=== PATIENT | male | born 1950 | race Caucasian/White ===

== ENCOUNTER → 2018-02-04 07:53 | Outpatient (CLI) | payer MEDICARE, SELFPAY | PROVIDERS: Family Provider Internal Medicine; PCP Internal Medicine; Visit Provider Nurse Practitioner Adult Health | DX: R97.20 Elevated prostate specific antigen [PSA] (principal) | CPT/HCPCS: 36415; 84153 ==

== ENCOUNTER → 2018-06-12 11:48 | Outpatient (CLI) | payer MEDICARE, SELFPAY ==
--- NOTE | 2018-06-12 11:51 | CT_ITS ---
STUDY: CT ABDOMEN AND PELVIS WITHOUT CONTRAST REASON FOR EXAM: Male, 67 years old. Left flank pain with hematuria RADIATION DOSAGE (If Supplied By Facility): CTDIvol = ( 11.82 ) mGy, DLP = ( 526.80 ) mGycm TECHNIQUE: Transaxial images were obtained from the dome of the diaphragm to the symphysis pubis without oral contrast, and without intravenous contrast. Sagittal and coronal images were reconstructed. Individualized dose optimization techniques were used for this CT. COMPARISON: None. FINDINGS: There is a calcified granuloma at the right lung base. The visualized portions of the heart are within normal limits. Evaluation of the abdominal viscera is limited in the absence of intravenous contrast. Normal liver. Normal gallbladder and extrahepatic biliary system. Normal spleen. Normal pancreas. Normal bilateral adrenal glands. Normal right kidney. There is a cyst at the superior pole of the left kidney measuring approximately 2.6 cm. There may be some thickening of the cyst wall. Normal visualized stomach. Normal small intestine. There are multiple colonic diverticula consistent with diverticulosis. The appendix is visualized and appears normal. There is mild atherosclerotic calcification of the abdominal aorta. Normal inferior vena cava. Normal retroperitoneum. Normal urinary bladder. There is enlargement of the prostate gland. There are some calcifications within the prostate gland. Postoperative changes are seen within both inguinal regions. There are diffuse degenerative changes of the visualized lumbar spine. CT/Abdomen/Pelvis without Cont IMPRESSION: There is a cyst at the superior pole of the left kidney. There may be some thickening of the cyst wall. This can be further characterized by ultrasound. No hydronephrosis. Prostate hypertrophy. No bowel obstruction. Additional findings, as detailed above. Electronically Signed: Regis Gan DO at 12:19 EDT Tel , Service support ,
== END ==
PROVIDERS: Family Provider Internal Medicine; PCP Internal Medicine; Visit Provider Internal Medicine
DX: R10.9 Unspecified abdominal pain (principal)
CPT/HCPCS: 74176

== ENCOUNTER → 2019-02-11 08:24 | Outpatient (CLI) | payer MEDICARE, SELFPAY | PROVIDERS: Family Provider Internal Medicine; PCP Internal Medicine; Referring Provider Nurse Practitioner Adult Health; Visit Provider Nurse Practitioner Adult Health | DX: R97.20 Elevated prostate specific antigen [PSA] (principal) | CPT/HCPCS: 36415; 84153 ==

== ENCOUNTER → 2019-03-25 | Outpatient (CLI) | payer MEDICARE, SELFPAY ==
--- NOTE | 2019-03-24 | IMM_PTH ---
PATIENT: RAFA FOSS LOC: [facility] U#:[id number] AGE/SX: 68/M ROOM: RE03/25/[address]: Dr. Chadd Barros MD : 1950 BED: DIS: 03/25/2019 SPEC #: [id number] RECD: 03/26/19 14:34 STATUS: SANDRA REQ #: [id number] SHANNAN: 03/24/19 00:[address]: Chadd Barros DEPT: IMMUNOHISTOCHEMISTRY RECD BY: Naomi Casiano ENTERED: 03/26/19 15:01 SP TYPE: IMMUNO OTHR DR: Dr. Marii Martell, Tissues: F - PROSTATE LEFT Procedures: P40 (add) 34BE12 (initial) PHYSICIAN & INSTITUTION [place] [id number] SPECIMEN INFORMATION: Tissue Source: F - Left prostate, base, core biopsy Clinical Info: Elevated PSA Specimen Number: [id number] CPT code: 33885, 20753 METHODOLOGY: Deparaffinized sections of prefer/formalin-fixed tissue or PAP/DQ stained slides are incubated with monoclonal/polyclonal antibodies/oligonucleotide probes. Localization is made via biotin free immunoperoxidase method. Appropriate controls are performed and reacted as expected. Results on target cell population are indicated in the following table: RESULTS: ANTIBODY / CLONE RESULT Block F P40 (BC28) negative 34BE12 (34BE12) negative These tests were developed and their performance characteristics determined by [facility]. They may not have been cleared or approved by the U.S. Food and Drug Administration. The FDA has determined that such clearance or approval is not necessary. INTERPRETATION: F. Left prostate, base, core biopsy: Adenocarcinoma. ALISHA:katie 03/27/19
--- NOTE | 2019-03-24 | PROSBIL_PTH ---
PATIENT: RAFA FOSS LOC: [facility] U#:[id number] AGE/SX: 68/M ROOM: RE03/25/[address]: Dr. Chadd Barros MD : 1950 BED: DIS: 03/25/2019 SPEC #: [id number] RECD: 03/24/19 17:24 STATUS: SANDRA REHeriberto #: [id number] SHANNAN: 03/24/19 00:[address]: Chadd Barros DEPT: SURGICAL PATHOLOGY RECD BY: Everton Rhodes ENTERED: 03/25/19 12:09 SP TYPE: PROST BX CHANCE DR: Dr. Marii Martell DO Tissues: A - PROSTATE RIGHT B - PROSTATE RIGHT C - PROSTATE RIGHT D - PROSTATE LEFT E - PROSTATE LEFT F - PROSTATE LEFT Procedures: PROSTATE BX HEADER OPERATION: Prostate biopsy PRE-OP DIAGNOSIS: Elevated PSA TISSUE SUBMITTED: A - Right apex, B - Right mid, C - Right base, D - Left apex, E - Left mid, F - Left base MICROSCOPIC DIAGNOSIS A. Right prostate, apex, core biopsy: Prostatic tissue, negative for malignancy. Acute and chronic inflammation. B. Right prostate, mid, core biopsy: Prostatic tissue, negative for malignancy. Acute and chronic inflammation. C. Right prostate, base, core biopsy: Prostatic tissue, negative for malignancy. Acute and chronic inflammation. D. Left prostate, apex, core biopsy: Prostatic tissue, negative for malignancy. E. Left prostate, mid, core biopsy: Prostatic tissue, negative for malignancy. F. Left prostate, base, core biopsy: Prostatic adenocarcinoma: Lela grade: 3+3=6 Number of cores involved: 2/2 Proportion of tissue involved: ~15-20% Perineural invasion: Not identified. Greatest tumor length: 0.2 cm Focal high-grade prostatic intraepithelial neoplasia (HGPIN). See comment. SJ:katie 03/26/19 COMMENT F. Immunohistochemistry ([id number]) supports the above diagnosis. MICROSCOPIC DESCRIPTION Slides are reviewed. GROSS DESCRIPTION A - Received is one container designated prostate, right apex. The specimen consists of two elongated fragments of light price-white soft tissue measuring 1 and 2 cm in length and 0.1 cm in diameter. The specimen is totally submitted in one cassette. B - Received is one container designated prostate, right mid. The specimen consists of two elongated fragments of light price-white soft tissue each measuring 1.5 cm in length and 0.1 cm in diameter. The specimen is totally submitted in one cassette. C - Received is one container designated prostate, right base. The specimen consists of two elongated fragments of light price-white soft tissue each measuring 1.5 cm in length and 0.1 cm in diameter. The specimen is totally submitted in one cassette. D - Received is one container designated prostate, left apex. The specimen consists of one elongated fragment of light price-white soft tissue measuring 0.5 cm in length and 0.1 cm in diameter. The specimen is totally submitted in one cassette. E - Received is one container designated prostate, left mid. The specimen consists of three elongated fragments of light price-white soft tissue measuring 0.5 to 1 cm in length and 0.1 cm in diameter. The specimen is totally submitted in one cassette. F - Received is one container designated prostate, left base. The specimen consists of two elongated fragments of light price-white soft tissue each measuring 1.5 cm in length and 0.1 cm in diameter. The specimen is totally submitted in one cassette. / SJ:rg 03/25/19 TC:0 CPT: G0146
== END | disposition home or self-care (01) ==
LOC: LABSPEC 08:03
PROVIDERS: Family Provider Internal Medicine; PCP Internal Medicine; Referring Provider Urology; Visit Provider Urology
DX: R97.20 Elevated prostate specific antigen [PSA] (principal)
CPT/HCPCS: 88305; 88341; 88342; G0416

== ENCOUNTER → 2019-10-04 | Outpatient (CLI) | payer MEDICARE, SELFPAY | END | disposition home or self-care (01) | LOC: LAB 09:29 | PROVIDERS: Family Provider Internal Medicine; PCP Internal Medicine; Referring Provider Urology; Visit Provider Urology | DX: C61 Malignant neoplasm of prostate (principal) | CPT/HCPCS: 36415; 84153 ==

== ENCOUNTER → 2019-10-15 06:57 | Outpatient (CLI) | payer MEDICARE, SELFPAY ==
--- NOTE | 2019-10-15 07:12 | MRI_ITS ---
STUDY: MR PELVIS WITH T WITHOUT CONTRAST REASON FOR EXAM: Male, 68 years old. History of prostate cancer with rising PSA. No treatment. TECHNIQUE: Standardized fat and water weighted pulse sequences were obtained in all 3 orthogonal planes, pre-and post contrast administration. IV Dotarem 15 was administered for the contrast portion of the examination. COMPARISON: None. FINDINGS: The prostate is enlarged measuring 5.5 x 4.3 x 5.4 cm with a volume of 64.5 mL normal seminal vesicles. The peripheral zone demonstrates no evidence of signal abnormality on diffusion-weighted imaging. There is a small area of vague low attenuation in the right on T2-weighted imaging without correlating area on ADC mapping. The transitional zone is enlarged and heterogenous. There are diffuse circumscribed nodules with normal signal intensity on diffusion-weighted imaging vague hypodense areas on ADC mapping suggesting BPH. In the left anterior transition zone there is an area of low signal on T2-weighted imaging which demonstrates increased signal intensity on diffusion-weighted imaging and low signal on ADC mapping suggestive of malignancy. This measures 9 mm in diameter. This is best seen on image 20 of series 5, image 48 of series 7 and image 13 of series 700. The urinary bladder is incompletely distended. Some thickened trabeculated bladder wall. The prostate invaginates into the bladder floor. Normal visualized small intestine. Normal visualized colon. There is no pelvic fluid. There is no pelvic mass lesion or lymphadenopathy. Normal visualized pelvic arteries. Normal osseous structures. Normal abdominal wall. MRI/Pelvis W/WO Contrast IMPRESSION: 1. Focal area in the anterior left transition zone consistent with a PIRADS category 4-high. Clinical significant cancers likely to be present. 2. Evidence of BPH and the transition zone. 3. No evidence of malignancy in the peripheral zone. Electronically Signed: Samuel Emmanuel DO at 23:28 EST Tel [phone], Service support ,
[2019-10-15 07:45] LABS: CREATININE FINGERSTICK 0.9 mg/dL (0.70-1.30); EGFR FINGERSTICK > 60.0000 mL/min (>60)
== END ==
PROVIDERS: Family Provider Internal Medicine; PCP Internal Medicine; Referring Provider Urology; Visit Provider Urology
DX: C61 Malignant neoplasm of prostate (principal); R97.21 Rising PSA following treatment for malignant neoplasm of prostate
CPT/HCPCS: 36415; 72197; 84153; A9575

== ENCOUNTER → 2019-12-02 08:01 | Outpatient (CLI) | payer MEDICARE, SELFPAY ==
--- NOTE | 2019-12-02 | IMM_PTH ---
PATIENT: RAFA FOSS LOC: [facility] U#:[id number] AGE/SX: 74/M ROOM: RE12/02/[address]: Dr. Chadd Barros MD : 1950 BED: DIS: SPEC #: [id number] RECD: 12/04/19 13:28 STATUS: SANDRA REQ #: [id number] SHANNAN: 12/02/19 00:[address]: Chadd Barros DEPT: IMMUNOHISTOCHEMISTRY RECD BY: Naomi Casiano ENTERED: 12/04/19 13:29 SP TYPE: IMMUNO OTHR DR: Dr. Marii Martell DO Tissues: D - PROSTATE LEFT E - PROSTATE LEFT Procedures: 34BE12 (add) P40 (add) 34BE12 (initial) PHYSICIAN & INSTITUTION [place] [address] SPECIMEN INFORMATION: Tissue Source: D - Left prostate, apex, core biopsy, E - Left prostate, mid, core biopsy Clinical Info: Elevated PSA Specimen Number: [id number] D & E CPT code: 03825, 15074 x3 METHODOLOGY: Deparaffinized sections of prefer/formalin-fixed tissue or PAP/DQ stained slides are incubated with monoclonal/polyclonal antibodies/oligonucleotide probes. Localization is made via biotin free immunoperoxidase method. Appropriate controls are performed and reacted as expected. Results on target cell population are indicated in the following table: RESULTS: ANTIBODY / CLONE RESULT Block D P40 (BC28) positive 34BE12 (34BE12) positive Block E P40 (BC28) negative * 34BE12 (34BE12) negative * *?Positive in the area of high-grade prostatic intraepithelial neoplasia (HGPIN). These tests were developed and their performance characteristics determined by [facility]. They may not have been cleared or approved by the U.S. Food and Drug Administration. The FDA has determined that such clearance or approval is not necessary. The above immunohistochemical/dualISH markers are ordered and reviewed by the Pathologist. INTERPRETATION: D. Left prostate, apex, core biopsy: Negative for adenocarcinoma. E. Left prostate, mid, core biopsy: Adenocarcinoma. Focal high-grade prostatic intraepithelial neoplasia (HGPIN). ALISHA:katie 12/05/19
--- NOTE | 2019-12-02 | PROSBIL_PTH ---
PATIENT: RAFA FOSS LOC: [facility] U#:[id number] AGE/SX: 74/M ROOM: RE12/02/[address]: Dr. Chadd Barros MD : 1950 BED: DIS: SPEC #: [id number] RECD: 12/02/19 15:00 STATUS: SANDRA MARIOLA #: [id number] SHANNAN: 12/02/19 00:[address]: Chadd Barros DEPT: SURGICAL PATHOLOGY RECD BY: Ethan Carlton ENTERED: 12/03/19 10:33 SP TYPE: PROST BX CHANCE DR: Dr. Marii Martell DO Tissues: A - PROSTATE RIGHT B - PROSTATE RIGHT C - PROSTATE RIGHT D - PROSTATE LEFT E - PROSTATE LEFT F - PROSTATE LEFT Procedures: PROSTATE BX HEADER OPERATION: Prostate biopsy PRE-OP DIAGNOSIS: Elevated PSA TISSUE SUBMITTED: A - Right apex, B - Right mid, C - Right base, D - Left apex, E - Left mid, F - Left base MICROSCOPIC DIAGNOSIS A. Right prostate, apex, core biopsy: Prostatic tissue, negative for malignancy. Acute and chronic inflammation. B. Right prostate, mid, core biopsy: Prostatic tissue, negative for malignancy. Focal mild chronic inflammation. C. Right prostate, base, core biopsy: Prostatic tissue, negative for malignancy. D. Left prostate, apex, core biopsy: Prostatic tissue, negative for malignancy. See comment. E. Left prostate, mid, core biopsy: Prostatic adenocarcinoma: Lela grade: 3+3=6 Number of cores involved: 1/2 Proportion of tissue involved: <5% Perineural invasion: Not identified. Greatest tumor length: 0.3 cm (discontinuous) Focal high-grade prostatic intraepithelial neoplasia (HGPIN). Focal mild chronic inflammation. See comment. F. Left prostate, base, core biopsy: Prostatic adenocarcinoma: [place] grade: 3+4=7 Number of cores involved: 2/2 Proportion of tissue involved: ~80% Perineural invasion: Not identified. Greatest tumor length: 1.3 cm (discontinuous) ALISHA:katie 12/04/19 COMMENT D & E. Immunohistochemistry ([id number]) supports the above diagnosis. E. Areas of adenocarcinoma is mixed with high grade prostatic intraepithelial neoplasia (HGPIN). F. [place] grade 4 tumor comprise <10% of the total tumor volume. Please make reference to previous specimen ([id number]) left prostate, base, core biopsy with diagnosis of prostatic adenocarcinoma. Case has been reviewed in consultation with Dr. Loaiza who concurs with the above diagnosis. IDC:AM MICROSCOPIC DESCRIPTION Slides are reviewed. GROSS DESCRIPTION A - Received is one container designated prostate, right apex. The specimen consists of two elongated fragments of light price-white soft tissue each measuring 1.5 cm in length and 0.1 cm in diameter. The specimen is totally submitted in one cassette. B - Received is one container designated prostate, right mid. The specimen consists of two elongated fragments of light price-white soft tissue each measuring 1.5 cm in length and 0.1 cm in diameter. The specimen is totally submitted in one cassette. C - Received is one container designated prostate, right base. The specimen consists of one elongated fragment of light price-white soft tissue measuring 1 cm in length and 0.1 cm in diameter. The specimen is totally submitted in one cassette. D - Received is one container designated prostate, left apex. The specimen consists of two elongated fragments of light price-white soft tissue each measuring 1 cm in length and 0.1 cm in diameter. The specimen is totally submitted in one cassette. E - Received is one container designated prostate, left mid. The specimen consists of two elongated fragments of light price-white soft tissue each measuring 2 cm in length and 0.1 cm in diameter. The specimen is totally submitted in one cassette. F - Received is one container designated prostate, left base. The specimen consists of two elongated fragments of light price-white soft tissue each measuring 1.5 cm in length and 0.1 cm in diameter. The specimen is totally submitted in one cassette. / AM:katie 12/03/19 TC:0 [facility]: [id number]
== END ==
PROVIDERS: Family Provider Internal Medicine; PCP Internal Medicine; Referring Provider Urology; Visit Provider Urology
DX: C61 Malignant neoplasm of prostate (principal)
CPT/HCPCS: 88305; 88341; 88342; G0416

== ENCOUNTER 2020-01-21 05:36 | Day surgery (SDC) | payer MEDICARE, SELFPAY ==
[2020-01-12 11:01] VITALS: BP 134/92; PULSE 67; RESP 16; TEMP 36.4; O2SAT 95; BMI 24.8
--- NOTE | 2020-01-12 11:08 | SDCEKG_ITS ---
Test Reason : Blood Pressure : / mmHG Vent. Rate : 062 BPM Atrial Rate : 062 BPM P-R Int : 182 ms QRS Dur : 104 ms QT Int : 414 ms P-R-T Axes : 057 014 047 degrees QTc Int : 420 ms Normal sinus rhythm Normal ECG Confirmed by LUCIA BARRY, MELVIN ([id number]), slot editor MARY WHITE ([id number]) on 01/14/2020 9:19:24 AM Referred By: Chadd Barros Confirmed By:MELVIN MYERS MD
[2020-01-12 11:39] LABS: Hematocrit 45.7 % (40-54); Hemoglobin 15.5 g/dL (13.0-16.5); Mean Corp Hgb Conc 33.9 g/dL (32-36); Mean Corpuscular Hgb 32.8 pg (27.0-32.0); Mean Corpuscular Volume 96.6 fL (80-94); Mean Platelet Vol. 11.1 fl (6.2-12.0); Platelet Count 188 K/mm3 (150-450); RBC Distribution Width CV 12.7 % (11.6-14.6); RBC Distribution Width SD 45.6 fl (35.1-43.9); Red Blood Count 4.73 M/mm3 (4.6-6.2); White Blood Count 6.2 K/mm3 (4.4-11.0)
[2020-01-21] VITALS (13 sets, daily range): BP systolic 99–129; BP diastolic 66–82; PULSE 69–84; RESP 16–18; TEMP 36.3–36.9; O2SAT 94–98; BMI 24.8
[2020-01-21] MEDS: Lactated Ringers 1,000 ML 100 ML IV ×2 (06:46→09:00)
[2020-01-21] MEDS: Lactated Ringers 1,000 ML 30 ML IV (06:50)
--- NOTE | 2020-01-21 07:22 | PCM.DC.URO ---
Discharge Diet: Light diet - advance as tolerated Discharge Activity: Return to Normal Activity Return to work on:: 03/03/20March shower in (days): 1 May resume sexual activity in: 6 weeks Lifting Restrictions: No lifting > 10lbs for 6 weeks Call your doctor if your incision/area has: Continuous Slow Oozing, Sudden Increased Bleeding Call your doctor if you observe: Fever of 101 or Higher, Uncontrolled pain Suture Line Care: Avoid Pulling/Pushing, Avoid Pinching/Bending Catheter: [place] to leg bag, [place] to large bag Drain: Ava Instructions: Radical Prostatectomy Allergies/Adverse Reactions: Allergies No Known Allergies Allergy (Verified 01/21/20 06:23) Medications to take at Discharge Cholecalciferol (Vitamin D3) [Vitamin D3] 4,000 unit PO DAILY 01/12/20 Diphenhydramine HCl [Benadryl Allergy] 25 mg PO DAILY PRN 01/12/20 Ciprofloxacin [Cipro] 500 mg PO BID #20 tab 01/21/20 Docusate Sodium [Colace] 100 mg PO BID #20 cap 01/21/20 Hydrocodone/Acetaminophen [Rush 5-325 Tablet] 1 each PO Q4H PRN PRN 7 Days #14 tablet 01/21/20 The following prescriptions were given: Ciprofloxacin [Cipro] 500 mg PO BID #20 tab Transmission Status: Pending to [facility] Docusate Sodium [Colace] 100 mg PO BID #20 cap Transmission Status: Pending to [facility] Hydrocodone/Acetaminophen [Rush 5-325 Tablet] 1 each PO Q4H PRN PRN 7 Days #14 tablet PRN Reason: Pain Score 1-10/10 Transmission Status: Sent to [facility] Primary Care Physician: Marii Martell DO [Primary Care Provider] - Test Results: Test results from this visit will be discussed in further detail at your follow-up appointment, if applicable. Please Follow Up With: Chadd Barros MD When: please call to make an appointment. Proposed Discharge Date: 01/22/20
--- NOTE | 2020-01-21 07:30 | PROST_PTH ---
PATIENT: RAFA FOSS LOC: [facility] – [place], [place] U#:[id number] AGE/SX: 69/M ROOM: RE01/21/[address]: Dr. Chadd Barros MD : 1950 BED: DIS: 01/22/2020 SPEC #: [id number] RECD: 01/21/20 12:02 STATUS: SANDRA REHeriberto #: [id number] SHANNAN: 01/21/20 07:[address]: Chadd Barros DEPT: SURGICAL PATHOLOGY RECD BY: Arturo Zhong ENTERED: 01/21/20 12:13 SP TYPE: PROSTATE OTHR DR: Dr. Marii Martell, DO Tissues: A - Lymph node, NOS B - Lymph node, NOS C - TISSUE SURGICALLY REMOVED D - Prostate, NOS Procedures: Surgery Specimen Level IV Surgery Specimen Level HEADER OPERATION: Lap robotic assisted radical prostatectomy with nerve monitor PRE-OP DIAGNOSIS: Malignant neoplasm of prostate TISSUE SUBMITTED: A - Left lymph node, B - Right lymph node, C - Fat over prostate, D - Prostate MICROSCOPIC DIAGNOSIS A. Left inguinal lymph node, biopsy: Fibrofatty fibrovascular tissue. No lymphoid tissue identified. B. Right inguinal lymph node, biopsy: Fibrofatty fibrovascular tissue. No lymphoid tissue identified. C. Fat over prostate, biopsy: One benign lymph node. Fibrofatty and fibrovascular tissue. Negative for malignancy. D. Prostate, radical prostatectomy: Adenocarcinoma. See cancer checklist below. AM:katie 01/23/20 COMMENT PROSTATE CANCER (RADICAL) SUMMARY: Procedure: Radical Prostatectomy Prostate Size: 5.5 x 5 x 4 cm Histologic type: Adenocarcinoma Histologic grade: 7 (3+4), group 2 Percent of Pattern 4: 40% Percent of Pattern 5: not identified Intraductal Carcinoma: Not identified Tumor Quantitation: 2 x 1.5 x 0.7 cm Extraprostatic Extension: Not identified Urinary Bladder Neck Invasion: Not identified Seminal Vesicle Invasion: Not identified Lymphovascular Invasion: Not identified Perineural Invasion: Present, frequent Margins: Tumor is present in the distal urethral shave margin Regional Lymph Nodes: See specimens A, B & C Number of lymph nodes involved by carcinoma: 0 Total Number of Lymph Nodes Examined: 1 (see specimen `C') Treatment Effect: Unknown Additional Pathologic Findings: Benign prostatic hyperplasia, chronic inflammation with focal acute inflammation. Focal high-grade prostatic intraepithelial neoplasia. (HGPIN). PATHOLOGIC STAGE: T2 N0 Mx The above summary is in compliance with [employer] [place] [employer] (CAP) Cancer Protocols Checklist and [place] [employer] Committee on Cancer (AJCC), Staging Manual, 8th Ed. There is focal capsular invasion at the left posterior-lateral portion of the gland; however, no capsular penetration is seen. The tumor is confined to the organ. Reference is made to the patient's previous prostate needle core biopsies ([id number]) in which prostatic adenocarcinoma, [place] 3+4 was identified. Case has been reviewed in consultation with Dr. Sehehan who concurs with the above diagnosis. IDC:SJ MICROSCOPIC DESCRIPTION Slides are reviewed. GROSS DESCRIPTION A - Received in fixative is one container labeled with the patient's name and designated left lymph node. The specimen consists of a piece of yellow adipose tissue measuring 3 x 1.5 x 0.3 cm. No obvious lymph node is identified. The specimen is bisected and submitted entirely in one cassette. / : 01/21/20 B - Received in fixative is one container labeled with the patient's name and designated right lymph node. The specimen consists of a piece of yellow adipose tissue measuring 2.5 x 1 x 0.5 cm. No obvious gross lymph node is identified. The specimen is bisected and submitted entirely in one cassette. The specimen will be submitted after additional fixation. / : 01/21/20 C - Received in fixative is one container labeled with the patient's name and designated fat over prostate. The specimen consists of a piece of yellow adipose tissue measuring 4 x 2 x 0.3 cm. A focal indurated area is noted. This indurated area is inked black. The entire specimen is submitted in two cassettes. The indurated area is present in cassette 1. Sections will be submitted after additional fixation. / : 01/21/20 D - Received in fixative is one container labeled with the patient's name and designated prostate. The specimen consists of a radical prostatectomy specimen consisting of prostate and bilateral seminal vesicle and vas deferens. The specimen weighs 51.5 gm. The prostate measures 5 cm craniocaudally, 5.5 cm transversely and 4 cm anterior-posteriorly. The bladder base margin, the ureteral orifice is compressed and showing urethral mucosa about 1.7 cm above the urethral resection margin. The right seminal vesicle measures 4 x 2 x 1 cm and the right vas deferens measures 2.5 cm in length and up to 0.5 cm in diameter. The left seminal vesicle measures 4 x 1.5 x 0.5 cm and left vas deferens measures 3.5 cm in length and 0.5 cm in diameter. The prostate is inked as follows: anterior surface - yellow, posterior surface - black, right lateral surface - blue, left lateral surface - green. The bilateral seminal vesicle and vas deferens are inked as follow: posterior surface, bilateral seminal vesicle and vas deferens - black, anterior surface, right seminal vesicle and vas deferens - green. Sections do not reveal any obvious mass lesion. The mucosal tissue in the proximal urethra is inked black. Lock Maintenance Supervisor sections are submitted in 20 cassettes as follows: 1 - bilateral seminal vesicle and vas deferens, 2??apical (distal urethral) margin, enface, 3 & 4 - bladder base margin, enface, 5 - mucosal tissue at the resection margin of proximal ureter, 6-9 - apical portion prostate, 10-13 - middle portion prostate, 1420??basal portion prostate. / ALISHA:katie 01/22/20 TC:0 CPT: 85013, 03507 x3
[2020-01-21] MEDS: Cefazolin 2 GM in 0.9% Normal Saline 100 ML IV (07:35)
[2020-01-21] MEDS: Bupivacaine Mpf 0.5% 30 ML VIAL (10:45)
--- NOTE | 2020-01-21 10:57 | OP.PCM_ITS ---
Report of Operation Date of Procedure: 01/21/20 Pre-Operative Diagnosis: Prostate cancer Post-Operative Diagnosis: Same Surgery/Procedure Performed:: Laparoscopic robotic assisted radical prostatectomy, bilateral lymph node dissection, suture suspension of the urethra. Description of Surgical Findings:: 69-year-old male who was found to have Merrill 7 prostate cancer involving the left side of the prostate high-volume disease. Because of this we talked about the management options including radiation therapy radical prostatectomy. We talked about the side effects with radiation therapy and the side effects associated with radical prostatectomy expected outcomes. He is elected to undergo surgery. 69-year-old male was taken back to the operating room after smooth induction of general anesthesia he was placed supine on the table. He was then placed in dorsolithotomy position. The abdomen was shaved prepped and draped in usual fashion. Placed a Ruiz catheter into the bladder. I then infiltrated the umbilicus with lidocaine. Make a small incision. And advanced the Veress needle into the peritoneal cavity insufflated the peritoneal cavity CO2 gas. I then placed my camera trocar right upper trocar left arm trocar and second left arm trocar, air seal port and front office assistant suction port. We then docked the robot. For started dissection below the bladder dissected until I identified the vas deferens and seminal vesicles and then dissected underneath the prostate freeing up the fascia and Denonvilliers' fascia was freed up from the posterior aspect of the prostate. We then pulled back out of the prostate area and freed up the seminal vesicle and vas deferens and the left and right side freed these up transected the vas deferens and freed up the seminal vesicles completely had very large seminal vesicles. We then pulled out of the pelvis we drop the bladder created the space of Retzius pulled the bladder on traction with the fourth arm I then freed up the endopelvic fascia on the right side of the prostate all the way up the apex and then the endopelvic fascia in the left side of the prostate all the way up the apex we then transected to the dorsal vein complex placed a stitch to the dorsal vein complex came back to the bladder neck dissected the bladder off the prostate we found a very large median lobe had to make a very wide open dissection of the bladder. I then freed up the fascia on the right lateral side of the prostate retracted prostate laterally came through the prostate pedicles with clips. Then freed up the neurovascular bundle off the posterior aspect of the right side the prostate all the way to the apex. Then went to the left side freed up the fascia over the prostate and the left side came through the pedicles with clips and release the neurovascular bundle on the left side all the way to the apex we then transected the dorsal vein complex and transected to the urethra place an extra stitch in the dorsal vein complex to control bleeding. I then transected the posterior aspect of the urethra and the prostate was free put an Endo Catch bag. We then reconstructed the bladder neck closing the bladder neck from the 6:00 to the 12:00 until there was only a pink finger size opening in the bladder. We then performed an anastomosis and suspended the urethra from the bladder neck to the to the reconstructed bladder neck using 30V lock stitches. Once this was completed. Then we turned our attention to the right lateral wall performed a dissection of the lymph nodes in the right pelvic lymph nodes and the linderman operator space. We went to the left lateral wall completed the lymph dissection the left side and sent off these tissue as lymph node dissection. After this was all completed we then extracted the prostate through the air seal port close the air seal port removed all other ports in direct visualization patient acetic was reversed taken back to PACU in good condition. Very little blood loss during the case and all the needles and sponges were accounted for. Type of Anesthesia:: General Drains: ruiz - Admit VTE Documentation VTE Present on Admission: No VTE Mechan Device Prophylaxis: SCD's
[2020-01-21] MEDS: Ketorolac 15 MG/ML Vial IV ×3 (13:12→23:10)
[2020-01-21] MEDS: 0.45% Normal Saline 1,000 ML 75 ML IV (13:12)
[2020-01-21] MEDS: Acetaminophen 500 MG Tablet PO ×2 (16:52→21:35)
[2020-01-21] MEDS: Ciprofloxacin 500 MG Tablet PO (21:35)
[2020-01-21] MEDS: Docusate Sodium 100 MG Capsule PO (21:35)
[2020-01-21] MEDS: 0.9% Saline Lock 10 ML Syringe IV (23:10)
[2020-01-22] MEDS: 0.45% Normal Saline 1,000 ML 75 ML IV (01:43)
[2020-01-22] MEDS: Acetaminophen 500 MG Tablet PO ×2 (01:47→08:06)
[2020-01-22] MEDS: 0.9% Saline Lock 10 ML Syringe IV (01:48)
[2020-01-22 01:53] VITALS: BP 109/65; PULSE 73; RESP 16; TEMP 36.8; O2SAT 93
[2020-01-22] MEDS: Ketorolac 15 MG/ML Vial IV ×2 (05:17→11:08)
[2020-01-22] MEDS: Enoxaparin 40 MG/0.4 ML Syringe SC (05:17)
[2020-01-22 06:27] LABS: Hematocrit 38.4 % (40-54); Hemoglobin 12.6 g/dL (13.0-16.5); Mean Corp Hgb Conc 32.8 g/dL (32-36); Mean Corpuscular Hgb 31.7 pg (27.0-32.0); Mean Corpuscular Volume 96.5 fL (80-94); Mean Platelet Vol. 10.9 fl (6.2-12.0); Platelet Count 150 K/mm3 (150-450); RBC Distribution Width CV 13.1 % (11.6-14.6); RBC Distribution Width SD 46.3 fl (35.1-43.9); Red Blood Count 3.98 M/mm3 (4.6-6.2); White Blood Count 11.2 K/mm3 (4.4-11.0)
[2020-01-22 06:48] LABS: Anion Gap 5 (5-15); BUN 14 mg/dL (7-18); BUN/Creat Ratio 13.3 RATIO (10-20); Calcium,Total 8.2 mg/dL (8.5-10.1); Chloride 109 mmol/L (98-107); Creatinine, Serum 1.05 mg/dL (0.70-1.30); EST Glomerular Filtration Rate 75 mL/min (>60); Est Glom Filt Rate - Afr Amer 90 mL/min (>60); Estimated Creatinine Clearance 71.71 ml/min; Glucose 90 mg/dL (74-106); Sodium Level 140 mmol/L (136-145)
[2020-01-22 07:15] VITALS: O2SAT 94
[2020-01-22 07:53] VITALS: BP 104/64; PULSE 69; RESP 16; TEMP 36.4; O2SAT 95
[2020-01-22] MEDS: Ciprofloxacin 500 MG Tablet PO (09:08)
[2020-01-22] MEDS: Pantoprazole Sodium 20 MG Tablet PO (09:09)
[2020-01-22] MEDS: Docusate Sodium 100 MG Capsule PO (09:09)
[2020-01-22] MEDS: Magnesium Hydroxide 30 ML UDC 15 ML PO (09:09)
--- NOTE | 2020-01-22 10:25 | PHA.DC.MC ---
Pharmacy Service has performed discharge medication reconciliation and counseling for this patient. 1. CIPROFLOXACIN 500MG PO BID X 10 DAYS 2. DOCUSATE 100MG PO BID X 10 DAYS 3. NORCO 5/325MG 1T PO Q4H PRN PAIN X 7 DAYS The patient's discharge medication list was reviewed for discrepancies and discrepancies were resolved. Home Medications Cholecalciferol (Vitamin D3) [Vitamin D3] 4,000 unit PO DAILY 01/12/20 Diphenhydramine HCl [Benadryl Allergy] 25 mg PO DAILY PRN 01/12/20 Ciprofloxacin [Cipro] 500 mg PO BID #20 tab 01/21/20 Docusate Sodium [Colace] 100 mg PO BID #20 cap 01/21/20 Hydrocodone/Acetaminophen [Waymart 5-325 Tablet] 1 ea PO Q4H PRN PRN 7 Days #14 tab 01/21/20 The patient was counseled on the following discharge medications and changes in medications for homegoing were reviewed. The Reason for Use, instructions for use, and potential side effects were reviewed for all new medications. The patient's questions regarding all of their medications were answered. The patient was able to verbally demonstrate an understanding of their discharge medications.
[2020-01-22 11:06] VITALS: BP 123/64; PULSE 73; RESP 16; TEMP 36.4; O2SAT 96
== END 2020-01-22 07:28 | disposition home or self-care (01) ==
LOC: SDC 05:37 → AC 05:38 → MS2 01-22 07:25 → PCU 01-22 07:25
PROVIDERS: Anesthesiology; PCP Internal Medicine; Referring Provider Urology; Visit Provider Urology
PROC: 0VT04ZZ Resection of Prostate, Percutaneous Endoscopic Approach (ICD-10-PCS; CPT 55866; principal; 2020-01-21 07:10)
DX: C61 Malignant neoplasm of prostate (principal)
CPT/HCPCS: 00865; 55866; S2900; 36415; 80048; 85027; 86850; 86900; 86901; 88305; 88309; 93005; 94762; 99251; J7120; A4216; G0463; J2405

== ENCOUNTER → 2020-03-15 09:28 | Outpatient (CLI) | payer MEDICARE, SELFPAY ==
[2020-01-21 12:55] VITALS: BMI 24.8
[2020-03-15 11:06] LABS: PSA,Total- Diagnostic < 0.01 ng/mL (0.0-4.0)
== END ==
PROVIDERS: PCP Internal Medicine; Referring Provider Urology; Visit Provider Urology
DX: Z48.816 Encounter for surgical aftercare following surgery on the genitourinary system (principal); C61 Malignant neoplasm of prostate
CPT/HCPCS: 36415; 84153

== ENCOUNTER → 2020-06-14 09:42 | Outpatient (CLI) | payer MEDICARE, SELFPAY ==
[2020-01-21 12:55] VITALS: BMI 24.8
[2020-06-14 10:54] LABS: PSA,Total- Diagnostic 0.04 ng/mL (0.0-4.0)
== END ==
PROVIDERS: PCP Internal Medicine; Referring Provider Urology; Visit Provider Urology
DX: C61 Malignant neoplasm of prostate (principal)
CPT/HCPCS: 36415; 84153

== ENCOUNTER → 2020-11-17 08:09 | Outpatient (CLI) | payer MEDICARE, SELFPAY ==
[2020-01-21 12:55] VITALS: BMI 24.8
--- NOTE | 2020-11-17 08:17 | BD_ITS ---
STUDY: DUAL ENERGY X-RAY ABSORPTIOMETRY / DXA REASON FOR EXAM: Male, 70 years old. EZE OF 2.25 INCHES -- DOES MODERATE AMOUNT OF EXERCISE -- HX OF L4 AND L5 COMPRESSION FX''S ACCORDING TO PREVIOUS XRAYS TECHNIQUE: Bone Mineral Density (BMD) measurements of lumbar spine and bilateral hips were obtained. COMPARISON: Comparison is made with prior study dated 09/27/2017. FINDINGS: Lumbar Spine (L1-L4): g/cm2 (1.185) / T-score (-0.2) / Z-score (0.3) Findings are suggestive of normal bone density with a low fracture risk. Left Femur Total: g/cm2 (0.981) / T-score (-0.8) / Z-score (-0.2) Left Femoral Neck: g/cm2 (0.928) / T-score (-1.1) / Z-score (0.1) Right Femur Total: g/cm2 (0.920) / T-score (-1.3) / Z-score (-0.6) Right Femoral Neck: g/cm2 (0.860) / T-score (-1.6) / Z-score (0.4) The T-Scores on the most recent prior examination were: Lumbar Spine (L1-L4): There has been improvement of bone density since the previous examination. Left Femur Total: which represents a worsening of 2.9%. Right Femur Total: which represents an improvement of 0.7%. BD/Dexa Bone Density Study IMPRESSION: The patient is considered osteopenic as outlined below according to World Alfredo Organization (WHO) criteria with a moderate fracture risk. There has been improvement of bone density since the previous examination. Reference Information: The T-score is the number of standard deviations above or below the standard which is normal for young adults at their peak bone mineral density. The World Health Organization (WHO) interprets the T-scores as follows: Above -1 Normal bone density Between -1 and -2.5 Osteopenia Equal to / or below -2.5 Osteoporosis As a practical clinical guideline, osteopenia may be graded as follows: Mild -1 through -1.5 Moderate -1.6 through -2.0 Severe -2.1 through -2.4 The Z-score is the number of standard deviations above or below age-matched controls. A Z-score of less than -1.5 would be considered abnormal. References: 1. NIH Osteoporosis and Related Bone Diseases www osteo.org 2. International Society for Clinical Densitometry www iscd.org 3. National Osteoporosis Foundation www nof.org Electronically Signed: Kwasi Rodriguez, at 10:42 EST , Service support ,
== END ==
PROVIDERS: PCP Internal Medicine; Referring Provider Internal Medicine; Visit Provider Internal Medicine
DX: M85.851 Other specified disorders of bone density and structure, right thigh (principal)
CPT/HCPCS: 77080

== ENCOUNTER → 2020-12-16 08:49 | Outpatient (CLI) | payer MEDICARE, SELFPAY ==
[2020-01-21 12:55] VITALS: BMI 24.8
[2020-12-16 10:36] LABS: PSA,Total- Diagnostic 0.17 ng/mL (0.0-4.0)
== END ==
PROVIDERS: PCP Internal Medicine; Referring Provider Urology; Visit Provider Urology
DX: C61 Malignant neoplasm of prostate (principal)
CPT/HCPCS: 36415; 84153

== ENCOUNTER → 2021-03-09 09:57 | Outpatient (CLI) | payer MEDICARE, SELFPAY ==
[2020-01-21 12:55] VITALS: BMI 24.8
[2021-03-09 13:09] LABS: PSA,Total- Diagnostic 0.29 ng/mL (0.0-4.0)
== END ==
PROVIDERS: PCP Internal Medicine; Referring Provider Urology; Visit Provider Urology
DX: R97.21 Rising PSA following treatment for malignant neoplasm of prostate (principal)
CPT/HCPCS: 84153

== ENCOUNTER → 2021-03-29 13:41 | Outpatient (CLI) | payer MEDICARE, SELFPAY ==
[2020-01-21 12:55] VITALS: BMI 24.8
--- NOTE | 2021-03-29 15:00 | PET_ITS ---
EXAMINATION: 18F Fluciclovine PET/CT CLINICAL HISTORY: A 70-year-old male with history of carcinoma of the prostate presenting for restaging examination. COMPARISON EXAMINATION: CT of the pelvis report dated 10/15/19. PROCEDURE: The patient received an intravenous bolus injection of Axumin (fluciclovine F-18) 9.7 mCi, on the imaging table with the patient in the supine position followed by an intravenous normal saline flush. The patient in the supine position with arms above the head, CT scan for attenuation correction was performed immediately following the bolus injection and left up for 1-2 minutes. The PET scan acquisition was begun within 3-5 minutes following injection from mid thigh to the base of the skull. The total scan time was registered between 20-30 minutes. Axumin (fluciclovine F-18) injection is indicated for positron emission tomography PET imaging in men with suspected prostate cancer recurrence based on elevation of the serum prostatic surface antigen (PSA) levels following prior treatment intervention. FINDINGS: Head/Neck: Symmetric radiopharmaceutical concentration is defined in the bilateral parotid and submandibular glands. There is no evidence of abnormal increased tracer concentration within the cranial vault. CHEST: Physiologic tracer uptake appears evident in the proximal-distal esophagus and left ventricular myocardium. There is no evidence of abnormal increased 18-F fluciclovine uptake within the context of the bilateral hemithorax pulmonary parenchyma, right and left hemithorax at the pleural interface and mediastinal structures, right-left thoracic perihilum. Pertinent chest CT findings are as follows. There is atherosclerotic calcification defined in the thoracic aorta without evidence of dilatation-aneurysm formation. Coronary arterial calcification is observed. Bilateral axillary soft tissue densities with fatty hilus are fluciclovine avid. A calcified rounded density noted in the right lower posterolateral lung-right lower lobe demonstrates no evidence of increased radiopharmaceutical concentration. Mediastinal and thoracic perihilar calcified and non-calcified soft tissue demonstrates no evidence of increased tracer uptake. Abdomen/Pelvis: There is no evidence of abnormal increased radiopharmaceutical concentration on review of the abdominal-pelvic retroperitoneum and mesentery. Physiologic tracer uptake is observed in the hepatic and splenic parenchyma, pancreas, right and left kidneys, diffuse intestinal tract, the urinary bladder manifest as pooling in the posterior aspect. Pertinent abdomen and pelvis CT findings are as follows. Atherosclerotic calcification is defined in the abdominal aorta without evidence of aneurysm. Pelvic arterial calcification is observed. Colonic diverticulosis is encountered without evidence of diverticulitis. Postsurgical changes manifest in the right upper abdominal mesentery. Right and left inguinal subcentimeter soft tissue densities are nonglucose avid. Exophytic cyst formation is identified in the inferior pole of the left kidney. Skeletal: Degenerative changes are noted in the cervical, thoracic and lumbar spine without evidence of increased radiopharmaceutical concentration. There is no evidence of sclerotic, mixed sclerotic-lytic and/or lytic changes noted on review of the skeletal structures without evidence of abnormal increased tracer uptake. PET/PET/CT Tumor Base -Thigh Subs IMPRESSION: 1. NEGATIVE EXAMINATION. There is no definitive quantitative scintigraphic evidence of fluciclovine avid viable neoplasm. (Jackeline et al, Journal of Nuclear Medicine 55:1986, 2014). Electronic Signature Jacky Mcpherson D.O. Electronically Signed: Jacky Mcpherson DO at 22:02 EDT Tel , Service support ,
== END ==
PROVIDERS: PCP Internal Medicine; Referring Provider Urology; Visit Provider Urology
DX: C61 Malignant neoplasm of prostate (principal)
CPT/HCPCS: 78815; A9552; A9588

== ENCOUNTER → 2021-04-20 12:31 | Outpatient (CLI) | payer MEDICARE, SELFPAY ==
[2020-01-21 12:55] VITALS: BMI 24.8
[2021-04-20 14:58] LABS: Absolute Lymphocyte Count 2.27 X10^3/uL (0.83-4.51); Basophil# 0.08 X10^3/uL; Basophil% 1.1 % (0-1); Eosinophil# 0.15 X10^3/uL; Eosinophils% 2.1 % (0-5); Hematocrit 45.4 % (40-54); Hemoglobin 14.8 g/dL (13.0-16.5); Lymphocyte # 2.27 X10^3/ul (0.83-4.51); Lymphocyte % 32.2 % (19-41); Mean Corp Hgb Conc 32.6 g/dL (32-36); Mean Corpuscular Hgb 32.1 pg (27.0-32.0); Mean Corpuscular Volume 98.5 fL (80-94); Mean Platelet Vol. 12.5 fl (6.2-12.0); Monocyte# 0.57 X10^3/uL; Monocyte% 8.1 % (0-10); NRBC Flagged by Analyzer 0 % (0-5); Neutrophil # 3.98 X10^3/uL (2.7-7.7); Neutrophil % 56.4 % (47-70); Platelet Count 191 K/mm3 (150-450); RBC Distribution Width CV 13.2 % (11.6-14.6); RBC Distribution Width SD 48.6 fl (35.1-43.9); Red Blood Count 4.61 M/mm3 (4.6-6.2); White Blood Count 7.1 K/mm3 (4.4-11.0)
[2021-04-20 15:19] LABS: Creatinine, Serum 0.98 mg/dL (0.70-1.30); EST Glomerular Filtration Rate 80 mL/min (>60); Est Glom Filt Rate - Afr Amer 97 mL/min (>60)
== END ==
PROVIDERS: PCP Internal Medicine; Referring Provider Radiology Radiation Oncology; Visit Provider Radiology Radiation Oncology
DX: Z01.818 Encounter for other preprocedural examination (principal); C61 Malignant neoplasm of prostate
CPT/HCPCS: 36415; 82565; 84153; 85025

== ENCOUNTER → 2021-04-21 14:11 | Outpatient (CLI) | payer MEDICARE, SELFPAY ==
[2020-01-21 12:55] VITALS: BMI 24.8
--- NOTE | 2021-04-21 14:16 | CT_ITS ---
STUDY: CT ABDOMEN AND PELVIS WITH CONTRAST REASON FOR EXAM: Male, 70 years old. CA PROSTATE RADIATION DOSAGE (If Supplied By Facility): CTDIvol = ( 17.49 ) mGy, DLP = ( 1498.88 ) mGycm TECHNIQUE: Transaxial images were obtained from the dome of the diaphragm to the symphysis pubis without oral contrast. Oral and amp; IV REDICAT and amp; 100ML ISOVUE 300 was administered. Sagittal and coronal images were reconstructed. Individualized dose optimization techniques were used for this CT. COMPARISON: 06/12/2018 FINDINGS: The visualized lung bases are unremarkable. The visualized portions of the heart are within normal limits. Normal liver. The gallbladder is contracted. Normal spleen. Normal pancreas. Normal bilateral adrenal glands. Normal right kidney. 2.5 cm cyst in the upper pole the left kidney. Normal visualized stomach. Normal small intestine. There are multiple colonic diverticula consistent with diverticulosis. The appendix is visualized and appears normal. Normal abdominal aorta. Normal inferior vena cava. Normal retroperitoneum. Normal urinary bladder. Normal abdominal wall. Normal osseous structures. CT/Abdomen/Pelvis WITH Contrast IMPRESSION: No CT evidence metastatic disease. Electronically Signed: Jacky Calero MD at 8:19 EDT Tel , Service support ,
== END ==
LOC: CT 14:15
PROVIDERS: PCP Internal Medicine; Referring Provider Radiology Radiation Oncology; Visit Provider Radiology Radiation Oncology
DX: C61 Malignant neoplasm of prostate (principal)
CPT/HCPCS: 74177

== ENCOUNTER → 2021-05-19 10:10 | Outpatient (CLI) | payer MEDICARE, SELFPAY ==
[2020-01-21 12:55] VITALS: BMI 24.8
[2021-05-19 11:59] LABS: Absolute Lymphocyte Count 1.73 X10^3/uL (0.83-4.51); Absolute Neutrophil Count 2.9 X10^3/uL (2.0-7.7); Basophil% 1.8 % (0-1); Eosinophil# 0.31 X10^3/uL; Eosinophils% 5.5 % (0-5); Hematocrit 45.2 % (40-54); Hemoglobin 15.1 g/dL (13.0-16.5); Lymphocyte # 1.73 X10^3/ul (0.83-4.51); Lymphocyte % 30.6 % (19-41); Mean Corp Hgb Conc 33.4 g/dL (32-36); Mean Corpuscular Hgb 32.3 pg (27.0-32.0); Mean Corpuscular Volume 96.6 fL (80-94); Mean Platelet Vol. 12.2 fl (6.2-12.0); Monocyte# 0.61 X10^3/uL; Monocyte% 10.8 % (0-10); NRBC Flagged by Analyzer 0 % (0-5); Neutrophil # 2.89 X10^3/uL (2.7-7.7); Neutrophil % 51.1 % (47-70); Platelet Count 168 K/mm3 (150-450); RBC Distribution Width CV 12.9 % (11.6-14.6); RBC Distribution Width SD 46.3 fl (35.1-43.9); Red Blood Count 4.68 M/mm3 (4.6-6.2); White Blood Count 5.7 K/mm3 (4.4-11.0)
== END ==
PROVIDERS: PCP Internal Medicine; Referring Provider Radiology Radiation Oncology; Visit Provider Radiology Radiation Oncology
DX: C61 Malignant neoplasm of prostate (principal)
CPT/HCPCS: 36415; 85025

== ENCOUNTER → 2021-06-09 10:01 | Outpatient (CLI) | payer MEDICARE, SELFPAY ==
[2020-01-21 12:55] VITALS: BMI 24.8
[2021-06-09 12:19] LABS: Absolute Lymphocyte Count 1.37 X10^3/uL (0.83-4.51); Basophil# 0.12 X10^3/uL; Basophil% 1.6 % (0-1); Eosinophil# 0.19 X10^3/uL; Eosinophils% 2.6 % (0-5); Hematocrit 42.1 % (40-54); Hemoglobin 13.9 g/dL (13.0-16.5); Lymphocyte # 1.37 X10^3/ul (0.83-4.51); Lymphocyte % 18.5 % (19-41); Mean Corpuscular Hgb 32.1 pg (27.0-32.0); Mean Corpuscular Volume 97.2 fL (80-94); Mean Platelet Vol. 12.1 fl (6.2-12.0); Monocyte# 0.69 X10^3/uL; Monocyte% 9.3 % (0-10); NRBC Flagged by Analyzer 0 % (0-5); Neutrophil % 67.7 % (47-70); Platelet Count 163 K/mm3 (150-450); RBC Distribution Width CV 12.9 % (11.6-14.6); RBC Distribution Width SD 46.1 fl (35.1-43.9); Red Blood Count 4.33 M/mm3 (4.6-6.2); White Blood Count 7.4 K/mm3 (4.4-11.0)
== END ==
PROVIDERS: PCP Internal Medicine; Referring Provider Radiology Radiation Oncology; Visit Provider Radiology Radiation Oncology
DX: C61 Malignant neoplasm of prostate (principal)
CPT/HCPCS: 36415; 85025

== ENCOUNTER → 2021-09-28 10:24 | Outpatient (CLI) | payer MEDICARE, SELFPAY ==
[2021-09-28 12:47] LABS: PSA,Total- Diagnostic < 0.01 ng/mL (0.0-4.0)
== END ==
PROVIDERS: PCP Internal Medicine; Referring Provider Urology; Visit Provider Urology
DX: C61 Malignant neoplasm of prostate (principal)
CPT/HCPCS: 36415; 84153

== ENCOUNTER → 2022-04-10 | Outpatient (CLI) | payer MEDICARE, SELFPAY ==
[2022-04-10 15:30] LABS: PSA,Total- Diagnostic < 0.01 ng/mL (0.0-4.0)
== END | disposition home or self-care (01) ==
PROVIDERS: PCP Internal Medicine; Referring Provider Urology; Visit Provider Urology
DX: C61 Malignant neoplasm of prostate (principal)
CPT/HCPCS: 36415; 84153

== ENCOUNTER → 2022-10-02 | Outpatient (CLI) | payer MEDICARE, SELFPAY ==
[2022-10-02 13:19] LABS: PSA,Total- Diagnostic 0.02 ng/mL (0.0-4.0)
== END | disposition home or self-care (01) ==
PROVIDERS: PCP Internal Medicine; Referring Provider Registered Nurse; Visit Provider Registered Nurse
DX: C61 Malignant neoplasm of prostate (principal)
CPT/HCPCS: 36415; 84153

== ENCOUNTER → 2022-12-14 | Outpatient (CLI) | payer MEDICARE, SELFPAY ==
--- NOTE | 2022-12-14 13:35 | BD_ITS ---
STUDY: DUAL ENERGY X-RAY ABSORPTIOMETRY / DXA REASON FOR EXAM: Male, 72 years old. M810 TECHNIQUE: Bone Mineral Density (BMD) measurements of lumbar spine and bilateral hips were obtained. COMPARISON: Comparison is made with prior study dated 11/17/2020. FINDINGS: Lumbar Spine (L1-L4): g/cm2 (0.968) / T-score (-0.9) / Z-score (0.0) Findings are suggestive of normal bone density with a low fracture risk. Left Femur Total: g/cm2 (0.926) / T-score (-0.7) / Z-score (0.0) Left Femoral Neck: g/cm2 (0.745) / T-score (-1.4) / Z-score (-0.1) Right Femur Total: g/cm2 (0.873) / T-score (-1.1) / Z-score (-0.4) Right Femoral Neck: g/cm2 (0.698) / T-score (-1.7) / Z-score (-0.5) The T-Scores on the most recent prior examination were: Lumbar Spine (L1-L4): There has been worsening of bone density since the previous examination. Left Femur Total: which represents an improvement of 1.1%. Right Femur Total: which represents an improvement of 1.9%. BD/Dexa Bone Density Study IMPRESSION: The patient is considered osteopenic as outlined below according to World Alfredo Organization (WHO) criteria with a moderate fracture risk. There has been improvement of bone density since the previous examination. Reference Information: The T-score is the number of standard deviations above or below the standard which is normal for young adults at their peak bone mineral density. The World Health Organization (WHO) interprets the T-scores as follows: Above -1 Normal bone density Between -1 and -2.5 Osteopenia Equal to / or below -2.5 Osteoporosis As a practical clinical guideline, osteopenia may be graded as follows: Mild -1 through -1.5 Moderate -1.6 through -2.0 Severe -2.1 through -2.4 The Z-score is the number of standard deviations above or below age-matched controls. A Z-score of less than -1.5 would be considered abnormal. References: 1. NIH Osteoporosis and Related Bone Diseases www osteo.org 2. International Society for Clinical Densitometry www iscd.org 3. National Osteoporosis Foundation www nof.org Electronically Signed: Kwasi Rodriguez MD at 13:06 EST ,
== END | disposition home or self-care (01) ==
LOC: OPBD 13:02
PROVIDERS: PCP Internal Medicine; Visit Provider Internal Medicine
DX: M81.0 Age-related osteoporosis without current pathological fracture (principal); M85.80 Other specified disorders of bone density and structure, unspecified site
CPT/HCPCS: 77080

== ENCOUNTER → 2023-03-28 | Outpatient (CLI) | payer MEDICARE, SELFPAY ==
[2023-03-28 14:34] LABS: PSA,Total- Diagnostic 0.08 ng/mL (0.0-4.0)
== END | disposition home or self-care (01) ==
LOC: LAB 13:11
PROVIDERS: PCP Internal Medicine; Referring Provider Urology; Visit Provider Urology
DX: C61 Malignant neoplasm of prostate (principal)
CPT/HCPCS: 36415; 84153

== ENCOUNTER → 2023-05-22 | Outpatient (CLI) | payer MEDICARE, SELFPAY ==
--- NOTE | 2023-05-22 08:19 | US_ITS ---
STUDY: THYROID ULTRASOUND REASON FOR EXAM: Male, 72 years old. Thyroid nodule TECHNIQUE: Ultrasound evaluation of the thyroid was performed with real-time and static shukla-scale imaging. COMPARISON: None. FINDINGS: RIGHT LOBE: The right lobe of the thyroid gland measures 4.6 x 2.3 x 1.7 cm. There is a homogeneous echotexture. There is a far medially located hypoechoic nodule with a hyperechoic periphery measuring 5.4 x 6.7 x 5.5 mm. LEFT LOBE: The left lobe of the thyroid gland measures 4.1 x 1.7 x 1.3 cm. There is a homogeneous echotexture. There is a round near isoechoic nodule left thyroid measuring 5 x 4 x 4 mm. There is a smaller wider than tall multicystic structure with well-circumscribed borders in the mid to lower thyroid measuring 2.3 x 1.1 mm. ISTHMUS: The isthmus measures 2.1 mm . The regional lymph nodes are normal. US/Head/Neck Soft Tissue IMPRESSION: No comparison images were provided. Small moderately suspicious for tiny calcification. Ti RADS category left thyroid nodule measuring 5 x 4 x 4 mm. Recommend follow-up in 12 months to ensure stability. Hypoechoic benign-appearing mostly cystic structure within the left thyroid which no follow-up is warranted at this time. Partially cystic also partially solid or partially calcified periphery, if this is partially calcified this may be followed into a mildly suspicious category and can be followed in one year. This is versus a somewhat echogenic appearing periphery possibly representing a medially located lymph node. Electronically Signed: Suzanne Bryant MD at 5:21 EDT ,
== END | disposition home or self-care (01) ==
LOC: US 08:18
PROVIDERS: PCP Internal Medicine; Referring Provider Internal Medicine; Visit Provider Internal Medicine
DX: E04.1 Nontoxic single thyroid nodule (principal)
CPT/HCPCS: 76536

== ENCOUNTER → 2023-10-08 | Outpatient (CLI) | payer MEDICARE, SELFPAY ==
[2023-10-08 12:53] LABS: PSA,Total- Diagnostic 0.36 ng/mL (0.0-4.0)
== END | disposition home or self-care (01) ==
PROVIDERS: PCP Internal Medicine; Referring Provider Urology; Visit Provider Urology
DX: C61 Malignant neoplasm of prostate (principal)
CPT/HCPCS: 36415; 84153

== ENCOUNTER → 2023-10-15 | Outpatient (CLI) | payer MEDICARE, SELFPAY ==
[2023-10-16 09:29] LABS: PSA,Total- Diagnostic 0.39 ng/mL (0.0-4.0)
== END | disposition home or self-care (01) ==
LOC: LAB 08:59
PROVIDERS: PCP Internal Medicine; Referring Provider Nurse Practitioner; Visit Provider Nurse Practitioner
DX: R97.21 Rising PSA following treatment for malignant neoplasm of prostate (principal); Z12.5 Encounter for screening for malignant neoplasm of prostate
CPT/HCPCS: 36415; 84153; G0103

== ENCOUNTER → 2023-11-06 | Outpatient (CLI) | payer MEDICARE, SELFPAY ==
--- NOTE | 2023-11-06 09:00 | PET_ITS ---
EXAMINATION: 18 F Pylarify PET-CT HISTORY: A 73-year-old male with history of prostate carcinoma. COMPARISON EXAMINATION: Axumin PET-CT study dated 03/29/21 INDEX LESION SIZE PROMISE SCORE SUV INTERPRETATION Bilateral thoracic perihilum 1 3.07 Quantitative criteria for viable neoplasm are not fulfilled TECHNIQUE: Following the intravenous administration of 9.97 mCi of 18 F Pylarify via the left antecubital fossa, image acquisitions of the head, neck, chest, abdomen and pelvis to the level of the mid thigh at 73 minutes post-tracer distribution reveal: The examination was interpreted using the EANM (Kane et al., Journal of Nuclear Medicine Molecular Imaging 44:1622, 2017) and PROMISE (Amelia et al., Journal of Nuclear Medicine 59:469, 2018) interpretive criteria. HEIGHT: 71 inches. WEIGHT: 170 lbs. PSMA expression score PROMISE criteria: High (3): SUV ? parotid-salivary gland, intermediate (2): SUV ? liver, low (1): > blood pool, < liver, (0): < blood pool. SUV reference values: Parotid glands 22.9. Normal liver parenchyma 8.4. FINDINGS: Head/Neck: Symmetric radiotracer concentration is defined in the bilateral parotid and submandibular glands. There is physiologic tracer activity within the context of the nasal cavity. There is no evidence of abnormal increased radiopharmaceutical concentration within the context of the cranial vault. CHEST: Facilitated uptake is noted in the bilateral thoracic perihilum generating a calculated maximal standard uptake value of 3.07. The PROMISE score is 1. Pertinent chest CT findings are as follows. There is atherosclerotic calcification defined in the thoracic aorta without evidence of dilatation-aneurysm formation. The maximal axial diameter of the thoracic aorta is 41.2-mm. Coronary arterial calcification is observed. Both calcified and non-calcified mediastinal and thoracic perihilar soft tissue is non-glucose avid. A calcified parenchymal density defined in the right lower posterior lung zone is non-tracer avid. Abdomen/Pelvis: Physiologic radiopharmaceutical concentration is otherwise noted in the hepatic and splenic parenchyma, visualized intestinal tract, right and left kidneys, urinary bladder. Review of CT of the abdomen and pelvis reveals the following. Surgical clip placement is defined in the right inguinal region. There is atherosclerotic calcification defined in the abdominal aorta without evidence of dilatation-aneurysm formation. Pelvic arterial calcification is observed. Cyst formation is defined in the left kidney. Occasional colonic diverticula are demonstrated without evidence of diverticulitis. The prostate gland appears surgically absent. SKELETAL: Degenerative changes are noted in the cervical, thoracic and lumbar spine without evidence of increased radiopharmaceutical concentration. PET/PET/CT Tumor Base -Thigh Subs IMPRESSION: 1. NEGATIVE EXAMINATION. There is no definitive quantitative scintigraphic evidence of recurrent/viable neoplasm. 2. Enhanced tracer uptake noted in the bilateral thoracic perihilum do not fulfill quantitative criteria for malignant transformation. (Eiber et al., Journal of Nuclear Medicine 59:469, 2018). 3. Overall compared to the previous approximately PET CT study dated 03/29/2021, there is current absence of defined viable neoplastic disease. Electronic Signature Jacky Mcpherson DO Accurate Quantification of SUVs and standardized PROMISE scores for this report are calculated using the exclusive [employer], ([place]. Patent No. [id number] [phone] [phone] [place] patent [phone] ). Standardization and correction of the FDG SUV metric exclusively available with [employer] intellectual property, allow for vendor non-specific objective quantitative sequential FDG PET-CT comparison and otherwise unobtainable optimization of the sensitivity and specificity of the examination. [email or web address] Electronically Signed: Jacky Mcpherson DO at 8:29 EST ,
== END | disposition home or self-care (01) ==
PROVIDERS: PCP Internal Medicine; Referring Provider Nurse Practitioner; Visit Provider Nurse Practitioner
DX: C61 Malignant neoplasm of prostate (principal)
CPT/HCPCS: 78815; A9595

== ENCOUNTER → 2024-03-04 | Outpatient (CLI) | payer MEDICARE, SELFPAY ==
[2024-03-04 14:44] LABS: PSA,Total- Diagnostic 0.84 ng/mL (0.0-4.0)
== END | disposition home or self-care (01) ==
LOC: BIMLAB 09:56
PROVIDERS: PCP Internal Medicine; Visit Provider Urology
DX: C61 Malignant neoplasm of prostate (principal)
CPT/HCPCS: 36415; 84153

== ENCOUNTER → 2024-06-09 | Outpatient (CLI) | payer MEDICARE, SELFPAY ==
--- NOTE | 2024-06-09 15:01 | ECHOD_ITS ---
Reason For Study: MURMUR Procedure This was a 2D Doppler, Color Flow transthoracic echocardiogram. Exam performed in department. Left Ventricle Normal LV size. The estimated ejection fraction is 60 %. No evidence for diastolic dysfunction. No regional wall motion abnormalities noted. Right Ventricle Normal RV size. Normal systolic function. Atria The left and right atria are normal. No doppler evidence for ASD. Mitral Valve There is no mitral valve stenosis. Mild (1+) eccentric mitral valve insufficiency. Tricuspid Valve There is no tricuspid stenosis. Trivial tricuspid valve insufficiency. Pulmonary artery systolic pressure is 35 mmHg. Aortic Valve Trisinus/trileaflet aortic valve. There is no aortic stenosis. Trivial aortic valve insufficiency. Pulmonic Valve There is no pulmonic valvular stenosis. No pulmonic valve insufficiency. Great Vessels Normal aortic root. Pericardium/Pleural No pericardial effusion. MMode/2D Measurements & Calculations LVIDd: 4.3 cm IVSd: 1.4 cm Ao root diam: 4.0 cm LVIDs: 3.0 cm LVPWd: 1.6 cm RVDd: 3.7 cm FS: 31.0 % LAV(MOD-bp): 52.3 ml LVAd ap4: 30.4 cm2 SV(MOD-sp4): 46.7 ml LAV(MOD-bp) Indexed: 27.2 ml/m2 LVLd ap4: 8.5 cm LAV(MOD-sp2): 61.8 ml EDV(MOD-sp4): 91.6 ml LAV(MOD-sp4): 38.8 ml EDV(sp4-el): 92.4 ml LVAs ap4: 19.4 cm2 LVLs ap4: 7.2 cm ESV(MOD-sp4): 45.0 ml ESV(sp4-el): 44.0 ml EF(MOD-sp4): 50.9 % EF(sp4-el): 52.3 % SV(sp4-el): 48.4 ml LA A4 area: 16.8 cm2 LA dimension(2D): 3.2 cm RA A4 area: 19.2 cm2 Time Measurements MV dec time: 0.17 sec Doppler Measurements & Calculations MV E max lasha: 66.6 cm/sec Lat Peak E' Lasha: 9.5 cm/sec Med Peak E' Lasha: 7.9 cm/sec MV A max lasha: 82.2 cm/sec E/E' lat: 7.0 E/E' med: 8.4 MV E/A: 0.81 MV V2 max: 88.7 cm/sec Ao V2 max: 123.4 cm/sec MV max P.1 mmHg MV dec slope: 417.4 cm/sec2 Ao max P.1 mmHg MV V2 mean: 47.0 cm/sec Ao V2 mean: 80.8 cm/sec MV mean P.0 mmHg Ao mean P.0 mmHg MV V2 VTI: 22.0 cm Ao V2 VTI: 22.5 cm AI max lasha: 410.7 cm/sec PA V2 max: 79.3 cm/sec TR max lasha: 265.6 cm/sec AI max P.5 mmHg PA V2 mean: 52.4 cm/sec TR max P.2 mmHg AI dec slope: 159.4 cm/sec2 AI P1/2t: 754.7 msec ECHO/Echo Complete Interpretation Summary The estimated ejection fraction is 60 %. No evidence for diastolic dysfunction. Mild (1+) eccentric mitral valve insufficiency. Trivial aortic valve insufficiency. Ordering Physician: Marii Martell Referring Physician: Marii Martell Performed By: Anna Marie Slaughter RCS
--- NOTE | 2024-06-09 15:29 | US_ITS ---
STUDY: THYROID ULTRASOUND REASON FOR EXAM: Male, 73 years old. thyroid nodule TECHNIQUE: Ultrasound evaluation of the thyroid was performed with real-time and static shukla-scale imaging. COMPARISON: None. FINDINGS: RIGHT LOBE: The right lobe of the thyroid gland measures 4.5 x 2.1 x 1.3 cm. There is a homogeneous echotexture. Nodule 1:5 x 4 x 5 mm solid hypoechoic wider than tall smoothly marginated nodule with peripheral calcification (TR 4) in the posterior right lobe consistent with an adenoma. LEFT LOBE: The left lobe of the thyroid gland measures 3.7 x 2.1 x 1.5 cm. There is a homogeneous echotexture. Nodule 2:5 x 4 x 4 mm solid hypoechoic wider than tall smoothly marginated nodule with no echogenic foci (TR 4) in the mid left lobe consistent with an adenoma. ISTHMUS: The isthmus measures 2 mm thick. . The regional lymph nodes are normal. US/Thyroid IMPRESSION: Tiny adenomas. Electronically Signed: Jacky Calero MD at 18:10 EDT ,
== END | disposition home or self-care (01) ==
LOC: US 14:57
PROVIDERS: PCP Internal Medicine; Referring Provider Internal Medicine; Visit Provider Internal Medicine
DX: E04.1 Nontoxic single thyroid nodule (principal); R01.1 Cardiac murmur, unspecified
CPT/HCPCS: 76536; 93306

== ENCOUNTER → 2024-06-12 | Outpatient (CLI) | payer MEDICARE, SELFPAY | END | disposition home or self-care (01) | PROVIDERS: PCP Internal Medicine; Referring Provider Internal Medicine; Visit Provider Internal Medicine | DX: G47.10 Hypersomnia, unspecified (principal); R53.83 Other fatigue; R06.83 Snoring | CPT/HCPCS: 95810 ==

== ENCOUNTER → 2024-07-07 | Outpatient (CLI) | payer MEDICARE, SELFPAY ==
[2024-07-07 09:15] LABS: PSA,Total- Diagnostic 1.28 ng/mL (0.0-4.0)
== END | disposition home or self-care (01) ==
PROVIDERS: PCP Internal Medicine; Referring Provider Nurse Practitioner; Visit Provider Nurse Practitioner
DX: C61 Malignant neoplasm of prostate (principal)
CPT/HCPCS: 36415; 84153

== ENCOUNTER → 2024-07-23 | Outpatient (CLI) | payer MEDICARE, SELFPAY | END | disposition home or self-care (01) | PROVIDERS: PCP Internal Medicine; Referring Provider Internal Medicine; Visit Provider Internal Medicine | DX: G47.33 Obstructive sleep apnea (adult) (pediatric) (principal) | CPT/HCPCS: 95811 ==

== ENCOUNTER 2024-11-18 08:00 | Outpatient (RCR) | payer MEDICARE, SELFPAY ==
--- NOTE | 2024-11-11 09:19 | HP.PTEVAL ---
Patient's Visit Information Visit Information Visit Information: RAFA FOSS is a 74 year old M referred to Physical Therapy by Dr. Marii Martell DO with a diagnosis of R LE radiculopathy. Date of Evaluation: 11/11/24 Physical Therapist: Wilber Salazar, PT, ATC Visit Plan Frequency: 1x/Week Duration: 2 Weeks Plan: Pt was issued HEP of piriformis stretching 30 sec x 3. Assess benefit of HEP. Issue and instruct pt on core and R hip strengthening ex's for HEP. Subjective Subjective: Pt reports he has had sciatica for approximately one year. Pt reports the pain originates in his R hip region and extends down his R LE to the knee region. Pt reports the pain has extended lower in the past, but that rarely occurs. Pt reports he notices the pain the most when he is weed eating or when he rides his toppiece chopper for a prolonged period of time. Pt has had no Dx testing at this time. walking on a hard surface tends to decrease his pain. Pt reports no sleep difficulty at this time secondary to pain. Pt reports the only thing that helps to decrease his pain is changing his body positions, like crossing his R leg over his left. Pt is retired at this time. 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 Pt denies any LBP at this time. 5/10 pain in R LE while sitting here at rest, 10/10 pain at worst. Pain R LE: Pain Intensity (Out of 10): 5 Pain Intensity Range: 10 Objective Objective: Neuro: B LE sensation is WNL to light touch. B patellar reflex= 1/3. MMT: 5/5 throughout B LE's. Pt does experience increased thigh pain with R hip flexion, abduction, adduction. ROM: Pt has minimal limitation with L/S extension. All other motions are WNL at this time. Repeated movements: RFIS 10x2 NE. ANAMARIA 10x2 NE. 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 For Medicare and Medicare HMO plans, please review the plan of care and approve it. It will need to be FAXED BACK to us at [phone] for Medicare purposes. For Medicare only, by signing this I certify the plan of care. Please let me know if there are questions or concerns regarding this plan of care. Physician Signature: Date:
--- NOTE | 2024-11-18 08:57 | HP.PTDCSUM ---
Discharge Summary D/C summary: It has been my pleasure to treat RAFA FOSS referred by Dr. Marii Martell DO, with the diagnosis of R LE radiculopathy for a total of 2 visit(s). Discharge Date: Please see the following information for a summary of their discharge status. Subjective Subjective: Pt reports no LBP today. The exercises worked great. Pain R LE: Pain Intensity (Out of 10): 0 Objective Objective/Function: Pt is now I with hep Goals Goal 1:: Pt will be I with HEP of R hip stretching and R hip strengthening ex's Goal Progress: Goal Met Goal 2:: Decrease R LE radiculopathy x 50% to aid with IADL's Goal Progress: Goal Met Plan Plan: Discharge to hep D/C Information d/c sentence: If there are questions or concerns regarding this patient's physical therapy, please feel free to call me at [phone]. Thank you for the referral of this patient. Sincerely, Wilber Salazar, PT, ATC Balance/Gait/Functional tests Balance/Special Test Scores Oswestry Low Back Score: 3
== END 2024-11-18 09:28 | disposition home or self-care (01) ==
LOC: PT 08:00
PROVIDERS: PCP Internal Medicine; Referring Provider Internal Medicine; Visit Provider Internal Medicine
DX: M54.16 Radiculopathy, lumbar region (principal)
CPT/HCPCS: 97110; 97161

== ENCOUNTER → 2025-01-06 | Outpatient (CLI) | payer MEDICARE, SELFPAY ==
[2025-01-06 12:53] LABS: PSA,Total- Diagnostic 1.45 ng/mL (0.0-4.0)
== END | disposition home or self-care (01) ==
LOC: MTLAB 08:53
PROVIDERS: PCP Internal Medicine; Referring Provider Nurse Practitioner; Visit Provider Nurse Practitioner
DX: C61 Malignant neoplasm of prostate (principal)
CPT/HCPCS: 36415; 84153

== ENCOUNTER → 2025-02-02 | Outpatient (CLI) | payer MEDICARE, SELFPAY ==
--- NOTE | 2025-02-02 06:48 | CT_ITS ---
EXAM: CT Angiography Chest Without and With Intravenous Contrast CLINICAL INDICATION: TECHNIQUE: Axial computed tomographic angiography images of the chest without and with intravenous contrast. This CT exam was performed using one or more of the following dose reduction techniques: automated exposure control, adjustment of the mA and/or kV according to patient size, and/or use of iterative reconstruction technique. MIP reconstructed images were created and reviewed. COMPARISON: No relevant prior studies available. FINDINGS: PULMONARY ARTERIES: Unremarkable. No pulmonary embolism. AORTA: Scattered calcified atherosclerotic disease of the aorta. The ascending thoracic aorta measures 4.1 cm in maximum diameter. No aortic dissection. LUNGS AND PLEURAL SPACES: Calcified granuloma of the right lung base. Lung emphysema. 2 mm subpleural nodule of the posterior right lower lobe. No consolidation. No significant effusion. No pneumothorax. HEART: Unremarkable. No cardiomegaly. No significant pericardial effusion. No evidence of RV dysfunction. BONES/JOINTS: No acute fracture. No dislocation. SOFT TISSUES: Unremarkable. LYMPH NODES: Unremarkable. No enlarged lymph nodes. CT/CTA Chest W/WO Contrast IMPRESSION: 1. No pulmonary embolism. 2. Lung emphysema. 3. 2 mm subpleural nodule of the posterior right lower lobe. 4. Continue low-dose CT scan of the chest in 12 months is recommended. Reading Location: [facility]
== END | disposition home or self-care (01) ==
LOC: CT 06:48
PROVIDERS: PCP Internal Medicine; Referring Provider Internal Medicine; Visit Provider Internal Medicine
DX: I71.20 Thoracic aortic aneurysm, without rupture, unspecified (principal)
CPT/HCPCS: 71275; Q9967

== ENCOUNTER → 2025-05-21 | Outpatient (CLI) | payer MEDICARE, SELFPAY ==
--- NOTE | 2025-05-21 13:31 | US_ITS ---
PROCEDURE: THYROID 05/21/2025 REASON FOR EXAM: Thyroid nodule. TECHNIQUE: Multiple images of the thyroid were obtained. COMPARISON: Prior study dated June 09, 2024. FINDINGS: Right thyroid lobe size: 5.1 cm x 1.8 cm 1.7 cm Left thyroid lobe size: 3.7 cm 1.6 cm 1.5 cm Isthmus: 0.2 cm Background parenchymal echotexture is homogeneous. Nodules: . Lobe: Right, Location: Lower pole, Size: 0.5 cm x 0.6 cm x 0.6 cm, Stability: N/A Composition: Solid or almost completely solid (+2) Echogenicity: Hypoechoic (+2) Margin: Smooth (+0) Shape: Wider than tall (+0) Echogenic Foci: Macrocalcification (+1) TI-RADS: 4 . Lobe: Left, Location: Midpole, Size: 0.4 cm x 0.4 cm x 0.4 cm, Stability: Stable Composition: Solid or almost completely solid (+2) Echogenicity: Hypoechoic (+2) Margin: Smooth (+0) Shape: Wider than tall (+0) Echogenic Foci: None (+0) TI-RADS: 4 US/Thyroid IMPRESSION: Stable examination. RECOMMENDATION: Based on most suspicious nodule. Nodule size = largest diameter Only evaluate nodule if =>5 mm. Growth > 20% in 2 dimensions = worsening. Follow up to 4 nodules. Recommend biopsy for no more than 2 nodules. Reading Location: [facility]
== END | disposition home or self-care (01) ==
PROVIDERS: PCP Internal Medicine; Referring Provider Internal Medicine; Visit Provider Internal Medicine
DX: E04.1 Nontoxic single thyroid nodule (principal)
CPT/HCPCS: 76536

== ENCOUNTER → 2025-06-03 | Outpatient (CLI) | payer MEDICARE, SELFPAY ==
--- NOTE | 2025-06-03 09:20 | BD_ITS ---
PROCEDURE: DEXA BONE DENSITY STUDY 06/03/2025 REASON FOR EXAM: M, age 74 y/o . Postmenopausal. TECHNIQUE: DEXA BONE DENSITY STUDY COMPARISON: Prior study dated December 14, 2022. FINDINGS: BMD and T-SCORES Lumbar spine: 0.923 g/cm2, T-score -1.2 Levels: L1 through L4 Change from prior: Loss of 3.6%. Left femoral neck: 0.715 g/cm2, T-score -1.6 Femoral neck comparison data not recommended for monitoring change. Left total hip: 0.999 g/cm2, T-score -0.2 Change from prior: Gain of 7.9%. Right femoral neck: 0.767 g/cm2, T-score -1.2 Femoral neck comparison data not recommended for monitoring change. Right total hip: 0.943 g/cm2, T-score -0.6 Change from prior: Gain of 8.1%. The World Health Organization has defined the following categories based on bone density: Normal bone density: T-score equal to or greater than -1.0 Osteopenia: T-score between -1.0 and -2.5 Osteoporosis: T-score equal to or less than -2.5 The patient does meet the pharmacological treatment recommendations for prevention of osteoporosis. BD/Dexa Bone Density Study IMPRESSION: OSTEOPENIA. Recommend follow-up as clinically warranted. Reading Location: [place] [id number]
== END | disposition home or self-care (01) ==
LOC: OPBD 09:19
PROVIDERS: PCP Internal Medicine; Referring Provider Internal Medicine; Visit Provider Internal Medicine
DX: M85.80 Other specified disorders of bone density and structure, unspecified site (principal); Z78.0 Asymptomatic menopausal state
CPT/HCPCS: 77080

== ENCOUNTER → 2025-07-08 | Outpatient (CLI) | payer MEDICARE, SELFPAY ==
[2025-07-08 15:22] LABS: PSA,Total- Diagnostic 2.64 ng/mL (0.00-4.00)
== END | disposition home or self-care (01) ==
LOC: LAB 13:44
PROVIDERS: PCP Internal Medicine; Referring Provider Nurse Practitioner; Visit Provider Nurse Practitioner
DX: R97.20 Elevated prostate specific antigen [PSA] (principal)
CPT/HCPCS: 36415; 84153

== ENCOUNTER → 2025-07-14 | Outpatient (CLI) | payer MEDICARE, SELFPAY ==
--- NOTE | 2025-07-14 15:37 | MRI_ITS ---
PROCEDURE: SPINE LUMBAR (ROUTINE) 07/14/2025 REASON FOR EXAM: LOW BACK PAIN POTENTIALLY ASSOCIATED WITH RADICULOPATHY TECHNIQUE: SPINE LUMBAR (ROUTINE) COMPARISON: May 15, 2025 x-ray FINDINGS: Vertebrae: Normal vertebral height. No fracture. Alignment: Straightening of the lumbar lordosis. Conus Medullaris: Terminates at T12. No abnormal signal. L1-2: Disc desiccation. Minimal loss of disc height. Mild, diffuse disc bulge. Moderate thickening of ligamentum flavum. Minimal facet hypertrophy. No exit foraminal narrowing. L2-3: Disc desiccation. Moderate loss of disc height. Moderate, diffuse disc osteophyte protrusion. Moderate thickening of ligamentum flavum. Mild facet hypertrophy. There is mild narrowing of the exit foramina but there is fat around the exiting nerve roots. Likely no significant compromise. L3-4: Disc desiccation. Moderate loss of disc height. Moderate, diffuse disc osteophyte protrusion. Axnd-mg-[id number] thickening of ligamentum flavum. Minimal facet hypertrophy. Mild narrowing of the exit foramina mainly from facet disease. Correlate with bilateral L3 radiculopathy. L4-5: Disc desiccation. Moderate loss of disc height. Moderate, diffuse disc osteophyte protrusion. Moderate thickening of ligamentum flavum. Mild facet hypertrophy slightly greater on the left. Narrowing of the exit foramina bilaterally. Correlate with bilateral L4 radiculopathy. L5-S1: Mild disc desiccation. Minimal, diffuse disc bulge. Mild, diffuse disc osteophyte protrusion. Borderline narrowing of the exit foramen on the left related to facets. Correlate with left L5 radiculopathy. MRI/Spine Lumbar (Routine) IMPRESSION: Multilevel degenerative disc disease. Exit foraminal compromise is mild from L 3/4 to L5/S1. Reading Location: [id number]
--- OUTSIDE RECORDS SUMMARY | 2025-07-14 22:29 | XMS RPT_ITS | CCD ---
Author Organization [facility] CliniSymd Care Team Providers Care Environmental Services Technician Name Role Phone Fast, Lars A Unavailable CHANO Atkins Unavailable Unavailable Manchak, Edilia Unavailable Unavailable Long, Caridad L Unavailable Unavailable Unavailable Unavailable Manchak, Edilia Unavailable Unavailable Fast DO, Lars A Unavailable Manchak COLLECTIONS ASSOCIATE, Edilia Unavailable Unavailable Unavailable Unavailable Dr. Gt Barron Unavailable FAST DO, DR COLVIN Primary Care Physician Fast DO, Lars A Unavailable Fast DO, Lars A Attending Unavailable Fast DO, Lars A Referring Unavailable Fast DO, Lars A Consulting Unavailable Fast DO, Lars Nugent Primary Care Provider FAST, LARS A Referring Unavailable FAST, LARS A Primary Care Unavailable Fast DO, Dr. Colvin Primary Care Provider [phone] Fast DO, Dr. Colvin Attending Provider [phone] Fast DO, Dr. Colvin Referring Provider [phone] Addie Park Attending Provider [place] Attending Provider Tessy Hawk Referring Provider Jasbir DO, Dr. Colvin Primary Care Provider [phone] Fast DO, Dr. Colvin Attending Provider [phone] Fast DO, Dr. Colvin Referring Provider Kaye BARRY, Dr. Pederson Attending Provider [phone] Fast DO, Dr. Colvin Primary Care Provider [phone] Fast DO, Dr. Colvin Attending Provider [phone] Fast DO, Dr. Colvin Referring Provider Referred, Self Attending Provider Unavailable Referred, Self Referring Provider Unavailable [place], Tessy Attending Provider [place], Tessy Referring Provider Fast, Lars Primary Care Unavailable [place], Tessy Attending Unavailable [place], Tessy Referring Unavailable Fast, Lars Primary Care Unavailable Fast, Lars Attending Unavailable Fast, Lars Referring Unavailable Fast, Lars Primary Care Unavailable Fast, Lars Attending Unavailable Fast, Lars Referring Unavailable Fast, Lars Primary Care Unavailable Referred, Self Attending Unavailable Referred, Self Referring Unavailable Fast, Lars Primary Care Unavailable Fast, Lars Attending Unavailable Fast, Lars Referring Unavailable Fast, Lars Primary Care Unavailable [place], Tessy Attending Unavailable [place], Tessy Referring Unavailable Andrea CUSTOM DRESSMAKER, Addie Attending Unavailable Fast, Lars Primary Care Unavailable Fast, Lars Referring Unavailable Andrea CUSTOM DRESSMAKER, Addie Attending Unavailable Fast, Lars Primary Care Unavailable Fast, Lars Referring Unavailable Kaye, Azle Attending Unavailable Fast, Lars Primary Care Unavailable Fast, Lars Primary Care Unavailable Fast, Lars Attending Unavailable Fast, Lars Referring Unavailable Fast, Lars Primary Care Unavailable Fast, Lars Attending Unavailable Fast, Lars Referring Unavailable Fast, Lars Primary Care Unavailable Fast, Lars Attending Unavailable Fast, Lars Referring Unavailable Allergies Allergy Classification Reported Allergen(s) Allergy Type Date of Onset Reaction(s) Facility (1 source) ALLERGIES NOT ON FILE; Translations: [ALLERGIES NOT ON FILE] Propensity to adverse reactions (disorder) RUST 2 Repository Medications Current Medications Medication Drug Class(es) Dates Sig (Normalized) Sig (Original) aspirin 81 mg delayed release oral tablet (20 sources) Platelet Aggregation Inhibitor, Nonsteroidal Anti-inflammatory Drug Start: 12-23-2021 Aspi-Cor 81 mg oral delayed release tablet Dose : 81 mg = 1 tab(s), Oral, qDay, 0 Refill(s) Start Date: 12/23/21 Status: Ordered diphenhydrAMINE (20 sources) Histamine-1 Receptor Antagonist Start: 12-26-2021 Benadryl PRN as needed for itching, 0 Refill(s) Start Date: 12/26/21 Status: Ordered Start: 01-12-2020 take 1 tablet by yung th once daily as needed Diphenhydramine Hcl 25 MG tablet Active 25 mg PO DAILY as needed for Allergies January 12, 2020 1:00am take 1-2 capsules by mouth once daily as needed DiphenhydrAMINE HCl 25 MG Oral Capsule 1-2 qd prn allergies (25 MG) Active docusate sodium 100 mg oral capsule (17 sources) Start: 01-21-2020 End: 12-24-2024 take 1 capsule by mouth twice daily as needed Docusate Sodium 100 mg capsule Active 100 mg PO TWICE A DAY as needed December 24, 2024 2:47pm donepezil hydrochloride 5 mg oral tablet (5 sources) Start: 12-24-2024 take 1 mg by mouth once daily Donepezil 5 mg tablet Active mg PO DAILY December 24, 2024 1:00am rosuvastatin 5 mg oral capsule (5 sources) HMG-CoA Reductase Inhibitor Start: 08-25-2024 take 1 tablet by mouth once daily Rosuvastatin 5 mg tablet Active 5 mg PO daily August 25, 2024 12:00am Completed/Discontinued Medications Medication Drug Class(es) Dates Sig (Normalized) Sig (Original) acetaminophen 325 mg / HYDROcodone bitartrate 5 mg oral tablet (12 sources) Opioid Agonist Start: 01-21-2020 End: 01-28-2020 Hydrocodone-Acetami nophen 1 EACH tablet Discontinued 1 NMA PO EVERY 4 HOURS NEEDED as needed for Pain Score 1-10/10 14 7 0 January 21, 2020 January 27, 2020 1:00am January 28, 2020 1:08am Malignant neoplasm of prostate Start: 01-21-2020 End: 01-28-2020 Hydrocodone-Acetaminophen Di scontinued 1 EACH PO EVERY 4 HOURS NEEDED 14 7 January 21, 2020 January 28, 2020 12:08am amoxicillin 875 mg / clavulanate 125 mg oral tablet (14 sources) Penicillin-class Antibacterial Start: 11-29-2021 End: 05-15-2022 take 1 tablet by mouth twice daily Amoxicillin-Pot Clavulanate 875-125 MG Oral Tablet 1 (one) Tablet bid for 0 days Quantity: 20 {Tablet} Refills: 0 Ordered: 15-May-2022 Edilia Aleman CMA Start : 29-Nov-2021 End : 15-May-2022 Inactive cholecalciferol 0.125 mg oral capsule (20 sources) Vitamin D Start: 05-25-2021 take 1 capsule by mouth once daily Vitamin D3 125 MCG (5000 UT) Oral Capsule 1 (one) Capsule qd for 0 days Quantity: 60 {Capsule} Refills: 0 Ordered: 25-May-2021 Fast DO, Lars A Fast DO, Lars A Start : 25-May-2021 Active Comments: 2 extra a week Start: 01-12-2020 take 2 capsules by [facility] once daily Cholecalciferol (Vitamin D3) 2,000 UNIT capsule Active 4000 U PO DAILY January 12, 2020 1:00am supplement Start: 01-12-2020 take 4000 [IU] by mo [facility] once daily Cholecalciferol (Vitamin D3) Active 4000 UNIT PO DAILY January 12, 2020 1:00am Start: 01-16-2018 take 2 tablets by [facility] once daily Vitamin D3 1000 UNIT Oral Capsule 2 (two) Tablet Tablet qd for 0 days Quantity: 60 {Tablet} Refills: 0 Ordered: 21-Jan-2019 CHANO Atkins LPN Start : 16-Jan-2018 Active Start: 01-16-2018 take 2 tablets by [facility] once daily Vitamin D3 2000 UNIT Oral Tablet 2 (two) Tablet Tablet qd for 0 days Quantity: 60 {Tablet} Refills: 0 Ordered: 12-Jun-2018 Edilia Aleman Start : 16-Jan-2018 Active Comment on above: 2 extra a week ciprofloxacin 500 mg oral tablet (12 sources) Quinolone Antimicrobial Start: 01-21-20 20 End: 12-24-19 25 take 1 tablet by mouth twice daily Ciprofloxacin Hcl 500 MG tablet Discontinued 500 mg PO TWICE A DAY 20 0 January 21, 2020 1:00am December 24, 2024 2:46pm doxycycline hyclate 100 mg delayed release oral tablet (20 sources) Tetracycline-class Drug Start: 06-12-20 18 End: 07-31-20 18 take 1 tablet by mouth twice daily Doxycycline Hyclate 100 MG Oral Tablet Delayed Release 1 (one) Tablet Tablet bid for 0 days Quantity: 28 {Tablet} Refills: 0 Ordered: 31-Jul-2018 Edilia Aleman CMA Start : 12-Jun-2018 End : 31-Jul-2018 Inactive No routine meds or vitamins (20 sources) No routine meds or vitamins Inactive tamsulosin hydrochloride 0.4 mg oral capsule (20 sources) alpha-Adrenergic Laina Start: 04-30-20 19 End: 05-19-20 20 take 1 capsule by mouth at bedtime Tamsulosin 0.4 MG capsule Discontinued 0.4 mg PO AT BEDTIME January 12, 2020 1:00am January 21, 2020 8:21am Comment on above: Dr. Conley Problems Active Problems Problem Classification Problem Date Documented Da te Episodic/Chronic Abdominal pain (20 sources) Left flank pain; Translations: [Left flank pain] 07-31-2018 Episodic Comment on above: improved Administrative/social admission (10 sources) Pneumococcal vaccination given; Translations: [Pneumococcal vaccination given] 07-31-2018 Episodic Cancer of prostate (20 sources) Primary malignant neoplasm of prostate; Translations: [Malignant tumor of prostate] Onset: 01-21-2025 04-30-2019 Chronic Comment on above: he is doing well s/p radical prostatectomy and follows with dr Barros he is following with Fiorella presently getting ra diation for slight increase in psa- pet scan neg folloiwup with prodarcy o in april following with mari zaragoza and has follo wup with Dr barros just saw Fiorella they are monitoring his psa every 6 months Cataract (20 sources) Cataract; Translations: [Cataract] 07-31-2018 Chronic Comment on above: jul 27 2017 Conditions associated with dizziness or vertigo (20 sources) Benign paroxysmal positional vertigo; Translations: [Vertigo, benign positional] Resolved: 09-18-2022 05-23-2020 Episodic Comment on above: gave him exercise an d info rfor no further no issues Conditions associated with dizziness or vertigo (20 sources) Conditions associated with dizziness or vertigo Disorders of lipid metabolism (20 sources) Hyperlipidemia; Translations: [Hyperlipidemia] Onset: 12-17-2023 01-21-2019 Chronic Comment on above: get labs work on diet and car diovascular exercise discussed get lab good control- chroni c stable-continue present regimen pretty good control discuss diet and ex in detail discussed diet and e xercise in detail he is close to goal improved improving continue w orking on diet and ex Genitourinary symptoms and ill-defined conditions (2 sources) Proteinuria; Translations: [Proteinuria] 05-16-2023 Episodic Hyperplasia of prostate (20 sources) Benign prostatic hyperplasia; Translations: [BPH with elevated PSA] Resolved: 05-15-2022 01-21-2019 Chronic Comment on above: has followup this mo [facility] with urologist Immunizations and screening for infectious disease (20 sources) Need for prophylactic vaccination and inoculation against influenza; Translations: [Pneumococcal vaccination given] 07-31-2018 Episodic Lymphadenitis (20 sources) Cervical lymphadenopathy; Translations: [Lymphadenopathy, cervical] 01-21-2019 Episodic Comment on above: improved quickly wit h antiobitic Nutritional deficiencies (20 sources) Vitamin D deficiency; Translations: [Vitamin D deficiency] 01-21-2019 Chronic Comment on above: get labs taking 4000 he can g o back to 2000 get lab chronic stable-kenyatta nue present regimen Other bone disease and musculoskeletal deformities (20 sources) Osteopenia; Translations: [Osteopenia] 01-21-2019 Episodic Comment on above: stable due in dec encourage weight carin ring exercise on a more routine basis weight bearing exerc ise and vit d recheck next year Other bone disease and musculoskeletal deformities (1 source) Other specified disorders of bone density and structure, unspecified site; Translations: [Other specified disorders of bone density and structure, unspecified site] Onset: 06-09-2025 Episodic Other circulatory disease (20 sources) Raynaud's disease; Translations: [Raynaud's disease] 07-31-2018 Chronic Other circulatory disease (20 sources) Elevated blood pressure; Translations: [Elevated blood pressure reading] 07-31-2018 Episodic Other hereditary and degenerative nervous system conditions (2 sources) Impaired cognition; Translations: [Mild cognitive impairment] 05-16-2023 Chronic Comment on above: he noticing more sin ce chemo he not feel like want to initiate meds at this point willmonitor Other injuries and conditions due to external causes (20 sources) H/O: vertebral fracture; Translations: [History of compression fracture of spine] 07-31-2018 Episodic Other nervous system disorders (20 sources) Paresthesia; Translations: [Paresthesia] 07-31-2018 Episodic Other nutritional; endocrine; and metabolic disorders (20 sources) Overweight in adulthood with body mass index of 25 or more but less than 30; Translations: [BMI 25.0-25.9,adult] Resolved: 05-16-2023 05-09-2021 Episodic Other screening for suspected conditions (not mental disorders or infectious disease) (20 sources) Viral screening status; Translations: [Blood chemistry abnormal] Onset: 07-13-2025 Resolved: 09-18-2022 07-31-2018 Episodic Comment on above: chronic stable-kenyatta nue present regimen Other skin disorders (20 sources) Eruption; Translations: [Rash] 07-31-2018 Episodic Other skin disorders (20 sources) Mass of foot; Translations: [Mass of foot, right] 01-21-2019 Episodic Comment on above: took pics ok with paola selby and will show Dr Pradhan to see if he needs seen - he has no sx with these think fibroma as aba wed public health social worker and will followup not changing Other upper respiratory disease (20 sources) Allergic rhinitis; Translations: [Allergic rhinitis] Resolved: 01-16-2018 07-03-2018 Chronic Comment on above: we discussed otc opt ions Other upper respiratory infections (20 sources) Sinusitis; Translations: [Sinusitis] 11-29-2021 Chronic Comment on above: he willcall if sympt oms havent resolved and we will ct the area Residual codes; unclassified (6 sources) Obstructive sleep apnea syndrome; Translations: [Obstructive sleep apnea (adult) (pediatric)] 12-24-2024 Chronic Comment on above: AHI 42. BiPAP / Residual codes; unclassified (1 source) Obstructive sleep apnea (adult) (pediatric); Translations: [Obstructive sleep apnea (adult) (pediatric)] Onset: 07-29-2024 Chronic Residual codes; unclassified (20 sources) Needs influenza immunization; Translations: [Need for prophylactic vaccination and inoculation against influenza (Renamed from Need for immunization against influenza)] 10-21-2018 Episodic Residual codes; unclassified (20 sources) Generalized aches and pains; Translations: [Body aches] 07-31-2018 Episodic Comment on above: improved Residual codes; unclassified (20 sources) Body mass index (BMI) 24.0-24.9, adult; Translations: [Body mass index 20-24 - normal] Resolved: 01-08-2023 04-30-2019 Episodic Residual codes; unclassified (10 sources) Requires diphtheria, tetanus and pertussis vaccination; Translations: [Need for Tdap vaccination (Renamed from Need for mulvookqwz-hbhaoyv-z ertussis (Tdap) vaccine, adult/adolescent)] 05-19-2020 Episodic Residual codes; unclassified (20 sources) Non-smoker; Translations: [Nonsmoker] 11-09-2020 Episodic Spondylosis; intervertebral disc disorders; other back problems (20 sources) Low back pain; Translations: [Neck pain] 07-31-2018 Episodic Comment on above: comes and goes monit or doing bettter he is doing well chronic stable-kenyatta nue present regimen doing well overall better HE FEELS like doing well enough he doesnt need more intervention right now Thyroid disorders (3 sources) Thyroid nodule; Translations: [Thyroid nodule] Onset: 05-25-2025 05-16-2023 Chronic Unclassified (20 sources) Nonsmoker; Translations: [Non-smoker] 01-21-2019 Unclassified (20 sources) Unclassified (20 sources) Low back pain potentially associated with radiculopathy Unclassified (20 sources) [facility]LL[facility] EXAM 01-21-2019 Unclassified (20 sources) BMI 25.0-25.9,adult Unclassified (20 sources) Mass of foot, right Unclassified (20 sources) BMI 24.0-24.9, adult; Translations: [Body mass index 20-24 - normal] 04-30-2019 Unclassified (20 sources) Need for Tdap vaccination (Renamed from Need for xwwxhoasdy-sxvvkqq-h ertussis (Tdap) vaccine, adult/adolescent) Unclassified (20 sources) Elevated high sensitivity C-reactive protein Unclassified (1 source) Low back pain, unspecified; Translations: [Low back pain, unspecified] Onset: 07-14-2025 Unclassified (1 source) Thoracic aortic aneurysm, without rupture, unspecified; Translations: [Thoracic aortic aneurysm, without rupture, unspecified] Onset: 02-11-2025 Past or Other Problems Problem Classification Problem Date Documented Da te Episodic/Chronic Other nutritional; endocrine; and metabolic disorders (20 sources) Body mass index 25-29 - overweight; Translations: [BMI 26.0-26.9,adult] Resolved: 04-30-2019 01-21-2019 Chronic Other nutritional; endocrine; and metabolic disorders (20 sources) Body mass index 25-29 - overweight; Translations: [BMI 25.0-25.9,adult] Resolved: 05-15-2022 04-30-2019 Episodic Other screening for suspected conditions (not mental disorders or infectious disease) (10 sources) Elevated C-reactive protein; Translations: [Elevated high sensitivity C-reactive protein] 05-23-2020 Comment on above: cut back on high ani mal fats /cheese dairy red meat chronic stable-kenyatta nue present regimen Unclassified (20 sources) History of compression fracture of spine Unclassified (20 sources) BPH with elevated PSA Unclassified (20 sources) BMI 26.0-26.9,adult Unclassified (20 sources) Encounter for hepatitis C virus screening test for high risk patient; Translations: [Patient encounter status] 01-21-2019 Unclassified (20 sources) Elevated blood pressure reading Unclassified (20 sources) Lymphadenopathy, cervical Unclassified (20 sources) Body aches Unclassified (20 sources) Rash Unclassified (20 sources) Abnormal blood chemistry Unclassified (2 sources) Unspecified Diagnosis 05-25-2021 Unclassified (11 sources) BMI 23.0-23.9, adult Unclassified (9 sources) Screening for colon cancer Results Test Name Value Interpretation Reference Range Facility PSA,Total- [facility] 06-26 PSA, DIAGNOSTIC 2.64 ng/mL Normal 0.00-4.00 [facility] Comment on above: Result Comment: This test was performed using the [facility] [employer] tPSA method. Measured values of a patient??sample can vary depending on the testing procedure used. PSA values determined on patient samples by different testing procedures cannot be used interchangeably. If there is a change in PSA assays while monitoring therapy, sequential testing should be performed to confirm baseline values. Performed By: #### L [phone] #### [facility] [address] [place], [place], [id number] Bone density reportOrdered B y: Kwasi Rodriguez on 06-03-2025 Study report Skeletal system DXA [facility] Imaging Services [address] [place], [place] [id number] Dexa Bone Density Study MR#: [id number] Acct: [id number] Name: RAFA FOSS Rep #: [id number] : 1950 M 74 From: Yomi Rodriguez MD PCP: Dr. Lars Palomares DO Status: REG CLI Study:Dexa Bone Density Study Date of Exam: 06/03/25 Exam# [id number] Ordering Dr: Sofiya Palomares ra, DO PROCEDURE: DEXA BONE DENSITY STUDY 06/03/2025 REASON FOR EXAM: M, age 74 y/o . Postmenopausal. TECHNIQUE: DEXA BONE DENSITY STUDY COMPARISON: Prior study dated December 14, 2022. FINDINGS: BMD and T-SCORES Lumbar spine: 0.923 g/cm2, T-score -1.2 Levels: L1 through L4 Change from prior: Loss of 3.6%. Left femoral neck: 0.715 g/cm2, T-score -1.6 Femoral neck comparison data not recommended for monitoring change. Left total hip: 0.999 g/cm2, T-score -0.2 Change from prior: Gain of 7.9%. Right femoral neck: 0.767 g/cm2, T-score -1.2 Femoral neck comparison data not recommended for monitoring change. Right total hip: 0.943 g/cm2, T-score -0.6 Change from prior: Gain of 8.1%. The World Health Organization has defined the following categories based on bonedensity: Normal bone density: T-score equal to or greater than -1.0 Osteopenia: T-score between -1.0 and -2.5 Osteoporosis: T-score equal to or less than -2.5 The patient does meet the pharmacological treatment recommendations for prevention of osteoporosis. BD/Dexa Bone Density Study IMPRESSION: OSTEOPENIA. Recommend follow-up as clinically warranted. Reading Location: [facility] CC: Dr. Lars Palomares DO ~ Inspector Assembly: Signed [facility] Dexa Bone Density Studyon Dexa Bone Density Study [facility] Imaging Services [address] [place] [id number] Dexa Bone Density Study MR#: [id number] Acct: [id number] Name: PIPORAFA LAWRENCE Rep #: [id number] : 1950 M 74 From: Kwasi swann MD PCP: Dr. Lars Palomares DO Status: REG CLI Study: Dexa Bone Density Study Date of Exam: 06/03/25 Exam# [id number] Ordering Dr: Lars Palomares DO PROCEDURE: DEXA BONE DENSITY STUDY 06/03/2025 REASON FOR EXAM: M, age 74 y/o . Postmenopausal. TECHNIQUE: DEXA BONE DENSITY STUDY COMPARISON: Prior study dated December 14, 2022. FINDINGS: BMD and T-SCORES Lumbar spine: 0.923 g/cm2, T-score -1.2 Levels: L1 through L4 Change from prior: Loss of 3.6%. Left femoral neck: 0.715 g/cm2, T-score -1.6 Femoral neck comparison data not recommended for monitoring change. Left total hip: 0.999 g/cm2, T-score -0.2 Change from prior: Gain of 7.9%. Right femoral neck: 0.767 g/cm2, T-score -1.2 Femoral neck comparison data not recommended for monitoring change. Right total hip: 0.943 g/cm2, T-score -0.6 Change from prior: Gain of 8.1%. The World Health Organization has defined the following categories based on bone density: Normal bone density: T-score equal to or greater than -1.0 Osteopenia: T-score between -1.0 and -2.5 Osteoporosis: T-score equal to or less than -2.5 The patient does meet the pharmacological treatment recommendations for prevention of osteoporosis. BD/Dexa Bone Density Study IMPRESSION: OSTEOPENIA. Recommend follow-up as clinically warranted. Reading Location: [facility] CC: Dr. Lars Palomares DO Inspector Assembly: Signed Normal [facility] Thyroidon 05-21-2025 Thyroid [facility] Imaging Services [address] [place] [id number] Thyroid MR#: [id number] Acct: [id number] Name: RAFA FOSS Rep #: [id number] : 1950 M 74 From: Kwasi swann MD PCP: Dr. Lars Palomares DO Status: REG CLI Study: Thyroid Date of Exam: 05/21/25 Exam# [id number] Ordering Dr: Lars Palomares DO PROCEDURE: THYROID 05/21/2025 REASON FOR EXAM: Thyroid nodule. TECHNIQUE: Multiple images of the thyroid were obtained. COMPARISON: Prior study dated June 09, 2024. FINDINGS: Right thyroid lobe size: 5.1 cm x 1.8 cm 1.7 cm Left thyroid lobe size: 3.7 cm 1.6 cm 1.5 cm Isthmus: 0.2 cm Background parenchymal echotexture is homogeneous. Nodules: . Lobe: Right, Location: Lower pole, Size: 0.5 cm x 0.6 cm x 0.6 cm, Stability: N/A Composition: Solid or almost completely solid (+2) Echogenicity: Hypoechoic (+2) Margin: Smooth (+0) Shape: Wider than tall (+0) Echogenic Foci: Macrocalcification (+1) TI-RADS: 4 . Lobe: Left, Location: Midpole, Size: 0.4 cm x 0.4 cm x 0.4 cm, Stability: Stable Composition: Solid or almost completely solid (+2) Echogenicity: Hypoechoic (+2) Margin: Smooth (+0) Shape: Wider than tall (+0) Echogenic Foci: None (+0) TI-RADS: 4 US/Thyroid IMPRESSION: Stable examination. RECOMMENDATION: Based on most suspicious nodule. Nodule size = largest diameter Only evaluate nodule if =>5 mm. Growth > 20% in 2 dimensions = worsening. Follow up to 4 nodules. Recommend biopsy for no more than 2 nodules. Reading Location: [id number] CC: Dr. Lars Palomares DO Inspector Assembly: Signed Normal [facility] HIP, UNI W/ Pelvis 2-3 Views on 05-15-2025 HIP, UNI W/ Pelvis 2-3 Views [facility] Imaging Services [address] [place] [id number] HIP, UNI W/ Pelvis 2-3 Views MR#: [id number] Acct: [id number] Name: RAFA FOSS Rep #: [id number] : 1950 M 74 From: Shane Lyman MD PCP: Dr. Lars Palomares DO Status: DEP AMB Study: HIP, UNI W/ Pelvis 2-3 Views Date of Exam: Exam# [id number] Ordering Dr: Lars Palomares DO EXAM: XR Right Hip With Pelvis When Performed, 2 or 3 Views CLINICAL INDICATION: LOW BACK INTO RIGHT HIP TECHNIQUE: Two or three views of the right hip with pelvis when performed. COMPARISON: No relevant prior studies available. FINDINGS: BONES/JOINTS: Severe degenerative change of the right hip joint. Mild degenerative changes of the left hip joint. No acute fracture. No dislocation. SOFT TISSUES: Unremarkable. RAD/HIP, UNI W/ Pelvis 2-3 Views IMPRESSION: Degenerative changes as above. Reading Location: [id number] CC: Dr. Lars Palomares DO Inspector Assembly: Signed Normal [facility] L/S Spine Min 4 Viewson 04-27 L/S Spine Min 4 Views [facility] Imaging Services [address] [place] [id number] L/S Spine Min 4 Views MR#: [id number] Acct: [id number] Name: RAFA FOSS Rep #: [id number] : 1950 M 74 From: Shane Lyman MD PCP: Dr. Lars Palomares DO Status: DEP AMB Study: L/S Spine Min 4 Views Date of Exam: 05/15/25 Exam# [id number] Ordering Dr: Lars Palomares DO EXAM: XR Lumbosacral Spine, 4 or 5 Views CLINICAL INDICATION: LOW BACK PAIN POTENTIALLY ASSOCIATED WITH RADICULOPATHY TECHNIQUE: Frontal, lateral and bilateral oblique views of the lumbar spine. COMPARISON: No relevant prior studies available. FINDINGS: VERTEBRAE: Mild vertebral height loss of L5 and L4 vertebral bodies, likely chronic. Moderate endplate degenerative changes, disc disease, facet arthropathy and anterior spurring of L3-S1. No acute fracture. Normal alignment. SACRUM/COCCYX: Unremarkable as visualized. No acute fracture. DISC SPACES: No acute findings. No significant narrowing. SOFT TISSUES: Unremarkable. RAD/L/S Spine Min 4 Views IMPRESSION: 1. Mild vertebral height loss of L5 and L4 vertebral bodies, likely chronic. 2. Degenerative changes as above. Reading Location: [facility] CC: Dr. Lars Palomares DO Inspector Assembly: Signed [facility] CTA Chest W/WO Contraston CTA Chest W/WO Contrast [facility] Imaging Services [address] [place] [place], [place] [address] CTA Chest W/WO Contrast MR#: [id number] Acct: [id number] Name: RAFA FOSS Rep #: [id number] : 1950 M 74 From: Shane Lyman MD PCP: Dr. Lars Palomares DO Status: REG CLI Study: CTA Chest W/WO Contrast Date of Exam: 02/02/25 Exam# [id number] Ordering Dr: Lars Palomares DO EXAM: CT Angiography Chest Without and With Intravenous Contrast CLINICAL INDICATION: TECHNIQUE: Axial computed tomographic angiography images of the chest without and with intravenous contrast. This CT exam was performed using one or more of the following dose reduction techniques: automated exposure control, adjustment of the mA and/or kV according to patient size, and/or use of iterative reconstruction technique. MIP reconstructed images were created and reviewed. COMPARISON: No relevant prior studies available. FINDINGS: PULMONARY ARTERIES: Unremarkable. No pulmonary embolism. AORTA: Scattered calcified atherosclerotic disease of the aorta. The ascending thoracic aorta measures 4.1 cm in maximum diameter. No aortic dissection. LUNGS AND PLEURAL SPACES: Calcified granuloma of the right lung base. Lung emphysema. 2 mm subpleural nodule of the posterior right lower lobe. No consolidation. No significant effusion. No pneumothorax. HEART: Unremarkable. No cardiomegaly. No significant pericardial effusion. No evidence of RV dysfunction. BONES/JOINTS: No acute fracture. No dislocation. SOFT TISSUES: Unremarkable. LYMPH NODES: Unremarkable. No enlarged lymph nodes. CT/CTA Chest W/WO Contrast IMPRESSION: 1. No pulmonary embolism. 2. Lung emphysema. 3. 2 mm subpleural nodule of the posterior right lower lobe. 4. Continue low-dose CT scan of the chest in 12 months is recommended. Reading Location: [facility] CC: Dr. Lars Palomares DO Inspector Assembly: Signed [facility] Diagnostic total prostate sp ecific antigen (PSA) measurementOrdered By: Tessy Hawk on 01-06-2025 Prostate Specific Antigen Total 1.45 ng/mL 0.0-4.0 [facility] Comment on above: This test was perfor med using the TPSA assay method for the[employer] chemistry system. Values obtained with differentassay methods cannot be used interchangably.When changing PSA assays in the course of monitoring apatient, additional sequential testing should be carriedout to confirm baseline values. PSA,Total- Diagnosticon 12-27 PSA, DIAGNOSTIC 1.45 ng/mL Normal 0.0-4.0 [facility] Comment on above: Result Comment: This test was performed using the TPSA assay method for the [employer] chemistry system. Values obtained with different assay methods cannot be used interchangably. When changing PSA assays in the course of monitoring a patient, additional sequential testing should be carried out to confirm baseline values. Performed By: #### L [phone] #### [facility] [address] [place], [address] Pulmonary Visit Reporton Pulmonary Visit Report [facility] [place] [address] [place] [address] OFFICE VISIT Date of Service: 12/24/24 MR#: [id number] Acct: [id number] Name: RAFA FOSS Rep #: [id number] : 1950 Provider: KIARA Andrea Age/Sex: 74/M Location[place] [facility] Status: Signed Assessment and Plan Assessment and Plan (1) Obstructive sleep apnea: Status: Acute Comment: AHI 42. BiPAP 08/01 Plan: He is using and benefiting from Pap therapy. No indication for titration study at this time. Contact the office for any new or worsening symptoms in the meantime. Follow-up in 1 year. HPI HPI Comments Details: This patient presents to the office today for follow-up of his obstructive sleep apnea. He is ambulatory, currently on room air and accompanied today by his . He has not recently been seen in the ED or urgent care for any respiratory illness. He has not required any antibiotics or prednisone for any breathing problems. He denies any difficulty with shortness of breath. He denies any cough, sputum production or hemoptysis. He denies any wheezing, chest tightness, chest pain or palpitations. He also denies any fever, chills or body aches. The patient mitts that he does not necessarily feel more rested when he wakes up in the morning. He denies any difficulty with dry mouth or mask leaks. His notices that he is not as restless when sleeping. She states that she does not have to fight for the covers anymore. The patient is not requiring naps. He is not nodding off to sleep unintentionally. Compliance report for the past 30 days shows 93% compliance with an average use of 6 hours and 19 minutes per night. Current setting is auto BiPAP but programmed at 6/9 cmH2O with 3 cm water pressure support. Residual AHI 3.4 events per hour. Leaks do not appear to be problematic. Intake Vital Signs 08/25/24 07:52 12/24/24 08:19 Height 5 ft 9.5 in 5 ft 9.5 in Weight: 170 lb 177 lb BMI 24.7 25.7 BP 130/82 H 138/84 H Blood Pressure Location Lt brachial Lt brachial Position Sitting Sitting Respiration 18 18 Pulse 69 71 Pulse Source Monitor Monitor Temp 97.6 F L 97.3 F L Temperature Source Oral Temporal Artery Pulse Oximetry (%) 93 96 Oxygen Delivery Method room air room air Intake Visit Reasons: 4 M FU Chief Complaint: FU r/t sleep apnea Business Office Technician Required: No DME Vendor: Bruno Accompanied by: Allergies No Known Allergies Allergy (Verified 12/24/24 13:46) Medications ???Medication ???Instructions ???Recorded ???Confirmed ???Type cholecalciferol (vitamin D3) 50 4,000 unit PO DAILY supplement 01/12/20 12/24/24 History mcg (2,000 unit) capsule diphenhydramine HCl 25 mg tablet 25 mg PO DAILY PRN Allergies 01/12/20 12/24/24 History rosuvastatin 5 mg tablet 5 mg PO QDAY 08/25/24 12/24/24 History docusate sodium 100 mg capsule 100 mg PO BID PRN 12/24/24 History donepezil 5 mg tablet mg PO DAILY 12/24/24 12/24/24 History Have you fallen in the past year?: No PFSH Medical History Prostate CA Surgical History H/O prostatectomy Social History Smoking Status: Never smoker Review of Systems Resp Respiratory: Yes as per HPI Exam Const Constitutional: Positive conversant, cooperative, in no acute respiratory distress, healthy appearing, well developed, well nourished and good hygiene Head Head: Yes normocephalic, Yes atraumatic and No cyanosis of lips/distal nose Eyes Eye: Positive clear conjunctiva; Negative nystagmus or scleral abnormality Ears Ear: Positive hearing normal and external ears normal Nose Nose: Yes external nose normal Mouth Mouth: Positive oral mucosae normal and good dentition Neck Neck: Positive normal visual inspection, full ROM and trachea midline Chest Wall Chest: Positive normal inspection of the chest and symmetric chest movement; Negative increased A/P diameter Resp lung sounds: Positive clear to auscultation, good air exchange, normal expiratory time and normal respiratory effort; Negative diminished lung sounds, wheezes, rhonchi or rales Cardio Cardiac: Positive regular rate, regular rhythm, S1 normal, S2 normal and normal PMI; Negative murmur GI GI: Positive normal to inspection; Negative distended Genitourinary: Positive deferred Musc Musculoskeletal: Positive steady gait and ROM normal; Negative kyphosis or scoliosis Skin Pulmonary Skin Exam: Positive intact; Negative lesion, rash or ulcers Extremities Extremities: No clubbing, No cyanosis and No edema Neuro Neurologic: Yes no focal neuro deficits, Y (more content not included)... [facility] PT D/C Summary (1)on 024 PT D/C Summary (1) [facility] [address] [place] [address] / REHABILITATION SERVICES DISCHARGE SUMMARY MR#: [id number] Acct: [id number] Name: RAFA FOSS Rep #: [id number] : 1950 74 From: Wilber Salazar PT, ATC Referring Dr.: Dr. Lars Palomares DO Status: REG R CR Insurance: [employer] SELF PAY INSURANCE Discharge Summary D/C summary: It has been my pleasure to treat RAFA FOSS referred by Dr. Lars Palomares DO, with the diagnosis of R LE radiculopathy for a total of 2 visit(s). Discharge Date: Please see the following information for a summary of their discharge status. Subjective Subjective: Pt reports no LBP today. The exercises worked great. Pain R LE: Pain Intensity (Out of 10): 0 Objective Objective/Function: Pt is now I with hep Goals Goal 1:: Pt will be I with HEP of R hip stretching and R hip strengthening ex's Goal Progress: Goal Met Goal 2:: Decrease R LE radiculopathy x 50% to aid with IADL's Goal Progress: Goal Met Plan Plan: Discharge to hep D/C Information d/c sentence: If there are questions or concerns regarding this patient's physical therapy, please feel free to call me at [phone]. Thank you for the referral of this patient. Sincerely, Wilber Salazar, PT, ATC Balance/Gait/Functional tests Balance/Special Test Scores Oswestry Low Back Score: 3 11/18/24 0857 CC: Dr. Lars Palomares DO [facility] Signed [facility] Inital Evaluation (1) - PTon 11-11-2024 Inital Evaluation (1) - PT [facility] [address] [place] [address] / REHABILITATION SERVICES INITIAL EVALUATION MR#: [id number] Acct: [id number] Name: RAFA FOSS Rep #: [id number] : 1950 74 From: Wilber Salazar PT, ATC Referring Dr.: Dr. Lars Palomares DO Status: REG R CR Insurance: [employer] SELF PAY INSURANCE Patient's Visit Information Visit Information Visit Information: RAFA FOSS is a 74 year old M referred to Physical Therapy by Dr. Lars Palomares DO with a diagnosis of R LE radiculopathy. Date of Evaluation: 11/11/24 Physical Therapist: Wilber Salazar, PT, ATC Visit Plan Frequency: 1x/Week Duration: 2 Weeks Plan: Pt was issued HEP of piriformis stretching 30 sec x 3. Assess benefit of HEP. Issue and instruct pt on core and R hip strengthening ex's for HEP. Subjective Subjective: Pt reports he has had sciatica for approximately one year. Pt reports the pain originates in his R hip region and extends down his R LE to the knee region. Pt reports the pain has extended lower in the past, but that rarely occurs. 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 Pt has had no Dx testing at this time. walking on a hard surface tends to decrease his pain. Pt reports no sleep difficulty at this time secondary to pain. Pt reports the only thing that helps to decrease his pain is changing his body positions, like crossing his R leg over his left. Pt is retired at this time. 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 Pt denies any LBP at this time. 5/10 pain in R LE while sitting here at rest, 10/10 pain at worst. Pain R LE: Pain Intensity (Out of 10): 5 Pain Intensity Range: 10 Objective Objective: Neuro: B LE sensation is WNL to light touch. B patellar reflex= 1/3. MMT: 5/5 throughout B LE's. Pt does experience increased thigh pain with R hip flexion, abduction, adduction. ROM: Pt has minimal limitation with L/S extension. All other motions are WNL at this time. Repeated movements: RFIS 10x2 NE. ANAMARIA 10x2 NE. 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 For Medicare and Medicare HMO plans, please review the plan of care and approve it. It will need to be FAXED BACK to us at [phone] for Medicare purposes. For Medicare only, by signing this I certify the plan of care. Please let me know if there are questions or concerns regarding this plan of care. Physician Signature: Date: 11/11/24918 CC: Dr. Lars Palomares DO [facility] Signed [facility] Pulmonary Visit Reporton Pulmonary Visit Report [facility] Pulmonary Medicine of [address] [place] [address] OFFICE VISIT Date of Service: 08/25/24 MR#: [id number] Acct: [id number] Name: RAFA FOSS Rep #: [id number] : 1950 Provider: KIARA Andrea Age/Sex: 73/M Location: [facility] Status: Signed Assessment and Plan Assessment and Plan (1) Obstructive sleep apnea: Status: Acute Comment: AHI 42 will treat with BiPAP 07/31 Plan: New. Lengthy discussion about the pathophysiology of obstructive sleep apnea. We discussed the risks of untreated sleep apnea as well as the benefits. We will proceed with BiPap 9/6 cmH2O, initial goal will be to wear PAP at least 4 hours nightly. Ultimately, it should be worn any time spent sleeping. I have encouraged the patient to call the office with any difficulties acclimating to PAP therapy. Follow up in the office in 3 months, at which time I anticipate the patient will be on PAP therapy for 4-6 weeks. Plan Details Follow Up: 3 Months ([facility]) HPI Sleep concern Chief Complaint: Daytime hypersomnia HPI Comments Details: This patient presents to the office today for initial consultation regarding concern for obstructive sleep apnea. He is ambulatory, currently on room air and accompanied today by his . The patient reports that he does snore. Unfortunately, he is not feeling rested when he wakes up in the morning. He is napping every morning for an hour and then naps again for an hour in the afternoon. He does not often sleep unintentionally when sitting still. He is not having difficulty with dry mouth and denies morning headaches. He has about 2 episodes of nocturia each night. Currently he is retired. He works full-time in a career as a [employer]. He has never seen a veterinary medicine doctor. He is a lifelong never smoker. He has never been prescribed an inhaler. Past medical family history significant for: Mother had heart issues and dementia. Father had prostate cancer and hyperlipidemia, also had a heart bypass. He has 2 brothers and they are both dormant and described as being very sedentary in their lives. The patient has no biological children. He denies any difficulty with shortness of breath. He denies any cough, sputum production or hemoptysis. He denies any wheezing, chest tightness, chest pain or palpitations. He also denies any fever, chills or body aches. Current sleep symptoms? snoring, tired/ not rested, naps daily for hour am and again pm. nods off. no dry mouth. no morning headaches. nocturia 2. Work history? Worked in [employer] during day, Pulmonary history? none. never. no inhaler Past medical family history? mom heart issues, dementia. dad prostate cancer, hpl, bypass. 2 brothers, sedintary. no kids. Test results personally reviewed with the patient: Polysomnogram completed on June 12, 2024. Overall AHI is 42.7 events per hour. Impression is severe obstructive sleep apnea. Recommendation is a CPAP titration study. It is noted that the patient did have drops in oxygen and saturation during the sleep test. Titration study completed on July 23, 2024. Impression is well-controlled obstructive sleep apnea with recommendations to treat with BiPAP 9/5 cm of water. Intake Vital Signs 11/17/20 08:14 08/25/24 07:52 Height 5 ft 9.5 in 5 ft 9.5 in Weight: 170 lb BMI 24.7 BP 130/82 H Blood Pressure Location Lt brachial Position Sitting Respiration 18 Pulse 69 Pulse Source Monitor Temp 97.6 F L Temperature Source Oral Pulse Oximetry (%) 93 Oxygen Delivery Method room air Intake Visit Reasons: Sleep problems Chief Complaint: FU r/t sleep apnea DME Vendor: [employer] Accompanied by: Allergies No Known Allergies Allergy (Verified 08/25/24 11:37) Medications ???Medication ???Instructions ???Recorded ???Confirmed ???Type cholecalciferol (vitamin D3) 50 4,000 unit PO DAILY supplement 01/12/20 08/25/24 History mcg (2,000 unit) capsule diphenhydramine HCl 25 mg tablet 25 mg PO DAILY PRN Allergies 01/12/20 08/25/24 History ciprofloxacin HCl 500 mg tablet 500 mg PO BID #20 tabs 01/21/20 08/25/24 Rx docusate sodium 100 mg capsule 100 mg PO BID #20 caps 01/21/20 08/25/24 Rx rosuvastatin 5 mg tablet 5 mg PO QDAY 08/25/24 08/25/24 History Have you fallen in the past year?: No PFSH Medical History (Updated 08/26/24 @ 11:52 by Addie Andrea CUSTOM DRESSMAKER, CUSTOM DRESSMAKER-C) Prostate CA Surgical History (Updated 08/25/24 @ 11:43 by Anabelle Sung) H/O prostatectomy Social History Smoking Status: Never smoker Exam Const Constitutional: Positive conversant, cooperative, in no acute respiratory distress, healthy appearing, well developed, well nourished and good hygiene Head Head: (more content not included)... [facility] Basophil percentageOrdered B y: Chadd Barros on 03-04-2024 Basophil percentage 0.84 ng/mL 0.0-4.0 [facility] Comment on above: This test was perfor med using the TPSA assay method for the[employer] chemistry system. Values obtained with differentassay methods cannot be used interchangably.When changing PSA assays in the course of monitoring apatient, additional sequential testing should be carriedout to confirm baseline values. CT CARDIAC SCORING WO IV CON TRASTon 12-17-2023 CT CARDIAC SCORING WO IV CONTRAST Interpreted By: Jacky Meng, STUDY: CT CARDIAC SCORING WO IV CONTRAST; 12/17/2023 2:32 pm INDICATION: Signs/Symptoms:HYPERLIPIDE CHANTAL. COMPARISON: None. ACCESSION NUMBER(S): [id number] ORDERING CLINICIAN: LARS PALOMARES TECHNIQUE: Using prospective ECG gating, CT scan of the coronary arteries was performed without intravenous contrast. Coronary calcium scoring was performed according to the method of [place]. FINDINGS: The score and distribution of calcium in the coronary arteries is as follows: Left Main Coronary: 0. Left Anterior Descendin.46. Left Circumflex: 0. Right Coronary Artery: 25.91. Total: 185.37. There is bilateral dependent atelectasis. The ascending aorta is aneurysmal measuring up to 4.1 cm in diameter.Calcified atheromatous disease is seen of the aorta. The heart is not enlarged. No pericardial effusion is evident. No hilar or mediastinal lymphadenopathy is evident. Structures in the visualized upper abdomen are grossly unremarkable. IMPRESSION: 1. Coronary artery calcium score of 185.37*. 2. Mildly aneurysmal ascending aorta. *Coronary artery calcium scoring may be helpful in predicting the risk for future coronary heart disease events. According to the [employer] Clinical Expert Consensus Task Force, such testing provides important prognostic information in patients with more than one coronary heart disease risk factor. The coronary artery calcium score correlates with the annual risk of a non-fatal myocardial infarction or coronary heart disease . Coronary artery score Annual Risk 0-99 0.4% 100-399 1.3% >400 2.4% These three breakpoints correspond to lower, intermediate and high risk states for future coronary events. Such information should be used, along with appropriate clinical judgment, to make decisions regarding the intensity of risk factor management strategies to treat blood lipids and to modify other non-lipid coronary risk factors. Reference: Gypsy P et al. Circulation. 2007; 115:402-426 MACRO: None Signed by: Jacky Meng 12/17/2023 4:38 PM Dictation workstation: [id number] [facility] CT for calcium scoring WO co ntrast and CTA W contrast IV Heart and coronary arterieson 12-17-2023 1. Coronary artery c alcium score of 185.37*. 2. Mildly aneurysmal ascending aorta. *Coronary artery calcium scoring may be helpful in predicting the risk for future coronary heart disease events. According to the [employer] Clinical Expert Consensus Task Force, such testing provides important prognostic information in patients with more than one coronary heart disease risk factor. The coronary artery calcium score correlates with the annual risk of a non-fatal myocardial infarction or coronary heart disease . Coronary artery score Annual Risk 0-99 0.4% 100-399 1.3% >400 2.4% These three breakpoints correspond to lower, intermediate and high risk states for future coronary events. Such information should be used, along with appropriate clinical judgment, to make decisions regarding the intensity of risk factor management strategies to treat blood lipids and to modify other non-lipid coronary risk factors. Reference: [place] P et al. Circulation. 2007; 115:402-426 MACRO: None Signed by: Jacky Meng 12/17/2023 4:38 PM Dictation workstation: [id number] [facility] Interpreted By: Jacky Muñoz, STUDY: CT CARDIAC SCORING WO IV CONTRAST; 12/17/2023 2:32 pm INDICATION: Signs/Symptoms:HYPERLIPIDE CHANTAL. COMPARISON: None. ACCESSION NUMBER(S): [id number] ORDERING CLINICIAN: LARS PALOMARES TECHNIQUE: Using prospective ECG gating, CT scan of the coronary arteries was performed without intravenous contrast. Coronary calcium scoring was performed according to the method of [place]. FINDINGS: The score and distribution of calcium in the coronary arteries is as follows: Left Main Coronary: 0. Left Anterior Descendin.46. Left Circumflex: 0. Right Coronary Artery: 25.91. Total: 185.37. There is bilateral dependent atelectasis. The ascending aorta is aneurysmal measuring up to 4.1 cm in diameter.Calcified atheromatous disease is seen of the aorta. The heart is not enlarged. No pericardial effusion is evident. No hilar or mediastinal lymphadenopathy is evident. Structures in the visualized upper abdomen are grossly unremarkable. [facility] Jacky Meng M D - 12/17/2023 Interpreted By: Jacky Meng, STUDY: CT CARDIAC SCORING WO IV CONTRAST; 12/17/2023 2:32 pm INDICATION: Signs/Symptoms:HYPERLIPIDE CHANTAL. COMPARISON: None. ACCESSION NUMBER(S): [id number] ORDERING CLINICIAN: LARS PALOMARES TECHNIQUE: Using prospective ECG gating, CT scan of the coronary arteries was performed without intravenous contrast. Coronary calcium scoring was performed according to the method of [place]. FINDINGS: The score and distribution of calcium in the coronary arteries is as follows: Left Main Coronary: 0. Left Anterior Descendin.46. Left Circumflex: 0. Right Coronary Artery: 25.91. Total: 185.37. There is bilateral dependent atelectasis. The ascending aorta is aneurysmal measuring up to 4.1 cm in diameter.Calcified atheromatous disease is seen of the aorta. The heart is not enlarged. No pericardial effusion is evident. No hilar or mediastinal lymphadenopathy is evident. Structures in the visualized upper abdomen are grossly unremarkable. IMPRESSION: 1. Coronary artery calcium score of 185.37*. 2. Mildly aneurysmal ascending aorta. *Coronary artery calcium scoring may be helpful in predicting the risk for future coronary heart disease events. According to the [employer] Clinical Expert Consensus Task Force, such testing provides important prognostic information in patients with more than one coronary heart disease risk factor. The coronary artery calcium score correlates with the annual risk of a non-fatal myocardial infarction or coronary heart disease . Coronary artery score Annual Risk 0-99 0.4% 100-399 1.3% >400 2.4% These three breakpoints correspond to lower, intermediate and high risk states for future coronary events. Such information should be used, along with appropriate clinical judgment, to make decisions regarding the intensity of risk factor management strategies to treat blood lipids and to modify other non-lipid coronary risk factors. Reference: [place] P et al. Circulation. 2007; 115:402-426 MACRO: None Signed by: Jacky Meng 12/17/2023 4:38 PM Dictation workstation: [id number] [facility] Work Phone: Radiology Study observation (narrative) [facility] Work Phone: CT for calcium scoring WO co ntrast and CTA W contrast IV Heart and coronary arteriesOrdered By: Jacky Meng on 12-17-2023 [facility] Work Phone: No Panel InformationOrdered By: Tessy Hawk on 10-15-2023 Prostate Specific Antigen Total 0.39 ng/mL 0.0-4.0 [facility] Comment on above: This test was perfor med using the TPSA assay method for theDimension chemistry system. Values obtained with differentassay methods cannot be used interchangably.When changing PSA assays in the course of monitoring apatient, additional sequential testing should be carriedout to confirm baseline values. No Panel InformationOrdered By: Chadd Barros on 10-08-2023 Prostate Specific Antigen Total 0.36 ng/mL 0.0-4.0 [facility] Comment on above: This test was perfor med using the TPSA assay method for theNexWave SolutionsmensiMeetyl chemistry system. Values obtained with differentassay methods cannot be used interchangably.When changing PSA assays in the course of monitoring apatient, additional sequential testing should be carriedout to confirm baseline values. CBC, PLATELETS & MANUAL DIFF (36153)Ordered By: Wire Inspector on 05-02-2023 Basophils (Bld) [#/Vol] 0.1 10*3/uL Normal 0.0-0.2 [facility] Work Phone: Comment on above: PATIENT WAS FASTINGP ERFORMED BY: Diet TV6370 [facility] [id number] Basophils/100 WBC (Bld) 2 % Normal [facility]; [facility] Work Phone: Comment on above: PATIENT WAS FASTINGP ERFORMED BY: [employer] [place] [id number] Eosinophils (Bld) [#/Vol] 0.3 10*3/uL Normal 0.0-0.4 [facility]; [facility] Work Phone: Comment on above: PATIENT WAS FASTINGP ERFORMED BY: NileGuideblin [place] [id number] Eosinophils/100 WBC (Bld) 4 % Normal [facility]; [facility] Work Phone: Comment on above: PATIENT WAS FASTINGP ERFORMED BY: ERAN Monsalve6370 [facility] [id number] Erythrocyte distribution width (RBC) [Ratio] 13.2 % Normal 11.6-15.4 [facility]; [facility] Work Phone: Comment on above: PATIENT WAS FASTINGP ERFORMED BY: ERAN [facility] Zakcgu9973 [facility] [id number] Hematocrit (Bld) [Volume fraction] 45.0 % Normal 37.5-51.0 [facility]; [facility] Work Phone: Comment on above: PATIENT WAS FASTINGP ERFORMED BY: [facility] Jymonh0004 [facility] [id number] Hemoglobin (Bld) [Mass/Vol] 15.2 g/dL Normal 13.0-17.7 [facility]; [facility] Work Phone: Comment on above: PATIENT WAS FASTINGP ERFORMED BY: ERAN Arreaga Dfyvuv4413 [facility] [id number] Immature granulocytes (Bld) [#/Vol] 0.0 10*3/uL Normal 0.0-0.1 [facility]; [facility] Work Phone: Comment on above: PATIENT WAS FASTINGP ERFORMED BY: Evonne Zbrpzz5973 [facility] [id number] Immature granulocytes/100 WBC (Bld) 0 % Normal [facility]; [facility] Work Phone: Comment on above: PATIENT WAS FASTINGP ERFORMED BY: ERAN [facility] Gnnesn8680 [facility] [id number] Lymphocytes (Bld) [#/Vol] 1.9 10*3/uL Normal 0.7-3.1 [facility]; [facility] Work Phone: Comment on above: PATIENT WAS FASTINGP ERFORMED BY: ERAN [facility] Eryhte3890 [facility] [id number] Lymphocytes/100 WBC (Bld) 30 % Normal [facility]; [facility] Work Phone: Comment on above: PATIENT WAS FASTINGP ERFORMED BY: ERAN [facility] Trlifa8575 [facility] [id number] MCH (RBC) [Entitic mass] 32.7 pg Normal 26.6-33.0 [facility]; [facility] Work Phone: Comment on above: PATIENT WAS FASTINGP ERFORMED BY: [place] [id number] [facility] [id number] MCHC (RBC) [Mass/Vol] 33.8 g/dL Normal 31.5-35.7 [facility]; [facility] Work Phone: Comment on above: PATIENT WAS FASTINGP ERFORMED BY: ERAN [place] [id number] [facility] [id number] MCV (RBC) [Entitic vol] 97 fL Normal 79-97 [facility]; [facility] Work Phone: Comment on above: PATIENT WAS FASTINGP ERFORMED BY: [facility] Kpengm8989 [facility] [id number] Monocytes (Bld) [#/Vol] 0.6 10*3/uL Normal 0.1-0.9 [facility]; [facility] Work Phone: Comment on above: PATIENT WAS FASTINGP ERFORMED BY: [facility]6370 [facility] [id number] Monocytes/100 WBC (Bld) 10 % Normal [facility]; [facility] Work Phone: Comment on above: PATIENT WAS FASTINGP ERFORMED BY: [facility]ankaUP [facility] System6370 [facility] [id number] Neutrophils (Bld) [#/Vol] 3.5 10*3/uL Normal 1.4-7.0 [facility]; [facility] Work Phone: Comment on above: PATIENT WAS FASTINGP ERFORMED BY: ERAN [facility] Syfntw6152 [address] RoadDublin [place] [id number] Neutrophils/100 WBC (Bld) 54 % Normal [facility]; [facility] Work Phone: Comment on above: PATIENT WAS FASTINGP ERFORMED BY: ERAN [facility] Sqammb2928 [address] RoadDublin [place] [id number] Platelets (Bld) [#/Vol] 183 10*3/uL Normal 150-450 [facility]; [facility] Work Phone: Comment on above: PATIENT WAS FASTINGP ERFORMED BY: CB [facility] Wtbppn7863 [address] RoadDublin [place] [id number] RBC (Bld) [#/Vol] 4.65 10*6/uL Normal 4.14-5.80 [facility] Internal [facility]; [facility] Work Phone: Comment on above: PATIENT WAS FASTINGP ERFORMED BY: ERAN [facility] Sgjwid3843 [address] RoadDublin [place] [id number] WBC (Bld) [#/Vol] 6.5 10*3/uL Normal 3.4-10.8 [facility]; [facility] Work Phone: Comment on above: PATIENT WAS FASTINGP ERFORMED BY: ERAN [facility] Encosd9682 [address] RoadDublin [place] [id number] METABOLIC PANEL, COMPREHENSI VE ([id number])Ordered By: Wire Inspector on 05-02-2023 Albumin [Mass/Vol] 4.5 g/dL Normal 3.7-4.7 [facility]; [facility] Work Phone: Comment on above: PATIENT WAS FASTINGP ERFORMED BY: CB [facility] Uwdgzi9419 [address] RoadDublin [place] [id number] Albumin/Globulin [Mass ratio] 1.8 {ratio} Normal 1.2-2.2 [facility]; [facility] Work Phone: Comment on above: PATIENT WAS FASTINGP ERFORMED BY: CB [facility] Utepss4070 [address] RoadDublin [place] [id number] ALP [Catalytic activity/Vol] 77 U/L Normal 44-121 [facility]; [facility] Work Phone: Comment on above: PATIENT WAS FASTINGP ERFORMED BY: ERAN [facility] Cyxtbv4877 [address] RoadDublin [place] [id number] ALT [Catalytic activity/Vol] 17 U/L Normal 0-44 [facility]; [facility] Work Phone: Comment on above: PATIENT WAS FASTINGP ERFORMED BY: CB [facility] Tjmqiu0581 [address] RoadDublin [place] [id number] AST [Catalytic activity/Vol] 26 U/L Normal 0-40 [facility]; [facility] Work Phone: Comment on above: PATIENT WAS FASTINGP ERFORMED BY: ERAN [facility] Rgcheu8884 [address] RoadDublin [place] [id number] Bilirubin [Mass/Vol] 0.6 mg/dL Normal 0.0-1.2 [facility]; [facility] Work Phone: Comment on above: PATIENT WAS FASTINGP ERFORMED BY: ERAN [facility] Figzoe9193 [address] RoadDublin [place] [id number] Calcium [Mass/Vol] 9.5 mg/dL Normal 8.6-10.2 [facility]; [facility] Work Phone: Comment on above: PATIENT WAS FASTINGP ERFORMED BY: [facility] Cvmmif8023 [address] RoadDublin [place] [id number] Chloride [Moles/Vol] 101 mmol/L Normal 96-106 [facility]; [facility] Work Phone: Comment on above: PATIENT WAS FASTINGP ERFORMED BY: [facility] Gzuqbo2434 [address] RoadDublin [place] [id number] CO2 [Moles/Vol] 23 mmol/L Normal 20-29 [facility] Internal [facility]; [facility] Work Phone: Comment on above: PATIENT WAS FASTINGP ERFORMED BY: [facility] Eailxy6367 [address] RoadDublin [place] [id number] Creatinine [Mass/Vol] 1.00 mg/dL Normal 0.76-1.27 [facility]; [facility] Work Phone: Comment on above: PATIENT WAS FASTINGP ERFORMED BY: ERAN [facility] Ryboqj4458 [facility] [id number] GFR/1.73 sq M.predicted among non-blacks MDRD (S/P/Bld) [Vol rate/Area] 80 mL/min/{1.73_m2} Normal Comprehensiv e Internal Medicine; [facility] Work Phone: Comment on above: PATIENT WAS FASTINGP ERFORMED BY: [facility]6370 [facility] [id number] Globulin (S) [Mass/Vol] 2.5 g/dL Normal 1.5-4.5 [facility]; [facility] Work Phone: Comment on above: PATIENT WAS FASTINGP ERFORMED BY: [facility]6370 [facility] [id number] Glucose [Mass/Vol] 89 mg/dL Normal 70-99 Compre hensive Internal Medicine; [facility] Work Phone: Comment on above: PATIENT WAS FASTINGP ERFORMED BY: [facility] Anossk2377 [facility] [id number] Potassium [Moles/Vol] 4.8 mmol/L Normal 3.5-5.2 [facility]; [facility] Work Phone: Comment on above: PATIENT WAS FASTINGP ERFORMED BY: [facility]6370 [facility] [id number] Protein [Mass/Vol] 7.0 g/dL Normal 6.0-8.5 [facility] hens[facility]; [facility] Work Phone: Comment on above: PATIENT WAS FASTINGP ERFORMED BY: [facility]6370 [facility] [id number] Sodium [Moles/Vol] 139 mmol/L Normal 134-144 Compre hensive Internal Medicine; [facility] Work Phone: Comment on above: PATIENT WAS FASTINGP ERFORMED BY: ERAN Lablesli ColeGnplgh9856 [address] RoadDublin [place] [id number] Urea nitrogen [Mass/Vol] 10 mg/dL Normal 8-27 [facility]; [facility] Work Phone: Comment on above: PATIENT WAS FASTINGP ERFORMED BY: ERAN Lablesli ColeVhqjrc4895 [address] RoadDublin [place] [id number] Urea nitrogen/Creatinine [Mass ratio] 10 mg/mg Normal 10-24 [facility]; [facility] Work Phone: Comment on above: PATIENT WAS FASTINGP ERFORMED BY: ERAN Colelin6370 [address] [place] [id number] Urinalysis, Complete W/ Micr oscopic Examination with reflex to urine culture, routine (45795)Ordered By: Wire Inspector on 05-02-2023 Appearance (U) Clear Normal Comprehens dennys Internal [facility]; [facility] Work Phone: Comment on above: PATIENT WAS FASTINGP ERFORMED BY: ERAN Colelin6370 [address] [place] [id number] Bilirubin Ql (U) Negative Normal Comprehe nsive Internal Medicine; [facility] Work Phone: Comment on above: PATIENT WAS FASTINGP ERFORMED BY: ERAN Monsalve6370 [address] [place] [id number] Color (U) Yellow Normal [facility]; [facility] Work Phone: Comment on above: PATIENT WAS FASTINGP ERFORMED BY: ERAN Lablesli Spgivq9513 [address] RoadDublin [place] [id number] Glucose Ql (U) Negative Normal Comprehens dennys [facility]; [facility] Work Phone: Comment on above: PATIENT WAS FASTINGP ERFORMED BY: ERAN Lablesli Zainzi8746 [address] RoadDublin [place] [id number] Ketones Ql (U) Trace Abnormal Comprehens dennys [facility]; [facility] Work Phone: Comment on above: PATIENT WAS FASTINGP ERFORMED BY: ERAN Colelin[address] [facility]in [place] [id number] pH (U) 6.5 [pH] Normal 5.0-7.5 [facility]; [facility] Work Phone: Comment on above: PATIENT WAS FASTINGP ERFORMED BY: ERAN Lablesli Xqyapu9006 [address] Roadblin [place] [id number] Protein Ql (U) Trace Normal Comprehens dennys [facility]; [facility] Work Phone: Comment on above: PATIENT WAS FASTINGP ERFORMED BY: [facility] Xjmmpi4300 [address] [facility] [id number] Specific gravity (U) [Rel density] 1.020 1 Normal 1.005-1.03 0 [facility]; [facility] Work Phone: Comment on above: PATIENT WAS FASTINGP ERFORMED BY: [facility] Ylwqhq8840 [address] [facility]in [place] [id number] Urinalysis, Complete W/ Microscopic Examination with reflex to urine culture, routine (93336) Negative Normal [facility]; [facility] Work Phone: Comment on above: PATIENT WAS FASTINGP ERFORMED BY: Labjoana Odbbmw0597 [address] [facility]in [place] [id number] Urinalysis, Complete W/ Microscopic Examination with reflex to urine culture, routine (03913) 1.0 mg/dL Normal 0.2-1.0 [facility]; [facility] Work Phone: Comment on above: PATIENT WAS FASTINGP ERFORMED BY: [facility] Ittseb8328 [address] RoadNovant Health Rowan Medical Centerin [place] [id number] Urinalysis, Complete W/ Microscopic Examination with reflex to urine culture, routine (41340) MICRON Normal [facility]; [facility] Work Phone: Comment on above: Microscopic follows if indicated. PATIENT WAS FASTINGP ERFORMED BY: ERAN [facility] Prbezy6622 [address] RoadDublin [place] [id number] Urinalysis, Complete W/ Microscopic Examination with reflex to urine culture, routine (93276) See below: Normal [facility]; [facility] Work Phone: Comment on above: Microscopic was kylie cated and was performed. PATIENT WAS FASTINGP ERFORMED BY: ERAN LabAcacia Living Zrrvdi[address] Zoomabetblin [place] [id number] Urinalysis, Complete W/ Microscopic Examination with reflex to urine culture, routine (84085) NOFLEX Normal [facility]; [facility] Work Phone: Comment on above: This specimen will n ot reflex to a Urine Culture. PATIENT WAS FASTINGP ERFORMED BY: LabAc[facility] Living Ozjodj12[address] [employer] IT SolutionsNovant Health Row[facility] Medical Centerin [place] [id number] No Panel InformationOrdered By: Chadd Barros on 03-28-2023 Prostate Specific Antigen Total 0.08 ng/mL 0.0-4.0 [facility] Comment on above: This test was perfor med using the TPSA assay method for [employer] chemistry system. Values obtained with differentassay methods cannot be used interchangably.When changing PSA assays in the course of monitoring apatient, additional sequential testing should be carriedout to confirm baseline values. CBC W/AUTO DIFF WBC (11251)O rdered By: Wire Inspector on 01-01-2023 Basophils (Bld) [#/Vol] 0.0 10*3/uL Normal 0.0-0.2 [facility]; [facility] Work Phone: Comment on above: PATIENT WAS FASTINGP ERFORMED BY: [employer] Jsamox4963 [address] [employer] IT SolutionsNovant Health Row[facility] Centerin [place] [id number] Basophils/100 WBC (Bld) 1 % Normal [facility]; [facility] Work Phone: Comment on above: PATIENT WAS FASTINGP ERFORMED BY: LabAc[facility] Uzjelk9[address] [employer] Solutionsblin [place] [id number] Eosinophils (Bld) [#/Vol] 0.2 10*3/uL Normal 0.0-0.4 [facility]; [facility] Work Phone: Comment on above: PATIENT WAS FASTINGP ERFORMED BY: [facility] Pdewdk4456 [address] [employer] Solutionsblin [place] [id number] Eosinophils/100 WBC (Bld) 3 % Normal [facility]; [facility] Work Phone: Comment on above: PATIENT WAS FASTINGP ERFORMED BY: ERAN Monsalve6370 Bs[employer]op [facility]in [place] [id number] Erythrocyte distribution width (RBC) [Ratio] 12.9 % Normal 11.6-15.4 [facility]; [facility] Work Phone: Comment on above: PATIENT WAS FASTINGP ERFORMED BY: ERAN Mathewcojay ColeGiaeqc1356 [address] [facility] [id number] Hematocrit (Bld) [Volume fraction] 45.2 % Normal 37.5-51.0 [facility]; [facility] Work Phone: Comment on above: PATIENT WAS FASTINGP ERFORMED BY: ERAN Colelin6370 [address] RoadNovant Health Rowan Medical Centerin [place] [id number] Hemoglobin (Bld) [Mass/Vol] 15.5 g/dL Normal 13.0-17.7 [facility]; [facility] Work Phone: Comment on above: PATIENT WAS FASTINGP ERFORMED BY: ERAN Arreaga Tklszx2059 [address] RoadNovant Health Rowan Medical Centerin [place] [id number] Immature granulocytes (Bld) [#/Vol] 0.0 10*3/uL Normal 0.0-0.1 [facility]; [facility] Work Phone: Comment on above: PATIENT WAS FASTINGP ERFORMED BY: ERAN Arreaga Cjdpga3308 [address] [facility]in [place] [id number] Immature granulocytes/100 WBC (Bld) 0 % Normal [facility]; [facility] Work Phone: Comment on above: PATIENT WAS FASTINGP ERFORMED BY: ERAN [facility] Sexyol7483 [address] [facility] Centerbl[facility] [place] [id number] Lymphocytes (Bld) [#/Vol] 1.5 10*3/uL Normal 0.7-3.1 [facility]; [facility] Work Phone: Comment on above: PATIENT WAS FASTINGP ERFORMED BY: [facility] Hjdnor9345 Bishop RoadNovant Health / NHR[facility] [id number] Lymphocytes/100 WBC (Bld) 26 % Normal [facility]; [facility] Work Phone: Comment on above: PATIENT WAS FASTINGP ERFORMED BY: ERAN Priyankalesli Hugltx3270 [facility] [id number] MCH (RBC) [Entitic mass] 32.4 pg Normal 26.6-33.0 [facility]; [facility] Work Phone: Comment on above: PATIENT WAS FASTINGP ERFORMED BY: ERAN PriyankaUP Health System6370 [facility] [id number] MCHC (RBC) [Mass/Vol] 34.3 g/dL Normal 31.5-35.7 [facility]; [facility] Work Phone: Comment on above: PATIENT WAS FASTINGP ERFORMED BY: ERAN Colelin6370 [facility] [id number] MCV (RBC) [Entitic vol] 94 fL Normal 79-97 [facility]; [facility] Work Phone: Comment on above: PATIENT WAS FASTINGP ERFORMED BY: ERAN [facility] Gnlzvm2286 [facility] [id number] Monocytes (Bld) [#/Vol] 0.7 10*3/uL Normal 0.1-0.9 [facility]; [facility] Work Phone: Comment on above: PATIENT WAS FASTINGP ERFORMED BY: ERAN PriyankaUP Health System6370 [facility] [id number] Monocytes/100 WBC (Bld) 13 % Normal [facility]; [facility] Work Phone: Comment on above: PATIENT WAS FASTINGP ERFORMED BY: ERAN Labjoana Eundya5027 [address] [facility] [id number] Neutrophils (Bld) [#/Vol] 3.3 10*3/uL Normal 1.4-7.0 [facility]; [facility] Work Phone: Comment on above: PATIENT WAS FASTINGP ERFORMED BY: ERAN LabUP [facility] System[address] [facility] Centerin [place] [id number] Neutrophils/100 WBC (Bld) 57 % Normal [facility]; [facility] Work Phone: Comment on above: PATIENT WAS FASTINGP ERFORMED BY: ERAN Monsalve6370 [address] Roadbl[address] [place] [id number] Platelets (Bld) [#/Vol] 162 10*3/uL Normal 150-450 [facility]; [facility] Work Phone: Comment on above: PATIENT WAS FASTINGP ERFORMED BY: ERAN [facility] Dtldkd1921 Bishop RoadNovant Health Rowan Medical Centerin [place] [id number] RBC (Bld) [#/Vol] 4.79 10*6/uL Normal 4.14-5.80 Compr ehket[facility]; [facility] Work Phone: Comment on above: PATIENT WAS FASTINGP ERFORMED BY: ERAN Labjoana Grnqlg9267 Bishpo [facility]in [place] [id number] WBC (Bld) [#/Vol] 5.7 10*3/uL Normal 3.4-10.8 Compre [facility]; [facility] Work Phone: Comment on above: PATIENT WAS FASTINGP ERFORMED BY: ERAN Monsalve6[address] [facility] Centerbl[facility] [place] [id number] LIPID PANEL ([id number])Ordered B y: Wire Inspector on 01-01-2023 Cholesterol [Mass/Vol] 171 mg/dL Normal 100-199 [facility]; [facility] Work Phone: Comment on above: PATIENT WAS FASTINGP ERFORMED BY: ERAN [facility] Hyulzv8822 [address] [facility] Centerbl[facility] [place] [id number] Cholesterol in HDL [Mass/Vol] 69 mg/dL Normal [facility]; [facility] Work Phone: Comment on above: PATIENT WAS FASTINGP ERFORMED BY: ERAN Labjoana Sljpvb8148 [address] [facility] Centerbl[facility] [place] [id number] Triglyceride [Mass/Vol] 63 mg/dL Normal 0-149 [facility]; [facility] Work Phone: Comment on above: PATIENT WAS FASTINGP ERFORMED BY: ERAN [facility] Eqdxmu9931 [address] RoadDublin [place] [id number] LIPID PANEL ([id number]) 12 mg/dL Normal 5-40 [facility]; [facility] Work Phone: Comment on above: PATIENT WAS FASTINGP ERFORMED BY: CB [facility] Ucvchw7721 [address] RoadDublin [place] [id number] LIPID PANEL (09454) 90 mg/dL Normal 0-99 [facility] Internal Medicine; [facility] Work Phone: Comment on above: PATIENT WAS FASTINGP ERFORMED BY: CB [facility] Suywwt2669 [address] RoadDublin [place] [id number] LIPID PANEL (44652) 1.3 {ratio} Normal 0.0-3.6 [facility]; [facility] Work Phone: Comment on above: LDL/HDL Ratio Men Wo men 1/2 Avg.Risk 1.0 1.5 Avg.Risk 3.6 3.2 2X Avg.Risk 6.2 5.0 3X Avg.Risk 8.0 6.1 PATIENT WAS FASTINGP ERFORMED BY: ERAN [facility] Ldashi5281 [address] RoadDublin [place] [id number] METABOLIC PANEL, COMPREHENSI VE (68870)Ordered By: Wire Inspector on 01-01-2023 Albumin [Mass/Vol] 4.3 g/dL Normal 3.7-4.7 [facility] Internal Medicine; [facility] Work Phone: Comment on above: PATIENT WAS FASTINGP ERFORMED BY: CB [facility] Iwkmbs7847 [address] RoadDublin [place] [id number] Albumin/Globulin [Mass ratio] 1.7 {ratio} Normal 1.2-2.2 [facility] Internal Medicine; [facility] Work Phone: Comment on above: PATIENT WAS FASTINGP ERFORMED BY: CB [facility] Tztngu8190 [address] RoadDublin [place] [id number] ALP [Catalytic activity/Vol] 101 U/L Normal 44-121 [facility]; [facility] Work Phone: Comment on above: PATIENT WAS FASTINGP ERFORMED BY: CB [facility] Jurpgz3754 [address] RoadDublin [place] [id number] ALT [Catalytic activity/Vol] 13 U/L Normal 0-44 [facility]; [facility] Work Phone: Comment on above: PATIENT WAS FASTINGP ERFORMED BY: CB [facility] Ftromr4020 [address] RoadDublin [place] [id number] AST [Catalytic activity/Vol] 20 U/L Normal 0-40 [facility]; [facility] Work Phone: Comment on above: PATIENT WAS FASTINGP ERFORMED BY: CB [facility] Wndbps3164 [address] RoadDublin [place] [id number] Bilirubin [Mass/Vol] 0.3 mg/dL Normal 0.0-1.2 [facility] Internal Medicine; [facility] Work Phone: Comment on above: PATIENT WAS FASTINGP ERFORMED BY: [facility] Qbphkl4398 [address] RoadDublin [place] [id number] Calcium [Mass/Vol] 9.1 mg/dL Normal 8.6-10.2 [facility] Internal Medicine; [facility] Work Phone: Comment on above: PATIENT WAS FASTINGP ERFORMED BY: CB [facility] Ogyhir2790 [address] RoadDublin [place] [id number] Chloride [Moles/Vol] 103 mmol/L Normal 96-106 Comp re[facility] Internal Medicine; [facility] Work Phone: Comment on above: PATIENT WAS FASTINGP ERFORMED BY: CB [facility] Vzjtdh9497 [address] RoadDublin [place] [id number] CO2 [Moles/Vol] 22 mmol/L Normal 20-29 [facility]; [facility] Work Phone: Comment on above: PATIENT WAS FASTINGP ERFORMED BY: CB [facility] Kssmfl0298 [address] RoadDublin [place] [id number] Creatinine [Mass/Vol] 1.01 mg/dL Normal 0.76-1.27 [facility]; [facility] Work Phone: Comment on above: PATIENT WAS FASTINGP ERFORMED BY: ERAN [facility] Glwmmg0539 [address] RoadDublin [place] [id number] GFR/1.73 sq M.predicted among non-blacks MDRD (S/P/Bld) [Vol rate/Area] 80 mL/min/{1.73_m2} Normal Comprehensiv e Internal Medicine; [facility] Work Phone: Comment on above: PATIENT WAS FASTINGP ERFORMED BY: [facility] Oktohz7500 [address]Dublin [place] [id number] Globulin (S) [Mass/Vol] 2.6 g/dL Normal 1.5-4.5 [facility]; [facility] Work Phone: Comment on above: PATIENT WAS FASTINGP ERFORMED BY: ERAN [facility] Dkmhhs5137 [address] RoadDublin [place] [id number] Glucose [Mass/Vol] 89 mg/dL Normal 70-99 [facility]; [facility] Work Phone: Comment on above: PATIENT WAS FASTINGP ERFORMED BY: [facility] Iowhui3381 [address] RoadDublin [place] [id number] Potassium [Moles/Vol] 4.7 mmol/L Normal 3.5-5.2 [facility]; [facility] Work Phone: Comment on above: PATIENT WAS FASTINGP ERFORMED BY: [facility] Jjfdss2600 [address] [place] [id number] Protein [Mass/Vol] 6.9 g/dL Normal 6.0-8.5 [facility]; [facility] Work Phone: Comment on above: PATIENT WAS FASTINGP ERFORMED BY: [facility] Yfhrrs0560 [address] RoadDublin [place] [id number] Sodium [Moles/Vol] 138 mmol/L Normal 134-144 [facility]; [facility] Work Phone: Comment on above: PATIENT WAS FASTINGP ERFORMED BY: [facility] Wwyyoq7056 [address] RoadDublin [place] [id number] Urea nitrogen [Mass/Vol] 12 mg/dL Normal 8-27 [facility]; [facility] Work Phone: Comment on above: PATIENT WAS FASTINGP ERFORMED BY: ERAN [facility] Ubegne6831 [address] RoadDublin [place] [id number] Urea nitrogen/Creatinine [Mass ratio] 12 mg/mg Normal 10-24 [facility]; [facility] Work Phone: Comment on above: PATIENT WAS FASTINGP ERFORMED BY: CB [facility] Eabxeh5886 [address] RoadDublin [place] [id number] PARATHORMONE ([id number])Ordered By: Wire Inspector on 01-01-2023 Parathyrin.intact [Mass/Vol] 35 pg/mL Normal 15-65 [facility]; [facility] Work Phone: Comment on above: PATIENT WAS FASTINGP ERFORMED BY: CB [facility] Qnimcq1380 [address] RoadDublin [place] [id number] Vitamin D Hydroxy (64431)Ord ered By: Wire Inspector on 01-01-2023 25-hydroxyvitamin D [Mass/Vol] 55.8 ng/mL Normal 30.0-100.0 [facility]; [facility] Work Phone: Comment on above: Vitamin D deficiency has been defined by the Gold Bar ofMedicine and an Endocrine Society practice guideline as alevel of serum 25-OH vitamin D less than 20 ng/mL (1,2).The Endocrine Society went on to further define vitamin Dinsufficiency as a level between 21 and 29 ng/mL (2).1. IOM (Gold Bar of Medicine). 2010. Dietary reference intakes for calcium and D. [place]: The National Academies Press.2. Paul MF, Scott NC, Skye-Harsh TY, et al. Evaluation, treatment, and prevention of vitamin D deficiency: an Endocrine Society clinical practice guideline. JCEM. 2010; 96(7):1911-30. PATIENT WAS FASTINGP ERFORMED BY: CB [facility] Ihpfqb0368 [address] RoadDublin [place] [id number] No Panel InformationOrdered By: HALLE Cardoso on 10-02-2022 Prostate Specific Antigen Total 0.02 ng/mL 0.0-4.0 [facility] Comment on above: This test was perfor med using the TPSA assay method for MedyMatch chemistry system. Values obtained with differentassay methods cannot be used interchangably.When changing PSA assays in the course of monitoring apatient, additional sequential testing should be carriedout to confirm baseline values. LIPID PANEL (63288)Ordered B y: Wire Inspector on 09-11-2022 Cholesterol [Mass/Vol] 205 mg/dL Abnormal 100-199 [facility]; [facility] Work Phone: Comment on above: PATIENT WAS FASTINGP ERFORMED BY: CB [facility] Hxsoad4055 [address] RoadDublin [place] [id number]; appt 10/24 Cholesterol in HDL [Mass/Vol] 82 mg/dL Normal [facility]; [facility] Work Phone: Comment on above: PATIENT WAS FASTINGP ERFORMED BY: CB [facility] Bmbqhb5984 [address] RoadDublin [place] [id number]; appt 10/24 Triglyceride [Mass/Vol] 64 mg/dL Normal 0-149 [facility]; [facility] Work Phone: Comment on above: PATIENT WAS FASTINGP ERFORMED BY: CB [facility] Cqvhxn0200 [address] RoadDublin [place] [id number]; appt 10/24 LIPID PANEL (97651) 12 mg/dL Normal 5-40 Compr ensive Internal Medicine; [facility] Work Phone: Comment on above: PATIENT WAS FASTINGP ERFORMED BY: CB [facility] Tvqvxy8057 [address] RoadDublin [place] [id number]; appt 10/24 LIPID PANEL (12758) 111 mg/dL Abnormal 0-99 Compr ehensive Internal Medicine; [facility] Work Phone: Comment on above: PATIENT WAS FASTINGP ERFORMED BY: CB [facility] Atysjq0617 [address] RoadDublin [place] [id number]; appt 10/24 LIPID PANEL (80874) 1.4 {ratio} Normal 0.0-3.6 Comp rehensive Internal Medicine; [facility] Work Phone: Comment on above: LDL/HDL Ratio Men Wo men 1/2 Avg.Risk 1.0 1.5 Avg.Risk 3.6 3.2 2X Avg.Risk 6.2 5.0 3X Avg.Risk 8.0 6.1 PATIENT WAS FASTINGP ERFORMED BY: CB [facility] Hhyztc1787 [address] RoadDublin [place] [id number]; appt 09/18 METABOLIC PANEL, COMPREHENSI VE (56553)Ordered By: Wire Inspector on 09-11-2022 Albumin [Mass/Vol] 4.7 g/dL Normal 3.8-4.8 [facility] Internal Medicine; [facility] Work Phone: Comment on above: PATIENT WAS FASTINGP ERFORMED BY: CB [facility] Quwhvo6641 [address] RoadDublin [place] [id number] Albumin/Globulin [Mass ratio] 2.0 {ratio} Normal 1.2-2.2 [facility]; [facility] Work Phone: Comment on above: PATIENT WAS FASTINGP ERFORMED BY: CB [facility] Ulqqai7352 [address] RoadDublin [place] [id number] ALP [Catalytic activity/Vol] 79 U/L Normal 44-121 [facility]; [facility] Work Phone: Comment on above: PATIENT WAS FASTINGP ERFORMED BY: CB [facility] Kyemot6067 [address] RoadDublin [place] [id number] ALT [Catalytic activity/Vol] 17 U/L Normal 0-44 [facility]; [facility] Work Phone: Comment on above: PATIENT WAS FASTINGP ERFORMED BY: CB [facility] Jmcyqo6293 [address] RoadD[address] [place] [id number] AST [Catalytic activity/Vol] 24 U/L Normal 0-40 [facility]; [facility] Work Phone: Comment on above: PATIENT WAS FASTINGP ERFORMED BY: CB [facility] Ovcxas3792 [address] RoadDublin [place] [id number] Bilirubin [Mass/Vol] 0.5 mg/dL Normal 0.0-1.2 Comp rehensive Internal Medicine; [facility] Work Phone: Comment on above: PATIENT WAS FASTINGP ERFORMED BY: ERAN Labjoanajay ColeVrrcko0221 [address] Roadblin [place] [id number] Calcium [Mass/Vol] 9.6 mg/dL Normal 8.6-10.2 [facility]; [facility] Work Phone: Comment on above: PATIENT WAS FASTINGP ERFORMED BY: ERAN Lab[facility] Lskhkf2072 [address] Roadblin [place] [id number] Chloride [Moles/Vol] 103 mmol/L Normal 96-106 Comp rehensive Internal Medicine; [facility] Work Phone: Comment on above: PATIENT WAS FASTINGP ERFORMED BY: ERAN Colelin6370 [address] RoadDublin [place] [id number] CO2 [Moles/Vol] 24 mmol/L Normal 20-29 [facility]; [facility] Work Phone: Comment on above: PATIENT WAS FASTINGP ERFORMED BY: ERAN Colelin6370 [address] RoadNovant [facility] Centerin [place] [id number] Creatinine [Mass/Vol] 1.05 mg/dL Normal 0.76-1.27 [facility]; [facility] Work Phone: Comment on above: PATIENT WAS FASTINGP ERFORMED BY: ERAN Colelin[address] [facility]in [place] [id number] GFR/1.73 sq M.predicted among non-blacks MDRD (S/P/Bld) [Vol rate/Area] 76 mL/min/{1.73_m2} Normal Comprehensiv e Internal Medicine; [facility] Work Phone: Comment on above: PATIENT WAS FASTINGP ERFORMED BY: ERAN [facility] Mhrrmv6074 [address] RoadDublin [place] [id number] Globulin (S) [Mass/Vol] 2.4 g/dL Normal 1.5-4.5 [facility]; [facility] Work Phone: Comment on above: PATIENT WAS FASTINGP ERFORMED BY: ERAN [facility] Mxondt8671 [address] [facility]in [place] [id number] Glucose [Mass/Vol] 90 mg/dL Normal 70-99 [facility] Internal Medicine; [facility] Work Phone: Comment on above: PATIENT WAS FASTINGP ERFORMED BY: ERAN Evonne Dtpdtu5883 [facility] [id number] Potassium [Moles/Vol] 4.7 mmol/L Normal 3.5-5.2 [facility]; [facility] Work Phone: Comment on above: PATIENT WAS FASTINGP ERFORMED BY: [facility] Isvjcc6486 [address] [facility] [id number] Protein [Mass/Vol] 7.1 g/dL Normal 6.0-8.5 [facility] Internal Medicine; [facility] Work Phone: Comment on above: PATIENT WAS FASTINGP ERFORMED BY: ERAN [facility]ankam[facility] Jimxdu9010 [facility] [id number] Sodium [Moles/Vol] 140 mmol/L Normal 134-144 [facility] Internal Medicine; [facility] Work Phone: Comment on above: PATIENT WAS FASTINGP ERFORMED BY: ERAN Evonne Eztios8880 [facility] [id number] Urea nitrogen [Mass/Vol] 11 mg/dL Normal 8-27 [facility]; [facility] Work Phone: Comment on above: PATIENT WAS FASTINGP ERFORMED BY: [facility] Ypcijp8213 [facility] [id number] Urea nitrogen/Creatinine [Mass ratio] 10 mg/mg Normal 10-24 [facility]; [facility] Work Phone: Comment on above: PATIENT WAS FASTINGP ERFORMED BY: ERAN Labjoana Jfaanh2848 [facility] [id number] CBC W/AUTO DIFF WBC (07616)O rdered By: Wire Inspector on 05-03-2022 Basophils (Bld) [#/Vol] 0.1 10*3/uL Normal 0.0-0.2 [facility]; [facility] Work Phone: Comment on above: PATIENT WAS FASTINGP ERFORMED BY: ERAN Evonne Wpzfmx97[address] [id number] Information: NURSE DRAW Basophils/100 WBC (Bld) 2 % Normal [facility]; [facility] Work Phone: Comment on above: PATIENT WAS FASTINGP ERFORMED BY: ERAN Priyanka[address] [id number] Information: NURSE DRAW Eosinophils (Bld) [#/Vol] 0.2 10*3/uL Normal 0.0-0.4 [facility]; [facility] Work Phone: Comment on above: PATIENT WAS FASTINGP ERFORMED BY: ERAN [facility] Hzcmdn254[address] [id number] Information: NURSE DRAW Eosinophils/100 WBC (Bld) 3 % Normal [facility]; [facility] Work Phone: Comment on above: PATIENT WAS FASTINGP ERFORMED BY: ERAN Priyanka[address] [id number] Information: NURSE DRAW Erythrocyte distribution width (RBC) [Ratio] 13.0 % Normal 11.6-15.4 [facility]; [facility] Work Phone: Comment on above: PATIENT WAS FASTINGP ERFORMED BY: ERAN [address] [id number] Information: NURSE DRAW Hematocrit (Bld) [Volume fraction] 44.4 % Normal 37.5-51.0 [facility]; [facility] Work Phone: Comment on above: PATIENT WAS FASTINGP ERFORMED BY: ERAN [address] [id number] Information: NURSE DRAW Hemoglobin (Bld) [Mass/Vol] 14.9 g/dL Normal 13.0-17.7 [facility]; [facility] Work Phone: Comment on above: PATIENT WAS FASTINGP ERFORMED BY: [place] [id number] [facility] [id number] Information: NURSE DRAW Immature granulocytes (Bld) [#/Vol] 0.0 10*3/uL Normal 0.0-0.1 [facility]; [facility] Work Phone: Comment on above: PATIENT WAS FASTINGP ERFORMED BY: [address] [id number] Information: NURSE DRAW Immature granulocytes/100 WBC (Bld) 0 % Normal [facility]; [facility] Work Phone: Comment on above: PATIENT WAS FASTINGP ERFORMED BY: [address] [id number] Information: NURSE DRAW Lymphocytes (Bld) [#/Vol] 2.1 10*3/uL Normal 0.7-3.1 [facility]; [facility] Work Phone: Comment on above: PATIENT WAS FASTINGP ERFORMED BY: [address] [id number] Information: NURSE DRAW Lymphocytes/100 WBC (Bld) 32 % Normal [facility]; [facility] Work Phone: Comment on above: PATIENT WAS FASTINGP ERFORMED BY: [address] [id number] Information: NURSE DRAW MCH (RBC) [Entitic mass] 32.0 pg Normal 26.6-33.0 [facility]; [facility] Work Phone: Comment on above: PATIENT WAS FASTINGP ERFORMED BY: [address] [id number] Information: NURSE DRAW MCHC (RBC) [Mass/Vol] 33.6 g/dL Normal 31.5-35.7 [facility]; [facility] Work Phone: Comment on above: PATIENT WAS FASTINGP ERFORMED BY: [address] [id number] Information: NURSE DRAW MCV (RBC) [Entitic vol] 96 fL Normal 79-97 [facility]; [facility] Work Phone: Comment on above: PATIENT WAS FASTINGP ERFORMED BY: ERAN Romano [facility] [id number] Information: NURSE DRAW Monocytes (Bld) [#/Vol] 0.7 10*3/uL Normal 0.1-0.9 [facility]; [facility] Work Phone: Comment on above: PATIENT WAS FASTINGP ERFORMED BY: ERAN Evonne Erybeg24[address] [id number] Information: NURSE DRAW Monocytes/100 WBC (Bld) 10 % Normal [facility]; [facility] Work Phone: Comment on above: PATIENT WAS FASTINGP ERFORMED BY: ERAN Arreaga Devjfs56[address] [id number] Information: NURSE DRAW Neutrophils (Bld) [#/Vol] 3.6 10*3/uL Normal 1.4-7.0 [facility]; [facility] Work Phone: Comment on above: PATIENT WAS FASTINGP ERFORMED BY: ERAN Caleb Colelin6370 [facility] [id number] Information: NURSE DRAW Neutrophils/100 WBC (Bld) 53 % Normal [facility]; [facility] Work Phone: Comment on above: PATIENT WAS FASTINGP ERFORMED BY: ERAN Evonne Qrbvia525[address] [id number] Information: NURSE DRAW Platelets (Bld) [#/Vol] 186 10*3/uL Normal 150-450 [facility]; [facility] Work Phone: Comment on above: PATIENT WAS FASTINGP ERFORMED BY: ERAN Arreaga Kzrokk23[address] [id number] Information: NURSE DRAW RBC (Bld) [#/Vol] 4.65 10*6/uL Normal 4.14-5.80 [facility] Internal Medicine; [facility] Work Phone: Comment on above: PATIENT WAS FASTINGP ERFORMED BY: CB [facility] Bfyxkf8548 [address] [facility] [place] [id number] Information: NURSE DRAW WBC (Bld) [#/Vol] 6.7 10*3/uL Normal 3.4-10.8 [facility] Internal Medicine; [facility] Work Phone: Comment on above: PATIENT WAS FASTINGP ERFORMED BY: CB [facility] Tqcimb3428 [address] [facility] [id number] Information: NURSE DRAW METABOLIC PANEL, RODRII VE (35526)Ordered By: Wire Inspector on 05-03-2022 Albumin [Mass/Vol] 4.7 g/dL Normal 3.8-4.8 [facility] Internal Medicine; [facility] Work Phone: Comment on above: PATIENT WAS FASTINGP ERFORMED BY: CB [facility] Qbbckq7197 [address] [facility] [id number]; OV 6/20 Albumin/Globulin [Mass ratio] 1.9 {ratio} Normal 1.2-2.2 [facility]; [facility] Work Phone: Comment on above: PATIENT WAS FASTINGP ERFORMED BY: CB [facility] Nfqxfi0209 [address] [facility] [id number]; OV 6/20 ALP [Catalytic activity/Vol] 83 U/L Normal 44-121 [facility]; [facility] Work Phone: Comment on above: PATIENT WAS FASTINGP ERFORMED BY: CB [facility] Yielxw7224 [address] [facility] [place] [id number]; OV 6/20 ALT [Catalytic activity/Vol] 18 U/L Normal 0-44 [facility]; [facility] Work Phone: Comment on above: PATIENT WAS FASTINGP ERFORMED BY: CB [facility] Bryneg1044 [address] [facility]bl[facility] [place] [id number]; OV 6/20 AST [Catalytic activity/Vol] 26 U/L Normal 0-40 [facility]; [facility] Work Phone: Comment on above: PATIENT WAS FASTINGP ERFORMED BY: CB [facility] Hyvqgr7679 [address] RoadDublin [place] [id number]; OV 6/20 Bilirubin [Mass/Vol] 0.4 mg/dL Normal 0.0-1.2 Comp rehensive Internal Medicine; [facility] Work Phone: Comment on above: PATIENT WAS FASTINGP ERFORMED BY: CB [facility] Sxfsch3658 [address] RoadDublin [place] [id number]; OV 6/ Calcium [Mass/Vol] 9.6 mg/dL Normal 8.6-10.2 [facility] Internal Medicine; [facility] Work Phone: Comment on above: PATIENT WAS FASTINGP ERFORMED BY: CB [facility] Pabymh7691 [address] RoadDublin [place] [id number]; OV 6/ Chloride [Moles/Vol] 103 mmol/L Normal 96-106 Comp [facility]; [facility] Work Phone: Comment on above: PATIENT WAS FASTINGP ERFORMED BY: CB [facility] Ogwgwi6465 [address] RoadDublin [place] [id number]; OV 6/20 CO2 [Moles/Vol] 23 mmol/L Normal 20-29 [facility]; [facility] Work Phone: Comment on above: PATIENT WAS FASTINGP ERFORMED BY: CB [facility] Hetawe2887 [address] RoadDublin [place] [id number]; OV 6/ Creatinine [Mass/Vol] 1.00 mg/dL Normal 0.76-1.27 [facility]; [facility] Work Phone: Comment on above: PATIENT WAS FASTINGP ERFORMED BY: CB [facility] Tnadav8750 [address] RoadD[address] [place] [id number]; OV 6/ GFR/1.73 sq M.predicted among non-blacks MDRD (S/P/Bld) [Vol rate/Area] 81 mL/min/{1.73_m2} Normal Comprehensiv e Internal Medicine; [facility] Work Phone: Comment on above: PATIENT WAS FASTINGP ERFORMED BY: CB [facility] Ohkgfb6219 [address] RoadD[address] [place] [id number]; OV 6/20 Globulin (S) [Mass/Vol] 2.5 g/dL Normal 1.5-4.5 [facility]; [facility] Work Phone: Comment on above: PATIENT WAS FASTINGP ERFORMED BY: CB [facility] Ohywkg1511 [address] RoadD[address] [place] [id number]; OV 6/20 Glucose [Mass/Vol] 93 mg/dL Normal 65-99 [facility] Internal Medicine; [facility] Work Phone: Comment on above: PATIENT WAS FASTINGP ERFORMED BY: CB [facility] Nqoudg5377 [address] RoadDublin [place] [id number]; OV 6/20 Potassium [Moles/Vol] 4.6 mmol/L Normal 3.5-5.2 [facility]; [facility] Work Phone: Comment on above: PATIENT WAS FASTINGP ERFORMED BY: CB [facility] Fknsux3338 [address] RoadDublin [place] [id number]; OV 6/20 Protein [Mass/Vol] 7.2 g/dL Normal 6.0-8.5 [facility] Internal Medicine; [facility] Work Phone: Comment on above: PATIENT WAS FASTINGP ERFORMED BY: CB [facility] Fkodli1865 [address] RoadD[address] [place] [id number]; OV 6/20 Sodium [Moles/Vol] 141 mmol/L Normal 134-144 [facility] Internal Medicine; [facility] Work Phone: Comment on above: PATIENT WAS FASTINGP ERFORMED BY: CB [facility] Pxjlun3778 [address] RoadD[address] [place] [id number]; OV 6/20 Urea nitrogen [Mass/Vol] 11 mg/dL Normal 8-27 [facility]; [facility] Work Phone: Comment on above: PATIENT WAS FASTINGP ERFORMED BY: CB [facility] Yrechj9509 [address] RoadD[address] [place] [id number]; OV 6/20 Urea nitrogen/Creatinine [Mass ratio] 11 mg/mg Normal 10-24 [facility]; [facility] Work Phone: Comment on above: PATIENT WAS FASTINGP ERFORMED BY: [facility] Epgxva7600 [address] [place] [id number]; OV 05/15 No Panel Informationon 04-10 Prostate Specific Antigen Total < 0.01 ng/mL 0.0-4.0 [facility] Work Phone: Comment on above: This test was perfor med using the TPSA assay method for [employer] chemistry system. Values obtained with differentassay methods cannot be used interchangably.When changing PSA assays in the course of monitoring apatient, additional sequential testing should be carriedout to confirm baseline values. Final Surgical Pathology Rep khushi 12-27-2021 Final Surgical Pathology Report . Pathology Reports Accession: Collected Date/Time: Received Date/Time: Pathologist: [id number] 12/26/2021 08:22 EST 12/26/2021 14:14 BIENVENIDO STEEL MD Final Surgical Pathology Report DIAGNOSIS: CECUM, POLYPECTOMY- TUBULAR ADENOMA. COMMENT: AOH - [id number] CLINICAL INFORMATION: Procedure: COLONOSCOPY WITH POLYPECTOMY Preoperative diagnosis: SCREENING Postoperative diagnosis: SCREENING SPECIMEN: A POLYP, CECUM GROSS DESCRIPTION: Received in formalin labeled with the patient's name and designated polyp cecum are two fragments of yellow-price tissue in aggregate 0.4 x 0.2 x 0.1 cm. All embedded in one cassette. dictated by Homer Jacob M.D. Dictated by BIENVENIDO DENTON MICROSCOPIC DESCRIPTION: Slides reviewed. Electronically Signed by Pathology Report verified by [facility] Electronically signed by BIENVENIDO DENTON Sign out Date: 12/27/2021 16:02 Performing Lab: [facility], [address] [place] [address] ([place]) CBC W/AUTO DIFF WBC (28010)O rdered By: Wire Inspector on 11-21-2021 Basophils (Bld) [#/Vol] 0.1 10*3/uL Normal 0.0-0.2 [facility] Work Phone: Comment on above: PATIENT WAS FASTINGP ERFORMED BY: ERAN [facility] Olfedy668[address] RoadDublin [place] [id number] Basophils/100 WBC (Bld) 2 % Normal [facility]; [facility] Work Phone: Comment on above: PATIENT WAS FASTINGP ERFORMED BY: [facility] Znvnew6661 [address] RoadDublin [place] [id number] Eosinophils (Bld) [#/Vol] 0.2 10*3/uL Normal 0.0-0.4 [facility]; [facility] Work Phone: Comment on above: PATIENT WAS FASTINGP ERFORMED BY: [facility] Gmptdo3702 [address] RoadDublin [place] [id number] Eosinophils/100 WBC (Bld) 3 % Normal [facility]; [facility] Work Phone: Comment on above: PATIENT WAS FASTINGP ERFORMED BY: [facility] Styjbp9051 [address] RoadNovant Health Rowan Medical Centerin [place] [id number] Erythrocyte distribution width (RBC) [Ratio] 12.8 % Normal 11.6-15.4 [facility]; [facility] Work Phone: Comment on above: PATIENT WAS FASTINGP ERFORMED BY: [facility] Ltenhb4638 [address] Roadblin [place] [id number] Hematocrit (Bld) [Volume fraction] 43.1 % Normal 37.5-51.0 [facility]; [facility] Work Phone: Comment on above: PATIENT WAS FASTINGP ERFORMED BY: [facility] Vfwlak7837 [address] Roadblin [place] [id number] Hemoglobin (Bld) [Mass/Vol] 14.6 g/dL Normal 13.0-17.7 [facility]; [facility] Work Phone: Comment on above: PATIENT WAS FASTINGP ERFORMED BY: [facility] Sdhkpx1192 [address] RoadDublin [place] [id number] Immature granulocytes (Bld) [#/Vol] 0.0 10*3/uL Normal 0.0-0.1 [facility]; [facility] Work Phone: Comment on above: PATIENT WAS FASTINGP ERFORMED BY: [facility] [facility]in [place] [id number] Immature granulocytes/100 WBC (Bld) 0 % Normal [facility]; [facility] Work Phone: Comment on above: PATIENT WAS FASTINGP ERFORMED BY: LabD[place] 906[address] [facility] [id number] Lymphocytes (Bld) [#/Vol] 1.7 10*3/uL Normal 0.7-3.1 [facility]; [facility] Work Phone: Comment on above: PATIENT WAS FASTINGP ERFORMED BY: [facility]6370 [facility] [id number] Lymphocytes/100 WBC (Bld) 26 % Normal [facility]; [facility] Work Phone: Comment on above: PATIENT WAS FASTINGP ERFORMED BY: [facility]6370 [facility] [id number] MCH (RBC) [Entitic mass] 32.7 pg Normal 26.6-33.0 [facility]; [facility] Work Phone: Comment on above: PATIENT WAS FASTINGP ERFORMED BY: [facility]6370 [facility] [id number] MCHC (RBC) [Mass/Vol] 33.9 g/dL Normal 31.5-35.7 [facility]; [facility] Work Phone: Comment on above: PATIENT WAS FASTINGP ERFORMED BY: [facility]6370 [facility] [id number] MCV (RBC) [Entitic vol] 97 fL Normal 79-97 [facility]; [facility] Work Phone: Comment on above: PATIENT WAS FASTINGP ERFORMED BY: [facility] [facility] [id number] Monocytes (Bld) [#/Vol] 0.6 10*3/uL Normal 0.1-0.9 [facility]; [facility] Work Phone: Comment on above: PATIENT WAS FASTINGP ERFORMED BY: ERAN [facility] Ysiszl2408 [address] RoadDublin [place] [id number] Monocytes/100 WBC (Bld) 9 % Normal [facility]; [facility] Work Phone: Comment on above: PATIENT WAS FASTINGP ERFORMED BY: ERAN [facility] Tevflk6[address] RoadDublin [place] [id number] Neutrophils (Bld) [#/Vol] 3.9 10*3/uL Normal 1.4-7.0 [facility]; [facility] Work Phone: Comment on above: PATIENT WAS FASTINGP ERFORMED BY: ERAN [facility] Ikmfmm4376 [address] RoadDublin [place] [id number] Neutrophils/100 WBC (Bld) 60 % Normal [facility]; [facility] Work Phone: Comment on above: PATIENT WAS FASTINGP ERFORMED BY: ERAN [facility] Qhgkda2924 [address] RoadDublin [place] [id number] Platelets (Bld) [#/Vol] 150 10*3/uL Normal 150-450 [facility]; [facility] Work Phone: Comment on above: PATIENT WAS FASTINGP ERFORMED BY: ERAN [facility] Jzayju2694 [address] RoadDublin [place] [id number] RBC (Bld) [#/Vol] 4.46 10*6/uL Normal 4.14-5.80 Compr ehensive Internal Medicine; [facility] Work Phone: Comment on above: PATIENT WAS FASTINGP ERFORMED BY: CB [facility] Rlimlj8173 [address] RoadDublin [place] [id number] WBC (Bld) [#/Vol] 6.5 10*3/uL Normal 3.4-10.8 Compre hensj[facility]; [facility] Work Phone: Comment on above: PATIENT WAS FASTINGP ERFORMED BY: CB [facility] Qblczx4901 [address] RoadDublin [place] [id number] LIPID PANEL ([id number])Ordered B y: Wire Inspector on 11-21-2021 Cholesterol [Mass/Vol] 221 mg/dL Abnormal 100-199 [facility]; [facility] Work Phone: Comment on above: PATIENT WAS FASTINGP ERFORMED BY: ERAN Lablesli Monsalve6[address] RoadDublin [place] [id number]; FU 1-4 DF Cholesterol in HDL [Mass/Vol] 103 mg/dL Normal [facility]; [facility] Work Phone: Comment on above: PATIENT WAS FASTINGP ERFORMED BY: ERAN [facility] Owjsoz4401 [address] RoadDublin [place] [id number]; FU 1-4 DF Triglyceride [Mass/Vol] 73 mg/dL Normal 0-149 [facility]; [facility] Work Phone: Comment on above: PATIENT WAS FASTINGP ERFORMED BY: ERAN Labcojay ColeCgjeux4644 [address] RoadDublin [place] [id number]; FU 1-4 DF LIPID PANEL (45201) 13 mg/dL Normal 5-40 Compr ensive [facility]; [facility] Work Phone: Comment on above: PATIENT WAS FASTINGP ERFORMED BY: ERAN [facility] Justff3753 [address] RoadDublin [place] [id number]; FU 1-4 DF LIPID PANEL (71358) 105 mg/dL Abnormal 0-99 Compr ensive [facility]; [facility] Work Phone: Comment on above: PATIENT WAS FASTINGP ERFORMED BY: ERAN [facility] Gtpcbl2033 [address] RoadDublin [place] [id number]; FU 1-4 DF LIPID PANEL (84234) 1.0 {ratio} Normal 0.0-3.6 Comp [facility]ensive [facility]; [facility] Work Phone: Comment on above: LDL/HDL Ratio Men Wo men 1/2 Avg.Risk 1.0 1.5 Avg.Risk 3.6 3.2 2X Avg.Risk 6.2 5.0 3X Avg.Risk 8.0 6.1 PATIENT WAS FASTINGP ERFORMED BY: ERAN [facility] Dvqowt8159 [address] RoadDublin [place] [id number]; FU 1-4 DF METABOLIC PANEL, COMPREHENSI VE (10117)Ordered By: Wire Inspector on 11-21-2021 Albumin [Mass/Vol] 4.7 g/dL Normal 3.8-4.8 [facility]; [facility] Work Phone: Comment on above: PATIENT WAS FASTINGP ERFORMED BY: CB [facility] Joemyj4[address] RoadDublin [place] [id number] Albumin/Globulin [Mass ratio] 2.1 {ratio} Normal 1.2-2.2 [facility]; [facility] Work Phone: Comment on above: PATIENT WAS FASTINGP ERFORMED BY: CB [facility] Detqox5326 [address] RoadDublin [place] [id number] ALP [Catalytic activity/Vol] 77 U/L Normal 44-121 [facility]; [facility] Work Phone: Comment on above: Please note refere nce interval change PATIENT WAS FASTINGP ERFORMED BY: CB [facility] Rlgfqw1067 [address] RoadDublin [place] [id number] ALT [Catalytic activity/Vol] 18 U/L Normal 0-44 [facility]; [facility] Work Phone: Comment on above: PATIENT WAS FASTINGP ERFORMED BY: CB [facility] Rthjnh1751 [address] RoadDublin [place] [id number] AST [Catalytic activity/Vol] 25 U/L Normal 0-40 [facility]; [facility] Work Phone: Comment on above: PATIENT WAS FASTINGP ERFORMED BY: CB [facility] Qzwikm6020 [address] RoadDublin [place] [id number] Bilirubin [Mass/Vol] 0.4 mg/dL Normal 0.0-1.2 [facility]; [facility] Work Phone: Comment on above: PATIENT WAS FASTINGP ERFORMED BY: CB [facility] Npllig8143 [address] RoadDublin [place] [id number] Calcium [Mass/Vol] 9.6 mg/dL Normal 8.6-10.2 [facility]; [facility] Work Phone: Comment on above: PATIENT WAS FASTINGP ERFORMED BY: ERAN Monsalve6370 [facility] [id number] Chloride [Moles/Vol] 106 mmol/L Normal 96-106 Comp rehensive Internal Medicine; [facility] Work Phone: Comment on above: PATIENT WAS FASTINGP ERFORMED BY: ERAN Monsalve6370 [facility] [id number] CO2 [Moles/Vol] 23 mmol/L Normal 20-29 Comprehen [facility]; [facility] Work Phone: Comment on above: PATIENT WAS FASTINGP ERFORMED BY: ERAN Monsalve6370 [facility] [id number] Creatinine [Mass/Vol] 0.99 mg/dL Normal 0.76-1.27 [facility]; [facility] Work Phone: Comment on above: PATIENT WAS FASTINGP ERFORMED BY: ERAN Monsalve6370 [facility] [id number] GFR/1.73 sq M.predicted among blacks CKD-EPI (S/P/Bld) [Vol rate/Area] 89 mL/min/1.73 Normal [facility]; [facility] Work Phone: Comment on above: In accordance with recommendations from the NKF-ASN Task force, [facility] is in the process of updating its eGFR calculation to the 2020 CKD-EPI creatinine equation that estimates kidney function without a race variable. PATIENT WAS FASTINGP ERFORMED BY: ERAN Colelin6370 [facility] [id number] GFR/1.73 sq M.predicted among non-blacks CKD-EPI (S/P/Bld) [Vol rate/Area] 77 mL/min/1.73 Normal [facility]; [facility] Work Phone: Comment on above: PATIENT WAS FASTINGP ERFORMED BY: ERAN Colelin6370 [facility] [id number] Globulin (S) [Mass/Vol] 2.2 g/dL Normal 1.5-4.5 [facility]; [facility] Work Phone: Comment on above: PATIENT WAS FASTINGP ERFORMED BY: ERAN Lablesli Spqczw4[address] RoadDublin [place] [id number] Glucose [Mass/Vol] 88 mg/dL Normal 65-99 [facility]; [facility] Work Phone: Comment on above: PATIENT WAS FASTINGP ERFORMED BY: ERAN [facility] Zniuam3368 [address] RoadDublin [place] [id number] Potassium [Moles/Vol] 4.7 mmol/L Normal 3.5-5.2 [facility]; [facility] Work Phone: Comment on above: PATIENT WAS FASTINGP ERFORMED BY: ERAN Lablesli ColeEeyoso6736 [address] RoadDublin [place] [id number] Protein [Mass/Vol] 6.9 g/dL Normal 6.0-8.5 [facility]; [facility] Work Phone: Comment on above: PATIENT WAS FASTINGP ERFORMED BY: ERAN [facility] Mdggek0490 [address] RoadDublin [place] [id number] Sodium [Moles/Vol] 141 mmol/L Normal 134-144 [facility]; [facility] Work Phone: Comment on above: PATIENT WAS FASTINGP ERFORMED BY: ERAN [facility] Bdozjq5227 [address] RoadDublin [place] [id number] Urea nitrogen [Mass/Vol] 18 mg/dL Normal 8-27 [facility]; [facility] Work Phone: Comment on above: PATIENT WAS FASTINGP ERFORMED BY: ERAN [facility] Anxxvo4445 [address] RoadDublin [place] [id number] Urea nitrogen/Creatinine [Mass ratio] 18 mg/mg Normal 10-24 [facility]; [facility] Work Phone: Comment on above: PATIENT WAS FASTINGP ERFORMED BY: ERAN [facility] Qeyvww3421 [address] RoadDublin [place] [id number] Vitamin D Hydroxy (55982)Ord ered By: Wire Inspector on 11-21-2021 25-hydroxyvitamin D [Mass/Vol] 50.2 ng/mL Normal 30.0-100.0 [facility]; [facility] Work Phone: Comment on above: Vitamin D deficiency has been defined by the Gold Bar ofMedicine and an Endocrine Society practice guideline as alevel of serum 25-OH vitamin D less than 20 ng/mL (1,2).The Endocrine Society went on to further define vitamin Dinsufficiency as a level between 21 and 29 ng/mL (2).1. IOM (Gold Bar of Medicine). 2010. Dietary reference intakes for calcium and D. [place]: The National Academies Press.2. Paul MF, Scott IVEY, Yair TY, et al. Evaluation, treatment, and prevention of vitamin D deficiency: an Endocrine Society clinical practice guideline. JCEM. 2010; 96(7):1911-30. PATIENT WAS FASTINGP ERFORMED BY: [employer] [place] [id number] C-REACT PROT HIGH SENS(hsCRP ) (07986)Ordered By: Wire Inspector on 11-09-2020 CRP High sensitivity method [Mass/Vol] 0.57 mg/L Normal 0.00-3.00 [facility]; [facility] Work Phone: Comment on above: Relative Risk for Fu ture Cardiovascular Event Low <1.00 Average 1.00 - 3.00 High >3.00 PATIENT WAS FASTINGP ERFORMED BY: [employer] Servicesin [place] [id number] CBC W/AUTO DIFF WBC (78304)O rdered By: Wire Inspector on 11-09-2020 Basophils (Bld) [#/Vol] 0.2 {x10E3/uL} Normal 0.0-0.2 [facility]; [facility] Work Phone: Comment on above: PATIENT WAS FASTINGP ERFORMED BY: [employer] [place] [id number] Basophils (Bld) [#/Vol] 0.2 10*3/uL Normal 0.0-0.2 [facility]; [facility] Work Phone: Comment on above: PATIENT WAS FASTINGP ERFORMED BY: ERAN LabCojay MonsalveMqxzio4422 [address] RoadDublin [place] [id number] Basophils/100 WBC (Bld) 2 % Normal [facility]; [facility] Work Phone: Comment on above: PATIENT WAS FASTINGP ERFORMED BY: [facility] Ayyqcq9922 [address] RoadDublin [place] [id number] Eosinophils (Bld) [#/Vol] 0.3 {x10E3/uL} Normal 0.0-0.4 [facility]; [facility] Work Phone: Comment on above: PATIENT WAS FASTINGP ERFORMED BY: ERAN [facility] Hgfvim3217 [address] RoadDublin [place] [id number] Eosinophils (Bld) [#/Vol] 0.3 10*3/uL Normal 0.0-0.4 [facility]; [facility] Work Phone: Comment on above: PATIENT WAS FASTINGP ERFORMED BY: ERAN [facility] Mmrnkw3992 [address] RoadDublin [place] [id number] Eosinophils/100 WBC (Bld) 4 % Normal [facility]; [facility] Work Phone: Comment on above: PATIENT WAS FASTINGP ERFORMED BY: [facility] Mynfoy9951 [address] RoadDublin [place] [id number] Erythrocyte distribution width (RBC) [Ratio] 12.5 % Normal 11.6-15.4 [facility]; [facility] Work Phone: Comment on above: PATIENT WAS FASTINGP ERFORMED BY: [facility] Oihzne8498 [address] RoadDublin [place] [id number] Hematocrit (Bld) [Volume fraction] 44.6 % Normal 37.5-51.0 [facility]; [facility] Work Phone: Comment on above: PATIENT WAS FASTINGP ERFORMED BY: [facility] Hrmeri9962 [address] RoadDublin [place] [id number] Hemoglobin (Bld) [Mass/Vol] 15.4 g/dL Normal 13.0-17.7 [facility]; [facility] Work Phone: Comment on above: PATIENT WAS FASTINGP ERFORMED BY: ERAN PriyankaLesli ColeBypdmb3970 [facility] [id number] Immature granulocytes (Bld) [#/Vol] 0.0 {x10E3/uL} Normal 0.0-0.1 [facility]; [facility] Work Phone: Comment on above: PATIENT WAS FASTINGP ERFORMED BY: ERAN [facility]Camer[facility] Xdfdso4847 [facility] [id number] Immature granulocytes (Bld) [#/Vol] 0.0 10*3/uL Normal 0.0-0.1 [facility]; [facility] Work Phone: Comment on above: PATIENT WAS FASTINGP ERFORMED BY: ERAN MathewCameron [facility] Aknrhn1201 [facility] [id number] Immature granulocytes/100 WBC (Bld) 0 % Normal [facility]; [facility] Work Phone: Comment on above: PATIENT WAS FASTINGP ERFORMED BY: ERAN Arreaga Yyleiq0349 [facility] [id number] Lymphocytes (Bld) [#/Vol] 2.0 {x10E3/uL} Normal 0.7-3.1 [facility]; [facility] Work Phone: Comment on above: PATIENT WAS FASTINGP ERFORMED BY: [facility]ankaCamer[facility] Lrkrqt3600 [facility] [id number] Lymphocytes (Bld) [#/Vol] 2.0 10*3/uL Normal 0.7-3.1 [facility]; [facility] Work Phone: Comment on above: PATIENT WAS FASTINGP ERFORMED BY: ERAN [facility]ankaCameron [facility] Center Mfdsvq7155 [facility] [id number] Lymphocytes/100 WBC (Bld) 26 % Normal [facility]; [facility] Work Phone: Comment on above: PATIENT WAS FASTINGP ERFORMED BY: CB LabUniversity [facility] [facility]in [place] [id number] MCH (RBC) [Entitic mass] 32.9 pg Normal 26.6-33.0 [facility]; [facility] Work Phone: Comment on above: PATIENT WAS FASTINGP ERFORMED BY: [facility] [facility] Centerin [place] [id number] MCHC (RBC) [Mass/Vol] 34.5 g/dL Normal 31.5-35.7 [facility]; [facility] Work Phone: Comment on above: PATIENT WAS FASTINGP ERFORMED BY: LabUniversity Of Michigan [facility]–West[address] [facility] Centerin [place] [id number] MCV (RBC) [Entitic vol] 95 fL Normal 79-97 [facility]; [facility] Work Phone: Comment on above: PATIENT WAS FASTINGP ERFORMED BY: [place] [address] [facility] [id number] Monocytes (Bld) [#/Vol] 0.6 {x10E3/uL} Normal 0.1-0.9 [facility]; [facility] Work Phone: Comment on above: PATIENT WAS FASTINGP ERFORMED BY: [facility] [facility] Centerin [place] [id number] Monocytes (Bld) [#/Vol] 0.6 10*3/uL Normal 0.1-0.9 [facility]; [facility] Work Phone: Comment on above: PATIENT WAS FASTINGP ERFORMED BY: LabUniversity Of [facility]–West[address] [facility] Centerblin [place] [id number] Monocytes/100 WBC (Bld) 8 % Normal [facility]; [facility] Work Phone: Comment on above: PATIENT WAS FASTINGP ERFORMED BY: [facility] [facility] CenterD[facility] [place] [id number] Neutrophils (Bld) [#/Vol] 4.8 {x10E3/uL} Normal 1.4-7.0 [facility]; [facility] Work Phone: Comment on above: PATIENT WAS FASTINGP ERFORMED BY: CB [facility] Dlzpoa2775 [address] RoadDublin [place] [id number] Neutrophils (Bld) [#/Vol] 4.8 10*3/uL Normal 1.4-7.0 [facility]; [facility] Work Phone: Comment on above: PATIENT WAS FASTINGP ERFORMED BY: CB [facility] Jokrgq3060 [address] RoadDublin [place] [id number] Neutrophils/100 WBC (Bld) 60 % Normal [facility]; [facility] Work Phone: Comment on above: PATIENT WAS FASTINGP ERFORMED BY: CB [facility] Lsiaiz3738 [address] RoadDublin [place] [id number] Platelets (Bld) [#/Vol] 204 {x10E3/uL} Normal 150-450 [facility]; [facility] Work Phone: Comment on above: PATIENT WAS FASTINGP ERFORMED BY: CB [facility] Qjiouq9099 [address] RoadDublin [place] [id number] Platelets (Bld) [#/Vol] 204 10*3/uL Normal 150-450 [facility]; [facility] Work Phone: Comment on above: PATIENT WAS FASTINGP ERFORMED BY: CB [facility] Hkhojw0022 [address] RoadDublin [place] [id number] RBC (Bld) [#/Vol] 4.68 {x10E6/uL} Normal 4.14-5.80 [facility] Internal [facility]; [facility] Work Phone: Comment on above: PATIENT WAS FASTINGP ERFORMED BY: CB [facility] Ighnol7164 [address]Dublin [place] [id number] RBC (Bld) [#/Vol] 4.68 10*6/uL Normal 4.14-5.80 [facility]; [facility] Work Phone: Comment on above: PATIENT WAS FASTINGP ERFORMED BY: CB [facility] Vvayuc8949 [address] RoadDublin [place] [id number] WBC (Bld) [#/Vol] 7.9 {x10E3/uL} Normal 3.4-10.8 [facility] prehensive Internal Medicine; [facility] Work Phone: Comment on above: PATIENT WAS FASTINGP ERFORMED BY: ERAN Caleb Monsalve6370 [facility] [id number] WBC (Bld) [#/Vol] 7.9 10*3/uL Normal 3.4-10.8 [facility] Medicine; [facility] Work Phone: Comment on above: PATIENT WAS FASTINGP ERFORMED BY: ERAN [facility] Yhwixd3227 [facility] [id number] LIPID PANEL ([id number])Ordered B y: Wire Inspector on 11-09-2020 Cholesterol [Mass/Vol] 209 mg/dL Abnormal 100-199 [facility]; [facility] Work Phone: Comment on above: PATIENT WAS FASTINGP ERFORMED BY: ERAN Evonnejay Cjrssc2873 [facility] [id number] Cholesterol in HDL [Mass/Vol] 78 mg/dL Normal [facility]; [facility] Work Phone: Comment on above: PATIENT WAS FASTINGP ERFORMED BY: ERAN PriyankaLesli Fasqat5641 [facility] [id number] Cholesterol in LDL/Cholesterol in HDL [Mass ratio] 1.5 {ratio} Normal 0.0-3.6 [facility]; [facility] Work Phone: Comment on above: LDL/HDL Ratio Men Wo men 1/2 Avg.Risk 1.0 1.5 Avg.Risk 3.6 3.2 2X Avg.Risk 6.2 5.0 3X Avg.Risk 8.0 6.1 PATIENT WAS FASTINGP ERFORMED BY: ERAN LabJoanajay Tocsyy5649 [facility] [id number] Triglyceride [Mass/Vol] 84 mg/dL Normal 0-149 [facility]; [facility] Work Phone: Comment on above: PATIENT WAS FASTINGP ERFORMED BY: ERAN LabCo Mablvv6178 Portal [facility] Centerin [place] [id number] LIPID PANEL (53610) 116 mg/dL Abnormal 0-99 [facility] Work Phone: Comment on above: PATIENT WAS FASTINGP ERFORMED BY: ERAN [facility] Isxsqk2396 [address] Roadblin [place] [id number] LIPID PANEL (29876) 15 mg/dL Normal 5-40 [facility]; [facility] Work Phone: Comment on above: PATIENT WAS FASTINGP ERFORMED BY: LabCo Kmyymk0064 [address] [facility] [id number] LIPID PANEL (38112) 1.5 {ratio} Normal 0.0-3.6 [facility] Internal Medicine; [facility] Work Phone: Comment on above: LDL/HDL Ratio Men Wo men 1/2 Avg.Risk 1.0 1.5 Avg.Risk 3.6 3.2 2X Avg.Risk 6.2 5.0 3X Avg.Risk 8.0 6.1 PATIENT WAS FASTINGP ERFORMED BY: ERAN [facility] Nnkhoz8563 [facility] [id number] METABOLIC PANEL, COMPREHENSI VE (38514)Ordered By: Wire Inspector on 11-09-2020 Albumin [Mass/Vol] 4.5 g/dL Normal 3.8-4.8 [facility] Internal Medicine; [facility] Work Phone: Comment on above: PATIENT WAS FASTINGP ERFORMED BY: ERAN [facility] Kzmdkt0578 [facility] [id number] Albumin/Globulin [Mass ratio] 1.8 {ratio} Normal 1.2-2.2 [facility] Internal Medicine; [facility] Work Phone: Comment on above: PATIENT WAS FASTINGP ERFORMED BY: [facility] Pwgero[address] [facility] Centerin [place] [id number] ALP [Catalytic activity/Vol] 66 [iU]/L Normal 39-117 [facility]; [facility] Work Phone: Comment on above: PATIENT WAS FASTINGP ERFORMED BY: ERAN [facility] Ctlzco7160 [address] RoadDublin [place] [id number] ALP [Catalytic activity/Vol] 66 U/L Normal 39-117 [facility]; [facility] Work Phone: Comment on above: PATIENT WAS FASTINGP ERFORMED BY: ERAN PriyankaLesli ColeArysnb1602 Bishop RoadDublin [place] [id number] ALT [Catalytic activity/Vol] 19 [iU]/L Normal 0-44 [facility]; [facility] Work Phone: Comment on above: PATIENT WAS FASTINGP ERFORMED BY: ERAN [facility] Pocsep0395 [address] RoadDublin [place] [id number] ALT [Catalytic activity/Vol] 19 U/L Normal 0-44 [facility]; [facility] Work Phone: Comment on above: PATIENT WAS FASTINGP ERFORMED BY: ERAN [facility]wC[facility] Cocwmk7860 [address] RoadDublin [place] [id number] AST [Catalytic activity/Vol] 23 [iU]/L Normal 0-40 [facility]; [facility] Work Phone: Comment on above: PATIENT WAS FASTINGP ERFORMED BY: ERAN LabLesli ColeUdmbvo9250 [address] RoadDublin [place] [id number] AST [Catalytic activity/Vol] 23 U/L Normal 0-40 [facility]; [facility] Work Phone: Comment on above: PATIENT WAS FASTINGP ERFORMED BY: ERAN LabJoana Gbdlvz0560 [address] RoadDublin [place] [id number] Bilirubin [Mass/Vol] 0.4 mg/dL Normal 0.0-1.2 Comp rehensive Internal Medicine; [facility] Work Phone: Comment on above: PATIENT WAS FASTINGP ERFORMED BY: ERAN [facility] Fzdopw8538 [address] RoadDublin [place] [id number] Calcium [Mass/Vol] 9.7 mg/dL Normal 8.6-10.2 [facility]; [facility] Work Phone: Comment on above: PATIENT WAS FASTINGP ERFORMED BY: ERAN [facility] Ibxghd3624 [address] RoadDublin [place] [id number] Chloride [Moles/Vol] 105 mmol/L Normal 96-106 Comp rehensive Internal Medicine; [facility] Work Phone: Comment on above: PATIENT WAS FASTINGP ERFORMED BY: [facility] Xdoccp2642 [address] RoadDublin [place] [id number] CO2 [Moles/Vol] 23 mmol/L Normal 20-29 [facility] Internal Medicine; [facility] Work Phone: Comment on above: PATIENT WAS FASTINGP ERFORMED BY: [facility] Mkxuhl9808 [address] RoadDublin [place] [id number] Creatinine [Mass/Vol] 1.04 mg/dL Normal 0.76-1.27 [facility]; [facility] Work Phone: Comment on above: PATIENT WAS FASTINGP ERFORMED BY: LabCamer[facility] Nrbkfa8514 [address] RoadDublin [place] [id number] GFR/1.73 sq M predicted among blacks CKD-EPI (S/P/Bld) [Vol rate/Area] 84 mL/min/1.73 Normal [facility]; [facility] Work Phone: Comment on above: PATIENT WAS FASTINGP ERFORMED BY: [facility] Yauwsp0917 [address] RoadDublin [place] [id number] GFR/1.73 sq M predicted among non-blacks CKD-EPI (S/P/Bld) [Vol rate/Area] 73 mL/min/1.73 Normal [facility]; [facility] Work Phone: Comment on above: PATIENT WAS FASTINGP ERFORMED BY: [facility] Vsmkla3694 [address] RoadDublin [place] [id number] Globulin (S) [Mass/Vol] 2.5 g/dL Normal 1.5-4.5 [facility]; [facility] Work Phone: Comment on above: PATIENT WAS FASTINGP ERFORMED BY: [facility] Kvierk2668 [address] RoadDublin [place] [id number] Glucose [Mass/Vol] 87 mg/dL Normal 65-99 Compre hensive Internal Medicine; [facility] Work Phone: Comment on above: PATIENT WAS FASTINGP ERFORMED BY: ERAN [facility] Dzktzn7201 [address] RoadDublin [place] [id number] Potassium [Moles/Vol] 4.9 mmol/L Normal 3.5-5.2 [facility]; [facility] Work Phone: Comment on above: PATIENT WAS FASTINGP ERFORMED BY: CB [facility] Qzxhib4700 [address] RoadDublin [place] [id number] Protein [Mass/Vol] 7.0 g/dL Normal 6.0-8.5 [facility] Internal Medicine; [facility] Work Phone: Comment on above: PATIENT WAS FASTINGP ERFORMED BY: CB [facility] Hzkeew1375 [address] RoadDublin [place] [id number] Sodium [Moles/Vol] 142 mmol/L Normal 134-144 [facility] Internal Medicine; [facility] Work Phone: Comment on above: PATIENT WAS FASTINGP ERFORMED BY: CB [facility] Ixvcqs5190 [address] RoadDublin [place] [id number] Urea nitrogen [Mass/Vol] 14 mg/dL Normal 8-27 [facility]; [facility] Work Phone: Comment on above: PATIENT WAS FASTINGP ERFORMED BY: CB [facility] Gsultn8139 [address] RoadDublin [place] [id number] Urea nitrogen/Creatinine [Mass ratio] 13 mg/mg Normal 10-24 [facility]; [facility] Work Phone: Comment on above: PATIENT WAS FASTINGP ERFORMED BY: CB [facility] Sfalsd6566 [address] RoadDublin [place] [id number] Vitamin D Hydroxy (51485)Ord ered By: Wire Inspector on 11-09-2020 25-Hydroxyvitamin D2+25-Hydroxyvitamin D3 [Mass/Vol] 49.9 ng/mL Normal 30.0-100.0 [facility]; [facility] Work Phone: Comment on above: Vitamin D deficiency has been defined by the Gold Bar ofMedicine and an Endocrine Society practice guideline as alevel of serum 25-OH vitamin D less than 20 ng/mL (1,2).The Endocrine Society went on to further define vitamin Dinsufficiency as a level between 21 and 29 ng/mL (2).1. IOM (Gold Bar of Medicine). 2010. Dietary reference intakes for calcium and D. [place]: The National Academies Press.2. Paul MF, Scott IVEY, Yair TY, et al. Evaluation, treatment, and prevention of vitamin D deficiency: an Endocrine Society clinical practice guideline. JCEM. 2010; 96(7):1911-30. PATIENT WAS FASTINGP ERFORMED BY: CB [facility] Ohdomg7712 [address] RoadDublin [place] [id number] METABOLIC PANEL, COMPREHENSI VE (75908)Ordered By: Wire Inspector on 05-01-2019 Albumin [Mass/Vol] 4.6 g/dL Normal 3.6-4.8 [facility] Internal Medicine Work Phone: Comment on above: PATIENT WAS FASTINGP ERFORMED BY: [facility] Uqrqmbwfnk[address] [id number] BY: [facility] Wosaby9031 [address] RoadDublin [place] [id number] Albumin/Globulin [Mass ratio] 1.6 {ratio} Normal 1.2-2.2 [facility] Work Phone: Comment on above: PATIENT WAS FASTINGP ERFORMED BY: TAPQUAD [facility] Qssmgnlwmt7709 [facility] [id number] BY: La Más Mona [facility] Qrxfpu4718 [address] RoadDublin [place] [id number] ALP [Catalytic activity/Vol] 53 [iU]/L Normal 39-117 [facility] Work Phone: Comment on above: PATIENT WAS FASTINGP ERFORMED BY: TAPQUAD [facility] Amnknvaotj20[address] [id number] BY: CB [facility] Jekcox7795 [address] RoadDublin [place] [id number] ALP [Catalytic activity/Vol] 53 U/L Normal 39-117 [facility]; [facility] Work Phone: Comment on above: PATIENT WAS FASTINGP ERFORMED BY: [facility] [address] [id number] BY: ERAN [facility] Gfwili5760 [address] RoadDublin [place] [id number] ALT [Catalytic activity/Vol] 23 [iU]/L Normal 0-44 [facility] Work Phone: Comment on above: PATIENT WAS FASTINGP ERFORMED BY: [facility] [address] [id number] BY: ERAN [facility] Jkpgpn0105 [address] RoadDublin [place] [id number] ALT [Catalytic activity/Vol] 23 U/L Normal 0-44 [facility]; [facility] Work Phone: Comment on above: PATIENT WAS FASTINGP ERFORMED BY: Lab[address] [id number] BY: ERAN [facility] Huhaui2683 [address] RoadDublin [place] [id number] AST [Catalytic activity/Vol] 36 [iU]/L Normal 0-40 [facility] Work Phone: Comment on above: PATIENT WAS FASTINGP ERFORMED BY: LabCo[address] [id number] BY: ERAN [facility] Ircqcs1204 [address] RoadDublin [place] [id number] AST [Catalytic activity/Vol] 36 U/L Normal 0-40 [facility]; [facility] Work Phone: Comment on above: PATIENT WAS FASTINGP ERFORMED BY: LabCo[address] [id number] BY: [facility] Xtgmew1840 [address] RoadDublin [place] [id number] Bilirubin [Mass/Vol] 0.4 mg/dL Normal 0.0-1.2 Comp [facility] Internal Medicine Work Phone: Comment on above: PATIENT WAS FASTINGP ERFORMED BY: Lab[address] [id number] BY: [facility] Bkgqwq2404 [address] RoadNovant Health Rowan Medical Centerin [place] [id number] Calcium [Mass/Vol] 9.5 mg/dL Normal 8.6-10.2 [facility] Internal Medicine Work Phone: Comment on above: PATIENT WAS FASTINGP ERFORMED BY: [facility] [address] [id number] BY: CB [facility] Hqdors0730 [facility] RoadNovant Health / N[facility] [id number] Chloride [Moles/Vol] 103 mmol/L Normal 96-106 Comp [facility]ensive Internal Medicine Work Phone: Comment on above: PATIENT WAS FASTINGP ERFORMED BY: [facility] [address] [id number] BY: [facility] Xbjaql6668 Bishop RoadNovant Health / NHRMC [id number] CO2 [Moles/Vol] 22 mmol/L Normal 20-29 [facility] Internal Medicine Work Phone: Comment on above: PATIENT WAS FASTINGP ERFORMED BY: Lab[address] [id number] BY: [facility] Wmiuhd8023 [address] [facility] [id number] Creatinine [Mass/Vol] 1.02 mg/dL Normal 0.76-1.27 [facility] Work Phone: Comment on above: PATIENT WAS FASTINGP ERFORMED BY: LabCo[address] [id number] BY: [facility] Aziqfu7694 [address] [facility] [id number] GFR/1.73 sq M predicted among blacks CKD-EPI (S/P/Bld) [Vol rate/Area] 88 mL/min/1.73 Normal [facility] Work Phone: Comment on above: PATIENT WAS FASTINGP ERFORMED BY: LabCo[address] [id number] BY: ERAN [facility] Mjpvla8386 Bishop RoadNovant Health Rowan Medical Centerin [place] [id number] GFR/1.73 sq M predicted among non-blacks CKD-EPI (S/P/Bld) [Vol rate/Area] 76 mL/min/1.73 Normal [facility] Work Phone: Comment on above: PATIENT WAS FASTINGP ERFORMED BY: Lab[address] [id number] BY: LabCoKessler Institute for RehabilitationZvovgp3382 [facility] [id number] Globulin (S) [Mass/Vol] 2.8 g/dL Normal 1.5-4.5 [facility] Work Phone: Comment on above: PATIENT WAS FASTINGP ERFORMED BY: [address] [id number] BY: ERAN LabUniversity [facility]6370 [facility] [id number] Glucose [Mass/Vol] 87 mg/dL Normal 65-99 [facility] Internal Medicine Work Phone: Comment on above: PATIENT WAS FASTINGP ERFORMED BY: [address] [id number] BY: LabCoKessler Institute for RehabilitationHrchat9503 [facility] [id number] Potassium [Moles/Vol] 4.6 mmol/L Normal 3.5-5.2 [facility] Work Phone: Comment on above: PATIENT WAS FASTINGP ERFORMED BY: [address] [id number] BY: LabCoKessler Institute for RehabilitationTdxfzz6514 [facility] [id number] Protein [Mass/Vol] 7.4 g/dL Normal 6.0-8.5 [facility] Internal Medicine Work Phone: Comment on above: PATIENT WAS FASTINGP ERFORMED BY: Lab[address] [id number] BY: ERAN [facility] Ivlwau6534 [address] RoadDublin [place] [id number] Sodium [Moles/Vol] 141 mmol/L Normal 134-144 [facility] Internal Medicine Work Phone: Comment on above: PATIENT WAS FASTINGP ERFORMED BY: [facility] [address] [id number] BY: ERAN [facility] Otziek5573 [address] RoadDublin [place] [id number] Urea nitrogen [Mass/Vol] 14 mg/dL Normal 8-27 [facility] Work Phone: Comment on above: PATIENT WAS FASTINGP ERFORMED BY: [facility] [address] [id number] BY: ERAN [facility] Bafhvv3236 [address] RoadDublin [place] [id number] Urea nitrogen/Creatinine [Mass ratio] 14 mg/mg Normal 10-24 [facility] Work Phone: Comment on above: PATIENT WAS FASTINGP ERFORMED BY: LabCo[address] [id number] BY: ERAN [facility] Jnrvnq9722 [address] RoadDublin [place] [id number] NMR Profile ([id number])Ordered B y: Wire Inspector on 05-01-2019 Cholesterol [Mass/Vol] 208 mg/dL Abnormal 100-199 [facility] Work Phone: Comment on above: PATIENT WAS FASTINGP ERFORMED BY: [facility] [address] [id number] BY: ERAN [facility] Uikmik0194 [address] RoadDublin [place] [id number] Cholesterol in HDL [Mass/Vol] 88 mg/dL Normal [facility] Work Phone: Comment on above: PATIENT WAS FASTINGP ERFORMED BY: [facility] [address] [id number] BY: ERAN [facility] Irzyod3447 [address] RoadDublin [place] [id number] Lipoprotein.alpha [Moles/Vol] 38.3 umol/L Normal [facility] Work Phone: Comment on above: PATIENT WAS FASTINGP ERFORMED BY: [employer] [address] [id number] BY: Lookerlin6370 [facility] [id number] Lipoprotein.beta.sub particle [Entitic length] 21.3 nm Normal [facility] Internal Medicine Work Phone: Comment on above: INTERPRETATIVE INFORMATION PARTICLE CONCENTRATION AND SIZE <--Lower CVD Risk Higher CVD Risk--> LDL AND HDL PARTICLES Percentile in Reference Population HDL-P (total) High 75th 50th 25th Low >34.9 34.9 30.5 26.7 <26.7 . Small LDL-P Low 25th 50th 75th High <117 117 527 839 >839 . LDL Size <-Large (Pattern A)-> <-Small (Pattern B)-> 23.0 20.6 20.5 19.0 Small LDL-P and LDL Size are associated with CVD risk, but not afterLDL-P is taken into account. .These assays were developed and their performance characteristicsdetermined by [employer]. These assays have not been cleared by [employer] Food and Drug Administration. The clinical utility of theselaboratory values have not been fully established. PATIENT WAS FASTINGP ERFORMED BY: [employer] [address] [id number] BY: Lookerlin6370 [facility] [id number] Lipoprotein.beta.sub particle [Moles/Vol] 1067 nmol/L Abnormal Comprehensi ve Internal Medicine Work Phone: Comment on above: Low < 1000 Moderate 1000 - 1299 Borderline-High 1300 - 1599 High 1600 - 2000 Very High > 2000 PATIENT WAS FASTINGP ERFORMED BY: [employer] Nedzfdwpol26[address] [id number] BY: [facility] Gvzjdf2382 [facility] [id number] Lipoprotein.beta.sub particle.small [Moles/Vol] <90 Normal [facility] Work Phone: Comment on above: PATIENT WAS FASTINGP ERFORMED BY: Valderm[address] [id number] BY: [facility] Pjlldl3017 [facility] [id number] Triglyceride [Mass/Vol] 60 mg/dL Normal 0-149 [facility] Work Phone: Comment on above: PATIENT WAS FASTINGP ERFORMED BY: Valderm[address] [id number] BY: LabCoKessler Institute for RehabilitationHhsnqd0549 [facility] [id number] NMR Profile (66041) 108 mg/dL Abnormal 0-99 Compr ehensive Internal Medicine Work Phone: Comment on above: . Optimal < 100 Abov e optimal 100 - 129 Borderline 130 - 159 High 160 - 189 Very high > 189 .LDL-C is inaccurate if patient is non-fasting. PATIENT WAS FASTINGP ERFORMED BY: [employer] Cseidsznms969[address] [id number] BY: [facility] Qjpjcx2614 [facility] [id number] TESTOSTERONE FREE (52396)Ord ered By: Wire Inspector on 05-01-2019 Testosterone Free [Mass/Vol] 7.0 pg/mL Normal 6.6-18.1 [facility] Work Phone: Comment on above: PATIENT WAS FASTINGP ERFORMED BY: [employer] Klgazbkzjm937[address] [id number] BY: [employer]6370 [address] [facility] Centerin [place] [id number] Vitamin D Hydroxy (15888)Ord ered By: Wire Inspector on 05-01-2019 25-Hydroxyvitamin D2+25-Hydroxyvitamin D3 [Mass/Vol] 51.5 ng/mL Normal 30.0-100.0 [facility] Work Phone: Comment on above: Vitamin D deficiency has been defined by the Gold Bar ofFairfield Medical Centercine and an Endocrine Society practice guideline as alevel of serum 25-OH vitamin D less than 20 ng/mL (1,2).The Endocrine Society went on to further define vitamin Dinsufficiency as a level between 21 and 29 ng/mL (2).1. IOM (Gold Bar of Medicine). 2010. Dietary reference intakes for calcium and D. [place]: The National Academies Press.2. Paul MF, Scott IVEY, Yair TY, et al. Evaluation, treatment, and prevention of vitamin D deficiency: an Endocrine Society clinical practice guideline. JCEM. 2010; 96(7):1911-30. PATIENT WAS FASTINGP ERFORMED BY: [employer] [id number] BY: [employer]70 [facility] [id number] CBC W/AUTO DIFF WBC (61741)o n 12-31-2018 Basophils #/vol (Bld) 0.1 {x10E3/uL} Normal 0.0-0.2 [facility] Work Phone: Comment on above: PATIENT NOT FASTINGP ERFORMED BY: [employer]70 [facility] [id number] BY: [employer] [id number] Information: NURSE DRAW Basophils/100 WBC (Bld) 1 % Normal [facility] Work Phone: Comment on above: PATIENT NOT FASTINGP ERFORMED BY: [employer]70 [facility] [id number] BY: [employer] [id number] Information: NURSE DRAW Eosinophils #/vol (Bld) 0.2 {x10E3/uL} Normal 0.0-0.4 [facility] Work Phone: Comment on above: PATIENT NOT FASTINGP ERFORMED BY: ERAN [facility] Fbgjoe4211 [address] RoadDublin [place] [id number] BY: LabCo[address] [id number] Information: NURSE DRAW Eosinophils/100 WBC (Bld) 2 % Normal [facility] Work Phone: Comment on above: PATIENT NOT FASTINGP ERFORMED BY: CB [facility] Covkcc9318 [address] [facility] [id number] BY: LabCo[address] [id number] Information: NURSE DRAW Erythrocyte distribution width Ratio (RBC) 13.9 % Normal 12.3-15.4 [facility] Work Phone: Comment on above: PATIENT NOT FASTINGP ERFORMED BY: CB [facility] Qjvohk7832 [address] [facility] [id number] BY: LabCo[address] [id number] Information: NURSE DRAW Hematocrit Volume Fraction (Bld) 47.5 % Normal 37.5-51.0 [facility] Work Phone: Comment on above: PATIENT NOT FASTINGP ERFORMED BY: CB [facility] Atpxgx9064 [address] [facility] [id number] BY: [facility] [address] [id number] Information: NURSE DRAW Hemoglobin mass conc (Bld) 15.9 g/dL Normal 13.0-17.7 [facility] Work Phone: Comment on above: PATIENT NOT FASTINGP ERFORMED BY: CB [facility] Pklrwn7905 [address] [facility] [id number] BY: LabCo[address] [id number] Information: NURSE DRAW Immature granulocytes #/vol (Bld) 0.0 {x10E3/uL} Normal 0.0-0.1 [facility] Work Phone: Comment on above: PATIENT NOT FASTINGP ERFORMED BY: ERAN [facility] Boucrs7998 Bishop RoadDuin [place] [id number] BY: [address] [id number] Information: NURSE DRAW Immature granulocytes/100 WBC (Bld) 0 % Normal [facility] Work Phone: Comment on above: PATIENT NOT FASTINGP ERFORMED BY: ERAN [facility] Xstnkh0176 [address] [facility] [id number] BY: [address] [id number] Information: NURSE DRAW Lymphocytes #/vol (Bld) 2.8 {x10E3/uL} Normal 0.7-3.1 [facility] Work Phone: Comment on above: PATIENT NOT FASTINGP ERFORMED BY: ERAN [facility] Wpqbbs0784 [address] [facility] [id number] BY: [address] [id number] Information: NURSE DRAW Lymphocytes/100 WBC (Bld) 29 % Normal [facility] Work Phone: Comment on above: PATIENT NOT FASTINGP ERFORMED BY: ERAN [facility] Kawlov7605 [address] [facility] [id number] BY: [address] [id number] Information: NURSE DRAW MCH Entitic mass (RBC) 32.9 pg Normal 26.6-33.0 [facility] Work Phone: Comment on above: PATIENT NOT FASTINGP ERFORMED BY: ERAN [facility] Rxkmrv6411 [address] [facility] [id number] BY: [address] [id number] Information: NURSE DRAW MCHC mass conc (RBC) 33.5 g/dL Normal 31.5-35.7 Comp [facility] Internal Medicine Work Phone: Comment on above: PATIENT NOT FASTINGP ERFORMED BY: ERAN [facility] Uudgqw9843 [facility] [id number] BY: [address] [id number] Information: NURSE DRAW MCV Entitic volume (RBC) 98 fL Abnormal 79-97 [facility] Work Phone: Comment on above: PATIENT NOT FASTINGP ERFORMED BY: ERAN [facility] Csxtvd3944 [facility] [id number] BY: [address] [id number] Information: NURSE DRAW Monocytes #/vol (Bld) 0.7 {x10E3/uL} Normal 0.1-0.9 [facility] Work Phone: Comment on above: PATIENT NOT FASTINGP ERFORMED BY: ERAN [facility] Eiwobj1802 [facility] [id number] BY: [address] [id number] Information: NURSE DRAW Monocytes/100 WBC (Bld) 7 % Normal [facility] Work Phone: Comment on above: PATIENT NOT FASTINGP ERFORMED BY: CB [facility] Dbvlxx1181 [facility] [id number] BY: [facility] [id number] Information: NURSE DRAW Neutrophils #/vol (Bld) 5.8 {x10E3/uL} Normal 1.4-7.0 [facility] Work Phone: Comment on above: PATIENT NOT FASTINGP ERFORMED BY: ERAN [facility] Jtudso3176 [facility] [id number] BY: [address] [id number] Information: NURSE DRAW Neutrophils/100 WBC (Bld) 61 % Normal [facility] Work Phone: Comment on above: PATIENT NOT FASTINGP ERFORMED BY: ERAN [facility] Lqcvrq2333 [facility] [id number] BY: [address] [id number] Information: NURSE DRAW Platelets #/vol (Bld) 221 {x10E3/uL} Normal 150-379 [facility] Work Phone: Comment on above: PATIENT NOT FASTINGP ERFORMED BY: ERAN [facility] [address] [id number] BY: [address] [id number] Information: NURSE DRAW RBC #/vol (Bld) 4.84 {x10E6/uL} Normal 4.14-5.80 [facility] Internal Medicine Work Phone: Comment on above: PATIENT NOT FASTINGP ERFORMED BY: ERAN [facility] [id number] BY: [address] [id number] Information: NURSE DRAW WBC #/vol (Bld) 9.6 {x10E3/uL} Normal 3.4-10.8 [facility] Internal Medicine Work Phone: Comment on above: PATIENT NOT FASTINGP ERFORMED BY: [facility] Jgzglr8791 [facility] [id number] BY: [address] [id number] Information: NURSE DRAW CBC W/AUTO DIFF WBC (24406)O rdered By: Wire Inspector on 12-31-2018 Basophils (Bld) [#/Vol] 0.1 10*3/uL Normal 0.0-0.2 [facility]; [facility] Work Phone: Comment on above: PATIENT NOT FASTINGP ERFORMED BY: [facility] Ysggmn4564 [facility] [id number] BY: [address] [id number] Information: NURSE DRAW Eosinophils (Bld) [#/Vol] 0.2 10*3/uL Normal 0.0-0.4 [facility]; [facility] Work Phone: Comment on above: PATIENT NOT FASTINGP ERFORMED BY: [facility] Xmjdqq2958 [facility] [id number] BY: [address] [id number] Information: NURSE DRAW Immature granulocytes (Bld) [#/Vol] 0.0 10*3/uL Normal 0.0-0.1 [facility]; [facility] Work Phone: Comment on above: PATIENT NOT FASTINGP ERFORMED BY: [facility] Xamlhi3357 [facility] [id number] BY: [address] [id number] Information: NURSE DRAW Lymphocytes (Bld) [#/Vol] 2.8 10*3/uL Normal 0.7-3.1 [facility]; [facility] Work Phone: Comment on above: PATIENT NOT FASTINGP ERFORMED BY: [facility]CoKessler Institute for RehabilitationWzsgag0427 [facility] [id number] BY: [address] [id number] Information: NURSE DRAW Monocytes (Bld) [#/Vol] 0.7 10*3/uL Normal 0.1-0.9 [facility]; [facility] Work Phone: Comment on above: PATIENT NOT FASTINGP ERFORMED BY: [facility] Jcwwbi0502 [facility] [id number] BY: [address] [id number] Information: NURSE DRAW Neutrophils (Bld) [#/Vol] 5.8 10*3/uL Normal 1.4-7.0 [facility]; [facility] Work Phone: Comment on above: PATIENT NOT FASTINGP ERFORMED BY: ERAN [facility] Sugdtz2986 [facility] [id number] BY: [address] [id number] Information: NURSE DRAW Platelets (Bld) [#/Vol] 221 10*3/uL Normal 150-379 [facility]; [facility] Work Phone: Comment on above: PATIENT NOT FASTINGP ERFORMED BY: ERAN PriyankaCo Fakcfq0570 [facility] [id number] BY: [address] [id number] Information: NURSE DRAW RBC (Bld) [#/Vol] 4.84 10*6/uL Normal 4.14-5.80 [facility] Internal Medicine; [facility] Work Phone: Comment on above: PATIENT NOT FASTINGP ERFORMED BY: PriyankaCo Ygxroz3219 [facility] [id number] BY: [address] [id number] Information: NURSE DRAW WBC (Bld) [#/Vol] 9.6 10*3/uL Normal 3.4-10.8 [facility] Internal Medicine; [facility] Work Phone: Comment on above: PATIENT NOT FASTINGP ERFORMED BY: [place] 5220170 [facility] [id number] BY: [address] [id number] Information: NURSE DRAW Lyme Disease,Serum, Western Blot (48642)on 12-31-2018 B. burgdorferi 18kD IgG IB Ql (S) Absent Normal [facility] Work Phone: Comment on above: PATIENT NOT FASTINGP ERFORMED BY: [facility] Pmcvxi3938 Bishop RoadDublin [place] [id number] BY: [address] [id number] B. burgdorferi 23kD IgG IB Ql (S) Absent Normal [facility] Work Phone: Comment on above: PATIENT NOT FASTINGP ERFORMED BY: [facility] Egxhau6719 [facility] [id number] BY: [address] [id number] B. burgdorferi 23kD IgM IB Ql (S) Absent Normal [facility] Work Phone: Comment on above: PATIENT NOT FASTINGP ERFORMED BY: [facility] Whwsxd4360 Bishop RoadDuUNC Health [id number] BY: [address] [id number] B. burgdorferi 28kD IgG IB Ql (S) Absent Normal [facility] Work Phone: Comment on above: PATIENT NOT FASTINGP ERFORMED BY: [facility] Tbopoo0657 [facility] [id number] BY: [address] [id number] B. burgdorferi 30kD IgG IB Ql (S) Absent Normal [facility] Work Phone: Comment on above: PATIENT NOT FASTINGP ERFORMED BY: [facility] Ruaxhb2832 [facility] [id number] BY: [address] [id number] B. burgdorferi 39kD IgG IB Ql (S) Absent Normal [facility] Work Phone: Comment on above: PATIENT NOT FASTINGP ERFORMED BY: [facility] Iamaxb3517 [facility] [place] [id number] BY: [address] [id number] B. burgdorferi 39kD IgM IB Ql (S) Absent Normal [facility] Work Phone: Comment on above: PATIENT NOT FASTINGP ERFORMED BY: CB [facility] Psdosd9415 Bishop RoadDublin [place] [id number] BY: [address] [id number] B. burgdorferi 41kD IgG IB Ql (S) Present Abnormal [facility] Work Phone: Comment on above: PATIENT NOT FASTINGP ERFORMED BY: CB [facility] Wzzuid5733 [address] RoadDublin [place] [id number] BY: Lab[address] [id number] B. burgdorferi 41kD IgM IB Ql (S) Absent Normal [facility] Work Phone: Comment on above: PATIENT NOT FASTINGP ERFORMED BY: [facility] Rukvsd3659 Bishop RoadDublin [place] [id number] BY: [address] [id number] B. burgdorferi 45kD IgG IB Ql (S) Present Abnormal [facility] Work Phone: Comment on above: PATIENT NOT FASTINGP ERFORMED BY: [facility] Rjankg0584 Bishop RoadDublin [place] [id number] BY: [address] [id number] B. burgdorferi 58kD IgG IB Ql (S) Absent Normal [facility] Work Phone: Comment on above: PATIENT NOT FASTINGP ERFORMED BY: CB [facility] Mstgna3651 Bishop RoadDublin [place] [id number] BY: [address] [id number] B. burgdorferi 66kD IgG IB Ql (S) Absent Normal [facility] Work Phone: Comment on above: PATIENT NOT FASTINGP ERFORMED BY: CB [facility] Fwysmb1330 [address] RoadDublin [place] [id number] BY: [employer] [id number] B. burgdorferi 93kD IgG IB Ql (S) Absent Normal [facility] Work Phone: Comment on above: PATIENT NOT FASTINGP ERFORMED BY: [employer] Ncwejg[address] [id number] BY: [address] [id number] B. burgdorferi IgG band pattern IB Interp (S) Negative Normal [facility] Work Phone: Comment on above: Positive: 5 of the f ollowing Borrelia-specific bands: 18,23,28,30,39,41,45,58, 66, and 93. Negative: No bands or banding patterns which do not meet positive criteria. PATIENT NOT FASTINGP ERFORMED BY: [employer] Grfjgr13[address] [id number] BY: [address] [id number] B. burgdorferi IgM band pattern IB Interp (S) Negative Normal [facility] Work Phone: Comment on above: Note: An equivocal o r positive EIA result followed by a negativeWestern Blot result is considered NEGATIVE. An equivocal or positiveEIA result followed by a positive Western Blot is considered POSITIVEby the CDC. .Positive: 2 of the following bands: 23,39 or 41Negative: No bands or banding patterns which do not meet positivecriteria.Criteria for positivity are those recommended by CDC/ASTPHLD.p23=Osp C, x22=svupdwjil .Note:Sera from individuals with the following may cross react in theLyme Western Blot assays: other spirochetal diseases (periodontaldisease, leptospirosis, relapsing fever, yaws, and pinta);connective autoimmune (Rheumatoid Arthritis and Systemic LupusErythematosus and also individuals with Antinuclear Antibody);other infections ([place] Spotted Fever; Pat-Car Virus,and Cytomegalovirus). . PATIENT NOT FASTINGP ERFORMED BY: [employer] [id number] BY: [employer] Znreggvqln53[address] [id number] Lyme Disease,Serum, Western Blot (31328)Ordered By: Wire Inspector on 12-31-2018 B. burgdorferi IgG band pattern IB (S) [Interp] Negative Normal [facility]; [facility] Work Phone: Comment on above: Positive: 5 of the f ollowing Borrelia-specific bands: 18,23,28,30,39,41,45,58, 66, and 93. Negative: No bands or banding patterns which do not meet positive criteria. PATIENT NOT FASTINGP ERFORMED BY: [facility] [id number] BY: [employer] Uruvrukzrb9[address] [id number] B. burgdorferi IgM band pattern IB (S) [Interp] Negative Normal [facility]; [facility] Work Phone: Comment on above: Note: An equivocal o r positive EIA result followed by a negativeWestern Blot result is considered NEGATIVE. An equivocal or positiveEIA result followed by a positive Western Blot is considered POSITIVEby the CDC. .Positive: 2 of the following bands: 23,39 or 41Negative: No bands or banding patterns which do not meet positivecriteria.Criteria for positivity are those recommended by CDC/ASTPHLD.p23=Osp C, p39=swhvvuuew .Note:Sera from individuals with the following may cross react in theLyme Western Blot assays: other spirochetal diseases (periodontaldisease, leptospirosis, relapsing fever, yaws, and pinta);connective autoimmune (Rheumatoid Arthritis and Systemic LupusErythematosus and also individuals with Antinuclear Antibody);other infections ([place] Spotted Fever; Pat-Car Virus,and Cytomegalovirus). . PATIENT NOT FASTINGP ERFORMED BY: [employer]70 [facility] [id number] BY: [employer] [id number] METABOLIC PANEL, COMPREHENSI VE (60099)on 12-31-2018 Albumin mass conc 4.9 g/dL Abnormal 3.6-4.8 Compreh ensive Internal Medicine Work Phone: Comment on above: PATIENT NOT FASTINGP ERFORMED BY: [facility] Wdvkap5010 [facility] [id number] BY: Lab[address] [id number] Albumin/Globulin mass ratio 1.9 {ratio} Normal 1.2-2.2 [facility] Work Phone: Comment on above: PATIENT NOT FASTINGP ERFORMED BY: [facility] Yzyyse3332 [facility] [id number] BY: Lab[address] [id number] ALP enzyme act/vol 61 [iU]/L Normal 39-117 [facility] Internal Medicine Work Phone: Comment on above: PATIENT NOT FASTINGP ERFORMED BY: [facility] Axqkce6170 [facility] [id number] BY: [facility] [id number] ALT enzyme act/vol 16 [iU]/L Normal 0-44 [facility] Internal Medicine Work Phone: Comment on above: PATIENT NOT FASTINGP ERFORMED BY: [facility] Lpgxza5103 [facility] [id number] BY: Lab[address] [id number] AST enzyme act/vol 23 [iU]/L Normal 0-40 [facility] Internal Medicine Work Phone: Comment on above: PATIENT NOT FASTINGP ERFORMED BY: [facility] Fetekt3240 [facility] [id number] BY: Lab[address] [id number] Bilirubin mass conc 0.6 mg/dL Normal 0.0-1.2 [facility] Internal Medicine Work Phone: Comment on above: PATIENT NOT FASTINGP ERFORMED BY: ERAN [facility] Lxzrlj6008 [facility] [place] [id number] BY: [facility] [id number] Calcium mass conc 9.8 mg/dL Normal 8.6-10.2 Compreh ensive [facility] Work Phone: Comment on above: PATIENT NOT FASTINGP ERFORMED BY: ERAN [facility] Dfgkkf2664 [facility] [id number] BY: [facility] [address] [id number] Chloride molar conc 102 mmol/L Normal 96-106 Compr ehensive Internal Medicine Work Phone: Comment on above: PATIENT NOT FASTINGP ERFORMED BY: ERAN [facility] Sfvogi1311 [facility] [id number] BY: [facility] [id number] CO2 molar conc 22 mmol/L Normal 20-29 Comprehens dennys Internal Medicine Work Phone: Comment on above: PATIENT NOT FASTINGP ERFORMED BY: ERAN [facility] Ihwvao1986 [facility] [id number] BY: [facility] [id number] Creatinine mass conc 1.11 mg/dL Normal 0.76-1.27 Comp rehensive Internal Medicine Work Phone: Comment on above: PATIENT NOT FASTINGP ERFORMED BY: ERAN [facility] Lpxiur5661 [facility] [id number] BY: Lab[address] [id number] GFR/1.73 sq M predicted among blacks CKD-EPI vol rate/area (S/P/Bld) 79 mL/min/1.73 Normal Comprehensiv e Internal Medicine Work Phone: Comment on above: PATIENT NOT FASTINGP ERFORMED BY: ERAN [facility] Bjwndj3484 [facility] [id number] BY: Lab[address] [id number] GFR/1.73 sq M predicted among non-blacks CKD-EPI vol rate/area (S/P/Bld) 68 mL/min/1.73 Normal [facility] Work Phone: Comment on above: PATIENT NOT FASTINGP ERFORMED BY: ERAN [facility] Oihunl6938 [facility] [id number] BY: [facility] [id number] Globulin mass conc (S) 2.6 g/dL Normal 1.5-4.5 [facility] Work Phone: Comment on above: PATIENT NOT FASTINGP ERFORMED BY: CB [facility] Ggekyw2920 [facility] [id number] BY: [address] [id number] Glucose mass conc 94 mg/dL Normal 65-99 Compreh ensive [facility] Work Phone: Comment on above: PATIENT NOT FASTINGP ERFORMED BY: [facility] Vsqapu3560 [facility] [id number] BY: Lab[address] [id number] Potassium molar conc 4.4 mmol/L Normal 3.5-5.2 Comp rehensive Internal Medicine Work Phone: Comment on above: PATIENT NOT FASTINGP ERFORMED BY: CB [facility] Ltwkfe6805 [facility] [id number] BY: [address] [id number] Protein mass conc 7.5 g/dL Normal 6.0-8.5 Compreh ensive [facility] Medicine Work Phone: Comment on above: PATIENT NOT FASTINGP ERFORMED BY: CB [facility] Hyphga3034 [facility] [id number] BY: [address] [id number] Sodium molar conc 142 mmol/L Normal 134-144 Compreh ensive [facility] Medicine Work Phone: Comment on above: PATIENT NOT FASTINGP ERFORMED BY: ERAN [facility] Qlddie4598 [facility] [id number] BY: [facility] [id number] Urea nitrogen mass conc 18 mg/dL Normal 8-27 [facility] Work Phone: Comment on above: PATIENT NOT FASTINGP ERFORMED BY: CB [facility] Kmhxgq5876 [facility] [id number] BY: Lab[address] [id number] Urea nitrogen/Creatinine mass ratio 16 mg/mg Normal 10-24 [facility] Work Phone: Comment on above: PATIENT NOT FASTINGP ERFORMED BY: ERAN [facility] Khvqkq6772 [facility] [id number] BY: Lab[address] [id number] METABOLIC PANEL, COMPREHENSI VE (27773)Ordered By: Wire Inspector on 12-31-2018 ALP [Catalytic activity/Vol] 61 U/L Normal 39-117 [facility]; [facility] Work Phone: Comment on above: PATIENT NOT FASTINGP ERFORMED BY: CB [facility] Epxrqe1246 [facility] [id number] BY: Lab[address] [id number] ALT [Catalytic activity/Vol] 16 U/L Normal 0-44 [facility]; [facility] Work Phone: Comment on above: PATIENT NOT FASTINGP ERFORMED BY: CB [facility] Mujfxs2770 [facility] [id number] BY: [address] [id number] AST [Catalytic activity/Vol] 23 U/L Normal 0-40 [facility]; [facility] Work Phone: Comment on above: PATIENT NOT FASTINGP ERFORMED BY: [place]edia[place] 4585570 [facility] [id number] BY: [employer] [id number] Lyme Disease Antibody W/ Ref brijesh (66449)on 07-31-2018 B. burgdorferi IgG+IgM Qn (S) 1.19 {ISR} Abnormal 0.00-0.90 [facility] Work Phone: Comment on above: Negative <0.91 Equiv ocal 0.91 - 1.09 Positive >1.09 PATIENT NOT FASTINGP ERFORMED BY: [employer] [id number] BY: [place] 4585570 [facility] [id number] Lyme Disease,Serum, Western Blot (35914)on 07-31-2018 B. burgdorferi 18kD IgG IB Ql (S) Absent Normal [facility] Work Phone: Comment on above: PATIENT NOT FASTINGP ERFORMED BY: [employer] [id number] BY: [place] 4585570 [facility] [id number] B. burgdorferi 23kD IgG IB Ql (S) Absent Normal [facility] Work Phone: Comment on above: PATIENT NOT FASTINGP ERFORMED BY: [employer] [id number] BY: [place] 4585570 [facility] [id number] B. burgdorferi 23kD IgM IB Ql (S) Absent Normal [facility] Work Phone: Comment on above: PATIENT NOT FASTINGP ERFORMED BY: [employer] [id number] BY: [employer] Pjeota0424 [facility] [id number] B. burgdorferi 28kD IgG IB Ql (S) Absent Normal [facility] Work Phone: Comment on above: PATIENT NOT FASTINGP ERFORMED BY: [facility] [address] [id number] BY: [facility] Zvpndd0887 [address] RoadDublin [place] [id number] B. burgdorferi 30kD IgG IB Ql (S) Absent Normal [facility] Work Phone: Comment on above: PATIENT NOT FASTINGP ERFORMED BY: [facility] [address] [id number] BY: [facility] Vubfeu5558 [address] RoadDublin [place] [id number] B. burgdorferi 39kD IgG IB Ql (S) Absent Normal [facility] Work Phone: Comment on above: PATIENT NOT FASTINGP ERFORMED BY: [facility] [address] [id number] BY: [facility] Tesrhs9995 [address] RoadDublin [place] [id number] B. burgdorferi 39kD IgM IB Ql (S) Absent Normal [facility] Work Phone: Comment on above: PATIENT NOT FASTINGP ERFORMED BY: [facility] [address] [id number] BY: [facility] Qfzhkz5078 [address] RoadDublin [place] [id number] B. burgdorferi 41kD IgG IB Ql (S) Present Abnormal [facility] Work Phone: Comment on above: PATIENT NOT FASTINGP ERFORMED BY: [facility] [address] [id number] BY: [facility] Udtfix8445 [address] RoadDublin [place] [id number] B. burgdorferi 41kD IgM IB Ql (S) Absent Normal [facility] Work Phone: Comment on above: PATIENT NOT FASTINGP ERFORMED BY: [facility] [address] [id number] BY: [facility] Jqjsbp4354 [address] RoadDublin [place] [id number] B. burgdorferi 45kD IgG IB Ql (S) Absent Normal [facility] Work Phone: Comment on above: PATIENT NOT FASTINGP ERFORMED BY: [address] [id number] BY: [facility] Kgzvec9289 [address] RoadDublin [place] [id number] B. burgdorferi 58kD IgG IB Ql (S) Absent Normal [facility] Work Phone: Comment on above: PATIENT NOT FASTINGP ERFORMED BY: [address] [id number] BY: [facility] Rrivkc8512 [address] RoadDublin [place] [id number] B. burgdorferi 66kD IgG IB Ql (S) Absent Normal [facility] Work Phone: Comment on above: PATIENT NOT FASTINGP ERFORMED BY: [address] [id number] BY: [facility] Smsykr1350 [address] RoadDublin [place] [id number] B. burgdorferi 93kD IgG IB Ql (S) Absent Normal [facility] Work Phone: Comment on above: PATIENT NOT FASTINGP ERFORMED BY: [address] [id number] BY: [facility] Dpklsy8021 [address] RoadDublin [place] [id number] B. burgdorferi IgG band pattern IB Interp (S) Negative Normal [facility] Work Phone: Comment on above: Positive: 5 of the f ollowing Borrelia-specific bands: 18,23,28,30,39,41,45,58, 66, and 93. Negative: No bands or banding patterns which do not meet positive criteria. PATIENT NOT FASTINGP ERFORMED BY: [address] [id number] BY: [facility] Zdhwja4683 [address] RoadCollison [place] [id number] B. burgdorferi IgM band pattern IB Interp (S) Negative Normal [facility] Work Phone: Comment on above: Note: An equivocal o r positive EIA result followed by a negativeWestern Blot result is considered NEGATIVE. An equivocal or positiveEIA result followed by a positive Western Blot is considered POSITIVEby the CDC. .Positive: 2 of the following bands: 23,39 or 41Negative: No bands or banding patterns which do not meet positivecriteria.Criteria for positivity are those recommended by CDC/ASTPHLD.p23=Osp C, h68=tlaaahwqa .Note:Sera from individuals with the following may cross react in theLyme Western Blot assays: other spirochetal diseases (periodontaldisease, leptospirosis, relapsing fever, yaws, and pinta);connective autoimmune (Rheumatoid Arthritis and Systemic LupusErythematosus and also individuals with Antinuclear Antibody);other infections ([place] Spotted Fever; Pat-Car Virus,and Cytomegalovirus). . PATIENT NOT FASTINGP ERFORMED BY: [facility] [id number] BY: [employer]70 [facility] [id number] Lyme Disease,Serum, Western Blot (01904)Ordered By: Wire Inspector on 07-31-2018 B. burgdorferi IgG band pattern IB (S) [Interp] Negative Normal [facility]; [facility] Work Phone: Comment on above: Positive: 5 of the f ollowing Borrelia-specific bands: 18,23,28,30,39,41,45,58, 66, and 93. Negative: No bands or banding patterns which do not meet positive criteria. PATIENT NOT FASTINGP ERFORMED BY: NodePrime [facility] [id number] BY: [employer]6370 [facility] [id number] B. burgdorferi IgM band pattern IB (S) [Interp] Negative Normal [facility]; [facility] Work Phone: Comment on above: Note: An equivocal o r positive EIA result followed by a negativeWestern Blot result is considered NEGATIVE. An equivocal or positiveEIA result followed by a positive Western Blot is considered POSITIVEby the CDC. .Positive: 2 of the following bands: 23,39 or 41Negative: No bands or banding patterns which do not meet positivecriteria.Criteria for positivity are those recommended by CDC/ASTPHLD.p23=Osp C, k63=gwdadkhoe .Note:Sera from individuals with the following may cross react in theLyme Western Blot assays: other spirochetal diseases (periodontaldisease, leptospirosis, relapsing fever, yaws, and pinta);connective autoimmune (Rheumatoid Arthritis and Systemic LupusErythematosus and also individuals with Antinuclear Antibody);other infections ([place] Spotted Fever; Pat-Car Virus,and Cytomegalovirus). . PATIENT NOT FASTINGP ERFORMED BY: [employer] [id number] BY: [employer] [place] [id number] PARATHORMONE (34154)on 07-31 Parathyrin.intact mass conc 26 pg/mL Normal 15-65 [facility] Work Phone: Comment on above: PATIENT NOT FASTINGP ERFORMED BY: [employer] [id number] BY: [employer] [place] [id number] TESTOSTERONE FREE (92831)on 07-31-2018 Testosterone Free mass conc 4.3 pg/mL Abnormal 6.6-18.1 [facility] Work Phone: Comment on above: PATIENT NOT FASTINGP ERFORMED BY: [employer] [id number] BY: [employer] [place] [id number] Vitamin D Hydroxy (18629)on 07-31-2018 25-Hydroxyvitamin D2+25-Hydroxyvitamin D3 mass conc 40.0 ng/mL Normal 30.0-100.0 [facility] Work Phone: Comment on above: Vitamin D deficiency has been defined by the Gold Bar ofMedicine and an Endocrine Society practice guideline as alevel of serum 25-OH vitamin D less than 20 ng/mL (1,2).The Endocrine Society went on to further define vitamin Dinsufficiency as a level between 21 and 29 ng/mL (2).1. IOM (Gold Bar of Medicine). 2010. Dietary reference intakes for calcium and D. [place]: The National Academies Press.2. Paul MF, Scott IVEY, Yair TY, et al. Evaluation, treatment, and prevention of vitamin D deficiency: an Endocrine Society clinical practice guideline. JCEM. 2010; 96(7):1911-30. PATIENT NOT FASTINGP ERFORMED BY: CodemediaSamantha [place] 848727 [facility] [id number] BY: [employer] [place] [place] [id number] C-REACTIVE PROTEIN (00337)Or dered By: Wire Inspector on 07-04-2018 CRP [Mass/Vol] mg/L Normal 0.0-4.9 Comprehens dennys [facility]; [facility] Work Phone: Comment on above: PATIENT NOT FASTINGP ERFORMED BY: [employer] Vehxtd3381 [address] RoadDublin [place] [id number] C-REACTIVE PROTEIN (54299)on 07-04-2018 CRP mass conc mg/L Normal 0.0-4.9 Comprehensi ve Internal Medicine Work Phone: Comment on above: PATIENT NOT FASTINGP ERFORMED BY: [employer]iarp Zwzvpb6[address] RoadDublin [place] [id number] CBC with auto diff (36757)on 07-04-2018 Basophils #/vol (Bld) 0.1 {x10E3/uL} Normal 0.0-0.2 [facility] Work Phone: Comment on above: PATIENT NOT FASTINGP ERFORMED BY: [employer] Hlbmeg2677 [address] RoadDublin [place] [id number] Basophils/100 WBC (Bld) 1 % Normal [facility] Work Phone: Comment on above: PATIENT NOT FASTINGP ERFORMED BY: [facility] Savyiq7078 [address] RoadDublin [place] [id number] Eosinophils #/vol (Bld) 0.2 {x10E3/uL} Normal 0.0-0.4 [facility] Work Phone: Comment on above: PATIENT NOT FASTINGP ERFORMED BY: ERAN [facility] Csrfoc9263 [address] RoadDublin [place] [id number] Eosinophils/100 WBC (Bld) 2 % Normal [facility] Work Phone: Comment on above: PATIENT NOT FASTINGP ERFORMED BY: ERAN [facility] Vzguna0902 [address] RoadDublin [place] [id number] Erythrocyte distribution width Ratio (RBC) 14.1 % Normal 12.3-15.4 [facility] Work Phone: Comment on above: PATIENT NOT FASTINGP ERFORMED BY: ERAN [facility] Ayacrt2278 [address] RoadDuin [place] [id number] Hematocrit Volume Fraction (Bld) 42.6 % Normal 37.5-51.0 [facility] Work Phone: Comment on above: PATIENT NOT FASTINGP ERFORMED BY: ERAN [facility] Dckskz7186 [address] RoadDublin [place] [id number] Hemoglobin mass conc (Bld) 14.4 g/dL Normal 13.0-17.7 [facility] Work Phone: Comment on above: PATIENT NOT FASTINGP ERFORMED BY: ERAN [facility] Cvhxda2729 [address] RoadDublin [place] [id number] Immature granulocytes #/vol (Bld) 0.0 {x10E3/uL} Normal 0.0-0.1 [facility] Work Phone: Comment on above: PATIENT NOT FASTINGP ERFORMED BY: CB [facility] Ekpoct6134 [address] RoadDublin [place] [id number] Immature granulocytes/100 WBC (Bld) 0 % Normal [facility] Work Phone: Comment on above: PATIENT NOT FASTINGP ERFORMED BY: CB [facility] Gbtdjc6259 [address] RoadDublin [place] [id number] Lymphocytes #/vol (Bld) 2.1 {x10E3/uL} Normal 0.7-3.1 [facility] Work Phone: Comment on above: PATIENT NOT FASTINGP ERFORMED BY: ERAN [facility] Tvgwra9824 [address] RoadDublin [place] [id number] Lymphocytes/100 WBC (Bld) 26 % Normal [facility] Work Phone: Comment on above: PATIENT NOT FASTINGP ERFORMED BY: REAN [facility] Qzohwy3344 [address] Roadblin [place] [id number] MCH Entitic mass (RBC) 32.6 pg Normal 26.6-33.0 [facility] Work Phone: Comment on above: PATIENT NOT FASTINGP ERFORMED BY: EARN [facility] Syzlqj6337 [address] RoadNovant Health Rowan Medical Centerin [place] [id number] MCHC mass conc (RBC) 33.8 g/dL Normal 31.5-35.7 Comp [facility] Internal Medicine Work Phone: Comment on above: PATIENT NOT FASTINGP ERFORMED BY: ERAN [facility] Egdefu1212 [address] [facility] [place] [id number] MCV Entitic volume (RBC) 96 fL Normal 79-97 [facility] Work Phone: Comment on above: PATIENT NOT FASTINGP ERFORMED BY: ERAN [facility] Dgeedy5104 [address] [facility] [place] [id number] Monocytes #/vol (Bld) 0.7 {x10E3/uL} Normal 0.1-0.9 [facility] Work Phone: Comment on above: PATIENT NOT FASTINGP ERFORMED BY: ERAN [facility] Niyrkd5786 [address] RoadDublin [place] [id number] Monocytes/100 WBC (Bld) 8 % Normal [facility] Work Phone: Comment on above: PATIENT NOT FASTINGP ERFORMED BY: ERAN [facility] Doowhw2342 [address] RoadDublin [place] [id number] Neutrophils #/vol (Bld) 5.2 {x10E3/uL} Normal 1.4-7.0 [facility] Work Phone: Comment on above: PATIENT NOT FASTINGP ERFORMED BY: CB [facility] Ithpac8521 [address] RoadDublin [place] [id number] Neutrophils/100 WBC (Bld) 63 % Normal [facility] Work Phone: Comment on above: PATIENT NOT FASTINGP ERFORMED BY: CB [facility] Fvlhwf6924 [address] RoadDublin [place] [id number] Platelets #/vol (Bld) 247 {x10E3/uL} Normal 150-379 [facility] Work Phone: Comment on above: PATIENT NOT FASTINGP ERFORMED BY: CB [facility] Dpnydr2179 [address] [facility] [place] [id number] RBC #/vol (Bld) 4.42 {x10E6/uL} Normal 4.14-5.80 [facility] Internal Medicine Work Phone: Comment on above: PATIENT NOT FASTINGP ERFORMED BY: CB [facility] Uqylrz7519 [address] [facility] [id number] WBC #/vol (Bld) 8.3 {x10E3/uL} Normal 3.4-10.8 [facility] Internal Medicine Work Phone: Comment on above: PATIENT NOT FASTINGP ERFORMED BY: CB [facility] Pirtop1895 [address] [facility]in [place] [id number] CBC with auto diff (84903)Or dered By: Wire Inspector on 07-04-2018 Basophils (Bld) [#/Vol] 0.1 10*3/uL Normal 0.0-0.2 [facility]; [facility] Work Phone: Comment on above: PATIENT NOT FASTINGP ERFORMED BY: CB [facility] Msaniz4121 [address] Roadblin [place] [id number] Eosinophils (Bld) [#/Vol] 0.2 10*3/uL Normal 0.0-0.4 [facility]; [facility] Work Phone: Comment on above: PATIENT NOT FASTINGP ERFORMED BY: CB [facility] Mbgjjd2296 [address] [facility] [id number] Immature granulocytes (Bld) [#/Vol] 0.0 10*3/uL Normal 0.0-0.1 [facility]; [facility] Work Phone: Comment on above: PATIENT NOT FASTINGP ERFORMED BY: ERAN [facility] Ddreaw6036 [address] RoadDublin [place] [id number] Lymphocytes (Bld) [#/Vol] 2.1 10*3/uL Normal 0.7-3.1 [facility] Internal [facility]; [facility] Work Phone: Comment on above: PATIENT NOT FASTINGP ERFORMED BY: [facility] Wxogqb1573 [address] RoadDublin [place] [id number] Monocytes (Bld) [#/Vol] 0.7 10*3/uL Normal 0.1-0.9 [facility]; [facility] Work Phone: Comment on above: PATIENT NOT FASTINGP ERFORMED BY: [facility] Dronin4286 [address] RoadDublin [place] [id number] Neutrophils (Bld) [#/Vol] 5.2 10*3/uL Normal 1.4-7.0 [facility]; [facility] Work Phone: Comment on above: PATIENT NOT FASTINGP ERFORMED BY: CB [facility] Smkigf4562 [address] RoadDublin [place] [id number] Platelets (Bld) [#/Vol] 247 10*3/uL Normal 150-379 [facility]; [facility] Work Phone: Comment on above: PATIENT NOT FASTINGP ERFORMED BY: CB [facility] Mxoztj1918 [address] RoadDublin [place] [id number] RBC (Bld) [#/Vol] 4.42 10*6/uL Normal 4.14-5.80 [facility]; [facility] Work Phone: Comment on above: PATIENT NOT FASTINGP ERFORMED BY: CB [facility] Ywpcxn0906 [address] RoadDublin [place] [id number] WBC (Bld) [#/Vol] 8.3 10*3/uL Normal 3.4-10.8 [facility] Internal Medicine; [facility] Internal Medicine Work Phone: Comment on above: PATIENT NOT FASTINGP ERFORMED BY: ERAN [facility] Bdukdn8423 [address] [facility] [place] [id number] LDH (LD) (LACTATE DEHYDROGEN ASE) (13112)Ordered By: Wire Inspector on 07-04-2018 LDH [Catalytic activity/Vol] 207 U/L Normal 121-224 [facility]; [facility] Internal Medicine Work Phone: Comment on above: PATIENT NOT FASTINGP ERFORMED BY: ERAN [facility] Hvjwjp2536 [address]in [place] [id number] LDH (LD) (LACTATE DEHYDROGEN ASE) (17089)on 07-04-2018 LDH enzyme act/vol 207 [iU]/L Normal 121-224 [facility] Internal Medicine Work Phone: Comment on above: PATIENT NOT FASTINGP ERFORMED BY: ERAN [facility] Lippcu4922 [address] [facility] [id number] KINJAL (ANTINUCLEAR ANTIBODY) ( 81857)on 06-12-2018 Nuclear Ab Ql (S) Negative Normal Compreh ensive Internal Medicine Work Phone: Comment on above: PATIENT NOT FASTINGP ERFORMED BY: ERAN [facility] Wmuoif9925 [facility] [id number] BY: [facility] CenterWealink.com[address] [id number] KINJAL (ANTINUCLEAR ANTIBODY) ( 85709)Ordered By: Wire Inspector on 06-12-2018 Nuclear Ab Ql (S) Negative Normal Compreh ensive Internal Medicine; [facility] Internal Medicine Work Phone: Comment on above: PATIENT NOT FASTINGP ERFORMED BY: [facility] Xmjmxe1316 [facility] [id number] BY: [address] [id number] C-REACTIVE PROTEIN (27786)on 06-12-2018 CRP mass conc 73.4 mg/L Abnormal 0.0-4.9 Comprehensi ve Internal Medicine Work Phone: Comment on above: PATIENT NOT FASTINGP ERFORMED BY: CB [facility] Tnmspf3348 [address] [facility]in [place] [id number] BY: LabCo[address] [id number] CBC with auto diff (32634)on 06-12-2018 Basophils #/vol (Bld) 0.1 {x10E3/uL} Normal 0.0-0.2 [facility] Work Phone: Comment on above: PATIENT NOT FASTINGP ERFORMED BY: CB [facility] Rgzofz2945 [address] [facility] [id number] BY: LabCo[address] [id number] Information: 113459,[id number] Basophils/100 WBC (Bld) 1 % Normal [facility] Work Phone: Comment on above: PATIENT NOT FASTINGP ERFORMED BY: CB [facility] Kuibsn3707 [address] [facility] [id number] BY: LabCo[address] [id number] Information: 258043,[id number] Eosinophils #/vol (Bld) 0.1 {x10E3/uL} Normal 0.0-0.4 [facility] Work Phone: Comment on above: PATIENT NOT FASTINGP ERFORMED BY: CB [facility] Kvrayt4881 [address] [facility] [id number] BY: [facility] [address] [id number] Information: 581465,[id number] Eosinophils/100 WBC (Bld) 1 % Normal [facility] Work Phone: Comment on above: PATIENT NOT FASTINGP ERFORMED BY: CB [facility] Agzzkj4314 [address] [facility] [place] [id number] BY: [address] [id number] Information: 421341,S29453 Erythrocyte distribution width Ratio (RBC) 13.7 % Normal 12.3-15.4 [facility] Work Phone: Comment on above: PATIENT NOT FASTINGP ERFORMED BY: CB [facility] Afsxpi6647 [address] RoadDublin [place] [id number] BY: [address] [id number] Information: 833277,Q78108 Hematocrit Volume Fraction (Bld) 44.3 % Normal 37.5-51.0 [facility] Work Phone: Comment on above: PATIENT NOT FASTINGP ERFORMED BY: CB [facility] Lsazoj6504 [address] RoadDuin [place] [id number] BY: LabCo[address] [id number] Information: 268072,[id number] Hemoglobin mass conc (Bld) 14.6 g/dL Normal 13.0-17.7 [facility] Work Phone: Comment on above: PATIENT NOT FASTINGP ERFORMED BY: CB [facility] Axtrcn2559 [address] RoadDuin [place] [id number] BY: Lab[address] [id number] Information: 144305,K55340 Immature granulocytes #/vol (Bld) 0.0 {x10E3/uL} Normal 0.0-0.1 [facility] Work Phone: Comment on above: PATIENT NOT FASTINGP ERFORMED BY: CB [facility] Ompkza3458 [address] RoadDublin [place] [id number] BY: Lab[address] [id number] Information: 154759,D73360 Immature granulocytes/100 WBC (Bld) 0 % Normal [facility] Work Phone: Comment on above: PATIENT NOT FASTINGP ERFORMED BY: CB [facility] Iugudi6301 [address] RoadDublin [place] [id number] BY: Lab[address] [id number] Information: 611968,G90549 Lymphocytes #/vol (Bld) 2.0 {x10E3/uL} Normal 0.7-3.1 [facility] Work Phone: Comment on above: PATIENT NOT FASTINGP ERFORMED BY: [facility] Qedocy3936 [facility] [id number] BY: LabCo[address] [id number] Information: 093207,[id number] Lymphocytes/100 WBC (Bld) 15 % Normal [facility] Work Phone: Comment on above: PATIENT NOT FASTINGP ERFORMED BY: [facility] Xsrilu3344 [facility] [id number] BY: [address] [id number] Information: 389839,F38041 MCH Entitic mass (RBC) 32.3 pg Normal 26.6-33.0 [facility] Work Phone: Comment on above: PATIENT NOT FASTINGP ERFORMED BY: LabCoAmber [place] 4585570 [facility] [id number] BY: [address] [id number] Information: 587371,[id number] MCHC mass conc (RBC) 33.0 g/dL Normal 31.5-35.7 [facility] Internal Medicine Work Phone: Comment on above: PATIENT NOT FASTINGP ERFORMED BY: LabCoKessler Institute for RehabilitationPcacfd7369 [facility] [id number] BY: [address] [id number] Information: 587391,X27990 MCV Entitic volume (RBC) 98 fL Abnormal 79-97 [facility] Work Phone: Comment on above: PATIENT NOT FASTINGP ERFORMED BY: [facility] Vqlenw3200 [facility] [id number] BY: [address] [id number] Information: 472301,X60579 Monocytes #/vol (Bld) 1.7 {x10E3/uL} Abnormal 0.1-0.9 [facility] Work Phone: Comment on above: PATIENT NOT FASTINGP ERFORMED BY: [facility] Npdenl0129 [facility] [id number] BY: [address] [id number] Information: 609440,[id number] Monocytes/100 WBC (Bld) 12 % Normal [facility] Work Phone: Comment on above: PATIENT NOT FASTINGP ERFORMED BY: LabCoKessler Institute for RehabilitationYkbkfb2815 [facility] [id number] BY: [address] [id number] Information: 077631,J41155 Neutrophils #/vol (Bld) 9.6 {x10E3/uL} Abnormal 1.4-7.0 [facility] Work Phone: Comment on above: PATIENT NOT FASTINGP ERFORMED BY: [facility] Vyczks7975 [facility] [id number] BY: [address] [id number] Information: 908651,[id number] Neutrophils/100 WBC (Bld) 71 % Normal [facility] Work Phone: Comment on above: PATIENT NOT FASTINGP ERFORMED BY: [facility] Wxqrcf2658 [facility] [id number] BY: [address] [id number] Information: 693983,C16557 Platelets #/vol (Bld) 181 {x10E3/uL} Normal 150-379 [facility] Work Phone: Comment on above: PATIENT NOT FASTINGP ERFORMED BY: ERAN [facility] Dxgnup3539 [facility] [id number] BY: [employer] [id number] Information: 262707,[id number] RBC #/vol (Bld) 4.52 {x10E6/uL} Normal 4.14-5.80 Comp rehensive Internal Medicine Work Phone: Comment on above: PATIENT NOT FASTINGP ERFORMED BY: ERAN [facility] Epbemq7230 [facility] [id number] BY: [employer] [id number] Information: 667785,G59402 WBC #/vol (Bld) 13.4 {x10E3/uL} Abnormal 3.4-10.8 [facility] Work Phone: Comment on above: PATIENT NOT FASTINGP ERFORMED BY: ERAN LabWealink.comrp Lzgplf5533 [facility] [id number] BY: [employer] [id number] Information: 076414,C48075 CBC with auto diff (11262)Or dered By: Wire Inspector on 06-12-2018 Basophils (Bld) [#/Vol] 0.1 10*3/uL Normal 0.0-0.2 [facility]; [facility] Work Phone: Comment on above: PATIENT NOT FASTINGP ERFORMED BY: LabWe[employer] Rdlthh5955 [facility] [id number] BY: [employer] [id number] Information: 802494,S77838 Eosinophils (Bld) [#/Vol] 0.1 10*3/uL Normal 0.0-0.4 [facility]; [facility] Work Phone: Comment on above: PATIENT NOT FASTINGP ERFORMED BY: [facility] Lhnobe7616 [address] [facility] [place] [id number] BY: [address] [id number] Information: 430303,[id number] Immature granulocytes (Bld) [#/Vol] 0.0 10*3/uL Normal 0.0-0.1 [facility]; [facility] Work Phone: Comment on above: PATIENT NOT FASTINGP ERFORMED BY: [facility] Cligru6128 [address] [facility] [id number] BY: [address] [id number] Information: 769829,[id number] Lymphocytes (Bld) [#/Vol] 2.0 10*3/uL Normal 0.7-3.1 [facility]; [facility] Work Phone: Comment on above: PATIENT NOT FASTINGP ERFORMED BY: [facility] Dkqmip2174 [address] [facility] [id number] BY: [address] [id number] Information: 525574,[id number] Monocytes (Bld) [#/Vol] 1.7 10*3/uL Abnormal 0.1-0.9 [facility]; [facility] Work Phone: Comment on above: PATIENT NOT FASTINGP ERFORMED BY: [facility] Aiacni0469 [facility] [id number] BY: [address] [id number] Information: 155698,K04707 Neutrophils (Bld) [#/Vol] 9.6 10*3/uL Abnormal 1.4-7.0 [facility]; [facility] Work Phone: Comment on above: PATIENT NOT FASTINGP ERFORMED BY: [facility] Lggnkp2653 [facility] [id number] BY: [employer] [id number] Information: 919097,[id number] Platelets (Bld) [#/Vol] 181 10*3/uL Normal 150-379 [facility]; [facility] Work Phone: Comment on above: PATIENT NOT FASTINGP ERFORMED BY: [place]emediaA[place] 4585570 [facility] [id number] BY: [employer] [id number] Information: 393674,[id number] RBC (Bld) [#/Vol] 4.52 10*6/uL Normal 4.14-5.80 Compr ensive Internal Medicine; [facility] Work Phone: Comment on above: PATIENT NOT FASTINGP ERFORMED BY: [place]ediaA[place] 4585570 [facility] [id number] BY: [employer] [id number] Information: 857396,[id number] WBC (Bld) [#/Vol] 13.4 10*3/uL Abnormal 3.4-10.8 Compr ensive Internal Medicine; [facility] Work Phone: Comment on above: PATIENT NOT FASTINGP ERFORMED BY: [place]edia[place] 4585570 [facility] [id number] BY: [employer] [id number] Information: 300092,[id number] EBV Panel (02036)on 06-12-20 18 EBV capsid IgG IA Qn (S) <18.0 Normal 0.0-17.9 [facility] Work Phone: Comment on above: Negative <18.0 Equiv ocal 18.0 - 21.9 Positive >21.9 PATIENT NOT FASTINGP ERFORMED BY: [place]edia[place] 4585570 [facility] [id number] BY: [facility] CenterCo[address] [id number] EBV capsid IgM IA Qn (S) <36.0 Normal 0.0-35.9 [facility] Work Phone: Comment on above: Negative <36.0 Equiv ocal 36.0 - 43.9 Positive >43.9 PATIENT NOT FASTINGP ERFORMED BY: [employer] Lwxlid7177 [facility] [id number] BY: [employer] [id number] EBV early IgG Qn (S) <9.0 Normal 0.0-8.9 [facility] Internal Medicine Work Phone: Comment on above: Negative < 9.0 Equiv ocal 9.0 - 10.9 Positive >10.9 PATIENT NOT FASTINGP ERFORMED BY: Si TVlin6370 [facility] [id number] BY: [employer] [id number] EBV nuclear IgG IA Qn (S) <18.0 Normal 0.0-17.9 [facility] Work Phone: Comment on above: Negative <18.0 Equiv ocal 18.0 - 21.9 Positive >21.9 PATIENT NOT FASTINGP ERFORMED BY: Si TVlin6370 [facility] [id number] BY: [employer] [id number] Service comment Interp (Unsp spec) SPR Normal [facility] Work Phone: Comment on above: EBV Interpretation C carter . Interpretation EBV-IgM EA(D)-IgG VCA-IgG EBNA-IgG . EBV Seronegative - - - - Early Phase + - - - Acute Primary + +or- + - Infection Convalescence/Past - +or- + + Infection Reactivated +or- + + + Infection + Antibody Present - Antibody Absent PATIENT NOT FASTINGP ERFORMED BY: Lezu[address] [id number] BY: [address] [id number] Influenza A&B Viral Culture (85985)on 06-12-2018 FLUV identified Org specific cx Nom (Unsp spec) FLUABN Normal [facility] Work Phone: Comment on above: Negative:No Influenz a A or B detected. PATIENT NOT FASTINGP ERFORMED BY: [employer] Kgmqhd5090 [facility] [id number] Information: SRC:NOSE (NASAL PASSAGE) J 67567 LDH (LD) (LACTATE DEHYDROGEN ASE) (47666)Ordered By: Wire Inspector on 06-12-2018 LDH [Catalytic activity/Vol] 245 U/L Abnormal 121-224 [facility]; [facility] Work Phone: Comment on above: PATIENT NOT FASTINGP ERFORMED BY: Lezu365 Oykmpl0537 [facility] [id number] BY: [employer] [id number] LDH (LD) (LACTATE DEHYDROGEN ASE) (94956)on 06-12-2018 LDH enzyme act/vol 245 [iU]/L Abnormal 121-224 [facility] Work Phone: Comment on above: PATIENT NOT FASTINGP ERFORMED BY: [place] 4585570 [facility] [id number] BY: [employer] [id number] Lyme Disease Antibody W/ Ref brijesh (14324)on 06-12-2018 B. burgdorferi IgG+IgM Qn (S) 0.91 {ISR} Abnormal 0.00-0.90 [facility] Work Phone: Comment on above: Negative <0.91 Equiv ocal 0.91 - 1.09 Positive >1.09 PATIENT NOT FASTINGP ERFORMED BY: [place] 4585570 [facility] [id number] BY: [employer] [id number] Lyme, Western Blot, Serumon 06-12-2018 B. burgdorferi 18kD IgG IB Ql (S) Absent Normal [facility] Work Phone: Comment on above: PATIENT NOT FASTINGP ERFORMED BY: ERAN [facility] Qtvtta1681 [facility] [id number] BY: [address] [id number] B. burgdorferi 23kD IgG IB Ql (S) Absent Normal [facility] Work Phone: Comment on above: PATIENT NOT FASTINGP ERFORMED BY: ERAN [facility] Xwhbhq5793 [facility] [id number] BY: [address] [id number] B. burgdorferi 23kD IgM IB Ql (S) Absent Normal [facility] Work Phone: Comment on above: PATIENT NOT FASTINGP ERFORMED BY: ERAN [facility] Ucdwji0154 [facility] [id number] BY: [address] [id number] B. burgdorferi 28kD IgG IB Ql (S) Absent Normal [facility] Work Phone: Comment on above: PATIENT NOT FASTINGP ERFORMED BY: ERAN [facility] Ddmspo3244 [facility] [id number] BY: [address] [id number] B. burgdorferi 30kD IgG IB Ql (S) Absent Normal [facility] Work Phone: Comment on above: PATIENT NOT FASTINGP ERFORMED BY: ERAN [facility] Hxuneo8683 [facility] [id number] BY: [address] [id number] B. burgdorferi 39kD IgG IB Ql (S) Absent Normal [facility] Work Phone: Comment on above: PATIENT NOT FASTINGP ERFORMED BY: [facility] Tvaqwu0970 [facility] CenterDuin [place] [id number] BY: [address] [id number] B. burgdorferi 39kD IgM IB Ql (S) Absent Normal [facility] Work Phone: Comment on above: PATIENT NOT FASTINGP ERFORMED BY: [facility] Vdhfip4059 [facility] [id number] BY: LabCo[address] [id number] B. burgdorferi 41kD IgG IB Ql (S) Present Abnormal [facility] Work Phone: Comment on above: PATIENT NOT FASTINGP ERFORMED BY: [facility] Cugdvl5924 [facility] [id number] BY: [address] [id number] B. burgdorferi 41kD IgM IB Ql (S) Absent Normal [facility] Work Phone: Comment on above: PATIENT NOT FASTINGP ERFORMED BY: [facility] Zmkcph1096 [facility] [id number] BY: [address] [id number] B. burgdorferi 45kD IgG IB Ql (S) Present Abnormal [facility] Work Phone: Comment on above: PATIENT NOT FASTINGP ERFORMED BY: [facility] Rhssho9971 [facility] [id number] BY: [address] [id number] B. burgdorferi 58kD IgG IB Ql (S) Absent Normal [facility] Work Phone: Comment on above: PATIENT NOT FASTINGP ERFORMED BY: [facility] Fqrvrh0601 [facility] CenterDublin [place] [id number] BY: [address] [id number] B. burgdorferi 66kD IgG IB Ql (S) Absent Normal [facility] Work Phone: Comment on above: PATIENT NOT FASTINGP ERFORMED BY: [employer] Hitxpe5753 [facility] [id number] BY: [address] [id number] B. burgdorferi 93kD IgG IB Ql (S) Absent Normal [facility] Work Phone: Comment on above: PATIENT NOT FASTINGP ERFORMED BY: [place] 4585570 [facility] [id number] BY: [address] [id number] B. burgdorferi IgG band pattern IB Interp (S) Negative Normal [facility] Work Phone: Comment on above: Positive: 5 of the f ollowing Borrelia-specific bands: 18,23,28,30,39,41,45,58, 66, and 93. Negative: No bands or banding patterns which do not meet positive criteria. PATIENT NOT FASTINGP ERFORMED BY: [place] 4585570 [facility] [id number] BY: [address] [id number] B. burgdorferi IgM band pattern IB Interp (S) Negative Normal [facility] Work Phone: Comment on above: Note: An equivocal o r positive EIA result followed by a negativeWestern Blot result is considered NEGATIVE. An equivocal or positiveEIA result followed by a positive Western Blot is considered POSITIVEby the CDC. .Positive: 2 of the following bands: 23,39 or 41Negative: No bands or banding patterns which do not meet positivecriteria.Criteria for positivity are those recommended by CDC/ASTPHLD.p23=Osp C, b41=auqsoigzn .Note:Sera from individuals with the following may cross react in theLyme Western Blot assays: other spirochetal diseases (periodontaldisease, leptospirosis, relapsing fever, yaws, and pinta);connective autoimmune (Rheumatoid Arthritis and Systemic LupusErythematosus and also individuals with Antinuclear Antibody);other infections ([place] Spotted Fever; Pat-Car Virus,and Cytomegalovirus). . PATIENT NOT FASTINGP ERFORMED BY: CB [facility] Avhkzv2343 [facility] [id number] BY: [address] [id number] METABOLIC PANEL, COMPREHENSI VE (80890)on 06-12-2018 Albumin mass conc 4.5 g/dL Normal 3.6-4.8 Compreh [facility] Work Phone: Comment on above: PATIENT NOT FASTINGP ERFORMED BY: CB [facility] Kxresd6306 [facility] [id number] BY: [address] [id number] Albumin/Globulin mass ratio 1.6 {ratio} Normal 1.2-2.2 [facility] Work Phone: Comment on above: PATIENT NOT FASTINGP ERFORMED BY: [facility] Equzov9013 [facility] [id number] BY: [address] [id number] ALP enzyme act/vol 68 [iU]/L Normal 39-117 [facility] Internal Medicine Work Phone: Comment on above: PATIENT NOT FASTINGP ERFORMED BY: CB [facility] Cdjcnn7279 [facility] [id number] BY: Lab[address] [id number] ALT enzyme act/vol 13 [iU]/L Normal 0-44 [facility] Internal Medicine Work Phone: Comment on above: PATIENT NOT FASTINGP ERFORMED BY: CB [facility] Lfskfs7819 [facility] [id number] BY: [address] [id number] AST enzyme act/vol 21 [iU]/L Normal 0-40 [facility] Internal Medicine Work Phone: Comment on above: PATIENT NOT FASTINGP ERFORMED BY: ERAN [facility] Pznblp2064 Bishop RoadDublin [place] [id number] BY: [address]Co[address] [id number] Bilirubin mass conc 0.3 mg/dL Normal 0.0-1.2 Compr ehensive Internal Medicine Work Phone: Comment on above: PATIENT NOT FASTINGP ERFORMED BY: CB [facility] Djrxan8466 Bishop RoadDublin [place] [id number] BY: [facility] [address] [id number] Calcium mass conc 9.5 mg/dL Normal 8.6-10.2 Compreh ensive Internal Medicine Work Phone: Comment on above: PATIENT NOT FASTINGP ERFORMED BY: ERAN [facility] Cpekaz8427 [address] RoadDublin [place] [id number] BY: [address] [id number] Chloride molar conc 99 mmol/L Normal 96-106 Compr ehensive Internal Medicine Work Phone: Comment on above: PATIENT NOT FASTINGP ERFORMED BY: CB [facility] Zsqbfo8286 [address] RoadDublin [place] [id number] BY: [address] [id number] CO2 molar conc 24 mmol/L Normal 20-29 Comprehens dennys Internal Medicine Work Phone: Comment on above: PATIENT NOT FASTINGP ERFORMED BY: CB [facility] Hqgvip6878 [address] RoadDublin [place] [id number] BY: [address] [id number] Creatinine mass conc 0.99 mg/dL Normal 0.76-1.27 Comp rehensive Internal Medicine Work Phone: Comment on above: PATIENT NOT FASTINGP ERFORMED BY: CB [facility] Cosfja6518 [address] RoadDublin [place] [id number] BY: [address] [place] [id number] GFR/1.73 sq M predicted among blacks CKD-EPI vol rate/area (S/P/Bld) 91 mL/min/1.73 Normal Comprehensiv e Internal Medicine Work Phone: Comment on above: PATIENT NOT FASTINGP ERFORMED BY: CB [facility] Mydvwo1483 [address] RoadDublin [place] [id number] BY: [facility] [id number] GFR/1.73 sq M predicted among non-blacks CKD-EPI vol rate/area (S/P/Bld) 79 mL/min/1.73 Normal [facility] Work Phone: Comment on above: PATIENT NOT FASTINGP ERFORMED BY: CB [facility] Tizvoa8763 [address] RoadDublin [place] [id number] BY: [facility] [id number] Globulin mass conc (S) 2.8 g/dL Normal 1.5-4.5 [facility] Work Phone: Comment on above: PATIENT NOT FASTINGP ERFORMED BY: CB [facility] Zvamkj5203 [address] RoadDublin [place] [id number] BY: [address] [id number] Glucose mass conc 88 mg/dL Normal 65-99 Compreh ensive Internal Medicine Work Phone: Comment on above: PATIENT NOT FASTINGP ERFORMED BY: CB [facility] Qmbsuz6863 [address] RoadDublin [place] [id number] BY: [facility] [id number] Potassium molar conc 5.2 mmol/L Normal 3.5-5.2 Comp rehensive Internal Medicine Work Phone: Comment on above: PATIENT NOT FASTINGP ERFORMED BY: CB [facility] Hydifn0122 [address] RoadDublin [place] [id number] BY: [address] [id number] Protein mass conc 7.3 g/dL Normal 6.0-8.5 Compreh ensive Internal Medicine Work Phone: Comment on above: PATIENT NOT FASTINGP ERFORMED BY: CB [facility] Sbbary6453 [facility] [id number] BY: [address] [id number] Sodium molar conc 140 mmol/L Normal 134-144 Compreh ensive Internal Medicine Work Phone: Comment on above: PATIENT NOT FASTINGP ERFORMED BY: CB [facility] Sxpurl2047 [facility] [id number] BY: [address] [id number] Urea nitrogen mass conc 7 mg/dL Abnormal 8-27 [facility] Work Phone: Comment on above: PATIENT NOT FASTINGP ERFORMED BY: CB [facility] Mlgtym2665 [facility] [id number] BY: [address] [id number] Urea nitrogen/Creatinine mass ratio 7 mg/mg Abnormal 10-24 [facility] Work Phone: Comment on above: PATIENT NOT FASTINGP ERFORMED BY: CB [facility] Gkrlxf0524 [facility] [id number] BY: [address] [id number] METABOLIC PANEL, COMPREHENSI VE (31649)Ordered By: Wire Inspector on 06-12-2018 ALP [Catalytic activity/Vol] 68 U/L Normal 39-117 [facility]; [facility] Work Phone: Comment on above: PATIENT NOT FASTINGP ERFORMED BY: CB [facility] Tbchyd1171 [facility] [place] [id number] BY: [address] [id number] ALT [Catalytic activity/Vol] 13 U/L Normal 0-44 [facility]; [facility] Work Phone: Comment on above: PATIENT NOT FASTINGP ERFORMED BY: [facility] Yqyobx2456 [facility] [id number] BY: [address] [id number] AST [Catalytic activity/Vol] 21 U/L Normal 0-40 [facility]; [facility] Work Phone: Comment on above: PATIENT NOT FASTINGP ERFORMED BY: [facility] Gogong7721 [facility] [id number] BY: [address] [id number] SED RATE ERYTHROCYTE (36824) on 06-12-2018 ESR Velocity (Bld) 6 mm/h Normal 0-30 Compre [facility] careive Internal [facility] Work Phone: Comment on above: PATIENT NOT FASTINGP ERFORMED BY: [facility] Lfztuh5335 [facility] [id number] BY: [address] [id number] URINE STACEY CULTURE-IDENTIFICA [place] (25735)on 06-12-2018 Bacteria identified Cx Nom (U) NG36 Normal [facility] Work Phone: Comment on above: No growth in 36 - 48 hours. PATIENT NOT FASTINGP ERFORMED BY: CB [facility] Lgrglr1523 [facility] [id number] Information: [id number] Bacteria identified Cx Nom (U) Final report Normal [facility] Work Phone: Comment on above: PATIENT NOT FASTINGP ERFORMED BY: CB [facility] Ejbodz2507 [facility] [id number] Information: [id number] Urinalysis, Office (69473)Or dered By: Edilia Aleman on 06-12-2018 Bilirubin Ql (U) Negative Normal Comprehe nsive Internal Medicine Work Phone: Bilirubin Ql (U) Negative Normal Comprehe nsive Internal Medicine; [facility] Work Phone: Glucose Test strip (U) [Mass/Vol] Negative Normal [facility]; [facility] Work Phone: Glucose Test strip mass conc (U) Negative Normal [facility] Work Phone: Hemoglobin Ql (U) Non Hemolyzed Moderate Normal [facility] Work Phone: Ketones Ql (U) Negative Normal Comprehens dennys Internal Medicine Work Phone: Ketones Ql (U) Negative Normal Comprehens dennys Internal Medicine; [facility] Work Phone: Leukocyte esterase Test strip Ql (U) Negative Normal [facility] Work Phone: Leukocyte esterase Test strip Ql (U) Negative Normal [facility]; [facility] Work Phone: Nitrite Ql (U) Negative Normal Comprehens dennys Internal Medicine Work Phone: Nitrite Ql (U) Negative Normal Comprehens dennys [facility]; [facility] Work Phone: pH (U) 5 [pH] Abnormal [facility] Work Phone: Protein Ql (U) Negative Normal Comprehens dennys Internal Medicine Work Phone: Protein Ql (U) Negative Normal Comprehens dennys [facility] Medicine; [facility] Work Phone: Specific gravity Relative Density (U) 1.000 1 Normal Comprehensi ve Internal Medicine Work Phone: Urobilinogen mass/time (24H U) Normal Normal [facility] Work Phone: PSA,Total- Diagnosticon 01-24 PSA,Total- Diagnostic 10.70 ng/mL Abnormal 0.0-4.0 [facility] Work Phone: Comment on above: This test was perfor med using the TPSA assay method for the[facility] chemistry system. Values obtained with differentassay methods cannot be used interchangably.When changing PSA assays in the course of monitoring apatient, additional sequential testing should be carriedout to confirm baseline values. [facility] Sftbcvlgma[address] [place], [address] KINJAL (ANTINUCLEAR ANTIBODY) ( 09897)on 09-18-2017 Nuclear Ab Ql (S) Negative Normal Compreh ensive Internal Medicine Work Phone: Comment on above: PATIENT WAS FASTINGP ERFORMED BY: CB [facility] Ftvbgn3375 [address] RoadDublin [place] [id number] KINJAL (ANTINUCLEAR ANTIBODY) ( 58085)Ordered By: Wire Inspector on 09-18-2017 Nuclear Ab Ql (S) Negative Normal Compreh ensive Internal Medicine; [facility] Work Phone: Comment on above: PATIENT WAS FASTINGP ERFORMED BY: CB [facility] Vtcqta3609 [facility] [id number] C-REACTIVE PROTEIN (57641)on 09-18-2017 CRP mass conc 0.5 mg/L Normal 0.0-4.9 Comprehensi ve Internal Medicine Work Phone: Comment on above: PATIENT WAS FASTINGP ERFORMED BY: CB [facility] Bceywu2290 [facility]bl[facility] [place] [id number] CBC W/AUTO DIFF WBC (98064)o n 09-18-2017 Basophils #/vol (Bld) 0.1 {x10E3/uL} Normal 0.0-0.2 [facility] Work Phone: Comment on above: PATIENT WAS FASTINGP ERFORMED BY: CB [facility] Seqbls2797 [facility]bl[facility] [id number] Basophils/100 WBC (Bld) 2 % Normal [facility] Work Phone: Comment on above: PATIENT WAS FASTINGP ERFORMED BY: CB [facility] Gzeifl0362 [address] RoadDublin [place] [id number] Eosinophils #/vol (Bld) 0.3 {x10E3/uL} Normal 0.0-0.4 [facility] Work Phone: Comment on above: PATIENT WAS FASTINGP ERFORMED BY: CB [facility] Kwklwo4353 [facility]Nov[facility] [id number] Eosinophils/100 WBC (Bld) 5 % Normal [facility] Work Phone: Comment on above: PATIENT WAS FASTINGP ERFORMED BY: ERAN Arreaga Cbosji7857 [facility] [id number] Erythrocyte distribution width Ratio (RBC) 14.1 % Normal 12.3-15.4 [facility] Work Phone: Comment on above: PATIENT WAS FASTINGP ERFORMED BY: LabMary [place] 7957770 [facility] [id number] Hematocrit Volume Fraction (Bld) 43.5 % Normal 37.5-51.0 [facility] Work Phone: Comment on above: PATIENT WAS FASTINGP ERFORMED BY: [facility]ankaCameron [facility] Yrtnse7395 [facility] [id number] Hemoglobin mass conc (Bld) 14.7 g/dL Normal 12.6-17.7 [facility] Work Phone: Comment on above: PATIENT WAS FASTINGP ERFORMED BY: PriyankaUniversity Of Michigan Health–West6370 [facility] [id number] Immature granulocytes #/vol (Bld) 0.0 {x10E3/uL} Normal 0.0-0.1 [facility] Work Phone: Comment on above: PATIENT WAS FASTINGP ERFORMED BY: [facility]ankaCameron Regional Medical Center Ahpzng4960 [facility] [id number] Immature granulocytes/100 WBC (Bld) 0 % Normal [facility] Work Phone: Comment on above: PATIENT WAS FASTINGP ERFORMED BY: LabUniversity [facility]–West6370 [facility] [id number] Lymphocytes #/vol (Bld) 2.2 {x10E3/uL} Normal 0.7-3.1 [facility] Work Phone: Comment on above: PATIENT WAS FASTINGP ERFORMED BY: LabCameron [facility] Ibqmwx5268 [facility] [place] [id number] Lymphocytes/100 WBC (Bld) 39 % Normal [facility] Work Phone: Comment on above: PATIENT WAS FASTINGP ERFORMED BY: ERAN Monsalve6370 [facility] [place] [id number] MCH Entitic mass (RBC) 32.5 pg Normal 26.6-33.0 [facility] Work Phone: Comment on above: PATIENT WAS FASTINGP ERFORMED BY: ERAN Monsalve6370 [address] Roadbl[address] [place] [id number] MCHC mass conc (RBC) 33.8 g/dL Normal 31.5-35.7 [facility] Internal Medicine Work Phone: Comment on above: PATIENT WAS FASTINGP ERFORMED BY: ERAN Monsalve6370 [facility] [place] [id number] MCV Entitic volume (RBC) 96 fL Normal 79-97 [facility] Work Phone: Comment on above: PATIENT WAS FASTINGP ERFORMED BY: ERAN Monsalve6370 [facility] [place] [id number] Monocytes #/vol (Bld) 0.4 {x10E3/uL} Normal 0.1-0.9 [facility] Work Phone: Comment on above: PATIENT WAS FASTINGP ERFORMED BY: ERAN Colelin6370 [facility] [place] [id number] Monocytes/100 WBC (Bld) 7 % Normal [facility] Work Phone: Comment on above: PATIENT WAS FASTINGP ERFORMED BY: ERAN Colelin6370 [facility] [id number] Neutrophils #/vol (Bld) 2.7 {x10E3/uL} Normal 1.4-7.0 [facility] Work Phone: Comment on above: PATIENT WAS FASTINGP ERFORMED BY: ERAN LabLesli ColeMhhidw1879 [facility] [place] [id number] Neutrophils/100 WBC (Bld) 47 % Normal [facility] Work Phone: Comment on above: PATIENT WAS FASTINGP ERFORMED BY: ERAN Colelin6370 [facility] [id number] Platelets #/vol (Bld) 223 {x10E3/uL} Normal 150-379 [facility] Work Phone: Comment on above: PATIENT WAS FASTINGP ERFORMED BY: LabUniversity [facility]–West6370 [facility] [id number] RBC #/vol (Bld) 4.52 {x10E6/uL} Normal 4.14-5.80 [facility] Internal Medicine Work Phone: Comment on above: PATIENT WAS FASTINGP ERFORMED BY: [facility]6370 [facility] [id number] WBC #/vol (Bld) 5.7 {x10E3/uL} Normal 3.4-10.8 [facility] Internal Medicine Work Phone: Comment on above: PATIENT WAS FASTINGP ERFORMED BY: [place] 5220170 [facility] [id number] CBC W/AUTO DIFF WBC (28130)O rdered By: Wire Inspector on 09-18-2017 Basophils (Bld) [#/Vol] 0.1 10*3/uL Normal 0.0-0.2 [facility]; [facility] Work Phone: Comment on above: PATIENT WAS FASTINGP ERFORMED BY: [facility]6370 [facility] [id number] Eosinophils (Bld) [#/Vol] 0.3 10*3/uL Normal 0.0-0.4 [facility]; [facility] Work Phone: Comment on above: PATIENT WAS FASTINGP ERFORMED BY: LabUniversity [facility]West6370 [facility] [id number] Immature granulocytes (Bld) [#/Vol] 0.0 10*3/uL Normal 0.0-0.1 [facility]; [facility] Work Phone: Comment on above: PATIENT WAS FASTINGP ERFORMED BY: LabUniversity [facility]West6370 [facility] [id number] Lymphocytes (Bld) [#/Vol] 2.2 10*3/uL Normal 0.7-3.1 [facility]; [facility] Work Phone: Comment on above: PATIENT WAS FASTINGP ERFORMED BY: ERAN [facility] Hegpak5072 [facility] [place] [id number] Monocytes (Bld) [#/Vol] 0.4 10*3/uL Normal 0.1-0.9 [facility]; [facility] Work Phone: Comment on above: PATIENT WAS FASTINGP ERFORMED BY: [facility] [id number] [facility] [id number] Neutrophils (Bld) [#/Vol] 2.7 10*3/uL Normal 1.4-7.0 [facility] Work Phone: Comment on above: PATIENT WAS FASTINGP ERFORMED BY: [facility] [id number] [facility] [id number] Platelets (Bld) [#/Vol] 223 10*3/uL Normal 150-379 [facility]; [facility] Work Phone: Comment on above: PATIENT WAS FASTINGP ERFORMED BY: [facility] Ytxvnh2337 [facility] [id number] RBC (Bld) [#/Vol] 4.52 10*6/uL Normal 4.14-5.80 Compr ehensive Internal Medicine; [facility] Work Phone: Comment on above: PATIENT WAS FASTINGP ERFORMED BY: [facility] Bqralp5304 [facility] [id number] WBC (Bld) [#/Vol] 5.7 10*3/uL Normal 3.4-10.8 Compre hensive Internal Medicine; [facility] Work Phone: Comment on above: PATIENT WAS FASTINGP ERFORMED BY: [facility] Llokgc[address] [facility] [place] [id number] HEPATITIS C ANTIBODY ([id number]) Ordered By: Wire Inspector on 09-18-2017 HCV Ab Signal/Cutoff IA [Rel units/Vol] {ratio} Normal 0.0-0.9 [facility]; [facility] Work Phone: Comment on above: Negative: < 0.8 Inde terminate: 0.8 - 0.9 Positive: > 0.9 . The CDC recommends that a positive HCV antibody result be followed up with a HCV Nucleic Acid Amplification test (510980). PATIENT WAS FASTINGP ERFORMED BY: [facility]6370 [facility] [id number] HEPATITIS C ANTIBODY ([id number]) on 09-18-2017 HCV Ab Signal/Cutoff IA RelACnc {ratio} Normal 0.0-0.9 [facility] Work Phone: Comment on above: Negative: < 0.8 Inde terminate: 0.8 - 0.9 Positive: > 0.9 . The CDC recommends that a positive HCV antibody result be followed up with a HCV Nucleic Acid Amplification test (068578). PATIENT WAS FASTINGP ERFORMED BY: [facility]6370 [facility] [id number] METABOLIC PANEL, COMPREHENSI VE ([id number])on 09-18-2017 Albumin mass conc 4.4 g/dL Normal 3.6-4.8 Compreh [facility] Internal Medicine Work Phone: Comment on above: PATIENT WAS FASTINGP ERFORMED BY: [facility]6370 [facility] [id number] Albumin/Globulin mass ratio 1.7 {ratio} Normal 1.2-2.2 [facility] Internal Medicine Work Phone: Comment on above: PATIENT WAS FASTINGP ERFORMED BY: [facility]6370 [facility] [id number] ALP enzyme act/vol 66 [iU]/L Normal 39-117 [facility] Work Phone: Comment on above: PATIENT WAS FASTINGP ERFORMED BY: [facility]6370 [facility] [id number] ALT enzyme act/vol 18 [iU]/L Normal 0-44 [facility] Work Phone: Comment on above: PATIENT WAS FASTINGP ERFORMED BY: ERAN [facility] Dnhxuu4305 [address] RoadDublin [place] [id number] AST enzyme act/vol 25 [iU]/L Normal 0-40 [facility] Work Phone: Comment on above: PATIENT WAS FASTINGP ERFORMED BY: ERAN [facility] Rqnerb2105 [address] RoadDublin [place] [id number] Bilirubin mass conc 0.3 mg/dL Normal 0.0-1.2 Compr ensive Internal Medicine Work Phone: Comment on above: PATIENT WAS FASTINGP ERFORMED BY: ERAN [facility] Bfphsp6276 [address] RoadDublin [place] [id number] Calcium mass conc 9.2 mg/dL Normal 8.6-10.2 Compre[facility] Work Phone: Comment on above: PATIENT WAS FASTINGP ERFORMED BY: ERAN [facility] Whmrlg7886 [address] RoadDublin [place] [id number] Chloride molar conc 102 mmol/L Normal 96-106 Compr [facility] Internal Medicine Work Phone: Comment on above: PATIENT WAS FASTINGP ERFORMED BY: ERAN [facility] Zeqhky1156 [address] RoadDublin [place] [id number] CO2 molar conc 22 mmol/L Normal 18-29 Comprehens dennys Internal Medicine Work Phone: Comment on above: PATIENT WAS FASTINGP ERFORMED BY: ERAN [facility] Bsvnxu8406 [address] RoadDublin [place] [id number] Creatinine mass conc 0.98 mg/dL Normal 0.76-1.27 [facility] Internal Medicine Work Phone: Comment on above: PATIENT WAS FASTINGP ERFORMED BY: ERAN [facility] Wkwhhv0674 [address] RoadDublin [place] [id number] GFR/1.73 sq M predicted among blacks CKD-EPI vol rate/area (S/P/Bld) 93 mL/min/1.73 Normal Comprehensiv e Internal Medicine Work Phone: Comment on above: PATIENT WAS FASTINGP ERFORMED BY: ERAN [facility] Jwvabp0223 [address] RoadDublin [place] [id number] GFR/1.73 sq M predicted among non-blacks CKD-EPI vol rate/area (S/P/Bld) 81 mL/min/1.73 Normal [facility] Work Phone: Comment on above: PATIENT WAS FASTINGP ERFORMED BY: ERAN LabLesli ColePeusxh4320 [facility] [id number] Globulin mass conc (S) 2.6 g/dL Normal 1.5-4.5 [facility] Work Phone: Comment on above: PATIENT WAS FASTINGP ERFORMED BY: ERAN LabCojay ColeAudufh5624 [facility] [id number] Glucose mass conc 82 mg/dL Normal 65-99 Compreh ensive Internal Medicine Work Phone: Comment on above: PATIENT WAS FASTINGP ERFORMED BY: ERAN Colelin6370 [facility] [id number] Potassium molar conc 4.8 mmol/L Normal 3.5-5.2 Comp rehensive Internal Medicine Work Phone: Comment on above: PATIENT WAS FASTINGP ERFORMED BY: ERAN LabCojay ColeVplrbb8504 [facility] [id number] Protein mass conc 7.0 g/dL Normal 6.0-8.5 Compreh ensive Internal Medicine Work Phone: Comment on above: PATIENT WAS FASTINGP ERFORMED BY: ERAN LabCojay ColeHkjvuf2202 [facility] [id number] Sodium molar conc 143 mmol/L Normal 134-144 Compreh ensive Internal Medicine Work Phone: Comment on above: PATIENT WAS FASTINGP ERFORMED BY: ERAN [facility] Xythsz6373 [address] [facility] Centerin [place] [id number] Urea nitrogen mass conc 15 mg/dL Normal 8-27 [facility] Work Phone: Comment on above: PATIENT WAS FASTINGP ERFORMED BY: ERAN [facility] Djtrvr4768 [facility] [id number] Urea nitrogen/Creatinine mass ratio 15 mg/mg Normal 10-24 [facility] Work Phone: Comment on above: PATIENT WAS FASTINGP ERFORMED BY: CB [facility] Pfegse4448 [address] RoadDublin [place] [id number] METABOLIC PANEL, COMPREHENSI VE ([id number])Ordered By: Wire Inspector on 09-18-2017 ALP [Catalytic activity/Vol] 66 U/L Normal 39-117 [facility]; [facility] Work Phone: Comment on above: PATIENT WAS FASTINGP ERFORMED BY: CB [facility] Pwuvku4442 [address] RoadDublin [place] [id number] ALT [Catalytic activity/Vol] 18 U/L Normal 0-44 [facility]; [facility] Work Phone: Comment on above: PATIENT WAS FASTINGP ERFORMED BY: CB [facility] Mcdgpj8626 [address] RoadDublin [place] [id number] AST [Catalytic activity/Vol] 25 U/L Normal 0-40 [facility]; [facility] Work Phone: Comment on above: PATIENT WAS FASTINGP ERFORMED BY: CB [facility] Qzmlsl8813 [address] RoadDublin [place] [id number] Microscopic Examinationon Bacteria LM.HPF #/area (Urine sed) None seen Normal [facility] Work Phone: Comment on above: PATIENT WAS FASTINGP ERFORMED BY: CB [facility] Lisxpp9068 [address] RoadDublin [place] [id number] Epithelial cells LM.HPF #/area (Urine sed) None seen Normal 0 - 10 [facility] Work Phone: Comment on above: PATIENT WAS FASTINGP ERFORMED BY: CB [facility] Uyrmkl6250 [address] [place] [id number] Mucus Ql (Urine sed) Present Normal Comp rehensive Internal Medicine Work Phone: Comment on above: PATIENT WAS FASTINGP ERFORMED BY: CB [facility] Uzmkxb2922 [address] RoadDublin [place] [id number] RBC LM.HPF #/area (Urine sed) 0-2 Normal 0 - 2 [facility] Work Phone: Comment on above: PATIENT WAS FASTINGP ERFORMED BY: ERAN Colelin6370 [address] [place] [id number] WBC LM.HPF #/area (Urine sed) 0-5 Normal 0 - 5 [facility] Work Phone: Comment on above: PATIENT WAS FASTINGP ERFORMED BY: ERAN LabLesli ColeQvhbxk4092 [address] RoadDublin [place] [id number] RHEUMATOID FACTOR-QUANT (046 72)on 09-18-2017 Rheumatoid factor Qn [IU]/mL Normal 0.0-13.9 Comp rehensive Internal Medicine Work Phone: Comment on above: PATIENT WAS FASTINGP ERFORMED BY: ERAN LabLesli ColeGvtwli8547 [address] RoadDublin [place] [id number] RHEUMATOID FACTOR-QUANT (565 26)Ordered By: Wire Inspector on 09-18-2017 Rheumatoid factor Qn [IU]/mL Normal 0.0-13.9 Comp rehensive Internal Medicine; [facility] Work Phone: Comment on above: PATIENT WAS FASTINGP ERFORMED BY: ERAN Colelin6370 [address] [place] [id number] SED RATE ERYTHROCYTE ([id number]) on 09-18-2017 ESR Velocity (Bld) 2 mm/h Normal 0-30 [facility] Internal [facility] Work Phone: Comment on above: PATIENT WAS FASTINGP ERFORMED BY: ERAN Colelin6[address] [place] [id number] TSH ([id number])on 09-18-2017 Thyrotropin Qn 2.460 {uIU/mL} Normal 0.450-4.50 0 [facility] Work Phone: Comment on above: PATIENT WAS FASTINGP ERFORMED BY: ERAN LabLesli ColeLtbcmh1913 [address] RoadDublin [place] [id number] URINALYSIS, W/ MICRO ([id number]) on 09-18-2017 Appearance Nom (U) Clear Normal Compre [facility] Internal [facility] Work Phone: Comment on above: PATIENT WAS FASTINGP ERFORMED BY: ERAN Colelin6370 [facility] [id number] Bilirubin Ql (U) Negative Normal Comprehe nsive Internal Medicine Work Phone: Comment on above: PATIENT WAS FASTINGP ERFORMED BY: ERAN PriyankaLesli ColeZsepdv9840 [facility] [id number] Color Nom (U) Yellow Normal Comprehensi ve Internal Medicine Work Phone: Comment on above: PATIENT WAS FASTINGP ERFORMED BY: ERAN Colelin6370 [facility] [id number] Glucose Ql (U) Negative Normal Comprehens dennys Internal Medicine Work Phone: Comment on above: PATIENT WAS FASTINGP ERFORMED BY: ERAN Colelin6370 [facility] [id number] Hemoglobin Ql (U) Negative Normal Compreh ensive Internal Medicine Work Phone: Comment on above: PATIENT WAS FASTINGP ERFORMED BY: ERAN Colelin6370 [facility] [id number] Ketones Ql (U) Negative Normal Comprehens dennys Internal Medicine Work Phone: Comment on above: PATIENT WAS FASTINGP ERFORMED BY: ERAN Colelin6370 [facility] [id number] Leukocyte esterase Test strip Ql (U) Negative Normal [facility] Work Phone: Comment on above: PATIENT WAS FASTINGP ERFORMED BY: ERAN Monsalve6370 [facility] [id number] Microscopic observation LM Nom (Urine sed) MICRON Normal [facility] Work Phone: Comment on above: Microscopic follows if indicated. PATIENT WAS FASTINGP ERFORMED BY: ERAN Colelin6370 [facility] [id number] Microscopic observation LM Nom (Urine sed) See below: Normal [facility] Work Phone: Comment on above: Microscopic was kylie cated and was performed. PATIENT WAS FASTINGP ERFORMED BY: ERAN [facility]lin6370 [facility] [id number] Nitrite Ql (U) Negative Normal Comprehens dennys Internal Medicine Work Phone: Comment on above: PATIENT WAS FASTINGP ERFORMED BY: ERAN Evonnejay Xcmezc6760 [facility] [id number] pH (U) 6.0 [pH] Normal 5.0-7.5 [facility] Work Phone: Comment on above: PATIENT WAS FASTINGP ERFORMED BY: ERAN PriyankaLesli ColeDqyuyf6178 [facility] [id number] Protein Ql (U) Negative Normal Comprehens dennys Internal Medicine Work Phone: Comment on above: PATIENT WAS FASTINGP ERFORMED BY: ERAN PriyankaLesli ColeOtzyts8908 [facility] [id number] Specific gravity Relative Density (U) 1.020 1 Normal 1.005-1.03 0 [facility] Work Phone: Comment on above: PATIENT WAS FASTINGP ERFORMED BY: ERAN Arreaga Kvmfpd7396 [facility] [id number] Urobilinogen Test strip mass conc (U) 0.2 mg/dL Normal 0.2-1.0 Comprehensiv e Internal Medicine Work Phone: Comment on above: PATIENT WAS FASTINGP ERFORMED BY: ERAN PriyankaLesli ColeEmlaza0552 [facility] [id number] URINALYSIS, W/ MICRO ([id number]) Ordered By: Wire Inspector on 09-18-2017 Bilirubin Ql (U) Negative Normal Comprehe nsive Internal Medicine; [facility] Work Phone: Comment on above: PATIENT WAS FASTINGP ERFORMED BY: ERAN [facility] Kvprcx2430 [facility] [id number] Glucose Ql (U) Negative Normal Comprehens dennys Internal Medicine; [facility] Work Phone: Comment on above: PATIENT WAS FASTINGP ERFORMED BY: ERAN [facility] Urwwhp9793 [facility] [id number] Hemoglobin Ql (U) Negative Normal Compreh ensive Internal Medicine; [facility] Work Phone: Comment on above: PATIENT WAS FASTINGP ERFORMED BY: ERAN LabLesli Roieti3449 [address] RoadDublin [place] [id number] Ketones Ql (U) Negative Normal Comprehens dennys [facility]; [facility] Work Phone: Comment on above: PATIENT WAS FASTINGP ERFORMED BY: ERAN LabLesli ColeEfxenc4986 [address] RoadDublin [place] [id number] Leukocyte esterase Test strip Ql (U) Negative Normal [facility]; [facility] Work Phone: Comment on above: PATIENT WAS FASTINGP ERFORMED BY: ERAN LabLesli ColePpqufi3758 [address] RoadDublin [place] [id number] Nitrite Ql (U) Negative Normal Comprehens dennys [facility]; [facility] Work Phone: Comment on above: PATIENT WAS FASTINGP ERFORMED BY: ERAN LabLesli ColeLfwhgs3765 [address] RoadDublin [place] [id number] Protein Ql (U) Negative Normal Comprehens dennys [facility]; [facility] Work Phone: Comment on above: PATIENT WAS FASTINGP ERFORMED BY: ERAN LabLesli ColePaxdqx2614 [address] RoadDublin [place] [id number] Urobilinogen (U) [Mass/Vol] 0.2 mg/dL Normal 0.2-1.0 [facility]; [facility] Work Phone: Comment on above: PATIENT WAS FASTINGP ERFORMED BY: ERAN LabLesli ColeXuqjxe7052 [address] RoadDublin [place] [id number] Vitamin B-12 (cyanocobalamin ) ([id number])on 09-18-2017 Cobalamin (Vitamin B12) mass conc 454 pg/mL Normal 211-946 [facility] Work Phone: Comment on above: PATIENT WAS FASTINGP ERFORMED BY: ERAN LabLesli ColeLftgjs3364 [address] RoadDublin [place] [id number] Vital Signs Date Time Vital Sign Value Performing Clinician Facility 05-15-2025 09:36-0400 Body height 176.[address] Lars Palomares DO Work Phone: [facility] 12-24-2024 08:19-0500 Body height 176.[address] Lars Palomares DO Work Phone: [facility] 12-24-2024 08:19-0500 Body mass index (BMI) [Ratio] 25.7 kg/m2 Dr. Lars Palomares DO Work Phone: [facility] 12-24-2024 08:19-0500 Body temperature 97.3 [degF] Dr. Lars Palomares DO Work Phone: [facility] 12-24-2024 08:19-0500 Body weight 80.[address] Lars Palomares DO Work Phone: [facility] 12-24-2024 08:19-0500 Diastolic blood pressure 84 mm[Hg] Dr. Lars Palomares DO Work Phone: [facility] 12-24-2024 08:19-0500 Heart rate 71 /min Dr. Lars Palomares DO Work Phone: [facility] 12-24-2024 08:19-0500 Respiratory rate 18 /min Dr. Lars Palomares DO Work Phone: [facility] 12-24-2024 08:19-0500 SaO2% (BldA) [Mass fraction] 96 % Dr. Lars Palomares DO Work Phone: [facility] 12-24-2024 08:19-0500 Systolic blood pressure 138 mm[Hg] Dr. Lars Palomares DO Work Phone: [facility] 05-16-2023 08:06-0400 Body height 180.34 cm Edilia Aleman [facility]; [facility] Work Phone: 05-16-2023 08:06-0400 Body mass index (BMI) [Ratio] 24.06 kg/m2 Edilia Aleman [facility]; [facility] Work Phone: 05-16-2023 08:06-0400 Body surface area Derived from formula 1.98 m2 Edilia Aleman [facility]; [facility] Work Phone: 05-16-2023 08:06-0400 Body temperature 96.9 [degF] Edilia Aleman [facility]; [facility] Work Phone: Comment on above: Method: Thermal Scan 05-16-2023 08:06-0400 Body weight 78.25 kg Edilia Aleman [facility]; [facility] Work Phone: 05-16-2023 08:06-0400 Diastolic blood pressure 68 mm[Hg] Edilia Aleman [facility]; [facility] Work Phone: Comment on above: Patient Position: Sitting; Cuff Location : Left Arm; Cuff Size: Standard 05-16-2023 08:06-0400 Heart rate 76 /min Edilia Aleman [facility]; [facility] Work Phone: Comment on above: Pattern: Regular 05-16-2023 08:06-0400 Respiratory rate 16 /min Edilia Aleman [facility]; [facility] Work Phone: Comment on above: Pattern: Unlabored 05-16-2023 08:06-0400 Systolic blood pressure 112 mm[Hg] Edilia Aleman [facility]; [facility] Work Phone: Comment on above: Patient Position: Sitting; Cuff Location : Left Arm; Cuff Size: Standard 01-08-2023 08:02-0500 Body height 180.34 cm Edilia Aleman [facility]; [facility] Work Phone: 01-08-2023 08:02-0500 Body mass index (BMI) [Ratio] 25.03 kg/m2 [facility]; [facility] Work Phone: 01-08-2023 08:02-0500 Body surface area Derived from formula 2.01 m2 [facility]; [facility] Work Phone: 01-08-2023 08:02-0500 Body temperature 97 [degF] Edilia Aleman [facility]; [facility] Work Phone: Comment on above: Method: Thermal Scan 01-08-2023 08:02-0500 Body weight 81.42 kg Edilia Aleman [facility]; [facility] Work Phone: 01-08-2023 08:02-0500 Diastolic blood pressure 78 mm[Hg] Edilia Aleman [facility]; [facility] Work Phone: Comment on above: Patient Position: Sitting; Cuff Location : Left Arm; Cuff Size: Standard 01-08-2023 08:02-0500 Heart rate 78 /min Edilia Aleman [facility]; [facility] Work Phone: Comment on above: Pattern: Regular 01-08-2023 08:02-0500 Respiratory rate 16 /min Edilia Aleman [facility]; [facility] Work Phone: Comment on above: Pattern: Unlabored 01-08-2023 08:02-0500 Systolic blood pressure 128 mm[Hg] Edilia Aleman [facility]; [facility] Work Phone: Comment on above: Patient Position: Sitting; Cuff Location : Left Arm; Cuff Size: Standard 09-18-2022 08:08-0400 Body height 180.34 cm Edilia Aleman [facility]; [facility] Work Phone: 09-18-2022 08:08-0400 Body mass index (BMI) [Ratio] 25.38 kg/m2 Edilia Aleman [facility]; [facility] Work Phone: 09-18-2022 08:08-0400 Body surface area Derived from formula 2.03 m2 Ediliarickie Aleman [facility]; [facility] Work Phone: 09-18-2022 08:08-0400 Body temperature 98.1 [degF] Edilia Aleman [facility]; [facility] Work Phone: Comment on above: Method: Thermal Scan 09-18-2022 08:08-0400 Body weight 82.56 [facility]; [facility] Work Phone: 09-18-2022 08:08-0400 Diastolic blood pressure 78 mm[Hg] [facility]; [facility] Work Phone: Comment on above: Patient Position: Sitting; Cuff Location : Left Arm; Cuff Size: Standard 09-18-2022 08:08-0400 Heart rate 72 /min [facility]; [facility] Work Phone: Comment on above: Pattern: Regular 09-18-2022 08:08-0400 Respiratory rate 16 /min [facility]; [facility] Work Phone: Comment on above: Pattern: Unlabored 09-18-2022 08:08-0400 Systolic blood pressure 126 mm[Hg] [facility]; [facility] Work Phone: Comment on above: Patient Position: Sitting; Cuff Location : Left Arm; Cuff Size: Standard 05-15-2022 08:20-0400 Body height 180.34 [facility]; [facility] Work Phone: 05-15-2022 08:20-0400 Body mass index (BMI) [Ratio] 24.55 kg/m2 [facility]; [facility] Work Phone: 05-15-2022 08:20-0400 Body surface area Derived from formula 2 m2 [facility]; [facility] Work Phone: 05-15-2022 08:20-0400 Body temperature 97 [degF] [facility]; [facility] Work Phone: Comment on above: Method: Thermal Scan 05-15-2022 08:20-0400 Body weight 79.83 kg Edilia Aleman [facility]; [facility] Work Phone: 05-15-2022 08:20-0400 Diastolic blood pressure 74 mm[Hg] Edilia Ash [facility]; [facility] Work Phone: Comment on above: Patient Position: Sitting; Cuff Location : Left Arm; Cuff Size: Standard 05-15-2022 08:20-0400 Heart rate 72 /min Edilia Aleman [facility]; [facility] Work Phone: Comment on above: Pattern: Regular 05-15-2022 08:20-0400 Respiratory rate 16 /min Edilia Demetrak [facility]; [facility] Work Phone: Comment on above: Pattern: Unlabored 05-15-2022 08:20-0400 Systolic blood pressure 136 mm[Hg] Edilia Ash [facility]; [facility] Work Phone: Comment on above: Patient Position: Sitting; Cuff Location : Left Arm; Cuff Size: Standard 12-26-2021 08:38-0500 Heart rate 80 /min DR GT BARRON MD [facility] 12-26-2021 08:38-0500 Respiratory rate 16 /min DR GT BARRON MD [facility] 12-26-2021 08:35-0500 Diastolic blood pressure 76 mm[Hg] DR GT BARRON MD [facility] 12-26-2021 08:35-0500 Heart rate 79 /min DR GT BARRON MD [facility] 12-26-2021 08:35-0500 Respiratory rate 19 /min DR GT BARRON MD [facility] 12-26-2021 08:35-0500 Systolic blood pressure 115 mm[Hg] DR GT BARRON MD [facility] 12-26-2021 08:32-0500 Body temperature 96.8 [degF] DR GT BARRON MD [facility] 12-26-2021 08:32-0500 Diastolic blood pressure 79 mm[Hg] DR GT BARRON MD [facility] 12-26-2021 08:32-0500 Heart rate 78 /min DR GT BARRON MD [facility] 12-26-2021 08:32-0500 Reason For Taking VItal Signs DR GT BARRON MD [facility] 12-26-2021 08:32-0500 Respiratory rate 24 /min DR GT BARRON MD [facility] 12-26-2021 08:32-0500 Systolic blood pressure 109 mm[Hg] DR GT BARRON MD [facility] 12-26-2021 08:20-0500 Diastolic Blood Pressure NBP [address] GT BARRON MD [facility] 12-26-2021 08:20-0500 Systolic Blood Pressure NBP [address] GT BARRON MD [facility] 12-26-2021 08:15-0500 Diastolic Blood Pressure NBP [address] GT BARRON MD [facility] 12-26-2021 08:15-0500 Systolic Blood Pressure NBP [address] GT BARRON MD [facility] 12-26-2021 07:43-0500 Body height 180.[address] GT BARRON MD [facility] 12-26-2021 07:43-0500 Body weight 81.[address] GT BARRON MD [facility] 12-26-2021 07:43-0500 Body weight 25.16 kg/m2 DR GT BARRON MD [facility] 12-26-2021 07:38-0500 Body temperature 97.16 [degF] DR GT BARRON MD [facility] 12-26-2021 07:38-0500 Diastolic Blood Pressure NBP [address] GT BARRON MD [facility] 12-26-2021 07:38-0500 Heart rate 77 /min DR GT BARRON MD [facility] 12-26-2021 07:38-0500 Systolic Blood Pressure NBP [address] GT BARRON MD [facility] 11-29-2021 08:19-0500 Body height 180.34 cm Edilia Aleman [facility] Work Phone: 11-29-2021 08:19-0500 Body mass index (BMI) [Ratio] 25.52 kg/m2 Edilia Aleman [facility] Work Phone: 11-29-2021 08:19-0500 Body surface area Derived from formula 2.03 m2 Edilia Aleman [facility] Work Phone: 11-29-2021 08:19-0500 Body temperature 96.9 [degF] Edilia Aleman [facility]; [facility] Work Phone: Comment on above: Method: Thermal Scan 11-29-2021 08:19-0500 Body weight 83.01 kg Edilia Aleman [facility] Work Phone: 11-29-2021 08:19-0500 Diastolic blood pressure 74 mm[Hg] Edilia Aleman [facility] Work Phone: Comment on above: Patient Position: Sitting; Cuff Location : Left Arm; Cuff Size: Standard 11-29-2021 08:19-0500 Heart rate 89 /min Edilia Aleman [facility] Work Phone: Comment on above: Pattern: Regular 11-29-2021 08:19-0500 Respiratory rate 16 /min Edilia Aleman [facility] Work Phone: Comment on above: Pattern: Unlabored 11-29-2021 08:19-0500 Systolic blood pressure 126 mm[Hg] Edilia Aleman [facility] Work Phone: Comment on above: Patient Position: Sitting; Cuff Location : Left Arm; Cuff Size: Standard 05-25-2021 08:05-0400 Body height 180.34 cm Ediliarickie Aleman [facility] Work Phone: 05-25-2021 08:05-0400 Body mass index (BMI) [Ratio] 23.99 kg/m2 [facility] Work Phone: 05-25-2021 08:05-0400 Body surface area Derived from formula 1.98 m2 Edilia Aleman [facility] Work Phone: 05-25-2021 08:05-0400 Body temperature 97.1 [degF] Edilia Aleman [facility]; [facility] Work Phone: Comment on above: Method: Thermal Scan 05-25-2021 08:05-0400 Body weight 78.02 kg Edilia Aleman [facility] Work Phone: 05-25-2021 08:05-0400 Diastolic blood pressure 78 mm[Hg] Edilia Aleman [facility] Work Phone: Comment on above: Patient Position: Sitting; Cuff Location : Left Arm; Cuff Size: Standard 05-25-2021 08:05-0400 Heart rate 82 /min Ediliarickie Aleman [facility]; [facility] Work Phone: Comment on above: Pattern: Regular 05-25-2021 08:05-0400 Respiratory rate 16 /min Edilia Aleman [facility] Work Phone: Comment on above: Pattern: Unlabored 05-25-2021 08:05-0400 Systolic blood pressure 120 mm[Hg] Edilia Aleman [facility] Work Phone: Comment on above: Patient Position: Sitting; Cuff Location : Left Arm; Cuff Size: Standard 11-09-2020 08:23-0500 BMI (Body Mass Index) 24.97 kg/m2 Edilia Aleman [facility] Work Phone: 11-09-2020 08:23-0500 Body Temperature 97.1 [degF] Edilia Aleman [facility]; [facility] Work Phone: Comment on above: Method: Thermal Scan 11-09-2020 08:23-0500 Body weight 81.19 kg Edilia Aleman CMA [facility]; [facility] Work Phone: 11-09-2020 08:23-0500 BP Diastolic 70 mm[Hg] Edilia Aleman [facility]; [facility] Work Phone: Comment on above: Patient Position: Sitting; Cuff Location : Left Arm; Cuff Size: Standard 11-09-2020 08:23-0500 BP Systolic 114 mm[Hg] Edilia Aleman [facility]; [facility] Work Phone: Comment on above: Patient Position: Sitting; Cuff Location : Left Arm; Cuff Size: Standard 11-09-2020 08:23-0500 BSA (Body Surface Area) 2.01 m2 Edilia Aleman [facility]; [facility] Work Phone: 11-09-2020 08:23-0500 Height 180.34 cm Edilia Aleman [facility]; [facility] Work Phone: 11-09-2020 08:23-0500 Pulse (Heart Rate) 74 /min Edilia Aleman [facility]; [facility] Work Phone: Comment on above: Pattern: Regular 11-09-2020 08:23-0500 Respiratory Rate 16 /min Edilia Aleman [facility] Work Phone: Comment on above: Pattern: Unlabored 05-19-2020 08:23-0400 BMI (Body Mass Index) 24.41 kg/m2 Edilia Aleman [facility] Work Phone: 05-19-2020 08:23-0400 Body Temperature 97.7 [degF] Edilia Aleman [facility] Work Phone: Comment on above: Method: Temporal 05-19-2020 08:23-0400 Body weight 79.38 kg Edilia Aleman [facility] Work Phone: 05-19-2020 08:23-0400 BP Diastolic 78 mm[Hg] Edilia Aleman [facility] Work Phone: Comment on above: Patient Position: Sitting; Cuff Location : Left Arm; Cuff Size: Standard 05-19-2020 08:23-0400 BP Systolic 122 mm[Hg] Edilia Aleman [facility] Work Phone: Comment on above: Patient Position: Sitting; Cuff Location : Left Arm; Cuff Size: Standard 05-19-2020 08:23-0400 BSA (Body Surface Area) 1.99 m2 Edilia Aleman [facility] Work Phone: 05-19-2020 08:23-0400 Height 180.34 cm Edilia Aleman [facility] Work Phone: 05-19-2020 08:23-0400 Pulse (Heart Rate) 80 /min Edilia Aleman [facility] Work Phone: Comment on above: Pattern: Regular 05-19-2020 08:23-0400 Respiratory Rate 16 /min Edliia Aleman [facility] Work Phone: Comment on above: Pattern: Unlabored 04-30-2019 10:17-0400 BMI (Body Mass Index) 24.69 kg/m2 Edilia Aleman [facility] Work Phone: 04-30-2019 10:17-0400 Body Temperature 97.2 [degF] Edilia Aleman [facility] Work Phone: Comment on above: Method: Temporal 04-30-2019 10:17-0400 Body weight 80.29 kg Edilia Aleman [facility] Work Phone: 04-30-2019 10:17-0400 BP Diastolic 80 mm[Hg] Edilia Aleman [facility] Work Phone: Comment on above: Patient Position: Sitting; Cuff Location : Left Arm; Cuff Size: Standard 04-30-2019 10:17-0400 BP Systolic 120 mm[Hg] Edilia Aleman [facility] Work Phone: Comment on above: Patient Position: Sitting; Cuff Location : Left Arm; Cuff Size: Standard 04-30-2019 10:17-0400 BSA (Body Surface Area) 2 m2 Edilia Aleman [facility] Work Phone: 04-30-2019 10:17-0400 Height 180.34 cm Edilia Aleman [facility] Work Phone: 04-30-2019 10:17-0400 Pulse (Heart Rate) 67 /min Edilia Aleman [facility] Work Phone: Comment on above: Pattern: Regular 04-30-2019 10:17-0400 Respiratory Rate 16 /min Edilia Aleman [facility] Work Phone: Comment on above: Pattern: Unlabored 04-30-2019 10:17-0400 Weight 80.29 kg Lars Palomares [facility] Work Phone: 01-21-2019 08:25-0500 BMI (Body Mass Index) 24.55 kg/m2 CHANO Atkins PENNY [facility] Work Phone: 01-21-2019 08:25-0500 Body Temperature 97.9 [degF] CHANO Atkins PENNY [facility] Work Phone: Comment on above: Method: Temporal 01-21-2019 08:25-0500 Body weight 79.83 kg CHANO Atkins PENNY [facility] Work Phone: 01-21-2019 08:25-0500 BP Diastolic 80 mm[Hg] CHANO Atkins PENNY [facility] Work Phone: Comment on above: Patient Position: Sitting; Cuff Location : Left Arm; Cuff Size: Standard 01-21-2019 08:25-0500 BP Systolic 122 mm[Hg] CHANO Atkins PENNY [facility] Work Phone: Comment on above: Patient Position: Sitting; Cuff Location : Left Arm; Cuff Size: Standard 01-21-2019 08:25-0500 BSA (Body Surface Area) 2 m2 CHANO Atkins LPN [facility] Work Phone: 01-21-2019 08:25-0500 Height 180.34 cm CHANO Atkins LPN [facility] Work Phone: 01-21-2019 08:25-0500 Pulse (Heart Rate) 74 /min CHANO Atkins LPN [facility] Work Phone: Comment on above: Pattern: Regular 01-21-2019 08:25-0500 Pulse Oximetry 97 % Lars Palomares [facility] Work Phone: Comment on above: Room air 01-21-2019 08:25-0500 Respiratory Rate 20 /min CHANO Atkins LPN [facility] Work Phone: Comment on above: Pattern: Unlabored 01-21-2019 08:25-0500 SaO2% (BldA) [Mass fraction] 97 % CHANO Atkins LPN [facility] Work Phone: Comment on above: Room air 01-21-2019 08:25-0500 Weight 79.83 kg Lars Palomares [facility] Work Phone: 07-31-2018 09:54-0400 Body Temperature 97.1 [degF] Edilia Aleman [facility] Work Phone: Comment on above: Method: Temporal 07-31-2018 09:54-0400 Body weight 79.38 kg Edilia Aleman [facility] Work Phone: 07-31-2018 09:54-0400 BP Diastolic 80 mm[Hg] Edilia Aleman [facility] Work Phone: Comment on above: Patient Position: Sitting; Cuff Location : Left Arm; Cuff Size: Standard 07-31-2018 09:54-0400 BP Systolic 124 mm[Hg] Edilia Aleman [facility] Work Phone: Comment on above: Patient Position: Sitting; Cuff Location : Left Arm; Cuff Size: Standard 07-31-2018 09:54-0400 Pulse (Heart Rate) 73 /min Edilia Aleman [employer] [facility] Work Phone: Comment on above: Pattern: Regular 07-31-2018 09:54-0400 Respiratory Rate 16 /min Edilia Aleman [facility] Work Phone: Comment on above: Pattern: Unlabored 07-31-2018 09:54-0400 Weight 79.38 kg Lars Fast [facility] Work Phone: 06-19-2018 10:06-0400 Body Temperature 98.1 [degF] Edilia Aleman [facility] Work Phone: Comment on above: Method: Temporal 06-19-2018 10:0400 Body weight 79.83 kg Edilia Aleman [facility] Work Phone: 06-19-2018 10:06-0400 BP Diastolic 82 mm[Hg] Edilia Aleman [facility] Work Phone: Comment on above: Patient Position: Sitting; Cuff Location : Left Arm; Cuff Size: Standard 06-19-2018 10:06-0400 BP Systolic 130 mm[Hg] Edilia Aleman [facility] Work Phone: Comment on above: Patient Position: Sitting; Cuff Location : Left Arm; Cuff Size: Standard 06-19-2018 10:06-0400 Pulse (Heart Rate) 70 /min Edilia Aleman [facility] Work Phone: Comment on above: Pattern: Regular 06-19-2018 10:06-0400 Respiratory Rate 16 /min Edilia Aleman [facility] Work Phone: Comment on above: Pattern: Unlabored 06-19-2018 10:06-0400 Weight 79.83 kg Lars Fast [facility] Work Phone: 06-12-2018 10:09-0400 Body Temperature 97.9 [degF] Edilia Aleman [facility] Work Phone: Comment on above: Method: Temporal 06-12-2018 10:09-0400 Body weight 79.83 kg Edilia Aleman [facility] Work Phone: 06-12-2018 10:09-0400 BP Diastolic 78 mm[Hg] Edilia Aleman [facility] Work Phone: Comment on above: Patient Position: Sitting; Cuff Location : Left Arm; Cuff Size: Standard 06-12-2018 10:09-0400 BP Systolic 122 mm[Hg] Edilia Aleman [facility] Work Phone: Comment on above: Patient Position: Sitting; Cuff Location : Left Arm; Cuff Size: Standard 06-12-2018 10:09-0400 Pulse (Heart Rate) 77 /min Edilia Aleman [facility] Work Phone: Comment on above: Pattern: Regular 06-12-2018 10:09-0400 Respiratory Rate 16 /min Edilia Aleman [facility] Work Phone: Comment on above: Pattern: Unlabored 06-12-2018 10:09-0400 Weight 79.83 kg Lars Palomares [facility] Work Phone: 01-16-2018 13:18-0500 Body Temperature 96.9 [degF] Edilia Aleman [facility] Work Phone: Comment on above: Method: Temporal 01-16-2018 13:18-0500 Body weight 80.74 kg Edilia Aleman [facility] Work Phone: 01-16-2018 13:18-0500 BP Diastolic 80 mm[Hg] Edilia Aleman [facility] Work Phone: Comment on above: Patient Position: Sitting; Cuff Location : Left Arm; Cuff Size: Standard 01-16-2018 13:18-0500 BP Systolic 130 mm[Hg] Edilia Aleman [facility] Work Phone: Comment on above: Patient Position: Sitting; Cuff Location : Left Arm; Cuff Size: Standard 01-16-2018 13:18-0500 Pulse (Heart Rate) 76 /min Edilia Aleman [facility] Work Phone: Comment on above: Pattern: Regular 01-16-2018 13:18-0500 Respiratory Rate 16 /min Edilia Aleman CMA [facility] Work Phone: Comment on above: Pattern: Unlabored 01-16-2018 13:18-0500 Weight 80.74 kg Lars Palomares [facility] Work Phone: 09-10-2017 11:12-0400 BMI (Body Mass Index) 26.58 kg/m2 Viktoria Turner [facility] Work Phone: 09-10-2017 11:12-0400 Body Temperature 97.4 [degF] Viktoria Turner [facility] Work Phone: Comment on above: Method: Temporal 09-10-2017 11:12-0400 Body weight 81.65 kg Viktoria Turner [facility] Work Phone: 09-10-2017 11:12-0400 BP Diastolic 88 mm[Hg] Viktoria Turner [facility] Work Phone: Comment on above: Patient Position: Sitting; Cuff Location : Left Arm; Cuff Size: Standard 09-10-2017 11:12-0400 BP Systolic 126 mm[Hg] Viktoria Turner [facility] Work Phone: Comment on above: Patient Position: Sitting; Cuff Location : Left Arm; Cuff Size: Standard 09-10-2017 11:12-0400 BSA (Body Surface Area) 1.98 m2 Viktoria Turner [facility] Work Phone: 09-10-2017 11:12-0400 Height 175.26 cm Viktoria Turner [facility] Work Phone: 09-10-2017 11:12-0400 Pulse (Heart Rate) 70 /min Viktoria Turner [facility] Work Phone: Comment on above: Pattern: Regular 09-10-2017 11:12-0400 Pulse Oximetry 95 % Lars Palomares [facility] Work Phone: Comment on above: Room air 09-10-2017 11:12-0400 Respiratory Rate 15 /min Viktoria Turner [facility] Work Phone: Comment on above: Pattern: Unlabored 09-10-2017 11:12-0400 SaO2% (BldA) [Mass fraction] 95 % Viktoria Turner [facility] Work Phone: Comment on above: Room air 09-10-2017 11:12-0400 Weight 81.65 kg Lars Palomares [facility] Work Phone: Encounters Encounter Date Encounter Type Care Provider Facility Start: 07-14-2025 ambulatory Lars Fast Facility:[facility] Start: 07-08-2025 End: 07-08-[address] Lars Palomares DO Work Phone: -Laboratory Start: 07-08-2025 End: 07-08-2025 Patient encounter procedure Tessy Hawk -Laboratory Work Phone: Start: 07-08-2025 End: 07-08-2025 ambulatory Lars Fast Facility:[facility] Start: 06-03-2025 End: 06-03-[address] Lars Palomares DO Work Phone: -Outpatient Bone Densitometry Start: 06-03-2025 End: 06-03-[address] Lars Palomares DO -Outpatient Bone Densitometry Work Phone: Start: 06-02-2025 Registered Referred Self Referred [facility] Work Phone: Start: 06-02-2025 End: 06-03-2025 ambulatory Lars Fast Facility:[facility] Start: 05-21-2025 End: 05-21-[address] Lars Palomares DO Work Phone: -Ultrasound [facility] Start: 05-21-2025 End: 05-21-[address] Lars Palomares DO -Ultrasound [facility] Work Phone: Start: 05-21-2025 End: 05-21-2025 ambulatory Lars Fast Facility:[facility] Start: 05-15-2025 End: 05-15-[address] Bg Restrepo MD -[facility] Start: 05-15-2025 End: 05-15-[address] Lars Palomares DO Work Phone: [facility] Work Phone: Start: 02-02-2025 End: 02-02-[address] Lars Palomares DO Work Phone: [facility] Work Phone: Start: 02-02-2025 End: 02-02-[address] Lars Palomares DO -Cat Scan, [facility] Work Phone: Start: 02-02-2025 End: 02-02-2025 ambulatory Lars Fast Facility:[facility] Start: 01-06-2025 End: 01-06-2025 Patient encounter procedure Tessy Hawk -[facility] Work Phone: Start: 01-06-2025 End: 01-06-2025 ambulatory Lars Fast Facility:[facility] Start: 12-24-2024 End: 12-24-2024 Patient encounter procedure Addie Andrea [employer] -[facility] Work Phone: Start: 12-24-2024 End: 12-24-2024 ambulatory Addie Andrea [employer] Facility:[facility] Start: 11-18-2024 End: 11-18-2024 ambulatory Lars Fast Facility:[facility] Start: 11-18-2024 End: 11-18-[address] Lars Palomares DO -Physical Therapy Work Phone: Start: 08-25-2024 End: 08-25-2024 ambulatory Addie Andrea [employer] Facility:[facility] Start: 07-23-2024 End: 07-23-2024 ambulatory Lars Fast Facility:[facility] Start: 03-04-2024 End: 03-04-2024 ambulatory [facility] Work Phone: Start: 03-04-2024 End: 03-04-2024 Patient encounter procedure [facility]-Laboratory, [facility] Start: 12-17-2023 End: 12-17-2023 Subsequent hospital visit by physician Demetri Silva [facility] Comment on above: Hyperlipidemia, unsp ecified Start: 12-17-2023 End: 12-17-2023 ambulatory LARS A FAST [facility] Start: 11-06-2023 End: 11-06-2023 ambulatory [facility] Work Phone: Start: 11-06-2023 End: 11-06-2023 Patient encounter procedure [facility] Start: 10-15-2023 End: 10-15-2023 Patient encounter procedure [facility]-Laboratory Work Phone: Start: 10-08-2023 End: 10-08-2023 ambulatory [facility] Work Phone: Start: 10-08-2023 End: 10-08-2023 Patient encounter procedure [facility]-Laboratory, [place] Work Phone: Start: 05-22-2023 End: 05-22-2023 ambulatory [facility] Work Phone: Start: 05-22-2023 End: 05-22-2023 Patient encounter procedure [facility]-Ultrasound, [facility] Work Phone: Start: 05-16-2023 End: 05-16-2023 Patient encounter procedure Lars Fast DO Work Phone: [facility] Start: 05-02-2023 End: 05-02-2023 Phone Encounter Lars Fast DO Work Phone: [facility] Start: 03-28-2023 End: 03-28-2023 Patient encounter procedure [facility]-Laboratory Work Phone: Start: 01-08-2023 End: 01-08-2023 Office outpatient visit 15 minutes Lars Fast DO Work Phone: [facility] Start: 01-01-2023 ambulatory Lars A Fast DO [facility] Start: 12-14-2022 End: 12-14-2022 ambulatory [facility] Work Phone: Start: 12-14-2022 End: 12-14-2022 Patient encounter procedure [facility]-Outpatient Bone Densitometry Start: 10-02-2022 End: 10-02-2022 ambulatory [facility] Work Phone: Start: 10-02-2022 End: 10-02-2022 Patient encounter procedure [facility] Start: 09-18-2022 Review Lars Fast DO Work Phone: [facility] Start: 09-18-2022 End: 09-18-2022 Office outpatient visit 25 minutes Lars Fast DO Work Phone: [facility] Start: 05-15-2022 End: 05-15-2022 Office outpatient visit 25 minutes Lars Fast DO Work Phone: [facility] Start: 05-15-2022 Review Lars Fast DO Work Phone: [facility] Start: 04-10-2022 End: 04-10-2022 Patient encounter procedure [facility] Start: 12-28-2021 End: 12-28-2021 Phone Encounter Lars Fast DO Work Phone: [facility] Start: 12-26-2021 End: 12-26-[address] GT BARRON MD [facility] Start: 11-29-2021 End: 11-29-2021 Office outpatient visit 25 minutes Lars Fast DO Work Phone: [facility] Start: 11-02-2021 End: 11-02-2021 Phone Encounter Lars Fast DO Work Phone: [facility] Start: 05-25-2021 End: 05-25-2021 Office outpatient visit 25 minutes Lars Fast DO Work Phone: [facility] Start: 05-25-2021 Review Lars Fast DO Work Phone: [facility] Start: 11-09-2020 End: 11-09-2020 Office outpatient visit 25 minutes Lars Fast [facility] Start: 05-19-2020 End: 05-23-2020 Office outpatient visit 25 minutes Lars Fast [facility] Start: 10-17-2019 End: 10-17-2019 Office outpatient visit 5 minutes Lars Fast [facility] Start: 04-30-2019 End: 04-30-2019 Office outpatient visit 15 minutes Lars Fast [facility] Start: 04-30-2019 Review Lars Fast [facility] Start: 01-21-2019 End: 01-30-2019 Office outpatient visit 25 minutes Lars Fast [facility] Start: 01-21-2019 Review Lars Fast [facility] Start: 10-21-2018 End: 10-21-2018 Office outpatient visit 15 minutes Lars Fast [facility] Start: 07-31-2018 End: 07-31-2018 Office outpatient visit 15 minutes Lars Fast [facility] Start: 06-19-2018 End: 06-20-2018 Office outpatient visit 25 minutes Lars Jasbir [facility] Start: 06-12-2018 End: 06-13-2018 Office outpatient visit 25 minutes Lars Fast [facility] Start: 01-16-2018 End: 01-31-2018 Office outpatient visit 15 minutes Lars Fast [facility] Start: 09-19-2017 End: 09-19-2017 Phone Encounter Lars Palomares [facility] Start: 09-10-2017 End: 09-10-2017 Office outpatient new 45 minutes Lars Palomares [facility] Procedures Date Procedure Procedure Detail Performing Clinician Start: 07-08-2025 Assay of prostate specific antigen total Dr. Lars Palomares DO Work Phone: Comment on above: This test was performed using the [employer] tPSA method. Measured values of a patient sample can vary depending on the testing procedure used. PSA values determined on patient samples by different testing procedures cannot be used interchangeably. If there is a change in PSA assays while monitoring therapy, sequential testing should be performed to confirm baseline values. Start: 06-03-2025 Dual energy X-ray absorptiometry Dr. Lars Palomares DO Work Phone: Start: 05-21-2025 US scan of thyroid Dr. Lars Arredondo Phone: Start: 05-15-2025 Plain x-ray of pelvis and lower extremity Dr. Lars Palomares DO Work Phone: Start: 05-15-2025 X-ray of lumbosacral spine Dr. Lars Palomares DO Work Phone: Start: 02-02-2025 CT angiography of chest with contrast Dr. Lars Palomares DO Work Phone: Start: 12-17-2023 CT CARDIAC SCORING WO IV CONTRAST LARS PALOMARES Start: 12-17-2023 Ct heart no contrast quant eval coronry calcium Lars Palomares DO Work Phone: Start: 11-06-2023 PET study for localization of tumor Start: 05-22-2023 Ultrasonography of thyroid and parathyroid Start: 05-22-2023 End: 05-23-2023 Head/Neck Soft Tissue Procedure Note: See Note; NOTES: [facility] Imaging Services [address] [place] [address] Head/Neck Soft Tissue MR#: [id number] Acct: [id number] Name: RAFA FOSS Rep #: [id number] : 1950 M 72 From: Suzanne Bryant MD PCP: Dr. Lars Palomares DO Status: REG CLI Study: Head/Neck Soft Tissue Date of Exam: 05/22/23 Exam# [id number] Ordering Dr: Lars Palomares DO STUDY: THYROID ULTRASOUND REASON FOR EXAM: Male, 72 years old. Thyroid nodule TECHNIQUE: Ultrasound evaluation of the thyroid was performed with real-time and static shukla-scale imaging. COMPARISON: None. FINDINGS: RIGHT LOBE: The right lobe of the thyroid gland measures 4.6 x 2.3 x 1.7 cm. There is a homogeneous echotexture. There is a far medially located hypoechoic nodule with a hyperechoic periphery measuring 5.4 x 6.7 x 5.5 mm. LEFT LOBE: The left lobe of the thyroid gland measures 4.1 x 1.7 x 1.3 cm. There is a homogeneous echotexture. There is a round near isoechoic nodule left thyroid measuring 5 x 4 x 4 mm. There is a smaller wider than tall multicystic structure with well-circumscribed borders in the mid to lower thyroid measuring 2.3 x 1.1 mm. ISTHMUS: The isthmus measures 2.1 mm . The regional lymph nodes are normal. US/Head/Neck Soft Tissue IMPRESSION: No comparison images were provided. Small moderately suspicious for tiny calcification. Ti RADS category left thyroid nodule measuring 5 x 4 x 4 mm. Recommend follow-up in 12 months to ensure stability. Hypoechoic benign-appearing mostly cystic structure within the left thyroid which no follow-up is warranted at this time. Partially cystic also partially solid or partially calcified periphery, if this is partially calcified this may be followed into a mildly suspicious category and can be followed in one year. This is versus a somewhat echogenic appearing periphery possibly representing a medially located lymph node. Electronically Signed: Suzanne Bryant MD at 5:21 EDT , CC: Dr. Lars Palomares DO Inspector Assembly: Signed Lars Palomares DO Work Phone: Start: 12-14-2022 End: 12-15-2022 Dexa Bone Density Study Procedure Note: See Note; NOTES: [facility] Imaging Services [address] [place] [address] Dexa Bone Density Study MR#: [id number] Acct: [id number] Name: RAFA FOSS Rep #: [id number] : 1950 M 72 From: Kwasi swann MD PCP: Dr. Lars Palomares DO Status: [facility] Study: Dexa Bone Density Study Date of Exam: 12/14/22 Exam# [id number] Ordering Dr: Lars Palomares DO STUDY: DUAL ENERGY X-RAY ABSORPTIOMETRY / DXA REASON FOR EXAM: Male, 72 years old. M810 TECHNIQUE: Bone Mineral Density (BMD) measurements of lumbar spine and bilateral hips were obtained. COMPARISON: Comparison is made with prior study dated 11/17/2020. FINDINGS: Lumbar Spine (L1-L4): g/cm2 (0.968) / T-score (-0.9) / Z-score (0.0) Findings are suggestive of normal bone density with a low fracture risk. Left Femur Total: g/cm2 (0.926) / T-score (-0.7) / Z-score (0.0) Left Femoral Neck: g/cm2 (0.745) / T-score (-1.4) / Z-score (-0.1) Right Femur Total: g/cm2 (0.873) / T-score (-1.1) / Z-score (-0.4) Right Femoral Neck: g/cm2 (0.698) / T-score (-1.7) / Z-score (-0.5) The T-Scores on the most recent prior examination were: Lumbar Spine (L1-L4): There has been worsening of bone density since the previous examination. Left Femur Total: which represents an improvement of 1.1%. Right Femur Total: which represents an improvement of 1.9%. BD/Dexa Bone Density Study IMPRESSION: The patient is considered osteopenic as outlined below according to World Alfredo Organization (WHO) criteria with a moderate fracture risk. There has been improvement of bone density since the previous examination. Reference Information: The T-score is the number of standard deviations above or below the standard which is normal for young adults at their peak bone mineral density. The World Health Organization (WHO) interprets the T-scores as follows: Above -1 Normal bone density Between -1 and -2.5 Osteopenia Equal to / or below -2.5 Osteoporosis As a practical clinical guideline, osteopenia may be graded as follows: Mild -1 through -1.5 Moderate -1.6 through -2.0 Severe -2.1 through -2.4 The Z-score is the number of standard deviations above or below age-matched controls. A Z-score of less than -1.5 would be considered abnormal. References: 1. NIH Osteoporosis and Related Bone Diseases www osteo.org 2. International Society for Clinical Densitometry www iscd.org 3. National Osteoporosis Foundation www nof.org Electronically Signed: Kwasi Rodriguez MD at 13:06 EST Reading Location ID and State: [address] [place] [address] , Service support , CC: Dr. Lars Palomares DO Inspector Assembly: Signed Lars Palomares DO Work Phone: Start: 12-14-2022 Dual energy X-ray absorptiometry Start: 04-21-2021 End: 04-23-2021 Abdomen/Pelvis WITH Contrast Comments: See Note; NOTES: [facility] Imaging Services [address] [place] [address] Abdomen/Pelvis WITH Contrast MR#: [id number] Acct: [id number] Name: RAFA FOSS Rep #: [id number] : 1950 M 70 From: Jacky Calero MD PCP: Dr. Lars Palomares, Status: REG CLI Study: Abdomen/Pelvis WITH Contrast Date of Exam: Exam# [id number] Ordering Dr: Daniel Mitchell MD STUDY: CT ABDOMEN AND PELVIS WITH CONTRAST REASON FOR EXAM: Male, 70 years old. CA PROSTATE RADIATION DOSAGE (If Supplied By Facility): CTDIvol = ( 17.49 ) mGy, DLP = ( 1498.88 ) mGycm TECHNIQUE: Transaxial images were obtained from the dome of the diaphragm to the symphysis pubis without oral contrast. Oral and amp; IV REDICAT and amp; 100ML ISOVUE 300 was administered. Sagittal and coronal images were reconstructed. Individualized dose optimization techniques were used for this CT. COMPARISON: 06/12/2018 FINDINGS: The visualized lung bases are unremarkable. The visualized portions of the heart are within normal limits. Normal liver. The gallbladder is contracted. Normal spleen. Normal pancreas. Normal bilateral adrenal glands. Normal right kidney. 2.5 cm cyst in the upper pole the left kidney. Normal visualized stomach. Normal small intestine. There are multiple colonic diverticula consistent with diverticulosis. The appendix is visualized and appears normal. Normal abdominal aorta. Normal inferior vena cava. Normal retroperitoneum. Normal urinary bladder. Normal abdominal wall. Normal osseous structures. CT/Abdomen/Pelvis WITH Contrast IMPRESSION: No CT evidence metastatic disease. Electronically Signed: Jacky Calero MD at 8:19 EDT Tel , Service support , CC: Dr. Lars Palomares DO; Dr. Daniel Mitchell MD Inspector Assembly: Signed Lars Palomares DO Work Phone: Start: 03-29-2021 End: 03-30-2021 PET/CT Tumor Base -Thigh Subs Comments: See Note; NOTES: [facility] Imaging Services [address] [place] [address] PET/CT Tumor Base -Thigh Subs MR#: [id number] Acct: [id number] Name: RAFA FOSS Rep #: [id number] : 1950 M 70 From: Jacky Murillo PCP: Dr. Lars Palomares DO Status: REG CLI Study: PET/CT Tumor Base -Thigh Subs Date of Exam: Exam# [id number] Ordering Dr: Chadd Barros MD EXAMINATION: 18F Fluciclovine PET/CT CLINICAL HISTORY: A 70-year-old male with history of carcinoma of the prostate presenting for restaging examination. COMPARISON EXAMINATION: CT of the pelvis report dated 10/15/19. PROCEDURE: The patient received an intravenous bolus injection of Axumin (fluciclovine F-18) 9.7 mCi, on the imaging table with the patient in the supine position followed by an intravenous normal saline flush. The patient in the supine position with arms above the head, CT scan for attenuation correction was performed immediately following the bolus injection and left up for 1-2 minutes. The PET scan acquisition was begun within 3-5 minutes following injection from mid thigh to the base of the skull. The total scan time was registered between 20-30 minutes. Axumin (fluciclovine F-18) injection is indicated for positron emission tomography PET imaging in men with suspected prostate cancer recurrence based on elevation of the serum prostatic surface antigen (PSA) levels following prior treatment intervention. FINDINGS: Head/Neck: Symmetric radiopharmaceutical concentration is defined in the bilateral parotid and submandibular glands. There is no evidence of abnormal increased tracer concentration within the cranial vault. CHEST: Physiologic tracer uptake appears evident in the proximal-distal esophagus and left ventricular myocardium. There is no evidence of abnormal increased 18-F fluciclovine uptake within the context of the bilateral hemithorax pulmonary parenchyma, right and left hemithorax at the pleural interface and mediastinal structures, right-left thoracic perihilum. Pertinent chest CT findings are as follows. There is atherosclerotic calcification defined in the thoracic aorta without evidence of dilatation-aneurysm formation. Coronary arterial calcification is observed. Bilateral axillary soft tissue densities with fatty hilus are fluciclovine avid. A calcified rounded density noted in the right lower posterolateral lung-right lower lobe demonstrates no evidence of increased radiopharmaceutical concentration. Mediastinal and thoracic perihilar calcified and non-calcified soft tissue demonstrates no evidence of increased tracer uptake. Abdomen/Pelvis: There is no evidence of abnormal increased radiopharmaceutical concentration on review of the abdominal-pelvic retroperitoneum and mesentery. Physiologic tracer uptake is observed in the hepatic and splenic parenchyma, pancreas, right and left kidneys, diffuse intestinal tract, the urinary bladder manifest as pooling in the posterior aspect. Pertinent abdomen and pelvis CT findings are as follows. Atherosclerotic calcification is defined in the abdominal aorta without evidence of aneurysm. Pelvic arterial calcification is observed. Colonic diverticulosis is encountered without evidence of diverticulitis. Postsurgical changes manifest in the right upper abdominal mesentery. Right and left inguinal subcentimeter soft tissue densities are nonglucose avid. Exophytic cyst formation is identified in the inferior pole of the left kidney. Skeletal: Degenerative changes are noted in the cervical, thoracic and lumbar spine without evidence of increased radiopharmaceutical concentration. There is no evidence of sclerotic, mixed sclerotic-lytic and/or lytic changes noted on review of the skeletal structures without evidence of abnormal increased tracer uptake. PET/PET/CT Tumor Base -Thigh Subs IMPRESSION: 1. NEGATIVE EXAMINATION. There is no definitive quantitative scintigraphic evidence of fluciclovine avid viable neoplasm. (Jackeline et al, Journal of Nuclear Medicine 55:1986, 2014). Electronic Signature Jacky Mcpherson D.O. Electronically Signed: Jacky Mcpherson DO at 22:02 EDT Tel , Service support , CC: Dr. Lars Palomares DO; Dr. Chadd Barros MD Inspector Assembly: Signed Lars Palomares DO Work Phone: Start: 11-17-2020 End: 11-17-2020 Dexa Bone Density Study Comments: See Note; NOTES: [facility] Imaging Services [address] [place] [address] Dexa Bone Density Study MR#: [id number] Acct: [id number] Name: RAFA FOSS Rep #: [id number] : 1950 M 70 From: Kwasi swann MD PCP: Dr. Lars Palomares DO Status: [facility] Study: Dexa Bone Density Study Date of Exam: 11/17/20 Exam# [id number] Ordering Dr: Lars Palomares DO STUDY: DUAL ENERGY X-RAY ABSORPTIOMETRY / DXA REASON FOR EXAM: Male, 70 years old. EZE OF 2.25 INCHES -- DOES MODERATE AMOUNT OF EXERCISE -- HX OF L4 AND L5 COMPRESSION FX''S ACCORDING TO PREVIOUS XRAYS TECHNIQUE: Bone Mineral Density (BMD) measurements of lumbar spine and bilateral hips were obtained. COMPARISON: Comparison is made with prior study dated 09/27/2017. FINDINGS: Lumbar Spine (L1-L4): g/cm2 (1.185) / T-score (-0.2) / Z-score (0.3) Findings are suggestive of normal bone density with a low fracture risk. Left Femur Total: g/cm2 (0.981) / T-score (-0.8) / Z-score (-0.2) Left Femoral Neck: g/cm2 (0.928) / T-score (-1.1) / Z-score (0.1) Right Femur Total: g/cm2 (0.920) / T-score (-1.3) / Z-score (-0.6) Right Femoral Neck: g/cm2 (0.860) / T-score (-1.6) / Z-score (0.4) The T-Scores on the most recent prior examination were: Lumbar Spine (L1-L4): There has been improvement of bone density since the previous examination. Left Femur Total: which represents a worsening of 2.9%. Right Femur Total: which represents an improvement of 0.7%. BD/Dexa Bone Density Study IMPRESSION: The patient is considered osteopenic as outlined below according to World Alfredo Organization (WHO) criteria with a moderate fracture risk. There has been improvement of bone density since the previous examination. Reference Information: The T-score is the number of standard deviations above or below the standard which is normal for young adults at their peak bone mineral density. The World Health Organization (WHO) interprets the T-scores as follows: Above -1 Normal bone density Between -1 and -2.5 Osteopenia Equal to / or below -2.5 Osteoporosis As a practical clinical guideline, osteopenia may be graded as follows: Mild -1 through -1.5 Moderate -1.6 through -2.0 Severe -2.1 through -2.4 The Z-score is the number of standard deviations above or below age-matched controls. A Z-score of less than -1.5 would be considered abnormal. References: 1. NIH Osteoporosis and Related Bone Diseases www osteo.org 2. International Society for Clinical Densitometry www iscd.org 3. National Osteoporosis Foundation www nof.org Electronically Signed: Kwasi Rodriguez, at 10:42 EST , Service support , CC: Dr. Lars Palomares DO Inspector Assembly: Signed Lars Palomares Work Phone: Start: 01-21-2020 End: 01-21-2020 Operative Report Comments: See Note; NOTES: [facility] Medical Records Department [address] [place] [address] Operative Report 01/21/20 1057 MR#: [id number] Acct: [id number] Name: RAFA FOSS Rep #: [id number] : 1950 69 From: Chadd Barros MD PCP: Lars Palomares DO Status: REG [facility] Y Location: [address] Report of Operation Date of Procedure: 01/21/20 Pre-Operative Diagnosis: Prostate cancer Post-Operative Diagnosis: Same Surgery/Procedure Performed:: Laparoscopic robotic assisted radical prostatectomy, bilateral lymph node dissection, suture suspension of the urethra. Description of Surgical Findings:: 69-year-old male who was found to have [place] 7 prostate cancer involving the left side of the prostate high-volume disease. Because of this we talked about the management options including radiation therapy radical prostatectomy. We talked about the side effects with radiation therapy and the side effects associated with radical prostatectomy expected outcomes. He is elected to undergo surgery. 69-year-old male was taken back to the operating room after smooth induction of general anesthesia he was placed supine on the table. He was then placed in dorsolithotomy position. The abdomen was shaved prepped and draped in usual fashion. Placed a Ruiz catheter into the bladder. I then infiltrated the umbilicus with lidocaine. Make a small incision. And advanced the Veress needle into the peritoneal cavity insufflated the peritoneal cavity CO2 gas. I then placed my camera trocar right upper trocar left arm trocar and second left arm trocar, air seal port and porcelain buildup assistant suction port. We then docked the robot. For started dissection below the bladder dissected until I identified the vas deferens and seminal vesicles and then dissected underneath the prostate freeing up the fascia and Denonvilliers' fascia was freed up from the posterior aspect of the prostate. We then pulled back out of the prostate area and freed up the seminal vesicle and vas deferens and the left and right side freed these up transected the vas deferens and freed up the seminal vesicles completely had very large seminal vesicles. We then pulled out of the pelvis we drop the bladder created the space of Retzius pulled the bladder on traction with the fourth arm I then freed up the endopelvic fascia on the right side of the prostate all the way up the apex and then the endopelvic fascia in the left side of the prostate all the way up the apex we then transected to the dorsal vein complex placed a stitch to the dorsal vein complex came back to the bladder neck dissected the bladder off the prostate we found a very large median lobe had to make a very wide open dissection of the bladder. I then freed up the fascia on the right lateral side of the prostate retracted prostate laterally came through the prostate pedicles with clips. Then freed up the neurovascular bundle off the posterior aspect of the right side the prostate all the way to the apex. Then went to the left side freed up the fascia over the prostate and the left side came through the pedicles with clips and release the neurovascular bundle on the left side all the way to the apex we then transected the dorsal vein complex and transected to the urethra place an extra stitch in the dorsal vein complex to control bleeding. I then transected the posterior aspect of the urethra and the prostate was free put an Endo Catch bag. We then reconstructed the bladder neck closing the bladder neck from the 6:00 to the 12:00 until there was only a pink finger size opening in the bladder. We then performed an anastomosis and suspended the urethra from the bladder neck to the to the reconstructed bladder neck using 30V lock stitches. Once this was completed. Then we turned our attention to the right lateral wall performed a dissection of the lymph nodes in the right pelvic lymph nodes and the alum operator space. We went to the left lateral wall completed the lymph dissection the left side and sent off these tissue as lymph node dissection. After this was all completed we then extracted the prostate through the air seal port close the air seal port removed all other ports in direct visualization patient acetic was reversed taken back to PACU in good condition. Very little blood loss during the case and all the needles and sponges were accounted for. Type of Anesthesia:: General Drains: ruiz - Admit VTE Documentation VTE Present on Admission: No VTE Mechan Device Prophylaxis: SCD's 01/21/20 1103 <Electronically signed by Chadd Barros MD> Date Chadd Barros MD CC: Lars Palomares DO; Chadd Barros MD Signed Lars Palomares Start: 01-21-2020 End: 01-21-2020 Discharge Instruction Comments: See Note; NOTES: [facility] Medical Records Department [address] [place] [address] Instructions for Home/Discharge Instructions 01/21/20 0722 MR#: [id number] Acct: [id number] Name: RAFA FOSS Rep #: [id number] : 1950 69 From: Chadd Barros MD PCP: Lars Palomares DO Status: REG [facility] [place] Discharge Diet: Light diet - advance as tolerated Discharge Activity: Return to Normal Activity Return to work on:: 03/03/20March shower in (days): 1 March resume sexual activity in: 6 weeks Lifting Restrictions: No lifting > 10lbs for 6 weeks Call your doctor if your incision/area has: Continuous Slow Oozing, Sudden Increased Bleeding Call your doctor if you observe: Fever of 101 or Higher, Uncontrolled pain Suture Line Care: Avoid Pulling/Pushing, Avoid Pinching/Bending Catheter: Ruiz to leg bag, Ruiz to large bag Drain: [place] Instructions: Radical Prostatectomy Allergies/Adverse Reactions: Allergies No Known Allergies Allergy (Verified 01/21/20 06:23) Medications to take at Discharge Cholecalciferol (Vitamin D3) [Vitamin D3] 4,000 unit PO DAILY 01/12/20 Diphenhydramine HCl [Benadryl Allergy] 25 mg PO DAILY PRN 01/12/20 Ciprofloxacin [Cipro] 500 mg PO BID #20 tab 01/21/20 Docusate Sodium [Colace] 100 mg PO BID #20 cap 01/21/20 Hydrocodone/Acetaminophen [Berry 5-325 Tablet] 1 each PO Q4H PRN PRN 7 Days #14 tablet 01/21/20 The following prescriptions were given: Ciprofloxacin [Cipro] 500 mg PO BID #20 tab Transmission Status: Pending to [facility] Docusate Sodium [Colace] 100 mg PO BID #20 cap Transmission Status: Pending to [facility] Hydrocodone/Acetaminophen [Berry 5-325 Tablet] 1 each PO Q4H PRN PRN 7 Days #14 tablet PRN Reason: Pain Score 1-1010 Transmission Status: Sent to [facility] Primary Care Physician: Lars Palomares DO [Primary Care Provider] - Test Results: Test results from this visit will be discussed in further detail at your follow-up appointment, if applicable. Please Follow Up With: Chadd Barros MD When: please call to make an appointment. Proposed Discharge Date: 01/22/20 01/21/20722 <Electronically signed by Chadd Barros MD> Date Chadd Barros MD CC: Lars Palomares DO Signed Lars Palomares Start: 10-15-2019 End: 10-27-2019 Pelvis W/WO Contrast Comments: See Note; NOTES: [facility] Imaging Services [address] [place] [address] Pelvis W/WO Contrast MR#: [id number] Acct: [id number] Name: RAFA FOSS A Rep #: [id number] : 1950 M 68 From: Samuel Emmanuel DO PCP: Lars Palomares DO Status: REG CLI Study: Pelvis W/WO Contrast Date of Exam: 10/15/19 Exam# [id number] Ordering Dr: Chadd Barros MD ADDENDUM by Samuel Emmanuel on 10/27/19 at 1609 ADDENDUM ADDENDUM: A prior CT of June 12, 2018 as well as an MRI of the pelvis dated January 17, 2019 and become available for comparison. When compared to the prior CT the enlarged thyroid is similar in appearance to the CT with similar protrusion into the base of the bladder and similar bladder findings. When compared to the prior MRI the finding in the left anterior transitional zone appears similar to the previous study suggesting a benign etiology and no ADC mapping is with the other study and there appears to be a slight difference in enhancement on postgadolinium imaging in this area compared to prior study. Biopsy is suggested. Electronically Signed: Samuel Emmanuel DO at 16:09 EST Tel [phone], Service support , 10/27/19 1609 Date cc: Lars Palomares DO; Chadd Barros MD * Signed ADDENDUM by Samuel Emmanuel on 10/27/19 at 1603 MRI/Pelvis W/WO Contrast 10/27/19 1616 Date cc: Lars Palomares DO; Chadd Barros MD * Signed STUDY: MR PELVIS WITH T WITHOUT CONTRAST REASON FOR EXAM: Male, 68 years old. History of prostate cancer with rising PSA. No treatment. TECHNIQUE: Standardized fat and water weighted pulse sequences were obtained in all 3 orthogonal planes, pre-and post contrast administration. IV Dotarem 15 was administered for the contrast portion of the examination. COMPARISON: None. FINDINGS: The prostate is enlarged measuring 5.5 x 4.3 x 5.4 cm with a volume of 64.5 mL normal seminal vesicles. The peripheral zone demonstrates no evidence of signal abnormality on diffusion-weighted imaging. There is a small area of vague low attenuation in the right on T2-weighted imaging without correlating area on ADC mapping. The transitional zone is enlarged and heterogenous. There are diffuse circumscribed nodules with normal signal intensity on diffusion-weighted imaging vague hypodense areas on ADC mapping suggesting BPH. In the left anterior transition zone there is an area of low signal on T2-weighted imaging which demonstrates increased signal intensity on diffusion-weighted imaging and low signal on ADC mapping suggestive of malignancy. This measures 9 mm in diameter. This is best seen on image 20 of series 5, image 48 of series 7 and image 13 of series 700. The urinary bladder is incompletely distended. Some thickened trabeculated bladder wall. The prostate invaginates into the bladder floor. Normal visualized small intestine. Normal visualized colon. There is no pelvic fluid. There is no pelvic mass lesion or lymphadenopathy. Normal visualized pelvic arteries. Normal osseous structures. Normal abdominal wall. MRI/Pelvis W/WO Contrast IMPRESSION: 1. Focal area in the anterior left transition zone consistent with a PIRADS category 4-high. Clinical significant cancers likely to be present. 2. Evidence of BPH and the transition zone. 3. No evidence of malignancy in the peripheral zone. Electronically Signed: Samuel Emmanuel DO at 23:28 EST Tel [phone], Service support , CC: Lars Palomares DO; Chadd Barros MD Inspector Assembly: Signed Lars Palomares Start: 02-12-2019 End: 02-12-2019 TXT - Blood Flow Screening Comments: See Note; NOTES: [facility] Cardiovascular Services [address] [place] [address] 02/11/19 0759 MR#: [id number] Acct: [id number] Name: PIPORAFA Rep #: [id number] : 1950 68 From: Duong Daugherty MD Attending Dr: Lars Palomares DO Status: REG REF Ordering Dr: Date: 02/12/19 Location: [facility] Sex: M C Admitted: Reason For Study: screening Carotid Duplex Ultrasound Abdominal Aorta The right ECA velocity is less than 125 cm/s. The maximal outside diameter of the proximal aorta The right maximum ICA velocity is 53.9 cm/s. measures 1.86 cm in the longitudinal axis. There is insignificant plaque formation noted on The maximal outside diameter of the proximal aorta the right side. measures 1.72 x 1.85 cm in the cross-sectional The left ECA velocity is less than 125 cm/s. axis. The left maximum ICA velocity is 52.6/24.4 cm/s. There is insignificant plaque formation noted on the left side. Ankle Brachial Index The right ankle/ brachial index is 1.1. The left ankle/ brachial index is 1.1. Medical History and Assessment The heart rate is 78 beats per minute. The heart rhythm is regular. The right blood pressure is 130/84. The left blood pressure is 132/90. The assessment was performed by Latisha Arana RVT. Interpretation Summary Normal carotid artery screening (0 to 15% narrowing). Normal aortic ultrasound exam. The ankle/brachial index is normal (1.0 or greater). Ordering Physician: Lars Palomares D.O. Performed By: Best Arana RVT 02/12/19 0649 Date Duong Daugherty MD CC: Lars Palomares DO Date Dictated: 02/11/19 0759 Date Transcribed: 02/12/19 0649 Inspector Assembly: Signed Lars Palomares Start: 11-26-2018 Nikolas BARRON MD Start: 06-12-2018 End: 06-12-2018 Abdomen/Pelvis without Cont Comments: See Note; NOTES: [facility] Imaging Services [address] [place] [address] Abdomen/Pelvis without Cont MR#: [id number] Acct: [id number] Name: RAFA FOSS Rep #: [id number] : 1950 M 67 From: Regis Gan DO PCP: Lars Palomares DO Status: REG CLI Study: Abdomen/Pelvis without Cont Date of Exam: 06/12/18 Exam# [id number] Ordering Dr: Lars Palomares DO STUDY: CT ABDOMEN AND PELVIS WITHOUT CONTRAST REASON FOR EXAM: Male, 67 years old. Left flank pain with hematuria RADIATION DOSAGE (If Supplied By Facility): CTDIvol = ( 11.82 ) mGy, DLP = ( 526.80 ) mGycm TECHNIQUE: Transaxial images were obtained from the dome of the diaphragm to the symphysis pubis without oral contrast, and without intravenous contrast. Sagittal and coronal images were reconstructed. Individualized dose optimization techniques were used for this CT. COMPARISON: None. FINDINGS: There is a calcified granuloma at the right lung base. The visualized portions of the heart are within normal limits. Evaluation of the abdominal viscera is limited in the absence of intravenous contrast. Normal liver. Normal gallbladder and extrahepatic biliary system. Normal spleen. Normal pancreas. Normal bilateral adrenal glands. Normal right kidney. There is a cyst at the superior pole of the left kidney measuring approximately 2.6 cm. There may be some thickening of the cyst wall. Normal visualized stomach. Normal small intestine. There are multiple colonic diverticula consistent with diverticulosis. The appendix is visualized and appears normal. There is mild atherosclerotic calcification of the abdominal aorta. Normal inferior vena cava. Normal retroperitoneum. Normal urinary bladder. There is enlargement of the prostate gland. There are some calcifications within the prostate gland. Postoperative changes are seen within both inguinal regions. There are diffuse degenerative changes of the visualized lumbar spine. CT/Abdomen/Pelvis without Cont IMPRESSION: There is a cyst at the superior pole of the left kidney. There may be some thickening of the cyst wall. This can be further characterized by ultrasound. No hydronephrosis. Prostate hypertrophy. No bowel obstruction. Additional findings, as detailed above. Electronically Signed: Regis DO Malik at 12:19 EDT Tel , Service support , CC: Lars Palomares DO Inspector Assembly: Signed Lars Palomares Work Phone: Start: 09-27-2017 End: 09-27-2017 Dexa Bone Density Study (HP) Comments: See Note; NOTES: [facility] Imaging Services [address] [place] [address] Dexa Bone Density Study (HP) MR#: [id number] Acct: [id number] Name: RAFA FOSS Rep #: [id number] : 1950 66 From: Kwasi Rodriguez MD PCP: Lars Palomares DO Status: REG CLI Study: Dexa Bone Density Study (HP) Date of Exam: 09/27/17 Exam# [id number] Ordering Dr: Lars Palomares DO STUDY: DUAL ENERGY X-RAY ABSORPTIOMETRY / DXA REASON FOR EXAM: Male, 66 years old. Baseline examination. TECHNIQUE: Bone Mineral Density (BMD) measurements of lumbar spine and bilateral hips were obtained. COMPARISON: None. FINDINGS: Lumbar Spine (L1-L4): g/cm2 (1.162) / T-score (-0.4) / Z-score (0.1) Findings are suggestive of normal bone density with a low fracture risk. Left Femur Total: g/cm2 (1.010) / T-score (-0.6) / Z-score (-0.1) Left Femoral Neck: g/cm2 (0.947) / T-score (0.9) / Z-score (0.2) Right Femur Total: g/cm2 (0.914) / T-score (-1.3) / Z-score (-0.7) Right Femoral Neck: g/cm2 (0.868) / T-score (-1.6) / Z-score (-0.4) HPBD/Dexa Bone Density Study (HP) IMPRESSION: The patient is considered osteopenic at the level of the right femoral neck as outlined below according to World Alfredo Organization (WHO) criteria with a moderate fracture risk. Reference Information: The T-score is the number of standard deviations above or below the standard which is normal for young adults at their peak bone mineral density. The World Health Organization (WHO) interprets the T-scores as follows: Above -1 Normal bone density Between -1 and -2.5 Osteopenia Equal to / or below -2.5 Osteoporosis As a practical clinical guideline, osteopenia may be graded as follows: Mild -1 through -1.5 Moderate -1.6 through -2.0 Severe -2.1 through -2.4 The Z-score is the number of standard deviations above or below age-matched controls. A Z-score of less than -1.5 would be considered abnormal. References: 1. NIH Osteoporosis and Related Bone Diseases http://www.osteo.org 2. International Society for Clinical Densitometry http://www.iscd.org 3. National Osteoporosis Foundation http://www.nof.org Electronically Signed: Kwasi Rodriguez MD at 9:58 EDT Tel [phone], Service support , CC: Lars Palomares DO Inspector Assembly: Signed Lars Palomares Work Phone: Start: 09-10-2017 End: 09-11-2017 Cerv Spine 4 or 5 Views Comments: See Note; NOTES: [facility] Imaging Services [address] [place], [place] [address] [place] [address] Cerv Spine 4 or 5 Views MR#: [id number] Acct: [id number] Name: PIPORAFA ARANGO Rep #: [id number] : 1950 M 66 From: Kwasi Rodriguez MD PCP: Lars Palomares DO Status: REG CLI Study: Cerv Spine 4 or 5 Views Date of Exam: 09/10/17 Exam# [id number] Ordering Dr: Lars Palomares DO STUDY: X-RAY - CERVICAL SPINE REASON FOR EXAM: Male, 66 years old. Neck pain and tingling in the left upper extremity. TECHNIQUE: 6 view(s) of the cervical spine were obtained including oblique views. COMPARISON: None FINDINGS: Normal anterior atlantoaxial articulation. Normal odontoid process. Normal cervical lordosis. There is multi-level endplate spondylosis. There is multi-level degenerative disc disease with multilevel disc space narrowing. Normal visualized intervertebral neuroforamina. The soft tissue structures are unremarkable. RAD/Cerv Spine 4 or 5 Views IMPRESSION: Multilevel spondylosis and disc space narrowing. Electronically Signed: Kwasi Rodriguez MD at 12:34 EDT Tel [phone], Service support , CC: Lars Palomares DO Inspector Assembly: Signed Lars Palomarse Work Phone: Start: 09-10-2017 End: 09-11-2017 L/S Spine Min 4 Views Comments: See Note; NOTES: [facility] Imaging Services [address] [place] [address] L/S Spine Min 4 Views MR#: [id number] Acct: [id number] Name: PIPO,RAFA Rep #: [id number] : 1950 M 66 From: Kwasi Rodriguez MD PCP: Lars Palomares DO Status: REG CLI Study: L/S Spine Min 4 Views Date of Exam: 09/10/17 Exam# [id number] Ordering Dr: Lars Palomares DO STUDY: X-RAY - LUMBAR SPINE REASON FOR EXAM: Male, 66 years old. Low back pain. TECHNIQUE: 5 view(s) of the lumbar spine were obtained. COMPARISON: None FINDINGS: There is straightening of the normal lumbar lordosis. There is no substantial scoliosis. There is a normal alignment of the vertebrae. There is approximately 40% loss of height of the superior endplate of the L4 body and approximately 50% loss of height of the L5 vertebrae. Marked degree of disc space narrowing at the L4-L5 and L5-S1 levels. Anterior spondylosis. The soft tissue structures are unremarkable. RAD/L/S Spine Min 4 Views IMPRESSION: Degenerative changes of the spine, as detailed above. Loss of height of the L4 and L5 vertebra. Electronically Signed: Kwasi Rodriguez MD at 12:36 EDT Tel [phone], Service support , CC: Lars Palomares DO Inspector Assembly: Signed Lars Palomares Work Phone: Colonoscopy Edilia Manchak Comment on above: Normal. 03/2012 Colonoscopy Edilia Manchak Comment on above: Normal. 03/2012 Colonoscopy Edilia Manchak Comment on above: Normal. 03/2012 Colonoscopy Edilia Manchak Comment on above: Normal. 03/2012 Colonoscopy Edilia Manchak [employer] Comment on above: Normal. 03/2012 Colonoscopy Edilia Manchak [employer]LE[employer] ASSOCIATE Comment on above: Normal. 03/2012 Colonoscopy Edilia Manchak [employer]LE[employer] ASSOCIATE Comment on above: Normal. 03/2012 Colonoscopy Edilia Manchak [employer]LECTIONS ASSOCIATE Comment on above: Normal. 03/2012 Colonoscopy Edilia Manchak [employer]LECTIONS ASSOCIATE Comment on above: Normal. 03/2012 Colonoscopy Edilia Manchak [employer]LECTIONS ASSOCIATE Comment on above: Normal. 03/2012 laparoscopic radical prostatectomy- 01/15- Fiorella Palomares Work Phone: laparoscopic radical prostatectomy- 01/15- Fiorella Edilia Manjames laparoscopic radical prostatectomy- 01/15- Fiorella Edilia Mankelseyk [facility] laparoscopic radical prostatectomy- 01/15- Fiorella Edilia Mankelseyk [employer] laparoscopic radical prostatectomy- 01/15- Fiorella Edilia Mankelseyk [employer] laparoscopic radical prostatectomy- 01/15- Fiorella Edilia Mankelseyk [employer] laparoscopic radical prostatectomy- 01/15- Fiorella Edilia Mankelseyk [facility] laparoscopic radical prostatectomy- 01/15- Fiorella Edilia Mankelseyk [facility] Plan of Treatment Date Care Activity Detail Author Start: 05-15-2025 Plain x-ray of pelvis and lower extremity HIP, UNI W/ Pelvis 2-3 Views [facility] Start: 05-15-2025 X-ray of lumbosacral spine L/S Spine Min 4 Views [facility] Start: 07-27-2023 Influenza vaccination Influenza Vaccine (#1) [facility] Start: 05-16-2023 Procedure Education Eprescribed prescriptions (G8553) [facility]; [facility] Work Phone: Start: 05-16-2023 Blood count complete auto&auto difrntl wbc CBC W/AUTO DIFF WBC (61212) [facility]; [facility] Work Phone: Start: 05-16-2023 Comprehensive metabolic panel METABOLIC PANEL, COMPREHENSIVE (81503) [facility]; [facility] Work Phone: Start: 05-16-2023 25 hydroxy includes fractions if performed Vitamin D Hydroxy (26662) [facility]; [facility] Work Phone: Start: 05-16-2023 Urnls dip stick/tablet reagent auto microscopy URINALYSIS, W/ MICRO (15654) [facility]; [facility] Work Phone: Start: 05-02-2023 CBC, PLATELETS & MANUAL DIFF (05684) CBC, PLATELETS & MANUAL DIFF (58522) [facility]; [facility] Work Phone: Start: 05-02-2023 Comprehensive metabolic panel METABOLIC PANEL, COMPREHENSIVE (19244) [facility]; [facility] Work Phone: Start: 05-02-2023 Urnls dip stick/tablet reagent auto microscopy Urinalysis, Complete W/ Microscopic Examination with reflex to urine culture, routine (58846) [facility]; [facility] Work Phone: Start: 01-08-2023 Procedure Education Eprescribed prescriptions (G8553) [facility]; [facility] Work Phone: Start: 01-08-2023 Blood count complete auto&auto difrntl wbc CBC W/AUTO DIFF WBC (81521) [facility]; [facility] Work Phone: Start: 01-08-2023 Comprehensive metabolic panel METABOLIC PANEL, COMPREHENSIVE (03730) [facility]; [facility] Work Phone: Start: 09-18-2022 Procedure Education Eprescribed prescriptions (G8553) [facility]; [facility] Work Phone: Start: 09-18-2022 25 hydroxy includes fractions if performed Vitamin D Hydroxy (90658) [facility]; [facility] Work Phone: Start: 09-18-2022 Lipid panel LIPID PANEL (71961) [facility]; [facility] Work Phone: Start: 09-18-2022 Blood count complete auto&auto difrntl wbc CBC W/AUTO DIFF WBC (39393) [facility]; [facility] Work Phone: Start: 09-18-2022 Comprehensive metabolic panel METABOLIC PANEL, COMPREHENSIVE (09578) [facility]; [facility] Work Phone: Start: 09-18-2022 Assay of parathormone PARATHORMONE (60410) [facility]; [facility] Work Phone: Start: 05-15-2022 Procedure Education Eprescribed prescriptions (G8553) [facility]; [facility] Work Phone: Start: 05-15-2022 Comprehensive metabolic panel METABOLIC PANEL, COMPREHENSIVE (73445) [facility]; [facility] Work Phone: Start: 05-15-2022 Lipid panel LIPID PANEL (20278) [facility]; [facility] Work Phone: Start: 11-29-2021 Procedure Education Eprescribed prescriptions (G8553) [facility]; [facility] Work Phone: Start: 11-29-2021 Blood count complete auto&auto difrntl wbc CBC W/AUTO DIFF WBC (06807) [facility]; [facility] Work Phone: Start: 11-29-2021 Comprehensive metabolic panel METABOLIC PANEL, COMPREHENSIVE (08732) [facility]; [facility] Work Phone: Start: 05-25-2021 Procedure Education Eprescribed prescriptions (G8553) [facility]; [facility] Work Phone: Start: 05-25-2021 Blood count complete auto&auto difrntl wbc CBC W/AUTO DIFF WBC (69840) [facility]; [facility] Work Phone: Start: 05-25-2021 Comprehensive metabolic panel METABOLIC PANEL, COMPREHENSIVE (93663) [facility]; [facility] Work Phone: Start: 05-25-2021 25 hydroxy includes fractions if performed Vitamin D Hydroxy (13917) [facility]; [facility] Work Phone: Start: 05-25-2021 Lipid panel LIPID PANEL (98622) [facility]; [facility] Work Phone: Start: 12-20-2020 Zoster Vaccines (2 of 3) Zoster Vaccines (2 of 3) [facility] Start: 11-09-2020 Procedure Education Eprescribed prescriptions (G8553) [facility]; [facility] Work Phone: Start: 11-09-2020 Blood count complete auto&auto difrntl wbc CBC W/AUTO DIFF WBC (30197) [facility]; [facility] Work Phone: Start: 11-09-2020 Comprehensive metabolic panel METABOLIC PANEL, COMPREHENSIVE (10885) [facility]; [facility] Work Phone: Start: 05-19-2020 Procedure Education Eprescribed prescriptions (G8553) [facility] Work Phone: Start: 05-19-2020 25 hydroxy includes fractions if performed Vitamin D Hydroxy (51932) [facility] Work Phone: Start: 05-19-2020 Lipid panel LIPID PANEL (27973) [facility] Work Phone: Start: 05-19-2020 Blood count complete auto&auto difrntl wbc CBC W/AUTO DIFF WBC (91022) [facility] Work Phone: Start: 05-19-2020 Comprehensive metabolic panel METABOLIC PANEL, COMPREHENSIVE (88775) [facility] Work Phone: Start: 05-19-2020 C-reactive protein high sensitivity C-REACT PROT HIGH SENS(hsCRP) (62661) [facility] Work Phone: Start: 04-30-2019 Procedure Education Eprescribed prescriptions (G8553) [facility] Work Phone: Start: 04-26-2019 DTaP/Tdap/Td Vaccines (2 - Td or Tdap) DTaP/Tdap/Td Vaccines (2 - Td or Tdap) [facility] Start: 01-21-2019 Comprehensive metabolic panel METABOLIC PANEL, COMPREHENSIVE (54884) [facility] Work Phone: Start: 01-21-2019 Assay of testosterone free TESTOSTERONE FREE (61182) [facility] Work Phone: Start: 01-21-2019 25 hydroxy includes fractions if performed Vitamin D Hydroxy (54673) [facility] Work Phone: Start: 01-21-2019 Protein mass conc NMR Profile (36655) [facility] Work Phone: Start: 07-31-2018 Procedure Education Eprescribed prescriptions (G8553) [facility] Work Phone: Start: 06-19-2018 Procedure Education Eprescribed prescriptions (G8553) [facility] Work Phone: Start: 06-12-2018 Procedure Education Eprescribed prescriptions (G8553) [facility] Work Phone: Start: 01-16-2018 Assay of prostate specific antigen total PSA (PROSTATE SPECIFIC ANTIGEN) (V76.44) [facility] Work Phone: Start: 01-16-2018 Protein mass conc PSA (PROSTATE SPECIFIC ANTIGEN) (V76.44) [facility] Work Phone: Start: 01-16-2018 25 hydroxy includes fractions if performed Vitamin D Hydroxy (80967) [facility] Work Phone: Start: 01-16-2018 Procedure Education Eprescribed prescriptions (G8553) [facility] Work Phone: Start: 01-16-2018 Assay of testosterone free TESTOSTERONE FREE (24899) [facility] Work Phone: Start: 01-16-2018 Assay of parathormone PARATHORMONE (77095) [facility] Work Phone: Start: 09-10-2017 Procedure Education Eprescribed prescriptions (G8553) [facility] Work Phone: Start: 2016 Pneumococcal Vaccine: 65+ Years (1 - PCV) Pneumococcal Vaccine: 65+ Years (1 - PCV) [facility] Start: 1969 Hepatitis C screening Hepatitis C Screening [facility] Start: [birth year]-23-1951 COVID-19 Vaccine (#1) COVID-19 Vaccine (#1) [facility] Start: 1950 Lipid panel Lipid Panel [facility] Start: 1950 Medicare Annual Wellness Visit Medicare Annual Wellness Visit (AWV) [facility] Start: 1950 Screening for malignant neoplasm of colon [facility] Work Phone: [facility] Work Phone: [facility] Work Phone: [facility] Work Phone: [facility] Work Phone: [facility] Work Phone: [facility] Work Phone[facility] Work Phone: [facility] Work Phone: [facility] Work Phone[facility] Work Phone[facility] Work Phone[facility] Work Phone: [facility] Work Phone: [facility] Work Phone[facility] Work Phone: [facility] Work Phone: [facility] Work Phone: Immunizations Immunization Date Immunization Notes Care Provider [place] [place] 08-30-2021 influenza virus vaccine, unspecified formulation [address] Work Phone: 08-26-2021 influenza, injectabl e, quadrivalent, preservative free Lars Fast DO Work Phone: [facility]; [facility] Work Phone: 10-25-2020 zoster vaccine, live Lars [facility] Work Phone: Comment on above: 2nd shot 07-05-2020 zoster vaccine, live Lars Fast [facility] Work Phone: 11-09-2019 Influenza virus vaccine [facility] 05-18-2019 pneumococcal conjuga te vaccine, 7 valent Lars Fast [facility] Work Phone: 04-26-2009 tetanus toxoid, reduced diphtheria toxoid, and acellular pertussis vaccine, adsorbed Lars [facility] Work Phone: Payers Date Payer Category Payer Self-pay [id number] 2023 Medicare [facility] [id number] 2023-Present [address] [place] [address] [id number] 2016 Unknown [id number] 1950 Unknown [id number] 1950 Unknown [id number] 3 Unknown [employer] [facility] Plan Unknown [id number] Unknown [id number] Unknown [id number] Unknown [id number] Unknown [id number] [id number] Unknown [id number] Unknown [id number] Unknown [id number] Unknown [id number] Unknown [id number] Unknown [id number] Unknown [id number] Social History Date Type Detail Facility Alcohol Use: Never smoker [facility] Work Phone: Comment on above: drinks bourbon 2-3 a night sometimes 4 nights a week Caffeine Use [facility] Work Phone: Comment on above: retired lives with w julio- no kids- by choice Tobacco use: Never smoker. [facility] Work Phone: Alcohol Use: Alcohol Use: [facility] Work Phone: Comment on above: drinks bourbon 2-3 a night sometimes 4 nights a week Tobacco use: Tobacco use: [facility] Work Phone: Start: 12-23-2021 End: 05-15-2025 Never smoked tobacco (finding) [facility] Start: 1950 Sex Assigned At Male A [facility] Start: 01-12-2020 End: 01-12-2020 Tobacco smoking status NHIS Unknown if ever smoked [facility] Start: 01-12-2020 Non-smoker [facility] Start: 1950 Sex Assigned At Not on file [facility] Work Phone: Gender identity Not on file [facility] Work Phone: Start: 12-07-2023 End: 12-17-2023 Exposure to SARS-CoV-2 (event) Not sure [facility] Start: 02-11-2025 Sex Male (finding) [facility] Medical Equipment Procedure Code Equipment Code Equipment Origin al Text Equipment Identifier Dates DISHA ZAYAS LG FDA Start: 01-21-2020 DISHA ZAYAS LG FDA Start: 01-21-2020 DISHA ZAYAS FDA Start: 01-21-2020 DISHA ZAYAS FDA Start: 01-21-2020 DISHA ZAYAS LG FDA Start: 01-21-2020 CLIP,HEMOLOCK LG WEBREANNA FDA Start: 01-21-2020 CLIP,HEMOLOCK D WEBREANNA FDA Start: 01-21-2020 CLIP,HEMOLOCK D WEBREANNA FDA Start: 01-21-2020 CLIP,HEMOLOCK LG WEBREANNA FDA Start: 01-21-2020 CLIP,HEMOLOCK LG WEBREANNA FDA Start: 01-21-2020 CLIP,HEMOLOCK ME Busby WEBREANNA FDA Start: 01-21-2020 CLIP,HEMOLOCK D NELY FDA Start: 01-21-2020 CLIP,HEMOLOCK ADEEL WEBREANNA FDA Start: 01-21-2020 CLIP,HEMOLOCK ADEEL WEBREANNA FDA Start: 01-21-2020 CLIP,HEMOLOCK D WEBREANNA FDA Start: 01-21-2020 CLIP,HEMOLOCK D NELY FDA Start: 01-21-2020 CLIP,HEMOLOCK ADEEL WEBREANNA FDA Start: 01-21-2020 CLIP,HEMOLOCK ADEEL MCKAY FDA Start: 01-21-2020 CLIP,HEMOLOCK ME Qi MCKAY FDA Start: 01-21-2020 CLIP,HEMOLOCK NE Qi MCKAY FDA Start: 01-21-2020 CLIP,HEMOLOCK ADEEL MCKAY FDA Start: 01-21-2020 CLIP,HEMOLOCK ADEEL WEBREANNA FDA Start: 01-21-2020 CLIP,HEMOLOCK ME Qi MCKAY FDA Start: 01-21-2020 CLIP,HEMOLOCK ME Qi MCKAY FDA Start: 01-21-2020 CLIP,HEMOLOCK AEDEL MCKAY FDA Start: 01-21-2020 CLIP,HEMOLOCK ADEEL MCKAY FDA Start: 01-21-2020 CLIP,HEMOLOCK D WEBREANNA FDA Start: 01-21-2020 CLIP,HEMOLOCK NE D NELY FDA Start: 01-21-2020 CLIP,HEMOLOCK ADEEL WEBREANNA FDA Start: 01-21-2020 CLIP,HEMOLOCK ADEEL WEBREANNA FDA Start: 01-21-2020 CLIP,HEMOLOCK D WEBREANNA FDA Start: 01-21-2020 CLIP,HEMOLOCK D WEBREANNA FDA Start: 01-21-2020 CLIP,HEMOLOCK ADEEL WEBREANNA FDA Start: 01-21-2020 CLIP,HEMOLOCK LG WEBREANNA FDA Start: 01-21-2020 CLIP,HEMOLOCK D WEBREANNA FDA Start: 01-21-2020 CLIP,DISHA MCKAY FDA Start: 01-21-2020 CLIP,DISHA MCKAY FDA Start: 01-21-2020 CLIP,HEMJEF MCKAY FDA Start: 01-21-2020 CLIP,DISHA MCKAY FDA Start: 01-21-2020 CLIP,HEMJEF MCKAY FDA Start: 01-21-2020 CLIP,DISHA MCKAY FDA Start: 01-21-2020 CLIP,HEMJEF MCKAY FDA Start: 01-21-2020 CLIP,DISHA MCKAY FDA Start: 01-21-2020 CLIP,DISHA MCKAY FDA Start: 01-21-2020 CLIP,DISHA MCKAY FDA Start: 01-21-2020 CLIP,HEMJEF MCKAY FDA Start: 01-21-2020 CLIP,DISHA MCKAY FDA Start: 01-21-2020 CLIP,DISHA MCKAY FDA Start: 01-21-2020 Functional Status Date Assessment Result Facility 05-01-2019 LP-IR Score LP-IR Score <25 [facility] Work Phone: Comment on above: INSULIN RESISTANCE Mildred WESLEY <--Insulin Sensitive Insulin Resistant--> Percentile in Reference PopulationInsulin Resistance ScoreLP-IR Score Low 25th 50th 75th High <27 27 45 63 >63LP-IR Score is inaccurate if patient is non-fasting. .The LP-IR score is a laboratory developed index that has beenassociated with insulin resistance and diabetes risk and should beused as one component of a physician's clinical assessment. TheLP-IR score listed above has not been cleared by the [place] Food andDrug Administration. PATIENT WAS FASTINGP ERFORMED BY: [facility] [id number] [facility] [id number] BY: [facility] [id number] [facility] [id number] Clinical Notes 12-26-2021 to 05-22-2025 Note Date & Type Note Facility 05-22-2025 Radiology Diagnostic study note [facility] Imaging Services [address] [place], [place] [id number] Thyroid MR#: [id number] Acct: [id number] Name: RAFA FOSS Rep #: [id number] : 1950 M 74 From: Yomi Rodriguez MD PCP: Dr. Lars Palomares DO Status: REG CLI Study:Thyroid Date of Exam: 05/21/25 Exam# [id number] Ordering Dr: Sofiya Palomares ra, DO PROCEDURE: THYROID 05/21/2025 REASON FOR EXAM: Thyroid nodule. TECHNIQUE: Multiple images of the thyroid were obtained. COMPARISON: Prior study dated June 09, 2024. FINDINGS: Right thyroid lobe size: 5.1 cm x 1.8 cm 1.7 cm Left thyroid lobe size: 3.7 cm 1.6 cm 1.5 cm Isthmus: 0.2 cm Background parenchymal echotexture is homogeneous. Nodules: . Lobe: Right, Location: Lower pole, Size: 0.5 cm x 0.6 cm x 0.6 cm, Stability:N/A Composition: Solid or almost completely solid (+2) Echogenicity: Hypoechoic (+2) Margin: Smooth (+0) Shape: Wider than tall (+0) Echogenic Foci: Macrocalcification (+1) TI-RADS: 4 . Lobe: Left, Location: Midpole, Size: 0.4 cm x 0.4 cm x 0.4 cm, Stability: Stable Composition: Solid or almost completely solid (+2) Echogenicity: Hypoechoic (+2) Margin: Smooth (+0) Shape: Wider than tall (+0) Echogenic Foci: None (+0) TI-RADS: 4 US/Thyroid IMPRESSION: Stable examination. RECOMMENDATION: Based on most suspicious nodule. Nodule size = largest diameter Only evaluate nodule if =>5 mm. Growth > 20% in 2 dimensions = worsening. Follow up to 4 nodules. Recommend biopsy for no more than 2 nodules. Reading Location: [facility] CC: Dr. Lars Palomares DO ~ Inspector Assembly: Signed [facility] 02-02-2025 Radiology Diagnostic study note [facility] Imaging Services [address] [place] [address] CTA Chest W/WO Contrast MR#: [id number] Acct: [id number] Name: RAFA FOSS Rep #: [id number] : 1950 M 74 From: Jacqueline Lyman MD PCP: Dr. Lars Palomares DO Status: REG CLI Study:CTA Chest W/WO Contrast Date of Exam: 02/02/25 Exam# [id number] Ordering Dr: Sofiya Palomares ra, DO EXAM: CT Angiography Chest Without and With Intravenous Contrast CLINICAL INDICATION: TECHNIQUE: Axial computed tomographic angiography images of the chest without and with intravenous contrast. This CT exam was performed using one or more of the following dose reduction techniques: automated exposure control, adjustment of the mA and/or kV according to patient size, and/or use of iterative reconstruction technique. MIP reconstructed images were created and reviewed. COMPARISON: No relevant prior studies available. FINDINGS: PULMONARY ARTERIES: Unremarkable. No pulmonary embolism. AORTA: Scattered calcified atherosclerotic disease of the aorta. The ascendingthoracic aorta measures 4.1 cm in maximum diameter. No aortic dissection. LUNGS AND PLEURAL SPACES: Calcified granuloma of the right lung base. Lung emphysema. 2 mm subpleural nodule of the posterior right lower lobe. No consolidation. No significant effusion. No pneumothorax. HEART: Unremarkable. No cardiomegaly. No significant pericardial effusion. No evidence of RV dysfunction. BONES/JOINTS: No acute fracture. No dislocation. SOFT TISSUES: Unremarkable. LYMPH NODES: Unremarkable. No enlarged lymph nodes. CT/CTA Chest W/WO Contrast IMPRESSION: 1. No pulmonary embolism. 2. Lung emphysema. 3. 2 mm subpleural nodule of the posterior right lower lobe. 4. Continue low-dose CT scan of the chest in 12 months is recommended. Reading Location: [facility] CC: Dr. Lars Palomares DO ~ Inspector Assembly: Signed [facility] 12-24-2024 Evaluation note Diagnosis Onset Date Resolution Obstructive sleep apnea acute J anuary 2024 1:40pm [facility] Work Phone: 1(447) 682-548201-31-2022 Hospital Discharge instructions Patient Education 12/26/2021 08:40:03 Nausea and Vomiting, Adult Nausea and Vomiting, Adult Nausea is the feeling that you have an upset stomach or that you are about to vomit. Vomiting is when stomach contents are thrown up and out of the mouth as a result of nausea. Vomiting can make you feel weak and cause you to become dehydrated. Dehydration can make you feel tired and thirsty, cause you to have a dry mouth, and decrease how often you urinate. Older adults and people with other diseases or a weak disease-fighting system (immune system) are at higher risk for dehydration. It is important to treat your nausea and vomiting as told by your health care provider. Follow these instructions at home: Watch your symptoms for any changes. Tell your health care provider about them. Follow these instructions to care for yourself at home. Eating and drinking Take an oral rehydration solution (ORS). This is a drink that is sold at pharmacies and retail stores. Drink clear fluids slowly and in small amounts as you are able. Clear fluids include water, ice chips, low-calorie sports drinks, and fruit juice that has water added (diluted fruit juice). Eat bland, damv-bn-gosxpx foods in small amounts as you are able. These foods include bananas, applesauce, rice, lean meats, toast, and crackers. Avoid fluids that contain a lot of sugar or caffeine, such as energy drinks, sports drinks, and soda. Avoid alcohol. Avoid spicy or fatty foods. General instructions Take tpkg-reh-vdstvxr and prescription medicines only as told by your health care provider. Drink enough fluid to keep your urine pale yellow. Wash your hands often using soap and water. If soap and water are not available, use hand construction services technician. Make sure that all people in your household wash their hands well and often. Rest at home while you recover. Watch your condition for any changes. Breathe slowly and deeply when you feel nauseated. Keep all follow-up visits as told by your health care provider. This is important. Contact a health care provider if: Your symptoms get worse. You have new symptoms. You have a fever. You cannot drink fluids without vomiting. Your nausea does not go away after 2 days. You feel light-headed or dizzy. You have a headache. You have muscle cramps. You have a rash. You have pain while urinating. Get help right away if: You have pain in your chest, neck, arm, or jaw. You feel extremely weak or you faint. You have persistent vomiting. You have vomit that is bright red or looks like black coffee grounds. You have bloody or black stools or stools that look like tar. You have a severe headache, a stiff neck, or both. You have severe pain, cramping, or bloating in your abdomen. You have difficulty breathing, or you are breathing very quickly. Your heart is beating very quickly. Your skin feels cold and clammy. You feel confused. You have signs of dehydration, such as: ?Dark urine, very little urine, or no urine. ?Cracked lips. ?Dry mouth. ?Sunken eyes. ?Sleepiness. ?Weakness. These symptoms may represent a serious problem that is an emergency. Do not wait to see if the symptoms will go away. Get medical help right away. Call your local emergency services (911 in the [place] Do not drive yourself to the hospital. Summary Nausea is the feeling that you have an upset stomach or that you are about to vomit. As nausea getsworse, it can lead to vomiting. Vomiting can make you feel weak and cause you to become dehydrated. Follow instructions from your health care provider about eating and drinking to prevent dehydration. Take kllw-vun-xnnfdrc and prescription medicines only as told by your health care provider. Contact your health care provider if your symptoms get worse, or you have new symptoms. Keep all follow-up visits as told by your health care provider. This is important. This information is not intended to replace advice given to you by your health care provider. Make sure you discuss any questions you have with your health care provider. Document Released: 11/12/2006 Document Revised: 03/05/2020 Document Reviewed: 04/22/2019 [employer] Patient Education 2020 [employer] 12/26/2021 08:39:53 Monitored Anesthesia Care, Care After Monitored Anesthesia Care, Care After These instructions provide you with information about caring for yourself after your procedure. Your health care provider may also give you more specific instructions. Your treatment has been plannedaccording to current medical practices, but problems sometimes occur. Call your health care provider if you have any problems or questions after your procedure. What can I expect after the procedure? After your procedure, you may: Feel sleepy for several hours. Feel clumsy and have poor balance for several hours. Feel forgetful about what happened after the procedure. Have poor judgment for several hours. Feel nauseous or vomit. Have a sore throat if you had a breathing tube during the procedure. Follow these instructions at home: For at least 24 hours after the procedure: Have a responsible adult stay with you. It is important to have someone help care for you until youare awake and alert. Rest as needed. Do not: ?Participate in activities in which you could fall or become injured. ?Drive. ?Use heavy machinery. ?Drink alcohol. ?Take sleeping pills or medicines that cause drowsiness. ?Make important decisions or sign legal documents. ?Take care of children on your own. Eating and drinking Follow the diet that is recommended by your health care provider. If you vomit, drink water, juice, or soup when you can drink without vomiting. Make sure you have little or no nausea before eating solid foods. General instructions Take jkwc-hxw-fnnpked and prescription medicines only as told by your health care provider. If you have sleep apnea, surgery and certain medicines can increase your risk for breathing problems. Follow instructions from your health care provider about wearing your sleep device: ?Anytime you are sleeping, including during daytime naps. ?While taking prescription pain medicines, sleeping medicines, or medicines that make you drowsy. If you smoke, do not smoke without supervision. Keep all follow-up visits as told by your health care provider. This is important. Contact a health care provider if: You keep feeling nauseous or you keep vomiting. You feel light-headed. You develop a rash. You have a fever. Get help right away if: You have trouble breathing. Summary For several hours after your procedure, you may feel sleepy and have poor judgment. Have a responsible adult stay with you for at least 24 hours or until you are awake and alert. This information is not intended to replace advice given to you by your health care provider. Make sure you discuss any questions you have with your health care provider. Document Released: 03/04/2017 Document Revised: 02/10/2019 Document Reviewed: 03/04/2017 [employer] Patient Education 2020 [employer] 12/26/2021 08:39:52 Colonoscopy, Adult, Care After Colonoscopy, Adult, Care After This sheet gives you information about how to care for yourself after your procedure. Your health care provider may also give you more specific instructions. If you have problems or questions, contact your health care provider. What can I expect after the procedure? After the procedure, it is common to have: A small amount of blood in your stool for 24 hours after the procedure. Some gas. Mild abdominal cramping or bloating. Follow these instructions at home: General instructions For the first 24 hours after the procedure: ?Do not drive or use machinery. ?Do not sign important documents. ?Do not drink alcohol. ?Do your regular daily activities at a slower pace than normal. ?Eat soft, ncto-ja-ckragd foods. Take ysmw-pyn-xfuhqrt or prescription medicines only as told by your health care provider. Relieving cramping and bloating Try walking around when you have cramps or feel bloated. Apply heat to your abdomen as told by your health care provider. Use a heat source that your healthcare provider recommends, such as a moist heat pack or a heating pad. ?Place a towel between your skin and the heat source. ?Leave the heat on for 20 30 minutes. ?Remove the heat if your skin turns bright red. This is especially important if you are unable to feel pain, heat, or cold. You may have a greater risk of getting burned. Eating and drinking Drink enough fluid to keep your urine pale yellow. Resume your normal diet as instructed by your health care provider. Avoid heavy or fried foods thatare hard to digest. Avoid drinking alcohol for as long as instructed by your health care provider. Contact a health care provider if: You have blood in your stool 2 3 days after the procedure. Get help right away if: You have more than a small spotting of blood in your stool. You pass large blood clots in your stool. Your abdomen is swollen. You have nausea or vomiting. You have a fever. You have increasing abdominal pain that is not relieved with medicine. Summary After the procedure, it is common to have a small amount of blood in your stool. You may also have mild abdominal cramping and bloating. For the first 24 hours after the procedure, do not drive or use machinery, sign important documents, or drink alcohol. Contact your health care provider if you have a lot of blood in your stool, nausea or vomiting, a fever, or increased abdominal pain. This information is not intended to replace advice given to you by your health care provider. Make sure you discuss any questions you have with your health care provider. Document Released: 06/26/2005 Document Revised: 09/04/2018 Document Reviewed: 01/23/2017 [employer] Patient Education 2020 [employer]. Follow Up Care 12/23/2021 10:19:53 With:GT BARRON [address] [place] [address] [phone] Business (1) When: Unknown [facility] Evaluation + Plan note No data available for this section [facility] Evaluation noteNo assessment information available [facility] Work Phone: Evaluation note* Diagnosis Hyperlipidemia, unspecified documented in this encounter [facility] Work Phone: Instructions* Name Dates Details Patient Instructions Indication:Hyperlipidemia Start:09-Nov-2020 Instruction Type:Provider Instructions for Treatment How to Access Health Informa tion Online using Patient Portal and 3rd [employer] Apps Indication:Hyperlipidemia Start:09-Nov-2020 Instruction Type:Patient Education How to access health informa tion online Indication:[facility] Start:19-May-2020 Instruction Type:Patient Education How to access health informa tion online - Detail Indication:[facility] Start:19-May-2020 Instruction Type:Patient Education Patient Instructions Indication:[facility] Start:19-May-2020 Instruction Type:Provider Instructions for Treatment How to access health informa tion online Indication:BMI 24.0-24.9, adult Start:30-Apr-2019 Instruction Type:Patient Education How to access health informa tion online - Detail Indication:BMI 24.0-24.9, adult Start:30-Apr-2019 Instruction Type:Patient Education Patient Instructions Indication:BMI 24.0-24.9, adult Start:30-Apr-2019 Instruction Type:Provider Instructions for Treatment How to access health informa tion online Indication:[facility] Start:21-Jan-2019 Instruction Type:Patient Education How to access health informa tion online - Detail Indication:[facility] Start:21-Jan-2019 Instruction Type:Patient Education Patient Instructions Indication:[facility] Start:21-Jan-2019 Instruction Type:Provider Instructions for Treatment How to access health informa tion online Indication:Abnormal blood chemistry Start:31-Jul-2018 Instruction Type:Patient Education How to access health informa tion online - Detail Indication:Abnormal blood chemistry Start:31-Jul-2018 Instruction Type:Patient Education Patient Instructions Indication:Abnormal blood chemistry Start:31-Jul-2018 Instruction Type:Provider Instructions for Treatment How to access health informa tion online Indication:Nonsmoker Start:19-Jun-2018 Instruction Type:Patient Education How to access health informa tion online - Detail Indication:Nonsmoker Start:19-Jun-2018 Instruction Type:Patient Education Patient Instructions Indication:Nonsmoker Start:19-Jun-2018 Instruction Type:Provider Instructions for Treatment How to access health informa tion online Indication:Nonsmoker Start:12-Jun-2018 Instruction Type:Patient Education How to access health informa tion online - Detail Indication:Nonsmoker Start:12-Jun-2018 Instruction Type:Patient Education Patient Instructions Indication:Nonsmoker Start:12-Jun-2018 Instruction Type:Provider Instructions for Treatment How to access health informa tion online Indication:[facility] Start:16-Jan-2018 Instruction Type:Patient Education How to access health informa tion online - Detail Indication:[facility] Start:16-Jan-2018 Instruction Type:Patient Education Patient Instructions Indication:[facility] Start:16-Jan-2018 Instruction Type:Provider Instructions for Treatment How to access health informa tion online Indication:Cataract Start:10-Sep-2017 Instruction Type:Patient Education How to access health informa tion online - Detail Indication:Cataract Start:10-Sep-2017 Instruction Type:Patient Education Patient Instructions Indication:Cataract Start:10-Sep-2017 Instruction Type:Provider Instructions for Treatment [facility]; [facility] Work Phone: Instructions* Name Dates Details Patient Instructions Indication:Hyperlipidemia Start:09-Nov-2020 Instruction Type:Provider Instructions for Treatment How to Access Health Informa tion Online using Patient Portal and 3rd [employer] Apps Indication:Hyperlipidemia Start:09-Nov-2020 Instruction Type:Patient Education How to access health informa tion online Indication:[facility] Start:19-May-2020 Instruction Type:Patient Education How to access health informa tion online - Detail Indication:[facility] Start:19-May-2020 Instruction Type:Patient Education Patient Instructions Indication:[facility] Start:19-May-2020 Instruction Type:Provider Instructions for Treatment How to access health informa tion online Indication:BMI 24.0-24.9, adult Start:30-Apr-2019 Instruction Type:Patient Education How to access health informa tion online - Detail Indication:BMI 24.0-24.9, adult Start:30-Apr-2019 Instruction Type:Patient Education Patient Instructions Indication:BMI 24.0-24.9, adult Start:30-Apr-2019 Instruction Type:Provider Instructions for Treatment How to access health informa tion online Indication:[facility] Start:21-Jan-2019 Instruction Type:Patient Education How to access health informa tion online - Detail Indication:[facility] Start:21-Jan-2019 Instruction Type:Patient Education Patient Instructions Indication:[facility] Start:21-Jan-2019 Instruction Type:Provider Instructions for Treatment How to access health informa tion online Indication:Abnormal blood chemistry Start:31-Jul-2018 Instruction Type:Patient Education How to access health informa tion online - Detail Indication:Abnormal blood chemistry Start:31-Jul-2018 Instruction Type:Patient Education Patient Instructions Indication:Abnormal blood chemistry Start:31-Jul-2018 Instruction Type:Provider Instructions for Treatment How to access health informa tion online Indication:Nonsmoker Start:19-Jun-2018 Instruction Type:Patient Education How to access health informa tion online - Detail Indication:Nonsmoker Start:19-Jun-2018 Instruction Type:Patient Education Patient Instructions Indication:Nonsmoker Start:19-Jun-2018 Instruction Type:Provider Instructions for Treatment How to access health informa tion online Indication:Nonsmoker Start:12-Jun-2018 Instruction Type:Patient Education How to access health informa tion online - Detail Indication:Nonsmoker Start:12-Jun-2018 Instruction Type:Patient Education Patient Instructions Indication:Nonsmoker Start:12-Jun-2018 Instruction Type:Provider Instructions for Treatment How to access health informa tion online Indication:[facility] Start:16-Jan-2018 Instruction Type:Patient Education How to access health informa tion online - Detail Indication:[facility] Start:16-Jan-2018 Instruction Type:Patient Education Patient Instructions Indication:[facility] Start:16-Jan-2018 Instruction Type:Provider Instructions for Treatment How to access health informa tion online Indication:Cataract Start:10-Sep-2017 Instruction Type:Patient Education How to access health informa tion online - Detail Indication:Cataract Start:10-Sep-2017 Instruction Type:Patient Education Patient Instructions Indication:Cataract Start:10-Sep-2017 Instruction Type:Provider Instructions for Treatment [facility]; [facility] Work Phone: Instructions* Name Dates Details Patient Instructions Indication:Unspecified Diagnosis Start:25-May-2021 Instruction Type:Provider Instructions for Treatment How to Access Health Informa tion Online using Patient Portal and [employer]rd [employer] Apps Indication:Unspecified Diagnosis Start:25-May-2021 Instruction Type:Patient Education Patient Instructions Indication:Hyperlipidemia Start:09-Nov-2020 Instruction Type:Provider Instructions for Treatment How to Access Health Informa tion Online using Patient Portal and [employer]rd [employer] Apps Indication:Hyperlipidemia Start:09-Nov-2020 Instruction Type:Patient Education How to access health informa tion online Indication:[facility] Start:19-May-2020 Instruction Type:Patient Education How to access health informa tion online - Detail Indication:[facility] Start:19-May-2020 Instruction Type:Patient Education Patient Instructions Indication:[facility] Start:19-May-2020 Instruction Type:Provider Instructions for Treatment How to access health informa tion online Indication:BMI 24.0-24.9, adult Start:30-Apr-2019 Instruction Type:Patient Education How to access health informa tion online - Detail Indication:BMI 24.0-24.9, adult Start:30-Apr-2019 Instruction Type:Patient Education Patient Instructions Indication:BMI 24.0-24.9, adult Start:30-Apr-2019 Instruction Type:Provider Instructions for Treatment How to access health informa tion online Indication:[facility] Start:21-Jan-2019 Instruction Type:Patient Education How to access health informa tion online - Detail Indication:[facility] Start:21-Jan-2019 Instruction Type:Patient Education Patient Instructions Indication:[facility] Start:21-Jan-2019 Instruction Type:Provider Instructions for Treatment How to access health informa tion online Indication:Abnormal blood chemistry Start:31-Jul-2018 Instruction Type:Patient Education How to access health informa tion online - Detail Indication:Abnormal blood chemistry Start:31-Jul-2018 Instruction Type:Patient Education Patient Instructions Indication:Abnormal blood chemistry Start:31-Jul-2018 Instruction Type:Provider Instructions for Treatment How to access health informa tion online Indication:Nonsmoker Start:19-Jun-2018 Instruction Type:Patient Education How to access health informa tion online - Detail Indication:Nonsmoker Start:19-Jun-2018 Instruction Type:Patient Education Patient Instructions Indication:Nonsmoker Start:19-Jun-2018 Instruction Type:Provider Instructions for Treatment How to access health informa tion online Indication:Nonsmoker Start:12-Jun-2018 Instruction Type:Patient Education How to access health informa tion online - Detail Indication:Nonsmoker Start:12-Jun-2018 Instruction Type:Patient Education Patient Instructions Indication:Nonsmoker Start:12-Jun-2018 Instruction Type:Provider Instructions for Treatment How to access health informa tion online Indication:[facility] Start:16-Jan-2018 Instruction Type:Patient Education How to access health informa tion online - Detail Indication:[facility] Start:16-Jan-2018 Instruction Type:Patient Education Patient Instructions Indication:[facility] Start:16-Jan-2018 Instruction Type:Provider Instructions for Treatment How to access health informa tion online Indication:Cataract Start:10-Sep-2017 Instruction Type:Patient Education How to access health informa tion online - Detail Indication:Cataract Start:10-Sep-2017 Instruction Type:Patient Education Patient Instructions Indication:Cataract Start:10-Sep-2017 Instruction Type:Provider Instructions for Treatment [facility]; [facility] Work Phone: Instructions* Name Dates Details Patient Instructions Indication:[facility] Start:25-May-2021 Instruction Type:Provider Instructions for Treatment How to Access Health Informa tion Online using Patient Portal and [employer]rd [employer] Apps Indication:[facility] Start:25-May-2021 Instruction Type:Patient Education Patient Instructions Indication:Hyperlipidemia Start:09-Nov-2020 Instruction Type:Provider Instructions for Treatment How to Access Health Informa tion Online using Patient Portal and [employer]rd [employer] Apps Indication:Hyperlipidemia Start:09-Nov-2020 Instruction Type:Patient Education How to access health informa tion online Indication:[facility] Start:19-May-2020 Instruction Type:Patient Education How to access health informa tion online - Detail Indication:[facility] Start:19-May-2020 Instruction Type:Patient Education Patient Instructions Indication:[facility] Start:19-May-2020 Instruction Type:Provider Instructions for Treatment How to access health informa tion online Indication:BMI 24.0-24.9, adult Start:30-Apr-2019 Instruction Type:Patient Education How to access health informa tion online - Detail Indication:BMI 24.0-24.9, adult Start:30-Apr-2019 Instruction Type:Patient Education Patient Instructions Indication:BMI 24.0-24.9, adult Start:30-Apr-2019 Instruction Type:Provider Instructions for Treatment How to access health informa tion online Indication:[facility] Start:21-Jan-2019 Instruction Type:Patient Education How to access health informa tion online - Detail Indication:[facility] Start:21-Jan-2019 Instruction Type:Patient Education Patient Instructions Indication:[facility] Start:21-Jan-2019 Instruction Type:Provider Instructions for Treatment How to access health informa tion online Indication:Abnormal blood chemistry Start:31-Jul-2018 Instruction Type:Patient Education How to access health informa tion online - Detail Indication:Abnormal blood chemistry Start:31-Jul-2018 Instruction Type:Patient Education Patient Instructions Indication:Abnormal blood chemistry Start:31-Jul-2018 Instruction Type:Provider Instructions for Treatment How to access health informa tion online Indication:Nonsmoker Start:19-Jun-2018 Instruction Type:Patient Education How to access health informa tion online - Detail Indication:Nonsmoker Start:19-Jun-2018 Instruction Type:Patient Education Patient Instructions Indication:Nonsmoker Start:19-Jun-2018 Instruction Type:Provider Instructions for Treatment How to access health informa tion online Indication:Nonsmoker Start:12-Jun-2018 Instruction Type:Patient Education How to access health informa tion online - Detail Indication:Nonsmoker Start:12-Jun-2018 Instruction Type:Patient Education Patient Instructions Indication:Nonsmoker Start:12-Jun-2018 Instruction Type:Provider Instructions for Treatment How to access health informa tion online Indication:[facility] Start:16-Jan-2018 Instruction Type:Patient Education How to access health informa tion online - Detail Indication:[facility] Start:16-Jan-2018 Instruction Type:Patient Education Patient Instructions Indication:[facility] Start:16-Jan-2018 Instruction Type:Provider Instructions for Treatment How to access health informa tion online Indication:Cataract Start:10-Sep-2017 Instruction Type:Patient Education How to access health informa tion online - Detail Indication:Cataract Start:10-Sep-2017 Instruction Type:Patient Education Patient Instructions Indication:Cataract Start:10-Sep-2017 Instruction Type:Provider Instructions for Treatment [facility]; [facility] Work Phone: Instructions* Name Dates Details Patient Instructions Indication:Nonsmoker Start:29-Nov-2021 Instruction Type:Provider Instructions for Treatment How to Access Health Informa tion Online using Patient Portal and [employer]rd [employer] Apps Indication:Nonsmoker Start:29-Nov-2021 Instruction Type:Patient Education Patient Instructions Indication:[facility] Start:25-May-2021 Instruction Type:Provider Instructions for Treatment How to Access Health Informa tion Online using Patient Portal and [employer]rd [employer] Apps Indication:[facility] Start:25-May-2021 Instruction Type:Patient Education Patient Instructions Indication:Hyperlipidemia Start:09-Nov-2020 Instruction Type:Provider Instructions for Treatment How to Access Health Informa tion Online using Patient Portal and [employer]rd [employer] Apps Indication:Hyperlipidemia Start:09-Nov-2020 Instruction Type:Patient Education How to access health informa tion online Indication:[facility] Start:19-May-2020 Instruction Type:Patient Education How to access health informa tion online - Detail Indication:[facility] Start:19-May-2020 Instruction Type:Patient Education Patient Instructions Indication:[facility] Start:19-May-2020 Instruction Type:Provider Instructions for Treatment How to access health informa tion online Indication:BMI 24.0-24.9, adult Start:30-Apr-2019 Instruction Type:Patient Education How to access health informa tion online - Detail Indication:BMI 24.0-24.9, adult Start:30-Apr-2019 Instruction Type:Patient Education Patient Instructions Indication:BMI 24.0-24.9, adult Start:30-Apr-2019 Instruction Type:Provider Instructions for Treatment How to access health informa tion online Indication:[facility] Start:21-Jan-2019 Instruction Type:Patient Education How to access health informa tion online - Detail Indication:[facility] Start:21-Jan-2019 Instruction Type:Patient Education Patient Instructions Indication:[facility] Start:21-Jan-2019 Instruction Type:Provider Instructions for Treatment How to access health informa tion online Indication:Abnormal blood chemistry Start:31-Jul-2018 Instruction Type:Patient Education How to access health informa tion online - Detail Indication:Abnormal blood chemistry Start:31-Jul-2018 Instruction Type:Patient Education Patient Instructions Indication:Abnormal blood chemistry Start:31-Jul-2018 Instruction Type:Provider Instructions for Treatment How to access health informa tion online Indication:Nonsmoker Start:19-Jun-2018 Instruction Type:Patient Education How to access health informa tion online - Detail Indication:Nonsmoker Start:19-Jun-2018 Instruction Type:Patient Education Patient Instructions Indication:Nonsmoker Start:19-Jun-2018 Instruction Type:Provider Instructions for Treatment How to access health informa tion online Indication:Nonsmoker Start:12-Jun-2018 Instruction Type:Patient Education How to access health informa tion online - Detail Indication:Nonsmoker Start:12-Jun-2018 Instruction Type:Patient Education Patient Instructions Indication:Nonsmoker Start:12-Jun-2018 Instruction Type:Provider Instructions for Treatment How to access health informa tion online Indication:[facility] Start:16-Jan-2018 Instruction Type:Patient Education How to access health informa tion online - Detail Indication:[facility] Start:16-Jan-2018 Instruction Type:Patient Education Patient Instructions Indication:[facility] Start:16-Jan-2018 Instruction Type:Provider Instructions for Treatment How to access health informa tion online Indication:Cataract Start:10-Sep-2017 Instruction Type:Patient Education How to access health informa tion online - Detail Indication:Cataract Start:10-Sep-2017 Instruction Type:Patient Education Patient Instructions Indication:Cataract Start:10-Sep-2017 Instruction Type:Provider Instructions for Treatment [facility]; [facility] Work Phone: Instructions* Name Dates Details Patient Instructions Indication:Nonsmoker Start:29-Nov-2021 Instruction Type:Provider Instructions for Treatment How to Access Health Informa tion Online using Patient Portal and [employer] Apps Indication:Nonsmoker Start:29-Nov-2021 Instruction Type:Patient Education Patient Instructions Indication:[facility] Start:25-May-2021 Instruction Type:Provider Instructions for Treatment How to Access Health Informa tion Online using Patient Portal and [employer]rd [employer] Apps Indication:[facility] Start:25-May-2021 Instruction Type:Patient Education Patient Instructions Indication:Hyperlipidemia Start:09-Nov-2020 Instruction Type:Provider Instructions for Treatment How to Access Health Informa tion Online using Patient Portal and [employer]rd [employer] Apps Indication:Hyperlipidemia Start:09-Nov-2020 Instruction Type:Patient Education How to access health informa tion online Indication:[facility] Start:19-May-2020 Instruction Type:Patient Education How to access health informa tion online - Detail Indication:[facility] Start:19-May-2020 Instruction Type:Patient Education Patient Instructions Indication:[facility] Start:19-May-2020 Instruction Type:Provider Instructions for Treatment How to access health informa tion online Indication:BMI 24.0-24.9, adult Start:30-Apr-2019 Instruction Type:Patient Education How to access health informa tion online - Detail Indication:BMI 24.0-24.9, adult Start:30-Apr-2019 Instruction Type:Patient Education Patient Instructions Indication:BMI 24.0-24.9, adult Start:30-Apr-2019 Instruction Type:Provider Instructions for Treatment How to access health informa tion online Indication:[facility] Start:21-Jan-2019 Instruction Type:Patient Education How to access health informa tion online - Detail Indication:[facility] Start:21-Jan-2019 Instruction Type:Patient Education Patient Instructions Indication:[facility] Start:21-Jan-2019 Instruction Type:Provider Instructions for Treatment How to access health informa tion online Indication:Abnormal blood chemistry Start:31-Jul-2018 Instruction Type:Patient Education How to access health informa tion online - Detail Indication:Abnormal blood chemistry Start:31-Jul-2018 Instruction Type:Patient Education Patient Instructions Indication:Abnormal blood chemistry Start:31-Jul-2018 Instruction Type:Provider Instructions for Treatment How to access health informa tion online Indication:Nonsmoker Start:19-Jun-2018 Instruction Type:Patient Education How to access health informa tion online - Detail Indication:Nonsmoker Start:19-Jun-2018 Instruction Type:Patient Education Patient Instructions Indication:Nonsmoker Start:19-Jun-2018 Instruction Type:Provider Instructions for Treatment How to access health informa tion online Indication:Nonsmoker Start:12-Jun-2018 Instruction Type:Patient Education How to access health informa tion online - Detail Indication:Nonsmoker Start:12-Jun-2018 Instruction Type:Patient Education Patient Instructions Indication:Nonsmoker Start:12-Jun-2018 Instruction Type:Provider Instructions for Treatment How to access health informa tion online Indication:[facility] Start:16-Jan-2018 Instruction Type:Patient Education How to access health informa tion online - Detail Indication:[facility] Start:16-Jan-2018 Instruction Type:Patient Education Patient Instructions Indication:[facility] Start:16-Jan-2018 Instruction Type:Provider Instructions for Treatment How to access health informa tion online Indication:Cataract Start:10-Sep-2017 Instruction Type:Patient Education How to access health informa tion online - Detail Indication:Cataract Start:10-Sep-2017 Instruction Type:Patient Education Patient Instructions Indication:Cataract Start:10-Sep-2017 Instruction Type:Provider Instructions for Treatment [facility]; [facility] Work Phone: Instructions* Name Dates Details Patient Instructions Indication:Nonsmoker Start:29-Nov-2021 Instruction Type:Provider Instructions for Treatment How to Access Health Informa tion Online using Patient Portal and [employer]rd [employer] Apps Indication:Nonsmoker Start:29-Nov-2021 Instruction Type:Patient Education Patient Instructions Indication:[facility] Start:25-May-2021 Instruction Type:Provider Instructions for Treatment How to Access Health Informa tion Online using Patient Portal and [employer]rd [employer] Apps Indication:[facility] Start:25-May-2021 Instruction Type:Patient Education Patient Instructions Indication:Hyperlipidemia Start:09-Nov-2020 Instruction Type:Provider Instructions for Treatment How to Access Health Informa tion Online using Patient Portal and [employer] Apps Indication:Hyperlipidemia Start:09-Nov-2020 Instruction Type:Patient Education How to access health informa tion online Indication:[facility] Start:19-May-2020 Instruction Type:Patient Education How to access health informa tion online - Detail Indication:[facility] Start:19-May-2020 Instruction Type:Patient Education Patient Instructions Indication:[facility] Start:19-May-2020 Instruction Type:Provider Instructions for Treatment How to access health informa tion online Indication:BMI 24.0-24.9, adult Start:30-Apr-2019 Instruction Type:Patient Education How to access health informa tion online - Detail Indication:BMI 24.0-24.9, adult Start:30-Apr-2019 Instruction Type:Patient Education Patient Instructions Indication:BMI 24.0-24.9, adult Start:30-Apr-2019 Instruction Type:Provider Instructions for Treatment How to access health informa tion online Indication:[facility] Start:21-Jan-2019 Instruction Type:Patient Education How to access health informa tion online - Detail Indication:[facility] Start:21-Jan-2019 Instruction Type:Patient Education Patient Instructions Indication:[facility] Start:21-Jan-2019 Instruction Type:Provider Instructions for Treatment How to access health informa tion online Indication:Abnormal blood chemistry Start:31-Jul-2018 Instruction Type:Patient Education How to access health informa tion online - Detail Indication:Abnormal blood chemistry Start:31-Jul-2018 Instruction Type:Patient Education Patient Instructions Indication:Abnormal blood chemistry Start:31-Jul-2018 Instruction Type:Provider Instructions for Treatment How to access health informa tion online Indication:Nonsmoker Start:19-Jun-2018 Instruction Type:Patient Education How to access health informa tion online - Detail Indication:Nonsmoker Start:19-Jun-2018 Instruction Type:Patient Education Patient Instructions Indication:Nonsmoker Start:19-Jun-2018 Instruction Type:Provider Instructions for Treatment How to access health informa tion online Indication:Nonsmoker Start:12-Jun-2018 Instruction Type:Patient Education How to access health informa tion online - Detail Indication:Nonsmoker Start:12-Jun-2018 Instruction Type:Patient Education Patient Instructions Indication:Nonsmoker Start:12-Jun-2018 Instruction Type:Provider Instructions for Treatment How to access health informa tion online Indication:[facility] Start:16-Jan-2018 Instruction Type:Patient Education How to access health informa tion online - Detail Indication:[facility] Start:16-Jan-2018 Instruction Type:Patient Education Patient Instructions Indication:[facility] Start:16-Jan-2018 Instruction Type:Provider Instructions for Treatment How to access health informa tion online Indication:Cataract Start:10-Sep-2017 Instruction Type:Patient Education How to access health informa tion online - Detail Indication:Cataract Start:10-Sep-2017 Instruction Type:Patient Education Patient Instructions Indication:Cataract Start:10-Sep-2017 Instruction Type:Provider Instructions for Treatment [facility]; [facility] Work Phone: Instructions* Name Dates Details Patient Instructions Indication:[facility] Start:15-May-2022 Instruction Type:Provider Instructions for Treatment How to Access Health Informa tion Online using Patient Portal and [employer]rd [employer] Apps Indication:[facility] Start:15-May-2022 Instruction Type:Patient Education Patient Instructions Indication:Nonsmoker Start:29-Nov-2021 Instruction Type:Provider Instructions for Treatment How to Access Health Informa tion Online using Patient Portal and [employer] Apps Indication:Nonsmoker Start:29-Nov-2021 Instruction Type:Patient Education Patient Instructions Indication:[facility] Start:25-May-2021 Instruction Type:Provider Instructions for Treatment How to Access Health Informa tion Online using Patient Portal and [employer] Apps Indication:[facility] Start:25-May-2021 Instruction Type:Patient Education Patient Instructions Indication:Hyperlipidemia Start:09-Nov-2020 Instruction Type:Provider Instructions for Treatment How to Access Health Informa tion Online using Patient Portal and [employer] Apps Indication:Hyperlipidemia Start:09-Nov-2020 Instruction Type:Patient Education How to access health informa tion online Indication:[facility] Start:19-May-2020 Instruction Type:Patient Education How to access health informa tion online - Detail Indication:[facility] Start:19-May-2020 Instruction Type:Patient Education Patient Instructions Indication:[facility] Start:19-May-2020 Instruction Type:Provider Instructions for Treatment How to access health informa tion online Indication:BMI 24.0-24.9, adult Start:30-Apr-2019 Instruction Type:Patient Education How to access health informa tion online - Detail Indication:BMI 24.0-24.9, adult Start:30-Apr-2019 Instruction Type:Patient Education Patient Instructions Indication:BMI 24.0-24.9, adult Start:30-Apr-2019 Instruction Type:Provider Instructions for Treatment How to access health informa tion online Indication:[facility] Start:21-Jan-2019 Instruction Type:Patient Education How to access health informa tion online - Detail Indication:[facility] Start:21-Jan-2019 Instruction Type:Patient Education Patient Instructions Indication:[facility] Start:21-Jan-2019 Instruction Type:Provider Instructions for Treatment How to access health informa tion online Indication:Abnormal blood chemistry Start:31-Jul-2018 Instruction Type:Patient Education How to access health informa tion online - Detail Indication:Abnormal blood chemistry Start:31-Jul-2018 Instruction Type:Patient Education Patient Instructions Indication:Abnormal blood chemistry Start:31-Jul-2018 Instruction Type:Provider Instructions for Treatment How to access health informa tion online Indication:Nonsmoker Start:19-Jun-2018 Instruction Type:Patient Education How to access health informa tion online - Detail Indication:Nonsmoker Start:19-Jun-2018 Instruction Type:Patient Education Patient Instructions Indication:Nonsmoker Start:19-Jun-2018 Instruction Type:Provider Instructions for Treatment How to access health informa tion online Indication:Nonsmoker Start:12-Jun-2018 Instruction Type:Patient Education How to access health informa tion online - Detail Indication:Nonsmoker Start:12-Jun-2018 Instruction Type:Patient Education Patient Instructions Indication:Nonsmoker Start:12-Jun-2018 Instruction Type:Provider Instructions for Treatment How to access health informa tion online Indication:[facility] Start:16-Jan-2018 Instruction Type:Patient Education How to access health informa tion online - Detail Indication:[facility] Start:16-Jan-2018 Instruction Type:Patient Education Patient Instructions Indication:[facility] Start:16-Jan-2018 Instruction Type:Provider Instructions for Treatment How to access health informa tion online Indication:Cataract Start:10-Sep-2017 Instruction Type:Patient Education How to access health informa tion online - Detail Indication:Cataract Start:10-Sep-2017 Instruction Type:Patient Education Patient Instructions Indication:Cataract Start:10-Sep-2017 Instruction Type:Provider Instructions for Treatment [facility]; [facility] Work Phone: Instructions* Name Dates Details Patient Instructions Indication[facility] Start:15-May-2022 Instruction Type:Provider Instructions for Treatment How to Access Health Informa tion Online using Patient Portal and [employer]rd [employer] Apps Indication:[facility] Start:15-May-2022 Instruction Type:Patient Education Patient Instructions Indication:Nonsmoker Start:29-Nov-2021 Instruction Type:Provider Instructions for Treatment How to Access Health Informa tion Online using Patient Portal and [employer]rd [employer] Apps Indication:Nonsmoker Start:29-Nov-2021 Instruction Type:Patient Education Patient Instructions Indication:[facility] Start:25-May-2021 Instruction Type:Provider Instructions for Treatment How to Access Health Informa tion Online using Patient Portal and [employer]rd [employer] Apps Indication:[facility] Start:25-May-2021 Instruction Type:Patient Education Patient Instructions Indication:Hyperlipidemia Start:09-Nov-2020 Instruction Type:Provider Instructions for Treatment How to Access Health Informa tion Online using Patient Portal and [employer]rd [employer] Apps Indication:Hyperlipidemia Start:09-Nov-2020 Instruction Type:Patient Education How to access health informa tion online Indication:[facility] Start:19-May-2020 Instruction Type:Patient Education How to access health informa tion online - Detail Indication:[facility] Start:19-May-2020 Instruction Type:Patient Education Patient Instructions Indication:[facility] Start:19-May-2020 Instruction Type:Provider Instructions for Treatment How to access health informa tion online Indication:BMI 24.0-24.9, adult Start:30-Apr-2019 Instruction Type:Patient Education How to access health informa tion online - Detail Indication:BMI 24.0-24.9, adult Start:30-Apr-2019 Instruction Type:Patient Education Patient Instructions Indication:BMI 24.0-24.9, adult Start:30-Apr-2019 Instruction Type:Provider Instructions for Treatment How to access health informa tion online Indication:[facility] Start:21-Jan-2019 Instruction Type:Patient Education How to access health informa tion online - Detail Indication:[facility] Start:21-Jan-2019 Instruction Type:Patient Education Patient Instructions Indication:[facility] Start:21-Jan-2019 Instruction Type:Provider Instructions for Treatment How to access health informa tion online Indication:Abnormal blood chemistry Start:31-Jul-2018 Instruction Type:Patient Education How to access health informa tion online - Detail Indication:Abnormal blood chemistry Start:31-Jul-2018 Instruction Type:Patient Education Patient Instructions Indication:Abnormal blood chemistry Start:31-Jul-2018 Instruction Type:Provider Instructions for Treatment How to access health informa tion online Indication:Nonsmoker Start:19-Jun-2018 Instruction Type:Patient Education How to access health informa tion online - Detail Indication:Nonsmoker Start:19-Jun-2018 Instruction Type:Patient Education Patient Instructions Indication:Nonsmoker Start:19-Jun-2018 Instruction Type:Provider Instructions for Treatment How to access health informa tion online Indication:Nonsmoker Start:12-Jun-2018 Instruction Type:Patient Education How to access health informa tion online - Detail Indication:Nonsmoker Start:12-Jun-2018 Instruction Type:Patient Education Patient Instructions Indication:Nonsmoker Start:12-Jun-2018 Instruction Type:Provider Instructions for Treatment How to access health informa tion online Indication:[facility] Start:16-Jan-2018 Instruction Type:Patient Education How to access health informa tion online - Detail Indication:[facility] Start:16-Jan-2018 Instruction Type:Patient Education Patient Instructions Indication:[facility] Start:16-Jan-2018 Instruction Type:Provider Instructions for Treatment How to access health informa tion online Indication:Cataract Start:10-Sep-2017 Instruction Type:Patient Education How to access health informa tion online - Detail Indication:Cataract Start:10-Sep-2017 Instruction Type:Patient Education Patient Instructions Indication:Cataract Start:10-Sep-2017 Instruction Type:Provider Instructions for Treatment [facility]; [facility] Work Phone: Instructions* Name Dates Details Patient Instructions Indication:Nonsmoker Start:18-Sep-2022 Instruction Type:Provider Instructions for Treatment How to Access Health Informa tion Online using Patient Portal and [employer]rd [employer] Apps Indication:Nonsmoker Start:18-Sep-2022 Instruction Type:Patient Education Patient Instructions Indication:[facility] Start:15-May-2022 Instruction Type:Provider Instructions for Treatment How to Access Health Informa tion Online using Patient Portal and [employer]rd [employer] Apps Indication:[facility] Start:15-May-2022 Instruction Type:Patient Education Patient Instructions Indication:Nonsmoker Start:29-Nov-2021 Instruction Type:Provider Instructions for Treatment How to Access Health Informa tion Online using Patient Portal and [employer]rd [employer] Apps Indication:Nonsmoker Start:29-Nov-2021 Instruction Type:Patient Education Patient Instructions Indication:[facility] Start:25-May-2021 Instruction Type:Provider Instructions for Treatment How to Access Health Informa tion Online using Patient Portal and [employer]rd [employer] Apps Indication:[facility] Start:25-May-2021 Instruction Type:Patient Education Patient Instructions Indication:Hyperlipidemia Start:09-Nov-2020 Instruction Type:Provider Instructions for Treatment How to Access Health Informa tion Online using Patient Portal and [employer]rd [employer] Apps Indication:Hyperlipidemia Start:09-Nov-2020 Instruction Type:Patient Education How to access health informa tion online Indication:[facility] Start:19-May-2020 Instruction Type:Patient Education How to access health informa tion online - Detail Indication:[facility] Start:19-May-2020 Instruction Type:Patient Education Patient Instructions Indication:[facility] Start:19-May-2020 Instruction Type:Provider Instructions for Treatment How to access health informa tion online Indication:BMI 24.0-24.9, adult Start:30-Apr-2019 Instruction Type:Patient Education How to access health informa tion online - Detail Indication:BMI 24.0-24.9, adult Start:30-Apr-2019 Instruction Type:Patient Education Patient Instructions Indication:BMI 24.0-24.9, adult Start:30-Apr-2019 Instruction Type:Provider Instructions for Treatment How to access health informa tion online Indication:[facility] Start:21-Jan-2019 Instruction Type:Patient Education How to access health informa tion online - Detail Indication:[facility] Start:21-Jan-2019 Instruction Type:Patient Education Patient Instructions Indication:[facility] Start:21-Jan-2019 Instruction Type:Provider Instructions for Treatment How to access health informa tion online Indication:Abnormal blood chemistry Start:31-Jul-2018 Instruction Type:Patient Education How to access health informa tion online - Detail Indication:Abnormal blood chemistry Start:31-Jul-2018 Instruction Type:Patient Education Patient Instructions Indication:Abnormal blood chemistry Start:31-Jul-2018 Instruction Type:Provider Instructions for Treatment How to access health informa tion online Indication:Nonsmoker Start:19-Jun-2018 Instruction Type:Patient Education How to access health informa tion online - Detail Indication:Nonsmoker Start:19-Jun-2018 Instruction Type:Patient Education Patient Instructions Indication:Nonsmoker Start:19-Jun-2018 Instruction Type:Provider Instructions for Treatment How to access health informa tion online Indication:Nonsmoker Start:12-Jun-2018 Instruction Type:Patient Education How to access health informa tion online - Detail Indication:Nonsmoker Start:12-Jun-2018 Instruction Type:Patient Education Patient Instructions Indication:Nonsmoker Start:12-Jun-2018 Instruction Type:Provider Instructions for Treatment How to access health informa tion online Indication:[facility] Start:16-Jan-2018 Instruction Type:Patient Education How to access health informa tion online - Detail Indication:[facility] Start:16-Jan-2018 Instruction Type:Patient Education Patient Instructions Indication:[facility] Start:16-Jan-2018 Instruction Type:Provider Instructions for Treatment How to access health informa tion online Indication:Cataract Start:10-Sep-2017 Instruction Type:Patient Education How to access health informa tion online - Detail Indication:Cataract Start:10-Sep-2017 Instruction Type:Patient Education Patient Instructions Indication:Cataract Start:10-Sep-2017 Instruction Type:Provider Instructions for Treatment [facility]; [facility] Work Phone: Instructions* Name Dates Details Patient Instructions Indication:Nonsmoker Start:18-Sep-2022 Instruction Type:Provider Instructions for Treatment How to Access Health Informa tion Online using Patient Portal and [employer]rd [employer] Apps Indication:Nonsmoker Start:18-Sep-2022 Instruction Type:Patient Education Patient Instructions Indication:[facility] Start:15-May-2022 Instruction Type:Provider Instructions for Treatment How to Access Health Informa tion Online using Patient Portal and [employer]rd [employer] Apps Indication:[facility] Start:15-May-2022 Instruction Type:Patient Education Patient Instructions Indication:Nonsmoker Start:29-Nov-2021 Instruction Type:Provider Instructions for Treatment How to Access Health Informa tion Online using Patient Portal and [employer]rd [employer] Apps Indication:Nonsmoker Start:29-Nov-2021 Instruction Type:Patient Education Patient Instructions Indication:[facility] Start:25-May-2021 Instruction Type:Provider Instructions for Treatment How to Access Health Informa tion Online using Patient Portal and [employer]rd [employer] Apps Indication:[facility] Start:25-May-2021 Instruction Type:Patient Education Patient Instructions Indication:Hyperlipidemia Start:09-Nov-2020 Instruction Type:Provider Instructions for Treatment How to Access Health Informa tion Online using Patient Portal and [employer]rd [employer] Apps Indication:Hyperlipidemia Start:09-Nov-2020 Instruction Type:Patient Education How to access health informa tion online Indication:[facility] Start:19-May-2020 Instruction Type:Patient Education How to access health informa tion online - Detail Indication:[facility] Start:19-May-2020 Instruction Type:Patient Education Patient Instructions Indication:[facility] Start:19-May-2020 Instruction Type:Provider Instructions for Treatment How to access health informa tion online Indication:BMI 24.0-24.9, adult Start:30-Apr-2019 Instruction Type:Patient Education How to access health informa tion online - Detail Indication:BMI 24.0-24.9, adult Start:30-Apr-2019 Instruction Type:Patient Education Patient Instructions Indication:BMI 24.0-24.9, adult Start:30-Apr-2019 Instruction Type:Provider Instructions for Treatment How to access health informa tion online Indication:[facility] Start:21-Jan-2019 Instruction Type:Patient Education How to access health informa tion online - Detail Indication:[facility] Start:21-Jan-2019 Instruction Type:Patient Education Patient Instructions Indication:[facility] Start:21-Jan-2019 Instruction Type:Provider Instructions for Treatment How to access health informa tion online Indication:Abnormal blood chemistry Start:31-Jul-2018 Instruction Type:Patient Education How to access health informa tion online - Detail Indication:Abnormal blood chemistry Start:31-Jul-2018 Instruction Type:Patient Education Patient Instructions Indication:Abnormal blood chemistry Start:31-Jul-2018 Instruction Type:Provider Instructions for Treatment How to access health informa tion online Indication:Nonsmoker Start:19-Jun-2018 Instruction Type:Patient Education How to access health informa tion online - Detail Indication:Nonsmoker Start:19-Jun-2018 Instruction Type:Patient Education Patient Instructions Indication:Nonsmoker Start:19-Jun-2018 Instruction Type:Provider Instructions for Treatment How to access health informa tion online Indication:Nonsmoker Start:12-Jun-2018 Instruction Type:Patient Education How to access health informa tion online - Detail Indication:Nonsmoker Start:12-Jun-2018 Instruction Type:Patient Education Patient Instructions Indication:Nonsmoker Start:12-Jun-2018 Instruction Type:Provider Instructions for Treatment How to access health informa tion online Indication:[facility] Start:16-Jan-2018 Instruction Type:Patient Education How to access health informa tion online - Detail Indication:[facility] Start:16-Jan-2018 Instruction Type:Patient Education Patient Instructions Indication:[facility] Start:16-Jan-2018 Instruction Type:Provider Instructions for Treatment How to access health informa tion online Indication:Cataract Start:10-Sep-2017 Instruction Type:Patient Education How to access health informa tion online - Detail Indication:Cataract Start:10-Sep-2017 Instruction Type:Patient Education Patient Instructions Indication:Cataract Start:10-Sep-2017 Instruction Type:Provider Instructions for Treatment [facility]; [facility] Work Phone: Instructions* Name Dates Details Patient Instructions Indication:Osteopenia Start:08-Jan-2023 Instruction Type:Provider Instructions for Treatment How to Access Health Informa tion Online using Patient Portal and [employer]rd [employer] Apps Indication:Osteopenia Start:08-Jan-2023 Instruction Type:Patient Education Patient Instructions Indication:Nonsmoker Start:18-Sep-2022 Instruction Type:Provider Instructions for Treatment How to Access Health Informa tion Online using Patient Portal and [employer]rd [employer] Apps Indication:Nonsmoker Start:18-Sep-2022 Instruction Type:Patient Education Patient Instructions Indication:[facility] Start:15-May-2022 Instruction Type:Provider Instructions for Treatment How to Access Health Informa tion Online using Patient Portal and [employer]rd [employer] Apps Indication:[facility] EX[facility] Start:15-May-2022 Instruction Type:Patient Education Patient Instructions Indication:Nonsmoker Start:29-Nov-2021 Instruction Type:Provider Instructions for Treatment How to Access Health Informa tion Online using Patient Portal and [employer]rd [employer] Apps Indication:Nonsmoker Start:29-Nov-2021 Instruction Type:Patient Education Patient Instructions Indication:[facility] Start:25-May-2021 Instruction Type:Provider Instructions for Treatment How to Access Health Informa tion Online using Patient Portal and [employer]rd [employer] Apps Indication:[facility] Start:25-May-2021 Instruction Type:Patient Education Patient Instructions Indication:Hyperlipidemia Start:09-Nov-2020 Instruction Type:Provider Instructions for Treatment How to Access Health Informa tion Online using Patient Portal and [employer]rd [employer] Apps Indication:Hyperlipidemia Start:09-Nov-2020 Instruction Type:Patient Education How to access health informa tion online Indication:[facility] Start:19-May-2020 Instruction Type:Patient Education How to access health informa tion online - Detail Indication:[facility] Start:19-May-2020 Instruction Type:Patient Education Patient Instructions Indication:[facility] Start:19-May-2020 Instruction Type:Provider Instructions for Treatment How to access health informa tion online Indication:BMI 24.0-24.9, adult Start:30-Apr-2019 Instruction Type:Patient Education How to access health informa tion online - Detail Indication:BMI 24.0-24.9, adult Start:30-Apr-2019 Instruction Type:Patient Education Patient Instructions Indication:BMI 24.0-24.9, adult Start:30-Apr-2019 Instruction Type:Provider Instructions for Treatment How to access health informa tion online Indication:[facility] Start:21-Jan-2019 Instruction Type:Patient Education How to access health informa tion online - Detail Indication:[facility] Start:21-Jan-2019 Instruction Type:Patient Education Patient Instructions Indication:[facility] Start:21-Jan-2019 Instruction Type:Provider Instructions for Treatment How to access health informa tion online Indication:Abnormal blood chemistry Start:31-Jul-2018 Instruction Type:Patient Education How to access health informa tion online - Detail Indication:Abnormal blood chemistry Start:31-Jul-2018 Instruction Type:Patient Education Patient Instructions Indication:Abnormal blood chemistry Start:31-Jul-2018 Instruction Type:Provider Instructions for Treatment How to access health informa tion online Indication:Nonsmoker Start:19-Jun-2018 Instruction Type:Patient Education How to access health informa tion online - Detail Indication:Nonsmoker Start:19-Jun-2018 Instruction Type:Patient Education Patient Instructions Indication:Nonsmoker Start:19-Jun-2018 Instruction Type:Provider Instructions for Treatment How to access health informa tion online Indication:Nonsmoker Start:12-Jun-2018 Instruction Type:Patient Education How to access health informa tion online - Detail Indication:Nonsmoker Start:12-Jun-2018 Instruction Type:Patient Education Patient Instructions Indication:Nonsmoker Start:12-Jun-2018 Instruction Type:Provider Instructions for Treatment How to access health informa tion online Indication:[facility] Start:16-Jan-2018 Instruction Type:Patient Education How to access health informa tion online - Detail Indication:[facility] Start:16-Jan-2018 Instruction Type:Patient Education Patient Instructions Indication:[facility] Start:16-Jan-2018 Instruction Type:Provider Instructions for Treatment How to access health informa tion online Indication:Cataract Start:10-Sep-2017 Instruction Type:Patient Education How to access health informa tion online - Detail Indication:Cataract Start:10-Sep-2017 Instruction Type:Patient Education Patient Instructions Indication:Cataract Start:10-Sep-2017 Instruction Type:Provider Instructions for Treatment [facility]; [facility] Work Phone: Instructions* Name Dates Details Patient Instructions Indication:Osteopenia Start:08-Jan-2023 Instruction Type:Provider Instructions for Treatment How to Access Health Informa tion Online using Patient Portal and [employer]rd [employer] Apps Indication:Osteopenia Start:08-Jan-2023 Instruction Type:Patient Education Patient Instructions Indication:Nonsmoker Start:18-Sep-2022 Instruction Type:Provider Instructions for Treatment How to Access Health Informa tion Online using Patient Portal and [employer]rd [employer] Apps Indication:Nonsmoker Start:18-Sep-2022 Instruction Type:Patient Education Patient Instructions Indication:[facility] Start:15-May-2022 Instruction Type:Provider Instructions for Treatment How to Access Health Informa tion Online using Patient Portal and [employer]rd [employer] Apps Indication:[facility] Start:15-May-2022 Instruction Type:Patient Education Patient Instructions Indication:Nonsmoker Start:29-Nov-2021 Instruction Type:Provider Instructions for Treatment How to Access Health Informa tion Online using Patient Portal and [employer]rd [employer] Apps Indication:Nonsmoker Start:29-Nov-2021 Instruction Type:Patient Education Patient Instructions Indication:[facility] Start:25-May-2021 Instruction Type:Provider Instructions for Treatment How to Access Health Informa tion Online using Patient Portal and 3rd [employer] Apps Indication:[facility] Start:25-May-2021 Instruction Type:Patient Education Patient Instructions Indication:Hyperlipidemia Start:09-Nov-2020 Instruction Type:Provider Instructions for Treatment How to Access Health Informa tion Online using Patient Portal and [employer]rd [employer] Apps Indication:Hyperlipidemia Start:09-Nov-2020 Instruction Type:Patient Education How to access health informa tion online Indication:[facility] Start:19-May-2020 Instruction Type:Patient Education How to access health informa tion online - Detail Indication:[facility] Start:19-May-2020 Instruction Type:Patient Education Patient Instructions Indication:[facility] Start:19-May-2020 Instruction Type:Provider Instructions for Treatment How to access health informa tion online Indication:BMI 24.0-24.9, adult Start:30-Apr-2019 Instruction Type:Patient Education How to access health informa tion online - Detail Indication:BMI 24.0-24.9, adult Start:30-Apr-2019 Instruction Type:Patient Education Patient Instructions Indication:BMI 24.0-24.9, adult Start:30-Apr-2019 Instruction Type:Provider Instructions for Treatment How to access health informa tion online Indication:[facility] Start:21-Jan-2019 Instruction Type:Patient Education How to access health informa tion online - Detail Indication:[facility] Start:21-Jan-2019 Instruction Type:Patient Education Patient Instructions Indication:[facility] Start:21-Jan-2019 Instruction Type:Provider Instructions for Treatment How to access health informa tion online Indication:Abnormal blood chemistry Start:31-Jul-2018 Instruction Type:Patient Education How to access health informa tion online - Detail Indication:Abnormal blood chemistry Start:31-Jul-2018 Instruction Type:Patient Education Patient Instructions Indication:Abnormal blood chemistry Start:31-Jul-2018 Instruction Type:Provider Instructions for Treatment How to access health informa tion online Indication:Nonsmoker Start:19-Jun-2018 Instruction Type:Patient Education How to access health informa tion online - Detail Indication:Nonsmoker Start:19-Jun-2018 Instruction Type:Patient Education Patient Instructions Indication:Nonsmoker Start:19-Jun-2018 Instruction Type:Provider Instructions for Treatment How to access health informa tion online Indication:Nonsmoker Start:12-Jun-2018 Instruction Type:Patient Education How to access health informa tion online - Detail Indication:Nonsmoker Start:12-Jun-2018 Instruction Type:Patient Education Patient Instructions Indication:Nonsmoker Start:12-Jun-2018 Instruction Type:Provider Instructions for Treatment How to access health informa tion online Indication:[facility] Start:16-Jan-2018 Instruction Type:Patient Education How to access health informa tion online - Detail Indication:[facility] Start:16-Jan-2018 Instruction Type:Patient Education Patient Instructions Indication:[facility] Start:16-Jan-2018 Instruction Type:Provider Instructions for Treatment How to access health informa tion online Indication:Cataract Start:10-Sep-2017 Instruction Type:Patient Education How to access health informa tion online - Detail Indication:Cataract Start:10-Sep-2017 Instruction Type:Patient Education Patient Instructions Indication:Cataract Start:10-Sep-2017 Instruction Type:Provider Instructions for Treatment [facility] Work Phone: Instructions* Name Dates Details Patient Instructions Indication:Prostate cancer Start:16-May-2023 Instruction Type:Provider Instructions for Treatment How to Access Health Informa tion Online using Patient Portal and 3rd [employer] Apps Indication:Prostate cancer Start:16-May-2023 Instruction Type:Patient Education Patient Instructions Indication:Osteopenia Start:08-Jan-2023 Instruction Type:Provider Instructions for Treatment How to Access Health Informa tion Online using Patient Portal and 3rd [employer] Apps Indication:Osteopenia Start:08-Jan-2023 Instruction Type:Patient Education Patient Instructions Indication:Nonsmoker Start:18-Sep-2022 Instruction Type:Provider Instructions for Treatment How to Access Health Informa tion Online using Patient Portal and 3rd [employer] Apps Indication:Nonsmoker Start:18-Sep-2022 Instruction Type:Patient Education Patient Instructions Indication:[facility] Start:15-May-2022 Instruction Type:Provider Instructions for Treatment How to Access Health Informa tion Online using Patient Portal and 3rd [employer] Apps Indication:[facility] Start:15-May-2022 Instruction Type:Patient Education Patient Instructions Indication:Nonsmoker Start:29-Nov-2021 Instruction Type:Provider Instructions for Treatment How to Access Health Informa tion Online using Patient Portal and 3rd [employer] Apps Indication:Nonsmoker Start:29-Nov-2021 Instruction Type:Patient Education Patient Instructions Indication:[facility] Start:25-May-2021 Instruction Type:Provider Instructions for Treatment How to Access Health Informa tion Online using Patient Portal and 3rd [employer] Apps Indication:[facility] Start:25-May-2021 Instruction Type:Patient Education Patient Instructions Indication:Hyperlipidemia Start:09-Nov-2020 Instruction Type:Provider Instructions for Treatment How to Access Health Informa tion Online using Patient Portal and 3rd [employer] Apps Indication:Hyperlipidemia Start:09-Nov-2020 Instruction Type:Patient Education How to access health informa tion online Indication:[facility] Start:19-May-2020 Instruction Type:Patient Education How to access health informa tion online - Detail Indication:[facility] Start:19-May-2020 Instruction Type:Patient Education Patient Instructions Indication:[facility] Start:19-May-2020 Instruction Type:Provider Instructions for Treatment How to access health informa tion online Indication:BMI 24.0-24.9, adult Start:30-Apr-2019 Instruction Type:Patient Education How to access health informa tion online - Detail Indication:BMI 24.0-24.9, adult Start:30-Apr-2019 Instruction Type:Patient Education Patient Instructions Indication:BMI 24.0-24.9, adult Start:30-Apr-2019 Instruction Type:Provider Instructions for Treatment How to access health informa tion online Indication:[facility] Start:21-Jan-2019 Instruction Type:Patient Education How to access health informa tion online - Detail Indication:[facility] Start:21-Jan-2019 Instruction Type:Patient Education Patient Instructions Indication:[facility] Start:21-Jan-2019 Instruction Type:Provider Instructions for Treatment How to access health informa tion online Indication:Abnormal blood chemistry Start:31-Jul-2018 Instruction Type:Patient Education How to access health informa tion online - Detail Indication:Abnormal blood chemistry Start:31-Jul-2018 Instruction Type:Patient Education Patient Instructions Indication:Abnormal blood chemistry Start:31-Jul-2018 Instruction Type:Provider Instructions for Treatment How to access health informa tion online Indication:Nonsmoker Start:19-Jun-2018 Instruction Type:Patient Education How to access health informa tion online - Detail Indication:Nonsmoker Start:19-Jun-2018 Instruction Type:Patient Education Patient Instructions Indication:Nonsmoker Start:19-Jun-2018 Instruction Type:Provider Instructions for Treatment How to access health informa tion online Indication:Nonsmoker Start:12-Jun-2018 Instruction Type:Patient Education How to access health informa tion online - Detail Indication:Nonsmoker Start:12-Jun-2018 Instruction Type:Patient Education Patient Instructions Indication:Nonsmoker Start:12-Jun-2018 Instruction Type:Provider Instructions for Treatment How to access health informa tion online Indication:[facility] Start:16-Jan-2018 Instruction Type:Patient Education How to access health informa tion online - Detail Indication:[facility] Start:16-Jan-2018 Instruction Type:Patient Education Patient Instructions Indication:[facility] Start:16-Jan-2018 Instruction Type:Provider Instructions for Treatment How to access health informa tion online Indication:Cataract Start:10-Sep-2017 Instruction Type:Patient Education How to access health informa tion online - Detail Indication:Cataract Start:10-Sep-2017 Instruction Type:Patient Education Patient Instructions Indication:Cataract Start:10-Sep-2017 Instruction Type:Provider Instructions for Treatment [facility] Work Phone: reason for referral (narrative)[facility] for [facility] Family History No Family History Records FoundUnknown Family Member Name Dates Details Brother 2 Comments:2 other brothers - youngest [place] middle brother- obese Status:Active Father Comments: at age 88- renal failure- htn heart disease- had cad bypass Status:Active Mother Comments:living in her 90s- htn spinal stenosis anxiety Status:Active Unknown Family Member Name Dates Details Brother 2 Comments:2 other brothers - youngest [place] middle brother- obese Status:Active Father Comments: at age 88- renal failure- htn heart disease- had cad bypass Status:Active Mother Comments:living in her 90s- htn spinal stenosis anxiety Status:Active Unknown Family Member Name Dates Details Brother 2 Comments:2 other brothers - youngest [place] middle brother- obese Status:Active Father Comments: at age 88- renal failure- htn heart disease- had cad bypass Status:Active Mother Comments:living in her 90s- htn spinal stenosis anxiety Status:Active Unknown Family Member Name Dates Details Brother 2 Comments:2 other brothers - youngest [place] middle brother- obese Status:Active Father Comments: at age 88- renal failure- htn heart disease- had cad bypass Status:Active Mother Comments:living in her 90s- htn spinal stenosis anxiety Status:Active Unknown Family Member Name Dates Details Brother 2 Comments:2 other brothers - youngest [place] middle brother- obese Status:Active Father Comments: at age 88- renal failure- htn heart disease- had cad bypass Status:Active Mother Comments:living in her 90s- htn spinal stenosis anxiety Status:Active Unknown Family Member Name Dates Details Brother 2 Comments:2 other brothers - youngest [place] middle brother- obese Status:Active Father Comments: at age 88- renal failure- htn heart disease- had cad bypass Status:Active Mother Comments:living in her 90s- htn spinal stenosis anxiety Status:Active Unknown Family Member Name Dates Details Brother 2 Comments:2 other brothers - youngest [place] middle brother- obese Status:Active Father Comments: at age 88- renal failure- htn heart disease- had cad bypass Status:Active Mother Comments:living in her 90s- htn spinal stenosis anxiety Status:Active Unknown Family Member Name Dates Details Brother 2 Comments:2 other brothers - youngest [place] middle brother- obese Status:Active Father Comments: at age 88- renal failure- htn heart disease- had cad bypass Status:Active Mother Comments:living in her 90s- htn spinal stenosis anxiety Status:Active Unknown Family Member Name Dates Details Brother 2 Comments:2 other brothers - youngest [place] middle brother- obese Status:Active Father Comments: at age 88- renal failure- htn heart disease- had cad bypass Status:Active Mother Comments:living in her 90s- htn spinal stenosis anxiety Status:Active Unknown Family Member Name Dates Details Brother 2 Comments:2 other brothers - youngest [place] middle brother- obese Status:Active Father Comments: at age 88- renal failure- htn heart disease- had cad bypass Status:Active Mother Comments:living in her 90s- htn spinal stenosis anxiety Status:Active Unknown Family Member Name Dates Details Brother 2 Comments:2 other brothers - youngest [place] middle brother- obese Status:Active Father Comments: at age 88- renal failure- htn heart disease- had cad bypass Status:Active Mother Comments:living in her 90s- htn spinal stenosis anxiety Status:Active Unknown Family Member Name Dates Details Brother 2 Comments:2 other brothers - youngest [place] middle brother- obese Status:Active Father Comments: at age 88- renal failure- htn heart disease- had cad bypass Status:Active Mother Comments:living in her 90s- htn spinal stenosis anxiety Status:Active Unknown Family Member Name Dates Details Brother 2 Comments:2 other brothers - youngest [place] middle brother- obese Status:Active Father Comments: at age 88- renal failure- htn heart disease- had cad bypass Status:Active Mother Comments:living in her 90s- htn spinal stenosis anxiety Status:Active Unknown Family Member Name Dates Details Brother 2 Comments:2 other brothers - youngest [place] middle brother- obese Status:Active Father Comments: at age 88- renal failure- htn heart disease- had cad bypass Status:Active Mother Comments:living in her 90s- htn spinal stenosis anxiety- age 98- we think potentially gi cancer (not proven) Status:Active Unknown Family Member Name Dates Details Brother 2 Comments:2 other brothers - youngest [place] middle brother- obese Status:Active Father Comments: at age 88- renal failure- htn heart disease- had cad bypass Status:Active Mother Comments:living in her 90s- htn spinal stenosis anxiety- age 98- we think potentially gi cancer (not proven) Status:Active Unknown Family Member Name Dates Details Brother 2 Comments:2 other brothers - youngest [place] middle brother- obese Status:Active Father Comments: at age 88- renal failure- htn heart disease- had cad bypass Status:Active Mother Comments:living in her 90s- htn spinal stenosis anxiety- age 98- we think potentially gi cancer (not proven) Status:Active Unknown Family Member Name Dates Details Brother 2 Comments:2 other brothers - youngest [place] middle brother- obese Status:Active Father Comments: at age 88- renal failure- htn heart disease- had cad bypass Status:Active Mother Comments:living in her 90s- htn spinal stenosis anxiety- age 98- we think potentially gi cancer (not proven) Status:Active Unknown Family Member Name Dates Details Brother 2 Comments:2 other brothers - youngest [place] middle brother- obese Status:Active Father Comments: at age 88- renal failure- htn heart disease- had cad bypass Status:Active Mother Comments:living in her 90s- htn spinal stenosis anxiety- age 98- we think potentially gi cancer (not proven) Status:Active Unknown Family Member Name Dates Details Brother 2 Comments:2 other brothers - youngest [place] middle brother- obese Status:Active Father Comments: at age 88- renal failure- htn heart disease- had cad bypass Status:Active Mother Comments:living in her 90s- htn spinal stenosis anxiety- age 98- we think potentially gi cancer (not proven) Status:Active Unknown Family Member Name Dates Details Brother 2 Comments:2 other brothers - youngest [place] middle brother- obese Status:Active Father Comments: at age 88- renal failure- htn heart disease- had cad bypass Status:Active Mother Comments:living in her 90s- htn spinal stenosis anxiety- age 98- we think potentially gi cancer (not proven) Status:Active Unknown Family Member Name Dates Details Brother 2 Comments:2 other brothers - youngest [place] middle brother- obese Status:Active Father Comments: at age 88- renal failure- htn heart disease- had cad bypass Status:Active Mother Comments:living in her 90s- htn spinal stenosis anxiety- age 98- we think potentially gi cancer (not proven) Status:Active Unknown Family Member Name Dates Details Brother 2 Comments:2 other brothers - youngest [place] middle brother- obese Status:Active Father Comments: at age 88- renal failure- htn heart disease- had cad bypass Status:Active Mother Comments:living in her 90s- htn spinal stenosis anxiety- age 98- we think potentially gi cancer (not proven) Status:Active Unknown Family Member Name Dates Details Brother 2 Comments:2 other brothers - youngest [place] middle brother- obese Status:Active Father Comments: at age 88- renal failure- htn heart disease- had cad bypass Status:Active Mother Comments:living in her 90s- htn spinal stenosis anxiety- age 98- we think potentially gi cancer (not proven) Status:Active Unknown Family Member Name Dates Details Brother 2 Comments:2 other brothers - youngest [place] middle brother- obese Status:Active Father Comments: at age 88- renal failure- htn heart disease- had cad bypass Status:Active Mother Comments:living in her 90s- htn spinal stenosis anxiety- age 98- we think potentially gi cancer (not proven) Status:Active Unknown Family Member Name Dates Details Brother 2 Comments:2 other brothers - youngest [place] middle brother- obese Status:Active Father Comments: at age 88- renal failure- htn heart disease- had cad bypass Status:Active Mother Comments:living in her 90s- htn spinal stenosis anxiety- age 98- we think potentially gi cancer (not proven) Status:Active Instructions Name Dates Details [facility] : How to access health information online Indication:[facility] : How to access health information online - Detail Indication:[facility] : Patien t Instructions Indication:[facility] Abnormal blood chemistry : H ow to access health information online Indication:Abnormal blood chemistry Abnormal blood chemistry : H ow to access health information online - Detail Indication:Abnormal blood chemistry Abnormal blood chemistry : P atient Instructions Indication:Abnormal blood chemistry Nonsmoker : How to access he alth information online Indication:Nonsmoker Nonsmoker : How to access he alth information online - Detail Indication:Nonsmoker Nonsmoker : Patient Instruct ions Indication:Nonsmoker Cataract : How to access hea lth information online Indication:Cataract Cataract : How to access hea lth information online - Detail Indication:Cataract Cataract : Patient Instructi ons Indication:Cataract Name Dates Details [facility] : How to access health information online Indication:[facility] : How to access health information online - Detail Indication:[facility] : Patien t Instructions Indication:[facility] Abnormal blood chemistry : H ow to access health information online Indication:Abnormal blood chemistry Abnormal blood chemistry : H ow to access health information online - Detail Indication:Abnormal blood chemistry Abnormal blood chemistry : P atient Instructions Indication:Abnormal blood chemistry Nonsmoker : How to access he alth information online Indication:Nonsmoker Nonsmoker : How to access he alth information online - Detail Indication:Nonsmoker Nonsmoker : Patient Instruct ions Indication:Nonsmoker Cataract : How to access hea lth information online Indication:Cataract Cataract : How to access hea lth information online - Detail Indication:Cataract Cataract : Patient Instructi ons Indication:Cataract Name Dates Details How to access health informa tion online Indication:[facility] Start:21-Jan-2019 Instruction Type:Patient Education How to access health informa tion online - Detail Indication:[facility] Start:21-Jan-2019 Instruction Type:Patient Education Patient Instructions Indication:[facility] Start:21-Jan-2019 Instruction Type:Provider Instructions for Treatment How to access health informa tion online Indication:Abnormal blood chemistry Start:31-Jul-2018 Instruction Type:Patient Education How to access health informa tion online - Detail Indication:Abnormal blood chemistry Start:31-Jul-2018 Instruction Type:Patient Education Patient Instructions Indication:Abnormal blood chemistry Start:31-Jul-2018 Instruction Type:Provider Instructions for Treatment How to access health informa tion online Indication:Nonsmoker Start:19-Jun-2018 Instruction Type:Patient Education How to access health informa tion online - Detail Indication:Nonsmoker Start:19-Jun-2018 Instruction Type:Patient Education Patient Instructions Indication:Nonsmoker Start:19-Jun-2018 Instruction Type:Provider Instructions for Treatment How to access health informa tion online Indication:Nonsmoker Start:12-Jun-2018 Instruction Type:Patient Education How to access health informa tion online - Detail Indication:Nonsmoker Start:12-Jun-2018 Instruction Type:Patient Education Patient Instructions Indication:Nonsmoker Start:12-Jun-2018 Instruction Type:Provider Instructions for Treatment How to access health informa tion online Indication:[facility] Start:16-Jan-2018 Instruction Type:Patient Education How to access health informa tion online - Detail Indication:[facility] Start:16-Jan-2018 Instruction Type:Patient Education Patient Instructions Indication:[facility] Start:16-Jan-2018 Instruction Type:Provider Instructions for Treatment How to access health informa tion online Indication:Cataract Start:10-Sep-2017 Instruction Type:Patient Education How to access health informa tion online - Detail Indication:Cataract Start:10-Sep-2017 Instruction Type:Patient Education Patient Instructions Indication:Cataract Start:10-Sep-2017 Instruction Type:Provider Instructions for Treatment Name Dates Details How to access health informa tion online Indication:BMI 24.0-24.9, adult Start:30-Apr-2019 Instruction Type:Patient Education How to access health informa tion online - Detail Indication:BMI 24.0-24.9, adult Start:30-Apr-2019 Instruction Type:Patient Education Patient Instructions Indication:BMI 24.0-24.9, adult Start:30-Apr-2019 Instruction Type:Provider Instructions for Treatment How to access health informa tion online Indication:[facility] Start:21-Jan-2019 Instruction Type:Patient Education How to access health informa tion online - Detail Indication:[facility] Start:21-Jan-2019 Instruction Type:Patient Education Patient Instructions Indication:[facility] Start:21-Jan-2019 Instruction Type:Provider Instructions for Treatment How to access health informa tion online Indication:Abnormal blood chemistry Start:31-Jul-2018 Instruction Type:Patient Education How to access health informa tion online - Detail Indication:Abnormal blood chemistry Start:31-Jul-2018 Instruction Type:Patient Education Patient Instructions Indication:Abnormal blood chemistry Start:31-Jul-2018 Instruction Type:Provider Instructions for Treatment How to access health informa tion online Indication:Nonsmoker Start:19-Jun-2018 Instruction Type:Patient Education How to access health informa tion online - Detail Indication:Nonsmoker Start:19-Jun-2018 Instruction Type:Patient Education Patient Instructions Indication:Nonsmoker Start:19-Jun-2018 Instruction Type:Provider Instructions for Treatment How to access health informa tion online Indication:Nonsmoker Start:12-Jun-2018 Instruction Type:Patient Education How to access health informa tion online - Detail Indication:Nonsmoker Start:12-Jun-2018 Instruction Type:Patient Education Patient Instructions Indication:Nonsmoker Start:12-Jun-2018 Instruction Type:Provider Instructions for Treatment How to access health informa tion online Indication:[facility] Start:16-Jan-2018 Instruction Type:Patient Education How to access health informa tion online - Detail Indication:[facility] Start:16-Jan-2018 Instruction Type:Patient Education Patient Instructions Indication:[facility] Start:16-Jan-2018 Instruction Type:Provider Instructions for Treatment How to access health informa tion online Indication:Cataract Start:10-Sep-2017 Instruction Type:Patient Education How to access health informa tion online - Detail Indication:Cataract Start:10-Sep-2017 Instruction Type:Patient Education Patient Instructions Indication:Cataract Start:10-Sep-2017 Instruction Type:Provider Instructions for Treatment Name Dates Details How to access health informa tion online Indication:BMI 24.0-24.9, adult Start:30-Apr-2019 Instruction Type:Patient Education How to access health informa tion online - Detail Indication:BMI 24.0-24.9, adult Start:30-Apr-2019 Instruction Type:Patient Education Patient Instructions Indication:BMI 24.0-24.9, adult Start:30-Apr-2019 Instruction Type:Provider Instructions for Treatment How to access health informa tion online Indication:[facility] Start:21-Jan-2019 Instruction Type:Patient Education How to access health informa tion online - Detail Indication:[facility] Start:21-Jan-2019 Instruction Type:Patient Education Patient Instructions Indication:[facility] Start:21-Jan-2019 Instruction Type:Provider Instructions for Treatment How to access health informa tion online Indication:Abnormal blood chemistry Start:31-Jul-2018 Instruction Type:Patient Education How to access health informa tion online - Detail Indication:Abnormal blood chemistry Start:31-Jul-2018 Instruction Type:Patient Education Patient Instructions Indication:Abnormal blood chemistry Start:31-Jul-2018 Instruction Type:Provider Instructions for Treatment How to access health informa tion online Indication:Nonsmoker Start:19-Jun-2018 Instruction Type:Patient Education How to access health informa tion online - Detail Indication:Nonsmoker Start:19-Jun-2018 Instruction Type:Patient Education Patient Instructions Indication:Nonsmoker Start:19-Jun-2018 Instruction Type:Provider Instructions for Treatment How to access health informa tion online Indication:Nonsmoker Start:12-Jun-2018 Instruction Type:Patient Education How to access health informa tion online - Detail Indication:Nonsmoker Start:12-Jun-2018 Instruction Type:Patient Education Patient Instructions Indication:Nonsmoker Start:12-Jun-2018 Instruction Type:Provider Instructions for Treatment How to access health informa tion online Indication:[facility] Start:16-Jan-2018 Instruction Type:Patient Education How to access health informa tion online - Detail Indication:[facility] Start:16-Jan-2018 Instruction Type:Patient Education Patient Instructions Indication:[facility] Start:16-Jan-2018 Instruction Type:Provider Instructions for Treatment How to access health informa tion online Indication:Cataract Start:10-Sep-2017 Instruction Type:Patient Education How to access health informa tion online - Detail Indication:Cataract Start:10-Sep-2017 Instruction Type:Patient Education Patient Instructions Indication:Cataract Start:10-Sep-2017 Instruction Type:Provider Instructions for Treatment Name Dates Details How to access health informa tion online Indication:BMI 24.0-24.9, adult Start:30-Apr-2019 Instruction Type:Patient Education How to access health informa tion online - Detail Indication:BMI 24.0-24.9, adult Start:30-Apr-2019 Instruction Type:Patient Education Patient Instructions Indication:BMI 24.0-24.9, adult Start:30-Apr-2019 Instruction Type:Provider Instructions for Treatment How to access health informa tion online Indication:[facility] Start:21-Jan-2019 Instruction Type:Patient Education How to access health informa tion online - Detail Indication:[facility] Start:21-Jan-2019 Instruction Type:Patient Education Patient Instructions Indication:[facility] Start:21-Jan-2019 Instruction Type:Provider Instructions for Treatment How to access health informa tion online Indication:Abnormal blood chemistry Start:31-Jul-2018 Instruction Type:Patient Education How to access health informa tion online - Detail Indication:Abnormal blood chemistry Start:31-Jul-2018 Instruction Type:Patient Education Patient Instructions Indication:Abnormal blood chemistry Start:31-Jul-2018 Instruction Type:Provider Instructions for Treatment How to access health informa tion online Indication:Nonsmoker Start:19-Jun-2018 Instruction Type:Patient Education How to access health informa tion online - Detail Indication:Nonsmoker Start:19-Jun-2018 Instruction Type:Patient Education Patient Instructions Indication:Nonsmoker Start:19-Jun-2018 Instruction Type:Provider Instructions for Treatment How to access health informa tion online Indication:Nonsmoker Start:12-Jun-2018 Instruction Type:Patient Education How to access health informa tion online - Detail Indication:Nonsmoker Start:12-Jun-2018 Instruction Type:Patient Education Patient Instructions Indication:Nonsmoker Start:12-Jun-2018 Instruction Type:Provider Instructions for Treatment How to access health informa tion online Indication:[facility] Start:16-Jan-2018 Instruction Type:Patient Education How to access health informa tion online - Detail Indication:[facility] Start:16-Jan-2018 Instruction Type:Patient Education Patient Instructions Indication:[facility] Start:16-Jan-2018 Instruction Type:Provider Instructions for Treatment How to access health informa tion online Indication:Cataract Start:10-Sep-2017 Instruction Type:Patient Education How to access health informa tion online - Detail Indication:Cataract Start:10-Sep-2017 Instruction Type:Patient Education Patient Instructions Indication:Cataract Start:10-Sep-2017 Instruction Type:Provider Instructions for Treatment Name Dates Details How to access health informa tion online Indication:[facility] Start:19-May-2020 Instruction Type:Patient Education How to access health informa tion online - Detail Indication:[facility] Start:19-May-2020 Instruction Type:Patient Education Patient Instructions Indication:[facility] Start:19-May-2020 Instruction Type:Provider Instructions for Treatment How to access health informa tion online Indication:BMI 24.0-24.9, adult Start:30-Apr-2019 Instruction Type:Patient Education How to access health informa tion online - Detail Indication:BMI 24.0-24.9, adult Start:30-Apr-2019 Instruction Type:Patient Education Patient Instructions Indication:BMI 24.0-24.9, adult Start:30-Apr-2019 Instruction Type:Provider Instructions for Treatment How to access health informa tion online Indication:[facility] Start:21-Jan-2019 Instruction Type:Patient Education How to access health informa tion online - Detail Indication:[facility] Start:21-Jan-2019 Instruction Type:Patient Education Patient Instructions Indication:[facility] Start:21-Jan-2019 Instruction Type:Provider Instructions for Treatment How to access health informa tion online Indication:Abnormal blood chemistry Start:31-Jul-2018 Instruction Type:Patient Education How to access health informa tion online - Detail Indication:Abnormal blood chemistry Start:31-Jul-2018 Instruction Type:Patient Education Patient Instructions Indication:Abnormal blood chemistry Start:31-Jul-2018 Instruction Type:Provider Instructions for Treatment How to access health informa tion online Indication:Nonsmoker Start:19-Jun-2018 Instruction Type:Patient Education How to access health informa tion online - Detail Indication:Nonsmoker Start:19-Jun-2018 Instruction Type:Patient Education Patient Instructions Indication:Nonsmoker Start:19-Jun-2018 Instruction Type:Provider Instructions for Treatment How to access health informa tion online Indication:Nonsmoker Start:12-Jun-2018 Instruction Type:Patient Education How to access health informa tion online - Detail Indication:Nonsmoker Start:12-Jun-2018 Instruction Type:Patient Education Patient Instructions Indication:Nonsmoker Start:12-Jun-2018 Instruction Type:Provider Instructions for Treatment How to access health informa tion online Indication:[facility] Start:16-Jan-2018 Instruction Type:Patient Education How to access health informa tion online - Detail Indication:[facility] Start:16-Jan-2018 Instruction Type:Patient Education Patient Instructions Indication:[facility] Start:16-Jan-2018 Instruction Type:Provider Instructions for Treatment How to access health informa tion online Indication:Cataract Start:10-Sep-2017 Instruction Type:Patient Education How to access health informa tion online - Detail Indication:Cataract Start:10-Sep-2017 Instruction Type:Patient Education Patient Instructions Indication:Cataract Start:10-Sep-2017 Instruction Type:Provider Instructions for Treatment Name Dates Details How to access health informa tion online Indication:[facility] Start:19-May-2020 Instruction Type:Patient Education How to access health informa tion online - Detail Indication:[facility] Start:19-May-2020 Instruction Type:Patient Education Patient Instructions Indication:[facility] Start:19-May-2020 Instruction Type:Provider Instructions for Treatment How to access health informa tion online Indication:BMI 24.0-24.9, adult Start:30-Apr-2019 Instruction Type:Patient Education How to access health informa tion online - Detail Indication:BMI 24.0-24.9, adult Start:30-Apr-2019 Instruction Type:Patient Education Patient Instructions Indication:BMI 24.0-24.9, adult Start:30-Apr-2019 Instruction Type:Provider Instructions for Treatment How to access health informa tion online Indication:[facility] Start:21-Jan-2019 Instruction Type:Patient Education How to access health informa tion online - Detail Indication:[facility] Start:21-Jan-2019 Instruction Type:Patient Education Patient Instructions Indication:[facility] Start:21-Jan-2019 Instruction Type:Provider Instructions for Treatment How to access health informa tion online Indication:Abnormal blood chemistry Start:31-Jul-2018 Instruction Type:Patient Education How to access health informa tion online - Detail Indication:Abnormal blood chemistry Start:31-Jul-2018 Instruction Type:Patient Education Patient Instructions Indication:Abnormal blood chemistry Start:31-Jul-2018 Instruction Type:Provider Instructions for Treatment How to access health informa tion online Indication:Nonsmoker Start:19-Jun-2018 Instruction Type:Patient Education How to access health informa tion online - Detail Indication:Nonsmoker Start:19-Jun-2018 Instruction Type:Patient Education Patient Instructions Indication:Nonsmoker Start:19-Jun-2018 Instruction Type:Provider Instructions for Treatment How to access health informa tion online Indication:Nonsmoker Start:12-Jun-2018 Instruction Type:Patient Education How to access health informa tion online - Detail Indication:Nonsmoker Start:12-Jun-2018 Instruction Type:Patient Education Patient Instructions Indication:Nonsmoker Start:12-Jun-2018 Instruction Type:Provider Instructions for Treatment How to access health informa tion online Indication:[facility] Start:16-Jan-2018 Instruction Type:Patient Education How to access health informa tion online - Detail Indication:[facility] Start:16-Jan-2018 Instruction Type:Patient Education Patient Instructions Indication:[facility] Start:16-Jan-2018 Instruction Type:Provider Instructions for Treatment How to access health informa tion online Indication:Cataract Start:10-Sep-2017 Instruction Type:Patient Education How to access health informa tion online - Detail Indication:Cataract Start:10-Sep-2017 Instruction Type:Patient Education Patient Instructions Indication:Cataract Start:10-Sep-2017 Instruction Type:Provider Instructions for Treatment Name Dates Details Patient Instructions Indication:Hyperlipidemia Start:09-Nov-2020 Instruction Type:Provider Instructions for Treatment How to Access Health Informa tion Online using Patient Portal and 3rd [employer] Apps Indication:Hyperlipidemia Start:09-Nov-2020 Instruction Type:Patient Education How to access health informa tion online Indication:[facility] Start:19-May-2020 Instruction Type:Patient Education How to access health informa tion online - Detail Indication:[facility] Start:19-May-2020 Instruction Type:Patient Education Patient Instructions Indication:[facility] Start:19-May-2020 Instruction Type:Provider Instructions for Treatment How to access health informa tion online Indication:BMI 24.0-24.9, adult Start:30-Apr-2019 Instruction Type:Patient Education How to access health informa tion online - Detail Indication:BMI 24.0-24.9, adult Start:30-Apr-2019 Instruction Type:Patient Education Patient Instructions Indication:BMI 24.0-24.9, adult Start:30-Apr-2019 Instruction Type:Provider Instructions for Treatment How to access health informa tion online Indication:[facility] Start:21-Jan-2019 Instruction Type:Patient Education How to access health informa tion online - Detail Indication:[facility] Start:21-Jan-2019 Instruction Type:Patient Education Patient Instructions Indication:[facility] Start:21-Jan-2019 Instruction Type:Provider Instructions for Treatment How to access health informa tion online Indication:Abnormal blood chemistry Start:31-Jul-2018 Instruction Type:Patient Education How to access health informa tion online - Detail Indication:Abnormal blood chemistry Start:31-Jul-2018 Instruction Type:Patient Education Patient Instructions Indication:Abnormal blood chemistry Start:31-Jul-2018 Instruction Type:Provider Instructions for Treatment How to access health informa tion online Indication:Nonsmoker Start:19-Jun-2018 Instruction Type:Patient Education How to access health informa tion online - Detail Indication:Nonsmoker Start:19-Jun-2018 Instruction Type:Patient Education Patient Instructions Indication:Nonsmoker Start:19-Jun-2018 Instruction Type:Provider Instructions for Treatment How to access health informa tion online Indication:Nonsmoker Start:12-Jun-2018 Instruction Type:Patient Education How to access health informa tion online - Detail Indication:Nonsmoker Start:12-Jun-2018 Instruction Type:Patient Education Patient Instructions Indication:Nonsmoker Start:12-Jun-2018 Instruction Type:Provider Instructions for Treatment How to access health informa tion online Indication:[facility] Start:16-Jan-2018 Instruction Type:Patient Education How to access health informa tion online - Detail Indication:[facility] Start:16-Jan-2018 Instruction Type:Patient Education Patient Instructions Indication:[facility] Start:16-Jan-2018 Instruction Type:Provider Instructions for Treatment How to access health informa tion online Indication:Cataract Start:10-Sep-2017 Instruction Type:Patient Education How to access health informa tion online - Detail Indication:Cataract Start:10-Sep-2017 Instruction Type:Patient Education Patient Instructions Indication:Cataract Start:10-Sep-2017 Instruction Type:Provider Instructions for Treatment Name Dates Details Patient Instructions Indication:Hyperlipidemia Start:09-Nov-2020 Instruction Type:Provider Instructions for Treatment How to Access Health Informa tion Online using Patient Portal and [employer]rd [employer] Apps Indication:Hyperlipidemia Start:09-Nov-2020 Instruction Type:Patient Education How to access health informa tion online Indication:[facility] Start:19-May-2020 Instruction Type:Patient Education How to access health informa tion online - Detail Indication:[facility] Start:19-May-2020 Instruction Type:Patient Education Patient Instructions Indication:[facility] Start:19-May-2020 Instruction Type:Provider Instructions for Treatment How to access health informa tion online Indication:BMI 24.0-24.9, adult Start:30-Apr-2019 Instruction Type:Patient Education How to access health informa tion online - Detail Indication:BMI 24.0-24.9, adult Start:30-Apr-2019 Instruction Type:Patient Education Patient Instructions Indication:BMI 24.0-24.9, adult Start:30-Apr-2019 Instruction Type:Provider Instructions for Treatment How to access health informa tion online Indication:[facility] Start:21-Jan-2019 Instruction Type:Patient Education How to access health informa tion online - Detail Indication:[facility] Start:21-Jan-2019 Instruction Type:Patient Education Patient Instructions Indication:[facility] Start:21-Jan-2019 Instruction Type:Provider Instructions for Treatment How to access health informa tion online Indication:Abnormal blood chemistry Start:31-Jul-2018 Instruction Type:Patient Education How to access health informa tion online - Detail Indication:Abnormal blood chemistry Start:31-Jul-2018 Instruction Type:Patient Education Patient Instructions Indication:Abnormal blood chemistry Start:31-Jul-2018 Instruction Type:Provider Instructions for Treatment How to access health informa tion online Indication:Nonsmoker Start:19-Jun-2018 Instruction Type:Patient Education How to access health informa tion online - Detail Indication:Nonsmoker Start:19-Jun-2018 Instruction Type:Patient Education Patient Instructions Indication:Nonsmoker Start:19-Jun-2018 Instruction Type:Provider Instructions for Treatment How to access health informa tion online Indication:Nonsmoker Start:12-Jun-2018 Instruction Type:Patient Education How to access health informa tion online - Detail Indication:Nonsmoker Start:12-Jun-2018 Instruction Type:Patient Education Patient Instructions Indication:Nonsmoker Start:12-Jun-2018 Instruction Type:Provider Instructions for Treatment How to access health informa tion online Indication:[facility] Start:16-Jan-2018 Instruction Type:Patient Education How to access health informa tion online - Detail Indication:[facility] Start:16-Jan-2018 Instruction Type:Patient Education Patient Instructions Indication:[facility] Start:16-Jan-2018 Instruction Type:Provider Instructions for Treatment How to access health informa tion online Indication:Cataract Start:10-Sep-2017 Instruction Type:Patient Education How to access health informa tion online - Detail Indication:Cataract Start:10-Sep-2017 Instruction Type:Patient Education Patient Instructions Indication:Cataract Start:10-Sep-2017 Instruction Type:Provider Instructions for Treatment Name Dates Details Patient Instructions Indication:Hyperlipidemia Start:09-Nov-2020 Instruction Type:Provider Instructions for Treatment How to Access Health Informa tion Online using Patient Portal and [employer]rd [employer] Apps Indication:Hyperlipidemia Start:09-Nov-2020 Instruction Type:Patient Education How to access health informa tion online Indication:[facility] Start:19-May-2020 Instruction Type:Patient Education How to access health informa tion online - Detail Indication:[facility] Start:19-May-2020 Instruction Type:Patient Education Patient Instructions Indication:[facility] Start:19-May-2020 Instruction Type:Provider Instructions for Treatment How to access health informa tion online Indication:BMI 24.0-24.9, adult Start:30-Apr-2019 Instruction Type:Patient Education How to access health informa tion online - Detail Indication:BMI 24.0-24.9, adult Start:30-Apr-2019 Instruction Type:Patient Education Patient Instructions Indication:BMI 24.0-24.9, adult Start:30-Apr-2019 Instruction Type:Provider Instructions for Treatment How to access health informa tion online Indication:[facility] Start:21-Jan-2019 Instruction Type:Patient Education How to access health informa tion online - Detail Indication:[facility] Start:21-Jan-2019 Instruction Type:Patient Education Patient Instructions Indication:[facility] Start:21-Jan-2019 Instruction Type:Provider Instructions for Treatment How to access health informa tion online Indication:Abnormal blood chemistry Start:31-Jul-2018 Instruction Type:Patient Education How to access health informa tion online - Detail Indication:Abnormal blood chemistry Start:31-Jul-2018 Instruction Type:Patient Education Patient Instructions Indication:Abnormal blood chemistry Start:31-Jul-2018 Instruction Type:Provider Instructions for Treatment How to access health informa tion online Indication:Nonsmoker Start:19-Jun-2018 Instruction Type:Patient Education How to access health informa tion online - Detail Indication:Nonsmoker Start:19-Jun-2018 Instruction Type:Patient Education Patient Instructions Indication:Nonsmoker Start:19-Jun-2018 Instruction Type:Provider Instructions for Treatment How to access health informa tion online Indication:Nonsmoker Start:12-Jun-2018 Instruction Type:Patient Education How to access health informa tion online - Detail Indication:Nonsmoker Start:12-Jun-2018 Instruction Type:Patient Education Patient Instructions Indication:Nonsmoker Start:12-Jun-2018 Instruction Type:Provider Instructions for Treatment How to access health informa tion online Indication:[facility] Start:16-Jan-2018 Instruction Type:Patient Education How to access health informa tion online - Detail Indication:[facility] Start:16-Jan-2018 Instruction Type:Patient Education Patient Instructions Indication:[facility] Start:16-Jan-2018 Instruction Type:Provider Instructions for Treatment How to access health informa tion online Indication:Cataract Start:10-Sep-2017 Instruction Type:Patient Education How to access health informa tion online - Detail Indication:Cataract Start:10-Sep-2017 Instruction Type:Patient Education Patient Instructions Indication:Cataract Start:10-Sep-2017 Instruction Type:Provider Instructions for Treatment Name Dates Details How to access health informa tion online Indication:[facility] Start:19-May-2020 Instruction Type:Patient Education How to access health informa tion online - Detail Indication:[facility] Start:19-May-2020 Instruction Type:Patient Education Patient Instructions Indication:[facility] Start:19-May-2020 Instruction Type:Provider Instructions for Treatment How to access health informa tion online Indication:BMI 24.0-24.9, adult Start:30-Apr-2019 Instruction Type:Patient Education How to access health informa tion online - Detail Indication:BMI 24.0-24.9, adult Start:30-Apr-2019 Instruction Type:Patient Education Patient Instructions Indication:BMI 24.0-24.9, adult Start:30-Apr-2019 Instruction Type:Provider Instructions for Treatment How to access health informa tion online Indication:[facility] Start:21-Jan-2019 Instruction Type:Patient Education How to access health informa tion online - Detail Indication:[facility] Start:21-Jan-2019 Instruction Type:Patient Education Patient Instructions Indication:[facility] Start:21-Jan-2019 Instruction Type:Provider Instructions for Treatment How to access health informa tion online Indication:Abnormal blood chemistry Start:31-Jul-2018 Instruction Type:Patient Education How to access health informa tion online - Detail Indication:Abnormal blood chemistry Start:31-Jul-2018 Instruction Type:Patient Education Patient Instructions Indication:Abnormal blood chemistry Start:31-Jul-2018 Instruction Type:Provider Instructions for Treatment How to access health informa tion online Indication:Nonsmoker Start:19-Jun-2018 Instruction Type:Patient Education How to access health informa tion online - Detail Indication:Nonsmoker Start:19-Jun-2018 Instruction Type:Patient Education Patient Instructions Indication:Nonsmoker Start:19-Jun-2018 Instruction Type:Provider Instructions for Treatment How to access health informa tion online Indication:Nonsmoker Start:12-Jun-2018 Instruction Type:Patient Education How to access health informa tion online - Detail Indication:Nonsmoker Start:12-Jun-2018 Instruction Type:Patient Education Patient Instructions Indication:Nonsmoker Start:12-Jun-2018 Instruction Type:Provider Instructions for Treatment How to access health informa tion online Indication:[facility] Start:16-Jan-2018 Instruction Type:Patient Education How to access health informa tion online - Detail Indication:[facility] Start:16-Jan-2018 Instruction Type:Patient Education Patient Instructions Indication:[facility] Start:16-Jan-2018 Instruction Type:Provider Instructions for Treatment How to access health informa tion online Indication:Cataract Start:10-Sep-2017 Instruction Type:Patient Education How to access health informa tion online - Detail Indication:Cataract Start:10-Sep-2017 Instruction Type:Patient Education Patient Instructions Indication:Cataract Start:10-Sep-2017 Instruction Type:Provider Instructions for Treatment Advance Directives No Advanced Directives Records Found Name Dates Details Living Will - Effective on . Expiration date unspecified. Scanned Document is available upon request. Effective:12-Feb-2018 Immunization Registry [place] - Effective on 09/10/2017. Expiration date unspecified Effective:10-Sep-2017 Name Dates Details Living Will - Effective on . Expiration date unspecified. Scanned Document is available upon request. Effective:12-Feb-2018 Immunization Registry [place] - Effective on 09/10/2017. Expiration date unspecified Effective:10-Sep-2017 Name Dates Details Living Will - Effective on . Expiration date unspecified. Scanned Document is available upon request. Effective:12-Feb-2018 Immunization Registry [place] - Effective on 09/10/2017. Expiration date unspecified Effective:10-Sep-2017 Name Dates Details Living Will - Effective on . Expiration date unspecified. Scanned Document is available upon request. Effective:12-Feb-2018 Immunization Registry [place] - Effective on 09/10/2017. Expiration date unspecified Effective:10-Sep-2017 Name Dates Details Living Will - Effective on . Expiration date unspecified. Scanned Document is available upon request. Effective:12-Feb-2018 Immunization Registry [place] - Effective on 09/10/2017. Expiration date unspecified Effective:10-Sep-2017 Name Dates Details Living Will - Effective on . Expiration date unspecified. Scanned Document is available upon request. Effective:12-Feb-2018 Immunization Registry [place] - Effective on 05/19/2019. Expiration date unspecified Effective:19-May-2019 Name Dates Details Living Will - Effective on . Expiration date unspecified. Scanned Document is available upon request. Effective:12-Feb-2018 Immunization Registry [place] - Effective on 05/19/2019. Expiration date unspecified Effective:19-May-2019 Name Dates Details Living Will - Effective on . Expiration date unspecified. Scanned Document is available upon request. Effective:12-Feb-2018 Immunization Registry [place] - Effective on 05/19/2019. Expiration date unspecified Effective:19-May-2019 Name Dates Details Living Will - Effective on . Expiration date unspecified. Scanned Document is available upon request. Effective:12-Feb-2018 Immunization Registry [place] - Effective on 05/19/2019. Expiration date unspecified Effective:19-May-2019 Name Dates Details Living Will - Effective on . Expiration date unspecified. Scanned Document is available upon request. Effective:12-Feb-2018 Immunization Registry [place] - Effective on 05/19/2019. Expiration date unspecified Effective:19-May-2019 Name Dates Details Living Will - Effective on . Expiration date unspecified. Scanned Document is available upon request. Effective:12-Feb-2018 Immunization Registry [place] - Effective on 05/19/2019. Expiration date unspecified Effective:19-May-2019 Name Dates Details Living Will - Effective on . Expiration date unspecified. Scanned Document is available upon request. Effective:12-Feb-2018 Immunization Registry [place] - Effective on 05/19/2019. Expiration date unspecified Effective:19-May-2019 Name Dates Details Living Will - Effective on . Expiration date unspecified. Scanned Document is available upon request. Effective:12-Feb-2018 Immunization Registry [place] - Effective on 05/19/2019. Expiration date unspecified Effective:19-May-2019 Name Dates Details Living Will - Effective on . Expiration date unspecified. Scanned Document is available upon request. Effective:12-Feb-2018 Immunization Registry [place] - Effective on 05/19/2019. Expiration date unspecified Effective:19-May-2019 Advance Directive Response Recorded Date/ Time Living Will Yes January 21 020 1:55pm Power of As[employer]er [employer] Yes January 21, 2020 1:55pm Name Dates Details Living Will - Effective on . Expiration date unspecified. Scanned Document is available upon request. Effective:12-Feb-2018 Immunization Registry [place] - Effective on 05/19/2019. Expiration date unspecified Effective:19-May-2019 Name Dates Details Living Will - Effective on . Expiration date unspecified. Scanned Document is available upon request. Effective:12-Feb-2018 Immunization Registry [place] - Effective on 05/19/2019. Expiration date unspecified Effective:19-May-2019 Name Dates Details Living Will - Effective on . Expiration date unspecified. Scanned Document is available upon request. Effective:12-Feb-2018 Immunization Registry [place] - Effective on 05/19/2019. Expiration date unspecified Effective:19-May-2019 Advance Directive Response Recorded Date/ Time Living Will Yes January 21 12:55pm Power of As[employer] Yes January 21, 2020 12:55pm Name Dates Details Living Will - Effective on . Expiration date unspecified. Scanned Document is available upon request. Effective:12-Feb-2018 Immunization Registry [place] - Effective on 05/19/2019. Expiration date unspecified Effective:19-May-2019 Name Dates Details Living Will - Effective on . Expiration date unspecified. Scanned Document is available upon request. Effective:12-Jan-2023 Immunization Registry [place] - Effective on 05/19/2019. Expiration date unspecified Effective:19-May-2019 Name Dates Details Living Will - Effective on . Expiration date unspecified. Scanned Document is available upon request. Effective:12-Jan-2023 Immunization Registry [place] - Effective on 05/19/2019. Expiration date unspecified Effective:19-May-2019 Name Dates Details Living Will - Effective on . Expiration date unspecified. Scanned Document is available upon request. Effective:12-Jan-2023 Immunization Registry [place] - Effective on 05/19/2019. Expiration date unspecified Effective:19-May-2019 Advance Directive Response Recorded Date/ Time Living Will Yes January 21 1:55pm Do you have a Healthcare Power of As[employer]? Yes January 21, 2020 1:55pm Summary Purpose Chief Complaint and Reason for Visit Chief Complaint OSTEO Chief Complaint Malignant neoplasm o f prostate THYROID NODULE Chief Complaint MALIGNANT NEOPLASM O F PROSTATE Chief Complaint Admit Date LUMBAR RADICULOPATHY. RX HERE October 272023 8:00am 4 M FU December 24, 2024 1 :40pm PSA January 06, 2025 8:53am THORACIC ANEURYSM February 02, 2025 6:4 5am Reason for Visit Admit Date Obstructive sleep apnea December 24 1:40pm Chief Complaint Admit Date THORACIC ANEURYSM February 02, 2025 6:4 5am XRAY May 15, 2025 9:36 am Chief Complaint Admit Date THORACIC ANEURYSM February 02, 2025 6:4 5am XRAY May 15, 2025 9:36 am non toxic single thyroid nodule April 1:13pm Chief Complaint Admit Date XRAY May 15, 2025 9:36 am non toxic single thyroid nodule April 1:13pm screening June 02, 2025 8:15a m OSTEOPENIA June 03, 2025 9:15a m Chief Complaint Admit Date XRAY May 15, 2025 9:36 am non toxic single thyroid nodule April 1:13pm screening June 02, 2025 8:15a m OSTEOPENIA June 03, 2025 9:15a m PSA July 08, 2025 1: 43pm Reason for Referral Specialty Diagnoses / Procedures Referred By Jorge Luis templeton Referred To Contact Radiology Diagnoses Hyperlipidemia, unspecified Procedures CT cardiac scoring wo IV contrast Lars Palomares DO [address] [facility] [address] [place] [address] Referral ID Status Reason Start Date Expiration Date Visits Requested Visits Authorized [id number] Authorized Perform Procedure 12/13/2023 12/12/2024 1 1 Additional Source Comments (unrecognized sect ion and content) No Status Records FoundNo Status Records FoundNo Status Records FoundNo Status Records Found INFORMATION SOURCE (unrecogn ized section and content) DATE CREATED AUTHOR 01/02/2022 [facility] ([place]) DATE CREATED AUTHOR AUTHOR'S ORGANIZ ATION 01/01/2023 [facility] DATE CREATED AUTHOR AUTHOR'S ORGANIZ ATION 08/18/2024 [facility] DATE CREATED AUTHOR AUTHOR'S ORGANIZ ATION 07/14/2025 [facility] Goals (unrecognized section and content) Goals may be documented in a n alternate section Care Teams (unrecognized sec tion and content) Team Status: Active Member Role Status Dates Dr. Lars Palomares DO Family Provider Active Dr. Lars Palomares DO Primary Care Provider Active Team Status: Inactive Member Role Status Dates Dr. Lars Palomares DO Primary Care Provider Active Dee Cardoso , CUSTOM DRESSMAKER-C Attending Provider, Ernst wilburn Provider Active Team Status: Inactive Member Role Status Dates Dr. Lars Palomares DO Primary Care Provider, Narayan lynch Active Team Status: Inactive Member Role Status Dates Dr. Lars Palomares DO Primary Care Provider Active Dr. Chadd Barros MD Attending Provider, Referr ing Provider Active Team Status: Inactive Member Role Status Dates Dr. Lars Palomares DO Primary Care Provide r, Attending Provider, Referring Provider Active Environmental Services Technician Relationship Specialty Start Date End Date Lars Palomares DO [address] [facility] [address] [place] [address] PCP - General Internal Medicine 12/17/23 Team Status: Inactive Member Role Status Dates Dr. Lars Palomares DO Primary Care Provider Active Dr. Chadd Barros MD Attending Provider Active Team Status: Inactive Member Role Status Dates Dr. Lars Palomares DO Primary Care Provider Active Tessy [place] Attending Provider, Referring Provide r Active Team Status: Active Member Role Status Dates Dr. Lars Palomares DO Primary Care Provider Active Team Status: Inactive Member Role Status Dates Dr. Lars Palomares DO Primary Care Provider Active Start: November 18, 2024 End: November 18, 2024 Dr. Lars Palomares DO Attending Provider Active St art: November 18, 2024 End: November 18, 2024 Dr. Lars Palomares DO Referring Provider Active St art: November 18, 2024 End: November 18, 2024 Team Status: Inactive Member Role Status Dates Dr. Lars Palomares DO Primary Care Provider Active Start: December 24, 2024 End: December 24, 2024 Dr. Lars Palomares DO Referring Provider Active St art: December 24, 2024 End: December 24, 2024 Addie Andrea CUSTOM DRESSMAKER, CUSTOM DRESSMAKER-C Attending Provider Active Start: December 24, 2024 End: December 24, 2024 Team Status: Inactive Member Role Status Dates Dr. Lars Palomares DO Primary Care Provider Active Start: January 06, 2025 End: January 06, 2025 Tessy [place] Attending Provider Active Start : January 06, 2025 End: January 06, 2025 Tessy [place] Referring Provider Active Start : January 06, 2025 End: January 06, 2025 Team Status: Inactive Member Role Status Dates Dr. Lars Palomares DO Primary Care Provider Active Start: February 02, 2025 End: February 02, 2025 Dr. Lars Palomares DO Attending Provider Active St art: February 02, 2025 End: February 02, 2025 Dr. Lars Palomares DO Referring Provider Active St art: February 02, 2025 End: February 02, 2025 Team Status: Inactive Member Role Status Dates Dr. Lars Palomares DO Primary Care Provider Active Start: May 15, 2025 End: May 15, 2025 Dr. Bg Restrepo MD Attending Provider Active S tart: May 15, 2025 End: May 15, 2025 Team Status: Active Member Role/Relationship Status Dates Dr. Lars Palomares DO Primary Care Provider Active Team Status: Inactive Member Role/Relationship Status Dates Dr. Lars Palomares DO Primary Care Provider Active Start: February 02, 2025 End: February 02, 2025 Dr. Lars Palomares DO Attending Provider Active St art: February 02, 2025 End: February 02, 2025 Dr. Lars Palomares DO Referring Provider Active St art: February 02, 2025 End: February 02, 2025 Team Status: Inactive Member Role/Relationship Status Dates Dr. Lars Palomares DO Primary Care Provider Active Start: May 15, 2025 End: May 15, 2025 Dr. Bg Restrepo MD Attending Provider Active S tart: May 15, 2025 End: May 15, 2025 Team Status: Inactive Member Role/Relationship Status Dates Dr. Lars Palomares DO Primary Care Provider Active Start: May 21, 2025 End: May 21, 2025 Dr. Lars Palomares DO Attending Provider Active St art: May 21, 2025 End: May 21, 2025 Dr. Lars Palomares DO Referring Provider Active St art: May 21, 2025 End: May 21, 2025 Team Status: Inactive Member Role/Relationship Status Dates Dr. Lars Palomares DO Primary Care Provider Active Start: May 15, 2025 End: May 15, 2025 Dr. Bg Restrepo MD Attending Provider Active S tart: May 15, 2025 End: May 15, 2025 Team Status: Inactive Member Role/Relationship Status Dates Dr. Lars Palomares DO Primary Care Provider Active Start: May 21, 2025 End: May 21, 2025 Dr. Lars Palomares DO Attending Provider Active St art: May 21, 2025 End: May 21, 2025 Dr. Lars Palomares DO Referring Provider Active St art: May 21, 2025 End: May 21, 2025 Team Status: Active Member Role/Relationship Status Dates Dr. Lars Palomares DO Primary Care Provider Active Start: June 02, 2025 Self Referred Attending Provider Active Start: 2024 Self Referred Referring Provider Active Start: 2024 Team Status: Inactive Member Role/Relationship Status Dates Dr. Lars Palomares DO Primary Care Provider Active Start: June 03, 2025 End: June 03, 2025 Dr. Lars Palomares DO Attending Provider Active St art: June 03, 2025 End: June 03, 2025 Dr. Lars Palomares DO Referring Provider Active St art: June 03, 2025 End: June 03, 2025 Team Status: Inactive Member Role/Relationship Status Dates Dr. Lars Palomares DO Primary Care Provider Active Start: July 08, 2025 End: July 08, 2025 Tessy [place] Attending Provider Active Start : July 08, 2025 End: July 08, 2025 Tessy [place] Referring Provider Active Start : July 08, 2025 End: July 08, 2025 Reason for Visit (unrecogniz ed section and content) Specialty Diagnoses / Procedures Referred By Contac t Referred To Contact Radiology Diagnoses Hyperlipidemia, unspecified Procedures CT cardiac scoring wo IV contrast Lars Palomares DO [address] [facility] [address] [place] [address] Referral ID Status Reason Start Date Expiration Date Visits Requested Visits Authorized [id number] Authorized Perform Procedure 12/13/2023 12/12/2024 1 1 FOR RECORDS PERTAINING TO PATIENTS WHO ARE OR HAVE BEEN ENROLLED IN A CHEMICAL DEPENDENCY/SUBSTANCEABUSE PROGRAM, SOME INFORMATION MAY BE OMITTED. This clinical summary was aggregated from multiple sources. Caution should be exercised in using it in the provision of clinical care. This summary normalizes information from multiple sources, and as a consequence, information in this document may materially change the coding, format and clinical context of patient data. In addition, data may be omitted in some cases. CLINICAL DECISIONS SHOULD BE BASED ON THE PRIMARY CLINICAL RECORDS. [facility] [employer] [facility]. provides no warranty or guarantee of the accuracy or completeness of information in this document.
== END | disposition home or self-care (01) ==
PROVIDERS: PCP Internal Medicine; Referring Provider Internal Medicine; Visit Provider Internal Medicine
DX: M54.50 Low back pain, unspecified (principal)
CPT/HCPCS: 72148

== ENCOUNTER → 2025-07-21 | Outpatient (CLI) | payer MEDICARE, SELFPAY ==
--- OUTSIDE RECORDS SUMMARY | 2025-07-21 07:23 | XMS RPT_ITS | CCD ---
Author Organization [facility] CliniSyid Care Team Providers Care Wood Gouger Name Role Phone Fast, Lars A Unavailable CHANO Atkins Unavailable Unavailable Manchak, Edilia Unavailable Unavailable Long, Caridad L Unavailable Unavailable Unavailable Unavailable Manchak, Edilia Unavailable Unavailable Fast DO, Lars A Unavailable Manchak PANTS PRESSER AUTOMATIC, Edilia Unavailable Unavailable Unavailable Unavailable Dr. Gt Barron Unavailable FAST DO, DR SOUSA Primary Care Physician Fast DO, Lars A Unavailable Fast DO, Lars A Attending Unavailable Fast DO, Lars A Referring Unavailable Fast DO, Lars A Consulting Unavailable Fast DO, Lars Nugent Primary Care Provider FAST, LARS A Referring Unavailable FAST, LARS A Primary Care Unavailable Fast DO, Dr. Sousa Primary Care Provider [phone] Fast DO, Dr. Sousa Attending Provider [phone] Fast DO, Dr. Sousa Referring Provider [phone] Addie Park Attending Provider OnaTessy Attending Provider Tessy Hawk Referring Provider Jasbir FELDER, Dr. Sousa Primary Care Provider [phone] Fast DO, Dr. Sousa Attending Provider [phone] Fast DO, Dr. Sousa Referring Provider Kaye BARRY, Dr. Pederson Attending Provider [phone] Fast DO, Dr. Sousa Primary Care Provider [phone] Fast DO, Dr. Sousa Attending Provider [phone] Fast DO, Dr. Sousa Referring Provider Referred, Self Attending Provider Unavailable Referred, Self Referring Provider Unavailable Ona, Tessy Attending Provider [phone] Ona, Tessy Referring Provider Fast, Lars Primary Care Unavailable Ona, Tessy Attending Unavailable Ona, Tessy Referring Unavailable Fast, Lars Primary Care Unavailable Fast, Lars Attending Unavailable Fast, Lars Referring Unavailable Fast, Lars Primary Care Unavailable Fiorella, Chadd Khan Attending Unavailable Fiorella, Evan Referring Unavailable Fast, Lars Primary Care Unavailable Referred, Self Attending Unavailable Referred, Self Referring Unavailable Fast, Lars Primary Care Unavailable Fast, Lars Attending Unavailable Fast, Lars Referring Unavailable Fast, Lars Primary Care Unavailable Fast, Lars Attending Unavailable Fast, Lars Referring Unavailable Andrea STUNT DOUBLE, Addie Attending Unavailable Fast, Lars Primary Care Unavailable Fast, Lars Referring Unavailable Kaye, Bg Attending Unavailable Fast, Lars Primary Care Unavailable Andrea STUNT DOUBLE, Addie Attending Unavailable Fast, Lars Primary Care Unavailable Fast, Lars Referring Unavailable Fast, Lars Primary Care Unavailable Fast, Lars Attending Unavailable Fast, Lars Referring Unavailable Ona, Tessy Attending Unavailable Ona, Tessy Referring Unavailable Fast, Lars Primary Care Unavailable Fast, Lars Primary Care Unavailable Fast, Lars Attending Unavailable Fast, Lars Referring Unavailable Fast, Lars Primary Care Unavailable Fast, Lars Attending Unavailable Fast, Lars Referring Unavailable Allergies Allergy Classification Reported Allergen(s) Allergy Type Date of Onset Reaction(s) Facility (1 source) ALLERGIES NOT ON FILE; Translations: [ALLERGIES NOT ON FILE] Propensity to adverse reactions (disorder) [facility] 2 Repository Medications Current Medications Medication Drug [...] week Start: 01-12-2020 take 2 capsules by [facility] once daily Cholecalciferol (Vitamin D3) 2,000 UNIT capsule Active 4000 U PO DAILY January 12, 2020 1:00am supplement Start: 01-12-2020 take 4000 [IU] by [facility] once daily Cholecalciferol (Vitamin D3) Active 4000 UNIT PO DAILY January 12, 2020 1:00am Start: 01-16-2018 take 2 tablets by [facility] once daily Vitamin D3 1000 UNIT Oral Capsule 2 (two) Tablet Tablet qd for 0 days Quantity: 60 {Tablet} Refills: 0 Ordered: 21-Jan-2019 CHANO Atkins LPN Start : 16-Jan-2018 Active Start: 01-16-2018 take 2 tablets by [facility] once daily Vitamin D3 2000 UNIT Oral [...] capsule (20 sources) alpha-Adrenergic Laina Start: 04-30-20 End: 05-19-20 20 take 1 capsule by [...] s/p radical prostatectomy and follows with dr Gtz he is following with Fiorella presently getting ra diation for slight increase in psa- pet scan neg folloiwup with mari murillo in april following with mari zaragoza and has follo wup with Dr gtz just saw Fiorella they are monitoring his [...] Comment on above: has followup this mo [facility] with urologist Immunizations and screening for infectious [...] 4000 he can g o back to 1999 get lab chronic stable-kenyatta nue present regimen [...] 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 BiPAP 9/6 Residual codes; unclassified (1 source) Obstructive sleep [...] for Tdap vaccination (Renamed from Need for jdkwkuptmr-xyhbnhk-r ertussis (Tdap) vaccine, adult/adolescent)] 05-19-2020 Episodic Residual [...] potentially associated with radiculopathy Unclassified (20 sources) [facility] WELLNESS EXAM 01-21-2019 Unclassified (20 sources) BMI 25.0-25.9,adult Unclassified (20 sources) Mass of foot, right Unclassified (20 sources) BMI 24.0-24.9, adult; Translations: [Body mass index 20-24 - normal] 04-30-2019 Unclassified (20 sources) Need for Tdap vaccination (Renamed from Need for nbvyyxaslq-pbittjw-m ertussis (Tdap) vaccine, adult/adolescent) Unclassified (20 sources) Elevated high sensitivity C-reactive protein Unclassified (1 source) Low back pain, unspecified; Translations: [Low back pain, unspecified] Onset: 07-15-2025 Unclassified (1 source) Thoracic aortic aneurysm, without [...] Test Name Value Interpretation Reference Range Facility Spine Lumbar (Routine)on Spine Lumbar (Routine) [facility] Imaging Services [address] [place] [address] Spine Lumbar (Routine) MR#: [id number] Acct: [id number] Name: RAFA FOSS Rep #: [id number] : 1950 M 74 From: Frandy Apodaca MD PCP: Dr. Lars Palomares DO Status: [facility] CLI Study: Spine Lumbar (Routine) Date of Exam: 07/14/25 Exam# [id number] Ordering Dr: Lars Palomares DO PROCEDURE: SPINE LUMBAR (ROUTINE) 07/14/2025 REASON FOR EXAM: LOW BACK PAIN POTENTIALLY ASSOCIATED WITH RADICULOPATHY TECHNIQUE: SPINE LUMBAR (ROUTINE) COMPARISON: May 15, 2025 x-ray FINDINGS: Vertebrae: Normal vertebral height. No fracture. Alignment: Straightening of the lumbar lordosis. Conus Medullaris: Terminates at T12. No abnormal signal. L1-2: Disc desiccation. Minimal loss of disc height. Mild, diffuse disc bulge. Moderate thickening of ligamentum flavum. Minimal facet hypertrophy. No exit foraminal narrowing. L2-3: Disc desiccation. Moderate loss of disc height. Moderate, diffuse disc osteophyte protrusion. Moderate thickening of ligamentum flavum. Mild facet hypertrophy. There is mild narrowing of the exit foramina but there is fat around the exiting nerve roots. Likely no significant compromise. L3-4: Disc desiccation. Moderate loss of disc height. Moderate, diffuse disc osteophyte protrusion. Vtiv-sl-ckpfpxkh thickening of ligamentum flavum. Minimal facet hypertrophy. Mild narrowing of the exit foramina mainly from facet disease. Correlate with bilateral L3 radiculopathy. L4-5: Disc desiccation. Moderate loss of disc height. Moderate, diffuse disc osteophyte protrusion. Moderate thickening of ligamentum flavum. Mild facet hypertrophy slightly greater on the left. Narrowing of the exit foramina bilaterally. Correlate with bilateral L4 radiculopathy. L5-S1: Mild disc desiccation. Minimal, diffuse disc bulge. Mild, diffuse disc osteophyte protrusion. Borderline narrowing of the exit foramen on the left related to facets. Correlate with left L5 radiculopathy. MRI/Spine Lumbar (Routine) IMPRESSION: Multilevel degenerative disc disease. Exit foraminal compromise is mild from L3/4 to L5/S1. Reading Location: [id number] CC: Dr. Lars Palomares DO Stock And Station Agent: Signed Normal [facility] PSA,Total- Diagnosticon 06-26 PSA, DIAGNOSTIC 2.64 ng/mL Normal 0.00-4.[address] [facility] Comment on above: Result Comment: This [...] values. Performed By: #### L 501.9940 #### [facility] Laboratory [address] [place], [address] Bone density reportOrdered B y: Kwasi Rodriguez on 06-03-2025 Study report Skeletal system DXA [facility] Imaging Services [address] [place], [place] [address] Dexa Bone Density Study MR#: [id number] Acct: [id number] Name: RAFA FOSS Rep #: [id number] : 1950 M 74 From: Yomi Rodriguez MD PCP: Dr. Lars Palomares DO Status: REG CLI Study:Dexa Bone Density Study Date of Exam: 06/03/25 Exam# [id number] Ordering Dr: Sofiya Palomares ra, DO PROCEDURE: [...] Recommend follow-up as clinically warranted. Reading Location: [place] [address] CC: Dr. Lars Palomares DO ~ Stock And Station Agent: Signed [facility] Dexa Bone Density Studyon Dexa Bone Density Study [facility] Imaging Services [address] [place], [place] [address] Dexa Bone Density Study MR#: [id number] Acct: [id number] Name: RAFA FOSS Rep #: [id number] : 1950 M 74 From: Kwasi swann MD PCP: Dr. Lars Palomares DO Status: REG CLI Study: Dexa Bone Density Study Date of Exam: 06/03/25 Exam# [id number] Ordering Dr: Lars Palomares DO PROCEDURE: DEXA [...] Recommend follow-up as clinically warranted. Reading Location: [place] [address] CC: Dr. Lars Palomares DO Stock And Station Agent: Signed Normal [facility] Thyroidon 05-21-2025 Thyroid [facility] Imaging Services [address] [place] [address] Thyroid MR#: [id number] Acct: [id number] Name: RAFA FOSS Rep #: [id number] : 1950 M 74 From: Kwasi swann MD PCP: Dr. Lars Palomares DO Status: REG CLI Study: Thyroid Date of Exam: 05/21/25 Exam# [id number] Ordering Dr: Lars Palomares DO PROCEDURE: THYROID [...] Location: [facility] CC: Dr. Lars Palomares DO Stock And Station Agent: Signed Normal [facility] HIP, UNI W/ Pelvis 2-3 Views on 05-15-2025 HIP, UNI W/ Pelvis 2-3 Views [facility] Imaging Services [address] [place] [address] HIP, UNI W/ Pelvis 2-3 Views MR#: [id number] Acct: [id number] Name: RAFA FSOS Rep #: [id number] : 1950 M 74 From: Shane Lyman MD PCP: Dr. Lars Palomares, DO Status: DEP AMB Study: HIP, UNI W/ Pelvis 2-3 Views Date of Exam: Exam# [id number] Ordering Dr: Lars Palomares DO EXAM: XR [...] IMPRESSION: Degenerative changes as above. Reading Location: [facility] CC: Dr. Lars Palomares DO Stock And Station Agent: Signed Normal [facility] L/S Spine Min 4 Viewson 04-27 L/S Spine Min 4 Views [facility] Imaging Services [address] [place] [address] L/S Spine Min 4 Views MR#: [id number] Acct: [id number] Name: RAFA FOSS Rep #: [id number] : 1950 M 74 From: Shane Lyman MD PCP: Dr. Lars Palomares, DO Status: DEP AMB Study: L/S Spine Min 4 Views Date of Exam: 05/15/25 Exam# [id number] Ordering Dr: Lars Palomares DO EXAM: XR [...] 2. Degenerative changes as above. Reading Location: [id number] CC: Dr. Lars Palomares DO Stock And Station Agent: Signed Normal [facility] CTA Chest W/WO Contraston CTA Chest W/WO Contrast [facility] Imaging Services [address] [place], [place] [address] CTA Chest W/WO Contrast MR#: [id number] Acct: [id number] Name: RAFA FOSS Rep #: [id number] : 1950 M 74 From: Shane Lyman MD PCP: Dr. Lars Palomares DO Status: REG CLI Study: CTA Chest W/WO Contrast Date of Exam: 02/02/25 Exam# [id number] Ordering Dr: Lars Palomares DO EXAM: CT [...] in 12 months is recommended. Reading Location: [facility] CC: Dr. Lars Palomares DO Stock And Station Agent: Signed Normal [facility] Diagnostic total prostate sp ecific antigen (PSA) measurementOrdered By: Tessy Hawk on 01-06-2025 Prostate Specific Antigen Total 1.45 ng/mL 0.0-4.[address] [facility] Comment on above: This test was perfor med using the TPSA assay method for the2080 Media chemistry system. Values obtained with differentassay methods cannot be used interchangably.When changing PSA assays in the course of monitoring apatient, additional sequential testing should be carriedout to confirm baseline values. PSA,Total- Diagnosticon 12-27 PSA, DIAGNOSTIC 1.45 ng/mL Normal 0.0-4.[address] [facility] Comment on above: Result Comment: This test was performed using the TPSA assay method for the 2080 Media chemistry system. Values obtained with different assay methods cannot be used interchangably. When changing PSA assays in the course of monitoring a patient, additional sequential testing should be carried out to confirm baseline values. Performed By: #### L 501.9940 #### [facility] Laboratory [address] [place], [place], [address] Pulmonary Visit Reporton Pulmonary Visit Report [facility] [place] [address] [place] [address] OFFICE VISIT Date of Service: 12/24/24 MR#: [id number] Acct: [id number] Name: RAFA FOSS Rep #: [id number] : 1950 Provider: KIARA Andrea Age/Sex: 74/M [place] [facility] Status: Signed Assessment and Plan Assessment and [...] FU Chief Complaint: FU r/t sleep apnea Refractory Repairer Required: No DME Vendor: [employer] Accompanied by: Allergies No Known Allergies Allergy [...] deficits, Y (more content not included)... Normal [facility] PT D/C Summary (1)on 024 PT D/C Summary (1) [facility] Physical Therapy [facility] [address] [place] [address] / REHABILITATION SERVICES DISCHARGE SUMMARY MR#: [id number] Acct: [id number] Name: RAFA FOSS Rep #: [id number] : 1950 74 From: Wilber Salazar PT, [...] please feel free to call me at [phone]. Thank you for the referral of this patient. Sincerely, Wilber Salazar, PT, ATC Balance/Gait/Functional tests Balance/Special Test Scores Oswestry Low Back Score: 3 11/18/24 0857 CC: Dr. Lars Palomares DO [facility] Signed Normal [facility] Inital Evaluation (1) - PTon 11-11-2024 Inital Evaluation (1) - PT [facility] Physical Therapy [facility] 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 Pt [...] this time. 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 Pt denies any LBP at this time. [...] to be FAXED BACK to us at [phone] for Medicare purposes. For Medicare only, by signing this I certify the plan of care. Please let me know if there are questions or concerns regarding this plan of care. Physician Signature: Date: 11/11/2419 CC: Dr. Lars Palomares DO [facility] Signed Normal [facility] Pulmonary Visit Reporton Pulmonary Visit Report [facility] Pulmonary Medicine of [address] [place] [address] OFFICE VISIT Date of Service: 08/25/24 MR#: [id number] Acct: [id number] Name: RAFA FOSS Rep #: [id number] : 1950 Provider: KIARA Andrea Age/Sex: 73/M Location[place] [facility] Status: Signed Assessment and Plan Assessment and Plan (1) Obstructive sleep apnea: Status: Acute Comment: AHI 42 will treat with BiPAP 9/5 Plan: New. Lengthy discussion about the pathophysiology [...] weeks. Plan Details Follow Up: 3 Months ([facility]) HPI Sleep concern Chief Complaint: Daytime hypersomnia [...] works full-time in a career as a horticulturist. He has never seen a interior design professional. He is a lifelong never smoker. He [...] headaches. nocturia 2. Work history? Worked in [employer] during day, Pulmonary history? none. never. no [...] (Updated 08/26/24 @ 11:52 by Addie Andrea STUNT DOUBLE, STUNT DOUBLE-C) Prostate CA Surgical History (Updated 08/25/24 @ 11:43 by Anabelle Sung) H/O prostatectomy Social History Smoking Status: Never smoker Exam Const Constitutional: Positive conversant, cooperative, in no acute respiratory distress, healthy appearing, well developed, well nourished and good hygiene Head Head: (more content not included)... Normal [facility] Basophil percentageOrdered B y: Chadd Gtz on 03-04-2024 Basophil percentage 0.84 ng/mL 0.0-4.0 [facility] Comment on above: This test was perfor med using the TPSA assay method for the2080 Media chemistry system. Values obtained with differentassay methods [...] INDICATION: Signs/Symptoms:HYPERLIPIDE CHANTAL. COMPARISON: None. ACCESSION NUMBER(S): [id number] ORDERING CLINICIAN: LARS PALOMARES TECHNIQUE: Using prospective [...] coronary heart disease events. According to the [place] [employer] Clinical Expert Consensus [...] modify other non-lipid coronary risk factors. Reference: [place] P et al. Circulation. 2007; 115:402-426 MACRO: None Signed by: Jacky Meng 12/17/2023 4:38 PM Dictation workstation: [id number] [facility] CT for calcium scoring WO co ntrast and CTA W contrast IV Heart and coronary arterieson 12-17-2023 1. Coronary artery c alcium score of 185.37*. 2. Mildly aneurysmal ascending aorta. *Coronary artery calcium scoring may be helpful in predicting the risk for future coronary heart disease events. According to the [place] [employer] Clinical Expert Consensus [...] modify other non-lipid coronary risk factors. Reference: [place] P et al. Circulation. 2007; 115:402-426 MACRO: None Signed by: Jacky Meng 12/17/2023 4:38 PM Dictation workstation: [id number] MMODAL Interpreted By: Jacky Muñoz, STUDY: CT CARDIAC SCORING WO IV CONTRAST; 12/17/2023 2:32 pm INDICATION: Signs/Symptoms:HYPERLIPIDE CHANTAL. COMPARISON: None. ACCESSION NUMBER(S): [id number] ORDERING CLINICIAN: LARS PALOMARES TECHNIQUE: Using prospective [...] INDICATION: Signs/Symptoms:HYPERLIPIDE CHANTAL. COMPARISON: None. ACCESSION NUMBER(S): [id number] ORDERING CLINICIAN: LARS PALOMARES TECHNIQUE: Using prospective [...] coronary heart disease events. According to the [place] [employer] Clinical Expert Consensus [...] modify other non-lipid coronary risk factors. Reference: [place] P et al. Circulation. 2007; 115:402-426 MACRO: None Signed by: Jacky Meng 12/17/2023 4:38 PM Dictation workstation: [id number] [facility] Work Phone: Radiology Study observation (narrative) [facility] Work Phone: CT for calcium scoring WO co ntrast and CTA W contrast IV Heart and coronary arteriesOrdered By: Jacky Meng on 12-17-2023 [facility] Work Phone: No Panel InformationOrdered By: Tessy Hawk on 10-15-2023 Prostate Specific Antigen Total 0.39 ng/mL 0.0-4.[address] [facility] Comment on above: This test was perfor med using the TPSA assay method for theXamplifiedmension chemistry system. Values obtained with differentassay methods cannot be used interchangably.When changing PSA assays in the course of monitoring apatient, additional sequential testing should be carriedout to confirm baseline values. No Panel InformationOrdered By: Chadd Gtz on 10-08-2023 Prostate Specific Antigen Total 0.36 ng/mL 0.0-4.[address] [facility] Comment on above: This test was perfor med using the TPSA assay method for theXamplifiedmension chemistry system. Values obtained with differentassay methods cannot be used interchangably.When changing PSA assays in the course of monitoring apatient, additional sequential testing should be carriedout to confirm baseline values. CBC, PLATELETS & MANUAL DIFF ([id number])Ordered By: [employer] Interpreter on 05-02-2023 Basophils (Bld) [#/Vol] 0.1 10*3/uL Normal 0.0-0.2 [facility] Work Phone: Comment on above: PATIENT WAS FASTINGP ERFORMED BY: [facility] [id number] [facility] [id number] Basophils/100 WBC (Bld) 2 % Normal [facility]; [facility] Work Phone: Comment on above: PATIENT WAS FASTINGP ERFORMED BY: [facility] [id number] [address]Dublin [place] [id number] Eosinophils (Bld) [#/Vol] 0.3 10*3/uL Normal 0.0-0.4 [facility]; [facility] Work Phone: Comment on above: PATIENT WAS FASTINGP ERFORMED BY: CB [facility] Rejztb95[address] RoadDublin [place] [id number] Eosinophils/100 WBC (Bld) 4 % Normal [facility]; [facility] Work Phone: Comment on above: PATIENT WAS FASTINGP ERFORMED BY: [facility] Gsufav46[address] [place] [id number] Erythrocyte distribution width (RBC) [Ratio] 13.2 % Normal 11.6-15.4 [facility]; [facility] Work Phone: Comment on above: PATIENT WAS FASTINGP ERFORMED BY: [facility] [id number] [address] RoadDublin [place] [id number] Hematocrit (Bld) [Volume fraction] 45.0 % Normal 37.5-51.0 [facility]; [facility] Work Phone: Comment on above: PATIENT WAS FASTINGP ERFORMED BY: [facility] Tirrax3911 [address]Dublin [place] [id number] Hemoglobin (Bld) [Mass/Vol] 15.2 g/dL Normal 13.0-17.7 [facility]; [facility] Work Phone: Comment on above: PATIENT WAS FASTINGP ERFORMED BY: CB [facility] Onendp5[address] [place] [id number] Immature granulocytes (Bld) [#/Vol] 0.0 10*3/uL Normal 0.0-0.1 [facility]; [facility] Work Phone: Comment on above: PATIENT WAS FASTINGP ERFORMED BY: [facility] [id number] [place] [id number] Immature granulocytes/100 WBC (Bld) 0 % Normal [facility]; [facility] Work Phone: Comment on above: PATIENT WAS FASTINGP ERFORMED BY: [facility] Object72[address] [place] [id number] Lymphocytes (Bld) [#/Vol] 1.9 10*3/uL Normal 0.7-3.1 [facility]; [facility] Work Phone: Comment on above: PATIENT WAS FASTINGP ERFORMED BY: [facility] Usjoxb8875 [address] [place] [id number] Lymphocytes/100 WBC (Bld) 30 % Normal [facility]; [facility] Work Phone: Comment on above: PATIENT WAS FASTINGP ERFORMED BY: [facility] Pvcmxq3285 [address] [place] [id number] MCH (RBC) [Entitic mass] 32.7 pg Normal 26.6-33.0 [facility]; [facility] Work Phone: Comment on above: PATIENT WAS FASTINGP ERFORMED BY: [facility] [place] [id number] MCHC (RBC) [Mass/Vol] 33.8 g/dL Normal 31.5-35.7 [facility]; [facility] Work Phone: Comment on above: PATIENT WAS FASTINGP ERFORMED BY: [facility] [facility] HospitalDublin [place] [id number] MCV (RBC) [Entitic vol] 97 fL Normal 79-97 [facility]; [facility] Work Phone: Comment on above: PATIENT WAS FASTINGP ERFORMED BY: [facility] Yipykk5[address]Dublin [place] [id number] Monocytes (Bld) [#/Vol] 0.6 10*3/uL Normal 0.1-0.9 [facility]; [facility] Work Phone: Comment on above: PATIENT WAS FASTINGP ERFORMED BY: [facility] Cuqgnu24[address] [place] [id number] Monocytes/100 WBC (Bld) 10 % Normal [facility]; [facility] Work Phone: Comment on above: PATIENT WAS FASTINGP ERFORMED BY: ERAN Labcojay MonsalveGelkux5552 [address] RoadDublin [place] [id number] Neutrophils (Bld) [#/Vol] 3.5 10*3/uL Normal 1.4-7.0 [facility]; [facility] Work Phone: Comment on above: PATIENT WAS FASTINGP ERFORMED BY: ERAN [facility] Koiahu5975 [address] RoadDublin [place] [id number] Neutrophils/100 WBC (Bld) 54 % Normal [facility]; [facility] Work Phone: Comment on above: PATIENT WAS FASTINGP ERFORMED BY: ERAN Lablesli ColeLnqcxu7469 [address] RoadDublin [place] [id number] Platelets (Bld) [#/Vol] 183 10*3/uL Normal 150-450 [facility]; [facility] Work Phone: Comment on above: PATIENT WAS FASTINGP ERFORMED BY: ERAN [facility] Ygyfbr4847 [address] RoadDublin [place] [id number] RBC (Bld) [#/Vol] 4.65 10*6/uL Normal 4.14-5.80 [facility]; [facility] Work Phone: Comment on above: PATIENT WAS FASTINGP ERFORMED BY: ERAN [facility] Ywlmcv3515 [address] RoadDublin [place] [id number] WBC (Bld) [#/Vol] 6.5 10*3/uL Normal 3.4-10.8 [facility]; [facility] Work Phone: Comment on above: PATIENT WAS FASTINGP ERFORMED BY: CB [facility] Givobe4[address] RoadDublin [place] [id number] METABOLIC PANEL, COMPREHENSI VE ([id number])Ordered By: [employer] Interpreter on 05-02-2023 Albumin [Mass/Vol] 4.5 g/dL Normal 3.7-4.7 [facility]; [facility] Work Phone: Comment on above: PATIENT WAS FASTINGP ERFORMED BY: ERAN [facility] Abqjil0805 [address] RoadDublin [place] [id number] Albumin/Globulin [Mass ratio] 1.8 {ratio} Normal 1.2-2.2 [facility]; [facility] Work Phone: Comment on above: PATIENT WAS FASTINGP ERFORMED BY: ERAN [facility] Dejsvb0459 [address] RoadDublin [place] [id number] ALP [Catalytic activity/Vol] 77 U/L Normal 44-121 [facility]; [facility] Work Phone: Comment on above: PATIENT WAS FASTINGP ERFORMED BY: CB [facility] Hdbhri1596 [address] RoadDublin [place] [id number] ALT [Catalytic activity/Vol] 17 U/L Normal 0-44 [facility]; [facility] Work Phone: Comment on above: PATIENT WAS FASTINGP ERFORMED BY: [facility] Zdpbud8103 [address] RoadDublin [place] [id number] AST [Catalytic activity/Vol] 26 U/L Normal 0-40 [facility]; [facility] Work Phone: Comment on above: PATIENT WAS FASTINGP ERFORMED BY: ERAN [facility] Lskeax4595 [address] RoadDublin [place] [id number] Bilirubin [Mass/Vol] 0.6 mg/dL Normal 0.0-1.2 Comp rehensive Internal Medicine; [facility] Work Phone: Comment on above: PATIENT WAS FASTINGP ERFORMED BY: CB [facility] Ebbokg7741 [address] RoadDublin [place] [id number] Calcium [Mass/Vol] 9.5 mg/dL Normal 8.6-10.2 [facility]; [facility] Work Phone: Comment on above: PATIENT WAS FASTINGP ERFORMED BY: CB [facility] Pfrtgr8106 [address] RoadDublin [place] [id number] Chloride [Moles/Vol] 101 mmol/L Normal 96-106 Comp rehensive [facility] Medicine; [facility] Work Phone: Comment on above: PATIENT WAS FASTINGP ERFORMED BY: ERAN [facility] Thofkx8339 [address] RoadDublin [place] [id number] CO2 [Moles/Vol] 23 mmol/L Normal 20-29 [facility]; [facility] Work Phone: Comment on above: PATIENT WAS FASTINGP ERFORMED BY: ERAN [facility] Muadmz5078 [address] RoadDublin [place] [id number] Creatinine [Mass/Vol] 1.00 mg/dL Normal 0.76-1.27 [facility]; [facility] Work Phone: Comment on above: PATIENT WAS FASTINGP ERFORMED BY: ERAN [facility] Yfiajy6358 [address] RoadDublin [place] [id number] GFR/1.73 sq M.predicted among non-blacks MDRD (S/P/Bld) [Vol rate/Area] 80 mL/min/{1.73_m2} Normal Comprehensiv e [facility]; [facility] Work Phone: Comment on above: PATIENT WAS FASTINGP ERFORMED BY: ERAN [facility] Jzsoel2728 [address] RoadDublin [place] [id number] Globulin (S) [Mass/Vol] 2.5 g/dL Normal 1.5-4.5 [facility]; [facility] Work Phone: Comment on above: PATIENT WAS FASTINGP ERFORMED BY: ERAN [facility] Kpjbnc2969 [address] RoadDublin [place] [id number] Glucose [Mass/Vol] 89 mg/dL Normal 70-99 [facility]; [facility] Work Phone: Comment on above: PATIENT WAS FASTINGP ERFORMED BY: ERAN [facility] Qfdkyt7534 [address] RoadDublin [place] [id number] Potassium [Moles/Vol] 4.8 mmol/L Normal 3.5-5.2 [facility]; [facility] Work Phone: Comment on above: PATIENT WAS FASTINGP ERFORMED BY: ERAN [facility] Ytyqtf0531 [address] RoadDublin [place] [id number] Protein [Mass/Vol] 7.0 g/dL Normal 6.0-8.5 [facility]; [facility] Work Phone: Comment on above: PATIENT WAS FASTINGP ERFORMED BY: ERAN Labcojay Qsabkv9167 [address] RoadDublin [place] [id number] Sodium [Moles/Vol] 139 mmol/L Normal 134-144 [facility]; [facility] Work Phone: Comment on above: PATIENT WAS FASTINGP ERFORMED BY: ERAN [facility] Uoxgfi8489 [address] RoadDublin [place] [id number] Urea nitrogen [Mass/Vol] 10 mg/dL Normal 8-27 [facility]; [facility] Work Phone: Comment on above: PATIENT WAS FASTINGP ERFORMED BY: ERAN [facility] Fwfiid5647 [address] RoadDublin [place] [id number] Urea nitrogen/Creatinine [Mass ratio] 10 mg/mg Normal 10-24 [facility]; [facility] Work Phone: Comment on above: PATIENT WAS FASTINGP ERFORMED BY: ERAN [facility] Dqegeb0164 [address] RoadDublin [place] [id number] Urinalysis, Complete W/ Micr oscopic Examination with reflex to urine culture, routine (53419)Ordered By: [employer] Interpreter on 05-02-2023 Appearance (U) Clear Normal Comprehens dennys Internal Medicine; [facility] Work Phone: Comment on above: PATIENT WAS FASTINGP ERFORMED BY: ERAN [facility] Ddziqf8500 [address] RoadDublin [place] [id number] Bilirubin Ql (U) Negative Normal Comprehe ive Internal Medicine; [facility] Work Phone: Comment on above: PATIENT WAS FASTINGP ERFORMED BY: ERAN [facility] Hudfog2559 [address] RoadDublin [place] [id number] Color (U) Yellow Normal [facility]; [facility] Work Phone: Comment on above: PATIENT WAS FASTINGP ERFORMED BY: ERAN [facility] Wqvqzd7563 [address] RoadDublin [place] [id number] Glucose Ql (U) Negative Normal Comprehens dennys [facility]; [facility] Work Phone: Comment on above: PATIENT WAS FASTINGP ERFORMED BY: ERAN Monsalve6370 [address] RoadScionhealthin [place] [id number] Ketones Ql (U) Trace Abnormal Comprehens dennys [facility] Medicine; [facility] Work Phone: Comment on above: PATIENT WAS FASTINGP ERFORMED BY: ERAN Caleb Monsalve6[address] [facility]in [place] [id number] pH (U) 6.5 [pH] Normal 5.0-7.5 [facility]; [facility] Work Phone: Comment on above: PATIENT WAS FASTINGP ERFORMED BY: ERAN Caleb Monsalve6370 Bishop RoadScionhealthin [place] [id number] Protein Ql (U) Trace Normal Comprehens dennys Internal Medicine; [facility] Work Phone: Comment on above: PATIENT WAS FASTINGP ERFORMED BY: ERAN Caleb Monsalve6370 [address] [facility] [id number] Specific gravity (U) [Rel density] 1.020 1 Normal 1.005-1.03 0 [facility]; [facility] Work Phone: Comment on above: PATIENT WAS FASTINGP ERFORMED BY: ERAN Evonnejay ColeSupnel33[address] [facility]in [place] [id number] Urinalysis, Complete W/ Microscopic Examination with reflex to urine culture, routine (51244) Negative Normal [facility]; [facility] Work Phone: Comment on above: PATIENT WAS FASTINGP ERFORMED BY: ERAN Labcojay ColeJdpmue6457 [address] [facility] Hospitalblin [place] [id number] Urinalysis, Complete W/ Microscopic Examination with reflex to urine culture, routine (35728) 1.0 mg/dL Normal 0.2-1.0 [facility]; [facility] Work Phone: Comment on above: PATIENT WAS FASTINGP ERFORMED BY: ERAN [facility] Xhfnmf2502 Bishop RoadScionhealthin [place] [id number] Urinalysis, Complete W/ Microscopic Examination with reflex to urine culture, routine (10116) MICRON Normal [facility]; [facility] Work Phone: Comment on above: Microscopic follows if indicated. PATIENT WAS FASTINGP ERFORMED BY: ERAN Tylr Mobile6370 [facility] [id number] Urinalysis, Complete W/ Microscopic Examination with reflex to urine culture, routine (03889) See below: Normal [facility]; [facility] Work Phone: Comment on above: Microscopic was kylie cated and was performed. PATIENT WAS FASTINGP ERFORMED BY: ERAN Tylr Mobile6370 [facility]Sam[facility] [id number] Urinalysis, Complete W/ Microscopic Examination with reflex to urine culture, routine (07027) NOFLEX Normal [facility]; [facility] Work Phone: Comment on above: This specimen will n ot reflex to a Urine Culture. PATIENT WAS FASTINGP ERFORMED BY: [employer] Cloud CruiserAtrium Health Providence [id number] No Panel InformationOrdered By: Chadd Gtz on 03-28-2023 Prostate Specific Antigen Total 0.08 ng/mL 0.0-4.[address] [facility] Comment on above: This test was perfor med using the TPSA assay method for theSt. [facility] chemistry system. Values obtained with differentassay methods cannot be used interchangably.When changing PSA assays in the course of monitoring apatient, additional sequential testing should be carriedout to confirm baseline values. CBC W/AUTO DIFF WBC (91614)O rdered By: [employer] Interpreter on 01-01-2023 Basophils (Bld) [#/Vol] 0.0 10*3/uL Normal 0.0-0.2 [facility]; [facility] Work Phone: Comment on above: PATIENT WAS FASTINGP ERFORMED BY: CloudCase6[address] Cloud CruiserAtrium Health [facility] [id number] Basophils/100 WBC (Bld) 1 % Normal [facility]; [facility] Work Phone: Comment on above: PATIENT WAS FASTINGP ERFORMED BY: [employer]70 [address] RoadDublin [place] [id number] Eosinophils (Bld) [#/Vol] 0.2 10*3/uL Normal 0.0-0.4 [facility]; [facility] Work Phone: Comment on above: PATIENT WAS FASTINGP ERFORMED BY: ERAN [facility] Poswts9382 [address] RoadDublin [place] [id number] Eosinophils/100 WBC (Bld) 3 % Normal [facility]; [facility] Work Phone: Comment on above: PATIENT WAS FASTINGP ERFORMED BY: Labcenterpoint [facility] Mrglqp8732 [address] Roadblin [place] [id number] Erythrocyte distribution width (RBC) [Ratio] 12.9 % Normal 11.6-15.4 [facility]; [facility] Work Phone: Comment on above: PATIENT WAS FASTINGP ERFORMED BY: Labcenterpoint [facility] Hckxjv4424 [address] Roadblin [place] [id number] Hematocrit (Bld) [Volume fraction] 45.2 % Normal 37.5-51.0 [facility]; [facility] Work Phone: Comment on above: PATIENT WAS FASTINGP ERFORMED BY: Labjoana Zmusqv6558 [address] Roadblin [place] [id number] Hemoglobin (Bld) [Mass/Vol] 15.5 g/dL Normal 13.0-17.7 [facility]; [facility] Work Phone: Comment on above: PATIENT WAS FASTINGP ERFORMED BY: Lab[facility] Jqubfi0311 [address] RoadDublin [place] [id number] Immature granulocytes (Bld) [#/Vol] 0.0 10*3/uL Normal 0.0-0.1 [facility]; [facility] Work Phone: Comment on above: PATIENT WAS FASTINGP ERFORMED BY: [facility] Ydkcgo3208 [address] RoadDublin [place] [id number] Immature granulocytes/100 WBC (Bld) 0 % Normal [facility]; [facility] Work Phone: Comment on above: PATIENT WAS FASTINGP ERFORMED BY: [facility] Seravo6092 [address] RoadDublin [place] [id number] Lymphocytes (Bld) [#/Vol] 1.5 10*3/uL Normal 0.7-3.1 [facility]; [facility] Work Phone: Comment on above: PATIENT WAS FASTINGP ERFORMED BY: LabcoCrownpoint Health Care FacilityQkngzl4171 [address] RoadDublin [place] [id number] Lymphocytes/100 WBC (Bld) 26 % Normal [facility]; [facility] Work Phone: Comment on above: PATIENT WAS FASTINGP ERFORMED BY: [facility] Ccldje2039 [address] Roadblin [place] [id number] MCH (RBC) [Entitic mass] 32.4 pg Normal 26.6-33.0 [facility]; [facility] Work Phone: Comment on above: PATIENT WAS FASTINGP ERFORMED BY: LabMyMichigan Medical [facility] West Branch6370 [address] RoadScionhealthin [place] [id number] MCHC (RBC) [Mass/Vol] 34.3 g/dL Normal 31.5-35.7 [facility]; [facility] Work Phone: Comment on above: PATIENT WAS FASTINGP ERFORMED BY: LabcoNew Bridge Medical CenterHdjocc7644 [address] [facility] HospitalDublin [place] [id number] MCV (RBC) [Entitic vol] 94 fL Normal 79-97 [facility]; [facility] Work Phone: Comment on above: PATIENT WAS FASTINGP ERFORMED BY: [facility] Svzzkg9517 Bishop RoadScionhealthin [place] [id number] Monocytes (Bld) [#/Vol] 0.7 10*3/uL Normal 0.1-0.9 [facility]; [facility] Work Phone: Comment on above: PATIENT WAS FASTINGP ERFORMED BY: [facility] Lqjodx9745 [address] RoadDublin [place] [id number] Monocytes/100 WBC (Bld) 13 % Normal [facility]; [facility] Work Phone: Comment on above: PATIENT WAS FASTINGP ERFORMED BY: ERAN [facility] Drupfy9776 [address] RoadDublin [place] [id number] Neutrophils (Bld) [#/Vol] 3.3 10*3/uL Normal 1.4-7.0 [facility]; [facility] Work Phone: Comment on above: PATIENT WAS FASTINGP ERFORMED BY: ERAN [facility] Yllpvj6201 [address] RoadDublin [place] [id number] Neutrophils/100 WBC (Bld) 57 % Normal [facility]; [facility] Work Phone: Comment on above: PATIENT WAS FASTINGP ERFORMED BY: ERAN [facility] Cprikx1510 [address] RoadDublin [place] [id number] Platelets (Bld) [#/Vol] 162 10*3/uL Normal 150-450 [facility]; [facility] Work Phone: Comment on above: PATIENT WAS FASTINGP ERFORMED BY: ERAN [facility] Inshjv7434 [address] RoadDublin [place] [id number] RBC (Bld) [#/Vol] 4.79 10*6/uL Normal 4.14-5.80 Compr ehensive Internal Medicine; [facility] Work Phone: Comment on above: PATIENT WAS FASTINGP ERFORMED BY: ERAN [facility] Ubense5052 [address] RoadDublin [place] [id number] WBC (Bld) [#/Vol] 5.7 10*3/uL Normal 3.4-10.8 Compre henskane county human resource ssd [facility]; [facility] Work Phone: Comment on above: PATIENT WAS FASTINGP ERFORMED BY: ERAN [facility] Jabwhz9728 [address] RoadDublin [place] [id number] LIPID PANEL (65786)Ordered B y: [employer] Interpreter on 01-01-2023 Cholesterol [Mass/Vol] 171 mg/dL Normal 100-199 [facility]; [facility] Work Phone: Comment on above: PATIENT WAS FASTINGP ERFORMED BY: ERAN [facility] Jrujlv1019 [address] RoadDublin [place] [id number] Cholesterol in HDL [Mass/Vol] 69 mg/dL Normal [facility]; [facility] Work Phone: Comment on above: PATIENT WAS FASTINGP ERFORMED BY: ERAN Labcojay Mvtuyj3882 [address] RoadDublin [place] [id number] Triglyceride [Mass/Vol] 63 mg/dL Normal 0-149 [facility]; [facility] Work Phone: Comment on above: PATIENT WAS FASTINGP ERFORMED BY: ERAN [facility] Uksxny2886 [address] [facility] Hospitalblin [place] [id number] LIPID PANEL (73062) 12 mg/dL Normal 5-40 [facility]; [facility] Work Phone: Comment on above: PATIENT WAS FASTINGP ERFORMED BY: ERAN [facility] Kkemff8077 Bishop RoadDublMuhlenberg Community Hospital [id number] LIPID PANEL (62879) 90 mg/dL Normal 0-99 [facility]; [facility] Work Phone: Comment on above: PATIENT WAS FASTINGP ERFORMED BY: ERAN [facility] Wezwld3171 [address] [facility] [id number] LIPID PANEL (19606) 1.3 {ratio} Normal 0.0-3.6 [facility]; [facility] Work Phone: Comment on above: LDL/HDL Ratio Men Wo men 1/2 Avg.Risk 1.0 1.5 Avg.Risk 3.6 3.2 2X Avg.Risk 6.2 5.0 3X Avg.Risk 8.0 6.1 PATIENT WAS FASTINGP ERFORMED BY: ERAN [facility] Flnexj9338 [address] [facility] HospitalDublin [place] [id number] METABOLIC PANEL, COMPREHENSI VE (44674)Ordered By: [employer] Interpreter on 01-01-2023 Albumin [Mass/Vol] 4.3 g/dL Normal 3.7-4.7 [facility]; [facility] Work Phone: Comment on above: PATIENT WAS FASTINGP ERFORMED BY: ERAN [facility] Uwhscl6924 [address] RoadDublin [place] [id number] Albumin/Globulin [Mass ratio] 1.7 {ratio} Normal 1.2-2.2 [facility]; [facility] Work Phone: Comment on above: PATIENT WAS FASTINGP ERFORMED BY: ERAN [facility] Xbpcdd0588 [address] RoadDublin [place] [id number] ALP [Catalytic activity/Vol] 101 U/L Normal 44-121 [facility]; [facility] Work Phone: Comment on above: PATIENT WAS FASTINGP ERFORMED BY: CB [facility] Iejsvp8168 [address] RoadDublin [place] [id number] ALT [Catalytic activity/Vol] 13 U/L Normal 0-44 [facility]; [facility] Work Phone: Comment on above: PATIENT WAS FASTINGP ERFORMED BY: [facility] Kcssoc0878 [address] RoadDublin [place] [id number] AST [Catalytic activity/Vol] 20 U/L Normal 0-40 [facility]; [facility] Work Phone: Comment on above: PATIENT WAS FASTINGP ERFORMED BY: [facility] Ekzomn4757 [address] RoadDublin [place] [id number] Bilirubin [Mass/Vol] 0.3 mg/dL Normal 0.0-1.2 [facility]; [facility] Work Phone: Comment on above: PATIENT WAS FASTINGP ERFORMED BY: [facility] Hnvyhw3466 [address] RoadDublin [place] [id number] Calcium [Mass/Vol] 9.1 mg/dL Normal 8.6-10.2 [facility]; [facility] Work Phone: Comment on above: PATIENT WAS FASTINGP ERFORMED BY: [facility] Zruayc5288 [address] RoadDublin [place] [id number] Chloride [Moles/Vol] 103 mmol/L Normal 96-106 [facility]; [facility] Work Phone: Comment on above: PATIENT WAS FASTINGP ERFORMED BY: [facility] Syrlwd3782 [address] RoadDublin [place] [id number] CO2 [Moles/Vol] 22 mmol/L Normal 20-29 Comprehen [facility]; [facility] Work Phone: Comment on above: PATIENT WAS FASTINGP ERFORMED BY: ERAN Monsalve6370 [facility] [id number] Creatinine [Mass/Vol] 1.01 mg/dL Normal 0.76-1.27 [facility]; [facility] Work Phone: Comment on above: PATIENT WAS FASTINGP ERFORMED BY: ERAN Douglass Sozyuo4480 [facility] [id number] GFR/1.73 sq M.predicted among non-blacks MDRD (S/P/Bld) [Vol rate/Area] 80 mL/min/{1.73_m2} Normal Comprehensiv e Internal Medicine; [facility] Work Phone: Comment on above: PATIENT WAS FASTINGP ERFORMED BY: Evonne Mycipc1182 [facility] [id number] Globulin (S) [Mass/Vol] 2.6 g/dL Normal 1.5-4.5 [facility]; [facility] Work Phone: Comment on above: PATIENT WAS FASTINGP ERFORMED BY: ERAN Douglass Wstxtl1859 [facility] [id number] Glucose [Mass/Vol] 89 mg/dL Normal 70-99 [facility] healthive [facility]; [facility] Work Phone: Comment on above: PATIENT WAS FASTINGP ERFORMED BY: ERAN Douglass Zyvihb5288 [facility] [id number] Potassium [Moles/Vol] 4.7 mmol/L Normal 3.5-5.2 [facility]; [facility] Work Phone: Comment on above: PATIENT WAS FASTINGP ERFORMED BY: Priyankacenterpoint medical center Ahznoo0099 [facility] [id number] Protein [Mass/Vol] 6.9 g/dL Normal 6.0-8.5 [facility] healthive [facility]; [facility] Work Phone: Comment on above: PATIENT WAS FASTINGP ERFORMED BY: CB [facility] Bqqcpy4540 [address] RoadD[address] [place] [id number] Sodium [Moles/Vol] 138 mmol/L Normal 134-144 [facility]; [facility] Work Phone: Comment on above: PATIENT WAS FASTINGP ERFORMED BY: CB [facility] Mrdmdy9443 [address] RoadDublin [place] [id number] Urea nitrogen [Mass/Vol] 12 mg/dL Normal 8-27 [facility]; [facility] Work Phone: Comment on above: PATIENT WAS FASTINGP ERFORMED BY: CB [facility] Fkwzuu9664 [address] RoadDublin [place] [id number] Urea nitrogen/Creatinine [Mass ratio] 12 mg/mg Normal 10-24 [facility]; [facility] Work Phone: Comment on above: PATIENT WAS FASTINGP ERFORMED BY: CB [facility] Vcxggj0087 [address] RoadDublin [place] [id number] PARATHORMONE ([id number])Ordered By: [employer] Interpreter on 01-01-2023 Parathyrin.intact [Mass/Vol] 35 pg/mL Normal 15-65 [facility]; [facility] Work Phone: Comment on above: PATIENT WAS FASTINGP ERFORMED BY: CB [facility] Pxmbgl4041 [address] RoadDublin [place] [id number] Vitamin D Hydroxy (47113)Ord ered By: [employer] Interpreter on 01-01-2023 25-hydroxyvitamin D [Mass/Vol] 55.8 ng/mL Normal 30.0-100.0 [facility]; [facility] Work Phone: Comment on above: Vitamin D deficiency has been defined by the [place] ofMedicine and an Endocrine Society practice guideline as alevel of serum 25-OH vitamin D less than 20 ng/mL (1,2).The Endocrine Society went on to further define vitamin Dinsufficiency as a level between 21 and 29 ng/mL (2).1. IOM ([place] of Medicine). 2010. Dietary reference intakes for calcium and D. [place]: The National Academies Press.2. Paul MORA, Scott IVEY, Yair TY, et al. Evaluation, treatment, and prevention of vitamin D deficiency: an Endocrine Society clinical practice guideline. JCEM. 2010; 96(7):1911-30. PATIENT WAS FASTINGP ERFORMED BY: CB [facility] Rxtfxg3527 [address] RoadDublin [place] [id number] No Panel InformationOrdered By: HALLE Cardoso on 10-02-2022 Prostate Specific Antigen Total 0.02 ng/mL 0.0-4.[address] [facility] Comment on above: This test was perfor med using the TPSA assay method for [employer] chemistry system. Values obtained with differentassay methods cannot be used interchangably.When changing PSA assays in the course of monitoring apatient, additional sequential testing should be carriedout to confirm baseline values. LIPID PANEL (25194)Ordered B y: [employer] Interpreter on 09-11-2022 Cholesterol [Mass/Vol] 205 mg/dL Abnormal 100-199 [facility]; [facility] Work Phone: Comment on above: PATIENT WAS FASTINGP ERFORMED BY: CB [facility] Tiwcpw2029 [address] RoadDublin [place] [id number]; appt 10/24 Cholesterol in HDL [Mass/Vol] 82 mg/dL Normal [facility]; [facility] Work Phone: Comment on above: PATIENT WAS FASTINGP ERFORMED BY: CB [facility] Hxtbxz1785 [address] RoadDublin [place] [id number]; appt 10/24 Triglyceride [Mass/Vol] 64 mg/dL Normal 0-149 [facility]; [facility] Work Phone: Comment on above: PATIENT WAS FASTINGP ERFORMED BY: CB [facility] Qzkyda0448 [address] RoadDublin [place] [id number]; appt 10/24 LIPID PANEL (93243) 12 mg/dL Normal 5-40 Compr ensive Internal Medicine; [facility] Work Phone: Comment on above: PATIENT WAS FASTINGP ERFORMED BY: CB [facility] Qlasge8764 [address] RoadDublin [place] [id number]; appt 10/24 LIPID PANEL (88241) 111 mg/dL Abnormal 0-99 [facility] Work Phone: Comment on above: PATIENT WAS FASTINGP ERFORMED BY: ERAN Lablesli Monsalve6370 [facility] [id number]; appt 09/18 LIPID PANEL (57215) 1.4 {ratio} Normal 0.0-3.6 [facility]; [facility] Work Phone: Comment on above: LDL/HDL Ratio Men Wo men 1/2 Avg.Risk 1.0 1.5 Avg.Risk 3.6 3.2 2X Avg.Risk 6.2 5.0 3X Avg.Risk 8.0 6.1 PATIENT WAS FASTINGP ERFORMED BY: ERAN Colelin6370 [facility] [id number]; appt 09/18 METABOLIC PANEL, COMPREHENSI VE (35164)Ordered By: [employer] Interpreter on 09-11-2022 Albumin [Mass/Vol] 4.7 g/dL Normal 3.8-4.8 [facility] Internal Medicine; [facility] Work Phone: Comment on above: PATIENT WAS FASTINGP ERFORMED BY: ERAN Colelin6370 [facility] [id number] Albumin/Globulin [Mass ratio] 2.0 {ratio} Normal 1.2-2.2 [facility]; [facility] Work Phone: Comment on above: PATIENT WAS FASTINGP ERFORMED BY: ERAN Lablesli ColeYeotii0100 [facility] [id number] ALP [Catalytic activity/Vol] 79 U/L Normal 44-121 [facility]; [facility] Work Phone: Comment on above: PATIENT WAS FASTINGP ERFORMED BY: ERAN Lablesli Dszxja8287 [facility] [id number] ALT [Catalytic activity/Vol] 17 U/L Normal 0-44 [facility]; [facility] Work Phone: Comment on above: PATIENT WAS FASTINGP ERFORMED BY: ERAN Monsalve6370 [facility] [id number] AST [Catalytic activity/Vol] 24 U/L Normal 0-40 [facility]; [facility] Work Phone: Comment on above: PATIENT WAS FASTINGP ERFORMED BY: ERAN Monsalve6370 [facility] [id number] Bilirubin [Mass/Vol] 0.5 mg/dL Normal 0.0-1.2 Comp rehensive Internal Medicine; [facility] Work Phone: Comment on above: PATIENT WAS FASTINGP ERFORMED BY: ERAN Douglass Rvpnbx0011 [facility] [id number] Calcium [Mass/Vol] 9.6 mg/dL Normal 8.6-10.2 [facility]; [facility] Work Phone: Comment on above: PATIENT WAS FASTINGP ERFORMED BY: ERAN Douglass Hgqunp2549 [facility] [id number] Chloride [Moles/Vol] 103 mmol/L Normal 96-106 Comp rehensive Internal Medicine; [facility] Work Phone: Comment on above: PATIENT WAS FASTINGP ERFORMED BY: ERAN Colelin6370 [facility] [id number] CO2 [Moles/Vol] 24 mmol/L Normal 20-29 [facility]; [facility] Work Phone: Comment on above: PATIENT WAS FASTINGP ERFORMED BY: ERAN Douglass Vaqzun7811 [facility] [id number] Creatinine [Mass/Vol] 1.05 mg/dL Normal 0.76-1.27 [facility]; [facility] Work Phone: Comment on above: PATIENT WAS FASTINGP ERFORMED BY: ERAN Colelin6370 [facility] [id number] GFR/1.73 sq M.predicted among non-blacks MDRD (S/P/Bld) [Vol rate/Area] 76 mL/min/{1.73_m2} Normal Comprehensiv e Internal Medicine; [facility] Work Phone: Comment on above: PATIENT WAS FASTINGP ERFORMED BY: CB [facility] Xgifin1139 [address] RoadDublin [place] [id number] Globulin (S) [Mass/Vol] 2.4 g/dL Normal 1.5-4.5 [facility]; [facility] Work Phone: Comment on above: PATIENT WAS FASTINGP ERFORMED BY: CB [facility] Dbonyu8231 [address] RoadDublin [place] [id number] Glucose [Mass/Vol] 90 mg/dL Normal 70-99 [facility]; [facility] Work Phone: Comment on above: PATIENT WAS FASTINGP ERFORMED BY: CB [facility] Nvgugu2248 [address] RoadDublin [place] [id number] Potassium [Moles/Vol] 4.7 mmol/L Normal 3.5-5.2 [facility]; [facility] Work Phone: Comment on above: PATIENT WAS FASTINGP ERFORMED BY: [facility] Iujlix0727 [address] RoadDublin [place] [id number] Protein [Mass/Vol] 7.1 g/dL Normal 6.0-8.5 [facility]; [facility] Work Phone: Comment on above: PATIENT WAS FASTINGP ERFORMED BY: [facility] Ugtfio3733 [address] RoadDublin [place] [id number] Sodium [Moles/Vol] 140 mmol/L Normal 134-144 [facility]; [facility] Work Phone: Comment on above: PATIENT WAS FASTINGP ERFORMED BY: CB [facility] Afhjzj8175 [address] RoadDublin [place] [id number] Urea nitrogen [Mass/Vol] 11 mg/dL Normal 8-27 [facility]; [facility] Work Phone: Comment on above: PATIENT WAS FASTINGP ERFORMED BY: CB [facility] Gcuyxv8117 [address] RoadDublin [place] [id number] Urea nitrogen/Creatinine [Mass ratio] 10 mg/mg Normal 10-24 [facility]; [facility] Work Phone: Comment on above: PATIENT WAS FASTINGP ERFORMED BY: ERAN Caleb Colelin6370 [facility] [id number] CBC W/AUTO DIFF WBC (20872)O rdered By: [employer] Interpreter on 05-03-2022 Basophils (Bld) [#/Vol] 0.1 10*3/uL Normal 0.0-0.2 [facility]; [facility] Work Phone: Comment on above: PATIENT WAS FASTINGP ERFORMED BY: ERAN Priyankajoana Dyfpbt2358 [facility] [id number] Information: NURSE DRAW Basophils/100 WBC (Bld) 2 % Normal [facility]; [facility] Work Phone: Comment on above: PATIENT WAS FASTINGP ERFORMED BY: ERAN [facility]point [facility] Ahchrc6[address] [id number] Information: NURSE DRAW Eosinophils (Bld) [#/Vol] 0.2 10*3/uL Normal 0.0-0.4 [facility]; [facility] Work Phone: Comment on above: PATIENT WAS FASTINGP ERFORMED BY: ERAN Evonnejay Zbnsbb9266 [facility] [id number] Information: NURSE DRAW Eosinophils/100 WBC (Bld) 3 % Normal [facility]; [facility] Work Phone: Comment on above: PATIENT WAS FASTINGP ERFORMED BY: ERAN [facility]yankacenterpoint [facility] center Qzguzk[address] [id number] Information: NURSE DRAW Erythrocyte distribution width (RBC) [Ratio] 13.0 % Normal 11.6-15.4 [facility]; [facility] Work Phone: Comment on above: PATIENT WAS FASTINGP ERFORMED BY: ERAN Evonne Hzckay9149 [facility] [id number] Information: NURSE DRAW Hematocrit (Bld) [Volume fraction] 44.4 % Normal 37.5-51.0 [facility]; [facility] Work Phone: Comment on above: PATIENT WAS FASTINGP ERFORMED BY: ERAN EvonneKim [place] 0932770 [facility] [id number] Information: NURSE DRAW Hemoglobin (Bld) [Mass/Vol] 14.9 g/dL Normal 13.0-17.7 [facility]; [facility] Work Phone: Comment on above: PATIENT WAS FASTINGP ERFORMED BY: Priyanka[address] [id number] Information: NURSE DRAW Immature granulocytes (Bld) [#/Vol] 0.0 10*3/uL Normal 0.0-0.1 [facility]; [facility] Work Phone: Comment on above: PATIENT WAS FASTINGP ERFORMED BY: ERAN [facility]yankacenterpoint [facility] Gctrev05[address] [id number] Information: NURSE DRAW Immature granulocytes/100 WBC (Bld) 0 % Normal [facility]; [facility] Work Phone: Comment on above: PATIENT WAS FASTINGP ERFORMED BY: ERAN Priyanka[address] [id number] Information: NURSE DRAW Lymphocytes (Bld) [#/Vol] 2.1 10*3/uL Normal 0.7-3.1 [facility]; [facility] Work Phone: Comment on above: PATIENT WAS FASTINGP ERFORMED BY: Priyanka[address] [id number] Information: NURSE DRAW Lymphocytes/100 WBC (Bld) 32 % Normal [facility]; [facility] Work Phone: Comment on above: PATIENT WAS FASTINGP ERFORMED BY: ERAN Priyanka[address] [id number] Information: NURSE DRAW MCH (RBC) [Entitic mass] 32.0 pg Normal 26.6-33.0 [facility]; [facility] Work Phone: Comment on above: PATIENT WAS FASTINGP ERFORMED BY: [address] [place] [id number] Information: NURSE DRAW MCHC (RBC) [Mass/Vol] 33.6 g/dL Normal 31.5-35.7 [facility]; [facility] Work Phone: Comment on above: PATIENT WAS FASTINGP ERFORMED BY: [place] 0602470 [facility] [id number] Information: NURSE DRAW MCV (RBC) [Entitic vol] 96 fL Normal 79-97 [facility]; [facility] Work Phone: Comment on above: PATIENT WAS FASTINGP ERFORMED BY: [address] [id number] Information: NURSE DRAW Monocytes (Bld) [#/Vol] 0.7 10*3/uL Normal 0.1-0.9 [facility]; [facility] Work Phone: Comment on above: PATIENT WAS FASTINGP ERFORMED BY: [place] 0602470 [facility] [id number] Information: NURSE DRAW Monocytes/100 WBC (Bld) 10 % Normal [facility]; [facility] Work Phone: Comment on above: PATIENT WAS FASTINGP ERFORMED BY: [address] [id number] Information: NURSE DRAW Neutrophils (Bld) [#/Vol] 3.6 10*3/uL Normal 1.4-7.0 [facility]; [facility] Work Phone: Comment on above: PATIENT WAS FASTINGP ERFORMED BY: [place] 0602470 [facility] [id number] Information: NURSE DRAW Neutrophils/100 WBC (Bld) 53 % Normal [facility]; [facility] Work Phone: Comment on above: PATIENT WAS FASTINGP ERFORMED BY: [place] 0602470 [facility] [id number] Information: NURSE DRAW Platelets (Bld) [#/Vol] 186 10*3/uL Normal 150-450 [facility]; [facility] Work Phone: Comment on above: PATIENT WAS FASTINGP ERFORMED BY: ERAN Labcojay MonsalveCphrip0711 [facility] [id number] Information: NURSE DRAW RBC (Bld) [#/Vol] 4.65 10*6/uL Normal 4.14-5.80 [facility] Internal Medicine; [facility] Work Phone: Comment on above: PATIENT WAS FASTINGP ERFORMED BY: CB [facility] Tqkvpv5793 Bishop RoadAtrium Health Providence [id number] Information: NURSE DRAW WBC (Bld) [#/Vol] 6.7 10*3/uL Normal 3.4-10.8 [facility]; [facility] Work Phone: Comment on above: PATIENT WAS FASTINGP ERFORMED BY: ERAN [facility] Evpljd1076 [facility] [id number] Information: NURSE DRAW METABOLIC PANEL, COMPREHI DAVID ([id number])Ordered By: [employer] Interpreter on 05-03-2022 Albumin [Mass/Vol] 4.7 g/dL Normal 3.8-4.8 [facility]; [facility] Work Phone: Comment on above: PATIENT WAS FASTINGP ERFORMED BY: CB [facility] Diftbb7588 [facility] [id number]; OV 6/20 Albumin/Globulin [Mass ratio] 1.9 {ratio} Normal 1.2-2.2 [facility] Internal Medicine; [facility] Work Phone: Comment on above: PATIENT WAS FASTINGP ERFORMED BY: CB [facility] Umzvvc8573 [address] [facility]in [place] [id number]; OV 6/20 ALP [Catalytic activity/Vol] 83 U/L Normal 44-121 [facility]; [facility] Work Phone: Comment on above: PATIENT WAS FASTINGP ERFORMED BY: CB [facility] Mrnfqd5591 [facility] [id number]; OV 6/20 ALT [Catalytic activity/Vol] 18 U/L Normal 0-44 [facility]; [facility] Work Phone: Comment on above: PATIENT WAS FASTINGP ERFORMED BY: CB [facility] Ipacsn2934 [address] RoadDublin [place] [id number]; OV 6/20 AST [Catalytic activity/Vol] 26 U/L Normal 0-40 [facility]; [facility] Work Phone: Comment on above: PATIENT WAS FASTINGP ERFORMED BY: CB [facility] Vvtgii6563 [address] RoadDublin [place] [id number]; OV 6/20 Bilirubin [Mass/Vol] 0.4 mg/dL Normal 0.0-1.2 [facility]; [facility] Work Phone: Comment on above: PATIENT WAS FASTINGP ERFORMED BY: CB [facility] Zscptb0109 [address] RoadDublin [place] [id number]; OV 6/20 Calcium [Mass/Vol] 9.6 mg/dL Normal 8.6-10.2 [facility]; [facility] Work Phone: Comment on above: PATIENT WAS FASTINGP ERFORMED BY: CB [facility] Jglczx0461 [address] Roadblin [place] [id number]; OV 6/20 Chloride [Moles/Vol] 103 mmol/L Normal 96-106 Comp [facility]; [facility] Work Phone: Comment on above: PATIENT WAS FASTINGP ERFORMED BY: CB [facility] Tazomv7272 [address] RoadDublin [place] [id number]; OV 6/20 CO2 [Moles/Vol] 23 mmol/L Normal 20-29 [facility] Internal Medicine; [facility] Work Phone: Comment on above: PATIENT WAS FASTINGP ERFORMED BY: CB [facility] Uneyjx0280 [address] RoadDublin [place] [id number]; OV 6/20 Creatinine [Mass/Vol] 1.00 mg/dL Normal 0.76-1.27 [facility]; [facility] Work Phone: Comment on above: PATIENT WAS FASTINGP ERFORMED BY: [facility] Qshixm0944 Bishop RoadScionhealthin [place] [id number]; OV 6/20 GFR/1.73 sq M.predicted among non-blacks MDRD (S/P/Bld) [Vol rate/Area] 81 mL/min/{1.73_m2} Normal Comprehensiv e Internal Medicine; [facility] Work Phone: Comment on above: PATIENT WAS FASTINGP ERFORMED BY: CB [facility] Rkuhfl0696 [address] Roadblin [place] [id number]; OV 6/20 Globulin (S) [Mass/Vol] 2.5 g/dL Normal 1.5-4.5 [facility]; [facility] Work Phone: Comment on above: PATIENT WAS FASTINGP ERFORMED BY: [facility] Jmvhma1012 [address] [facility]in [place] [id number]; OV 6/20 Glucose [Mass/Vol] 93 mg/dL Normal 65-99 [facility]; [facility] Work Phone: Comment on above: PATIENT WAS FASTINGP ERFORMED BY: [facility] Ksfbwe5120 [address] [facility]in [place] [id number]; OV 6/20 Potassium [Moles/Vol] 4.6 mmol/L Normal 3.5-5.2 [facility]; [facility] Work Phone: Comment on above: PATIENT WAS FASTINGP ERFORMED BY: [facility] Xoszgf7832 [facility] [id number]; OV 6/20 Protein [Mass/Vol] 7.2 g/dL Normal 6.0-8.5 [facility]; [facility] Work Phone: Comment on above: PATIENT WAS FASTINGP ERFORMED BY: CB [facility] Nwnams9404 [facility]in [place] [id number]; OV 6/20 Sodium [Moles/Vol] 141 mmol/L Normal 134-144 [facility]; [facility] Work Phone: Comment on above: PATIENT WAS FASTINGP ERFORMED BY: [facility] Hgqego4886 [address] RoadDublin [place] [id number]; OV 6/20 Urea nitrogen [Mass/Vol] 11 mg/dL Normal 8-27 [facility]; [facility] Work Phone: Comment on above: PATIENT WAS FASTINGP ERFORMED BY: CB [facility] Hdabvx6005 [address] RoadDublin [place] [id number]; OV 6/20 Urea nitrogen/Creatinine [Mass ratio] 11 mg/mg Normal 10-24 [facility]; [facility] Work Phone: Comment on above: PATIENT WAS FASTINGP ERFORMED BY: CB [facility] Uqoiwn6628 [address] RoadDublin [place] [id number]; OV 6/20 No Panel Informationon 04-10 Prostate Specific Antigen Total < 0.01 ng/mL 0.0-4.[address] [facility] Work Phone: Comment on above: This test was perfor med using the TPSA assay method for [employer] chemistry system. Values obtained with differentassay methods cannot be used interchangably.When changing PSA assays in the course of monitoring apatient, additional sequential testing should be carriedout to confirm baseline values. Final Surgical Pathology Rep [facility] 12-27-2021 Final Surgical Pathology Report . Pathology Reports Accession: Collected Date/Time: Received Date/Time: Pathologist: [id number] 12/26/2021 08:22 EST 12/26/2021 14:14 BIENVENIDO STEEL MD Final Surgical Pathology Report DIAGNOSIS: CECUM, POLYPECTOMY- TUBULAR ADENOMA. COMMENT: [facility] - [id number] CLINICAL INFORMATION: Procedure: COLONOSCOPY WITH POLYPECTOMY Preoperative [...] Electronically Signed by Pathology Report verified by [facility] Electronically signed by BIENVENIDO DENTON Sign out Date: 12/27/2021 16:02 Performing Lab: [facility], [address] [place] [address] [facility] ([place] CBC W/AUTO DIFF WBC ([id number])O rdered By: [employer] Interpreter on 11-21-2021 Basophils (Bld) [#/Vol] 0.1 10*3/uL Normal 0.0-0.2 [facility]; [facility] Work Phone: Comment on above: PATIENT WAS FASTINGP ERFORMED BY: ERAN [facility] Vkkfdr9813 [facility] [id number] Basophils/100 WBC (Bld) 2 % Normal [facility]; [facility] Work Phone: Comment on above: PATIENT WAS FASTINGP ERFORMED BY: ERAN [facility] Wwqady2283 [facility] [id number] Eosinophils (Bld) [#/Vol] 0.2 10*3/uL Normal 0.0-0.4 [facility]; [facility] Work Phone: Comment on above: PATIENT WAS FASTINGP ERFORMED BY: ERAN [facility] Jnwqku3410 [facility] [id number] Eosinophils/100 WBC (Bld) 3 % Normal [facility]; [facility] Work Phone: Comment on above: PATIENT WAS FASTINGP ERFORMED BY: ERAN [facility] Stzcqi0853 [facility] [id number] Erythrocyte distribution width (RBC) [Ratio] 12.8 % Normal 11.6-15.4 [facility]; [facility] Work Phone: Comment on above: PATIENT WAS FASTINGP ERFORMED BY: ERAN [facility] Ktrjjw6792 [facility] [id number] Hematocrit (Bld) [Volume fraction] 43.1 % Normal 37.5-51.0 [facility]; [facility] Work Phone: Comment on above: PATIENT WAS FASTINGP ERFORMED BY: [facility] Qsimhi9903 [facility] [id number] Hemoglobin (Bld) [Mass/Vol] 14.6 g/dL Normal 13.0-17.7 [facility]; [facility] Work Phone: Comment on above: PATIENT WAS FASTINGP ERFORMED BY: [facility] Nylnjo9049 [address] RoadDublin [place] [id number] Immature granulocytes (Bld) [#/Vol] 0.0 10*3/uL Normal 0.0-0.1 [facility]; [facility] Work Phone: Comment on above: PATIENT WAS FASTINGP ERFORMED BY: [facility] Ntlsok4595 [address] RoadDublin [place] [id number] Immature granulocytes/100 WBC (Bld) 0 % Normal [facility]; [facility] Work Phone: Comment on above: PATIENT WAS FASTINGP ERFORMED BY: [facility] Sxorgm3495 [address] RoadDublin [place] [id number] Lymphocytes (Bld) [#/Vol] 1.7 10*3/uL Normal 0.7-3.1 [facility]; [facility] Work Phone: Comment on above: PATIENT WAS FASTINGP ERFORMED BY: [facility] Uukphc3392 [address] RoadDublin [place] [id number] Lymphocytes/100 WBC (Bld) 26 % Normal [facility]; [facility] Work Phone: Comment on above: PATIENT WAS FASTINGP ERFORMED BY: [facility] Imobwc0624 [address] [facility] HospitalD[facility] [place] [id number] MCH (RBC) [Entitic mass] 32.7 pg Normal 26.6-33.0 [facility]; [facility] Work Phone: Comment on above: PATIENT WAS FASTINGP ERFORMED BY: [facility] Abifap5542 [address] RoadDublin [place] [id number] MCHC (RBC) [Mass/Vol] 33.9 g/dL Normal 31.5-35.7 [facility]; [facility] Work Phone: Comment on above: PATIENT WAS FASTINGP ERFORMED BY: [facility] Ecyrej4645 [address] RoadDublin [place] [id number] MCV (RBC) [Entitic vol] 97 fL Normal 79-97 [facility]; [facility] Work Phone: Comment on above: PATIENT WAS FASTINGP ERFORMED BY: ERAN Evonnejay Wigecw9926 [facility] [id number] Monocytes (Bld) [#/Vol] 0.6 10*3/uL Normal 0.1-0.9 [facility]; [facility] Work Phone: Comment on above: PATIENT WAS FASTINGP ERFORMED BY: ERAN Labcojay Bhekfq8437 [facility]in [place] [id number] Monocytes/100 WBC (Bld) 9 % Normal [facility]; [facility] Work Phone: Comment on above: PATIENT WAS FASTINGP ERFORMED BY: ERAN Labcojay ColeQvldfj5407 [facility] [id number] Neutrophils (Bld) [#/Vol] 3.9 10*3/uL Normal 1.4-7.0 [facility]; [facility] Work Phone: Comment on above: PATIENT WAS FASTINGP ERFORMED BY: ERAN Labcojay ColeOsgqfl6309 [facility]in [place] [id number] Neutrophils/100 WBC (Bld) 60 % Normal [facility]; [facility] Work Phone: Comment on above: PATIENT WAS FASTINGP ERFORMED BY: ERAN Labcojay ColeZogjdi3488 [facility] [id number] Platelets (Bld) [#/Vol] 150 10*3/uL Normal 150-450 [facility]; [facility] Work Phone: Comment on above: PATIENT WAS FASTINGP ERFORMED BY: ERAN [facility] Iwokzq2612 [facility]in [place] [id number] RBC (Bld) [#/Vol] 4.46 10*6/uL Normal 4.14-5.80 [facility] Internal Medicine; [facility] Work Phone: Comment on above: PATIENT WAS FASTINGP ERFORMED BY: ERAN [facility] Bpwitt1855 [facility]bl[facility] [place] [id number] WBC (Bld) [#/Vol] 6.5 10*3/uL Normal 3.4-10.8 [facility] Internal Medicine; [facility] Work Phone: Comment on above: PATIENT WAS FASTINGP ERFORMED BY: ERAN Mathewcojay ColeXjncgu5777 [facility] Hospitalbl[facility] [place] [id number] LIPID PANEL ([id number])Ordered B y: [employer] Interpreter on 11-21-2021 Cholesterol [Mass/Vol] 221 mg/dL Abnormal 100-199 [facility]; [facility] Work Phone: Comment on above: PATIENT WAS FASTINGP ERFORMED BY: ERAN Lablesli Monsalve[address] [place] [id number]; FU 1-4 DF Cholesterol in HDL [Mass/Vol] 103 mg/dL Normal [facility]; [facility] Work Phone: Comment on above: PATIENT WAS FASTINGP ERFORMED BY: ERAN Caleb Colelin[address]bl[address] [place] [id number]; FU 1-4 DF Triglyceride [Mass/Vol] 73 mg/dL Normal 0-149 [facility]; [facility] Work Phone: Comment on above: PATIENT WAS FASTINGP ERFORMED BY: ERAN Caleb Colelin6[address]Dublin [place] [id number]; FU 1-4 DF LIPID PANEL (00334) 13 mg/dL Normal 5-40 [facility] Medicine; [facility] Work Phone: Comment on above: PATIENT WAS FASTINGP ERFORMED BY: ERAN [facility] Ontqco46[address] RoadDublin [place] [id number]; FU 1-4 DF LIPID PANEL (56017) 105 mg/dL Abnormal 0-99 [facility] Work Phone: Comment on above: PATIENT WAS FASTINGP ERFORMED BY: ERAN [facility] Hfguwq7983 [address] RoadDublin [place] [id number]; FU 1-4 DF LIPID PANEL (54284) 1.0 {ratio} Normal 0.0-3.6 [facility] Internal Medicine; [facility] Work Phone: Comment on above: LDL/HDL Ratio Men Wo men 1/2 Avg.Risk 1.0 1.5 Avg.Risk 3.6 3.2 2X Avg.Risk 6.2 5.0 3X Avg.Risk 8.0 6.1 PATIENT WAS FASTINGP ERFORMED BY: CB [facility] Rakhuc2872 [address] RoadDublin [place] [id number]; FU 1-4 DF METABOLIC PANEL, COMPREHENSI VE (38049)Ordered By: [employer] Interpreter on 11-21-2021 Albumin [Mass/Vol] 4.7 g/dL Normal 3.8-4.8 [facility] Medicine; [facility] Work Phone: Comment on above: PATIENT WAS FASTINGP ERFORMED BY: CB [facility] Xkqmfr6778 [address] RoadDublin [place] [id number] Albumin/Globulin [Mass ratio] 2.1 {ratio} Normal 1.2-2.2 [facility]; [facility] Work Phone: Comment on above: PATIENT WAS FASTINGP ERFORMED BY: CB [facility] Uippcj2334 [address] RoadDublin [place] [id number] ALP [Catalytic activity/Vol] 77 U/L Normal 44-121 [facility]; [facility] Work Phone: Comment on above: Please note refere nce interval change PATIENT WAS FASTINGP ERFORMED BY: CB [facility] Mcszyi4[address] RoadDublin [place] [id number] ALT [Catalytic activity/Vol] 18 U/L Normal 0-44 [facility]; [facility] Work Phone: Comment on above: PATIENT WAS FASTINGP ERFORMED BY: CB [facility] Wxnjfy1739 [address] RoadDublin [place] [id number] AST [Catalytic activity/Vol] 25 U/L Normal 0-40 [facility]; [facility] Work Phone: Comment on above: PATIENT WAS FASTINGP ERFORMED BY: CB [facility] Vbemyq5196 [address] RoadDublin [place] [id number] Bilirubin [Mass/Vol] 0.4 mg/dL Normal 0.0-1.2 Comp re[facility]; [facility] Work Phone: Comment on above: PATIENT WAS FASTINGP ERFORMED BY: ERAN Monsalve6370 [facility]reSam[facility] [id number] Calcium [Mass/Vol] 9.6 mg/dL Normal 8.6-10.2 [facility] Medicine; [facility] Work Phone: Comment on above: PATIENT WAS FASTINGP ERFORMED BY: ERAN Mosnalve6[address] NimoAtrium Health Providence [id number] Chloride [Moles/Vol] 106 mmol/L Normal 96-106 [facility]; [facility] Work Phone: Comment on above: PATIENT WAS FASTINGP ERFORMED BY: ERAN Monsalve6[address] NimoAtrium Health Providence [id number] CO2 [Moles/Vol] 23 mmol/L Normal 20-29 [facility] Internal Medicine; [facility] Work Phone: Comment on above: PATIENT WAS FASTINGP ERFORMED BY: ERAN Monsalve6370 [facility] [id number] Creatinine [Mass/Vol] 0.99 mg/dL Normal 0.76-1.27 [facility]; [facility] Work Phone: Comment on above: PATIENT WAS FASTINGP ERFORMED BY: ERAN Colelin6370 [facility] [id number] GFR/1.73 sq M.predicted among blacks CKD-EPI (S/P/Bld) [Vol rate/Area] 89 mL/min/1.73 Normal [facility]; [facility] Work Phone: Comment on above: In accordance with recommendations from the NKF-ASN Task force, [facility] is in the process of updating its eGFR calculation to the 2020 CKD-EPI creatinine equation that estimates kidney function without a race variable. PATIENT WAS FASTINGP ERFORMED BY: ERAN Colelin6370 [facility] [id number] GFR/1.73 sq M.predicted among non-blacks CKD-EPI (S/P/Bld) [Vol rate/Area] 77 mL/min/1.73 Normal [facility]; [facility] Work Phone: Comment on above: PATIENT WAS FASTINGP ERFORMED BY: [facility]center[facility] Mcwmth85[address]bl[address] [place] [id number] Globulin (S) [Mass/Vol] 2.2 g/dL Normal 1.5-4.5 [facility]; [facility] Work Phone: Comment on above: PATIENT WAS FASTINGP ERFORMED BY: LabMyMich[facility] Branch[address] [facility] Hospitalblin [place] [id number] Glucose [Mass/Vol] 88 mg/dL Normal 65-99 [facility]; [facility] Work Phone: Comment on above: PATIENT WAS FASTINGP ERFORMED BY: LabMyMich[facility] Branch[address] [facility] Hospitalin [place] [id number] Potassium [Moles/Vol] 4.7 mmol/L Normal 3.5-5.2 [facility]; [facility] Work Phone: Comment on above: PATIENT WAS FASTINGP ERFORMED BY: LabMyMich[facility] Branch6370 [facility]in [place] [id number] Protein [Mass/Vol] 6.9 g/dL Normal 6.0-8.5 [facility]; [facility] Work Phone: Comment on above: PATIENT WAS FASTINGP ERFORMED BY: [facility]center[facility] Tvzlnq9598 [address] [facility] Hospitalin [place] [id number] Sodium [Moles/Vol] 141 mmol/L Normal 134-144 [facility]; [facility] Work Phone: Comment on above: PATIENT WAS FASTINGP ERFORMED BY: [facility]centerpoint [facility] Yqlbkx4642 [address] [facility] Hospitalblin [place] [id number] Urea nitrogen [Mass/Vol] 18 mg/dL Normal 8-27 [facility]; [facility] Work Phone: Comment on above: PATIENT WAS FASTINGP ERFORMED BY: [facility]+ Wzvfiq4903 [facility] [id number] Urea nitrogen/Creatinine [Mass ratio] 18 mg/mg Normal 10-24 [facility]; [facility] Work Phone: Comment on above: PATIENT WAS FASTINGP ERFORMED BY: [facility]+ Nazjjj3887 [facility] [id number] Vitamin D Hydroxy (93714)Ord ered By: [employer] Interpreter on 11-21-2021 25-hydroxyvitamin D [Mass/Vol] 50.2 ng/mL Normal 30.0-100.0 [facility]; [facility] Work Phone: Comment on above: Vitamin D deficiency has been defined by the [place] ofMedicine and an Endocrine Society practice guideline as alevel of serum 25-OH vitamin D less than 20 ng/mL (1,2).The Endocrine Society went on to further define vitamin Dinsufficiency as a level between 21 and 29 ng/mL (2).1. IOM ([place] of Medicine). 2010. Dietary reference intakes for calcium and D. [place]: The National Academies Press.2. Paul MF, Scott [place], Yair TY, et al. Evaluation, treatment, and prevention of vitamin D deficiency: an Endocrine Society clinical practice guideline. JCEM. 2010; 96(7):1911-30. PATIENT WAS FASTINGP ERFORMED BY: [employer]6370 [facility] [id number] C-REACT PROT HIGH SENS(hsCRP ) (61075)Ordered By: [employer] Interpreter on 11-09-2020 CRP High sensitivity method [Mass/Vol] 0.57 mg/L Normal 0.00-3.00 [facility]; [facility] Work Phone: Comment on above: Relative Risk for Fu ture Cardiovascular Event Low <1.00 Average 1.00 - 3.00 High >3.00 PATIENT WAS FASTINGP ERFORMED BY: [employer] Ulwcrk0263 [facility] [id number] CBC W/AUTO DIFF WBC (95993)O rdered By: [employer] Interpreter on 11-09-2020 Basophils (Bld) [#/Vol] 0.2 {x10E3/uL} Normal 0.0-0.2 [facility]; [facility] Work Phone: Comment on above: PATIENT WAS FASTINGP ERFORMED BY: ERAN [facility] Lxttou26[address]bl[address] [place] [id number] Basophils (Bld) [#/Vol] 0.2 10*3/uL Normal 0.0-0.2 [facility]; [facility] Work Phone: Comment on above: PATIENT WAS FASTINGP ERFORMED BY: ERAN LabSaint [facility] Grfmba0[address]blin [place] [id number] Basophils/100 WBC (Bld) 2 % Normal [facility]; [facility] Work Phone: Comment on above: PATIENT WAS FASTINGP ERFORMED BY: ERAN PriyankaSaint Luke'S Hospital Reuevy3578 [address] [facility] [id number] Eosinophils (Bld) [#/Vol] 0.3 {x10E3/uL} Normal 0.0-0.4 [facility]; [facility] Work Phone: Comment on above: PATIENT WAS FASTINGP ERFORMED BY: ERAN [facility] Xqowmi8910 [facility] Centerin [place] [id number] Eosinophils (Bld) [#/Vol] 0.3 10*3/uL Normal 0.0-0.4 [facility]; [facility] Work Phone: Comment on above: PATIENT WAS FASTINGP ERFORMED BY: PriyankaSaint Luke'S Hospital Gtzffp8092 [address] [facility] Hospitalin [place] [id number] Eosinophils/100 WBC (Bld) 4 % Normal [facility]; [facility] Work Phone: Comment on above: PATIENT WAS FASTINGP ERFORMED BY: ERAN PriyankaSaint Luke'S Hospital Eoybvw5458 [facility] Centerin [place] [id number] Erythrocyte distribution width (RBC) [Ratio] 12.5 % Normal 11.6-15.4 [facility]; [facility] Work Phone: Comment on above: PATIENT WAS FASTINGP ERFORMED BY: ERAN [facility] Jigjnk1121 [address] [facility] [id number] Hematocrit (Bld) [Volume fraction] 44.6 % Normal 37.5-51.0 [facility]; [facility] Work Phone: Comment on above: PATIENT WAS FASTINGP ERFORMED BY: Lab[facility] Hxnfdh1101 [address] [facility] [id number] Hemoglobin (Bld) [Mass/Vol] 15.4 g/dL Normal 13.0-17.7 [facility]; [facility] Work Phone: Comment on above: PATIENT WAS FASTINGP ERFORMED BY: LabSaint [facility] Hospital Hamuby8776 [address] [facility] [id number] Immature granulocytes (Bld) [#/Vol] 0.0 {x10E3/uL} Normal 0.0-0.1 [facility]; [facility] Work Phone: Comment on above: PATIENT WAS FASTINGP ERFORMED BY: PriyankaSaint Luke'S Hospital Negxdl9146 [address] [facility] [id number] Immature granulocytes (Bld) [#/Vol] 0.0 10*3/uL Normal 0.0-0.1 [facility]; [facility] Work Phone: Comment on above: PATIENT WAS FASTINGP ERFORMED BY: LabSaint [facility]'S Hospital Rclbmp1456 [address] [facility] [id number] Immature granulocytes/100 WBC (Bld) 0 % Normal [facility]; [facility] Work Phone: Comment on above: PATIENT WAS FASTINGP ERFORMED BY: [facility] Ucyczp5971 [address] [facility] [id number] Lymphocytes (Bld) [#/Vol] 2.0 {x10E3/uL} Normal 0.7-3.1 [facility]; [facility] Work Phone: Comment on above: PATIENT WAS FASTINGP ERFORMED BY: LabSaint Luke'S Hospital Hskgbp8816 [address] RoadDublin [place] [id number] Lymphocytes (Bld) [#/Vol] 2.0 10*3/uL Normal 0.7-3.1 [facility]; [facility] Work Phone: Comment on above: PATIENT WAS FASTINGP ERFORMED BY: ERAN LabCojay MonsalveYyawgp9747 [address] RoadDublin [place] [id number] Lymphocytes/100 WBC (Bld) 26 % Normal [facility]; [facility] Work Phone: Comment on above: PATIENT WAS FASTINGP ERFORMED BY: ERAN [facility] Rvigld0307 [address] RoadDublin [place] [id number] MCH (RBC) [Entitic mass] 32.9 pg Normal 26.6-33.0 [facility]; [facility] Work Phone: Comment on above: PATIENT WAS FASTINGP ERFORMED BY: ERAN [facility] Hsfvbh4291 [address] RoadDublin [place] [id number] MCHC (RBC) [Mass/Vol] 34.5 g/dL Normal 31.5-35.7 [facility]; [facility] Work Phone: Comment on above: PATIENT WAS FASTINGP ERFORMED BY: ERAN [facility] Qxyfsr9075 [address] [facility] HospitalD[facility] [place] [id number] MCV (RBC) [Entitic vol] 95 fL Normal 79-97 [facility]; [facility] Work Phone: Comment on above: PATIENT WAS FASTINGP ERFORMED BY: ERAN [facility] Usrehf7067 [address] RoadDublin [place] [id number] Monocytes (Bld) [#/Vol] 0.6 {x10E3/uL} Normal 0.1-0.9 [facility]; [facility] Work Phone: Comment on above: PATIENT WAS FASTINGP ERFORMED BY: [facility] Opikqk5088 [address] RoadDublin [place] [id number] Monocytes (Bld) [#/Vol] 0.6 10*3/uL Normal 0.1-0.9 [facility]; [facility] Work Phone: Comment on above: PATIENT WAS FASTINGP ERFORMED BY: [facility] Lxvtmp2295 [address] RoadDublin [place] [id number] Monocytes/100 WBC (Bld) 8 % Normal [facility]; [facility] Work Phone: Comment on above: PATIENT WAS FASTINGP ERFORMED BY: ERAN PriyankaLesli ColeCljqhu2148 [address] RoadDublin [place] [id number] Neutrophils (Bld) [#/Vol] 4.8 {x10E3/uL} Normal 1.4-7.0 [facility]; [facility] Work Phone: Comment on above: PATIENT WAS FASTINGP ERFORMED BY: ERAN Monsalve[address]Dublin [place] [id number] Neutrophils (Bld) [#/Vol] 4.8 10*3/uL Normal 1.4-7.0 [facility]; [facility] Work Phone: Comment on above: PATIENT WAS FASTINGP ERFORMED BY: ERAN Monsalve[address]Dublin [place] [id number] Neutrophils/100 WBC (Bld) 60 % Normal [facility]; [facility] Work Phone: Comment on above: PATIENT WAS FASTINGP ERFORMED BY: ERAN Monsalve6[address]Dublin [place] [id number] Platelets (Bld) [#/Vol] 204 {x10E3/uL} Normal 150-450 [facility]; [facility] Work Phone: Comment on above: PATIENT WAS FASTINGP ERFORMED BY: ERAN Colelin[address] [place] [id number] Platelets (Bld) [#/Vol] 204 10*3/uL Normal 150-450 [facility]; [facility] Work Phone: Comment on above: PATIENT WAS FASTINGP ERFORMED BY: ERAN LabLesli ColeVqzycg6309 [address] RoadDublin [place] [id number] RBC (Bld) [#/Vol] 4.68 {x10E6/uL} Normal 4.14-5.80 [facility] Internal [facility]; [facility] Work Phone: Comment on above: PATIENT WAS FASTINGP ERFORMED BY: ERAN [facility] Xsxbda2864 [address] Roadbl[address] [place] [id number] RBC (Bld) [#/Vol] 4.68 10*6/uL Normal 4.14-5.80 [facility]; [facility] Work Phone: Comment on above: PATIENT WAS FASTINGP ERFORMED BY: [facility] Djuikc5404 [address] Roadblin [place] [id number] WBC (Bld) [#/Vol] 7.9 {x10E3/uL} Normal 3.4-10.8 [facility]; [facility] Work Phone: Comment on above: PATIENT WAS FASTINGP ERFORMED BY: [facility] Tywuvy6418 [address] [facility] Hospitalblin [place] [id number] WBC (Bld) [#/Vol] 7.9 10*3/uL Normal 3.4-10.8 [facility] Internal [facility]; [facility] Work Phone: Comment on above: PATIENT WAS FASTINGP ERFORMED BY: [facility] Lztfkg7319 [address] [facility]in [place] [id number] LIPID PANEL (46309)Ordered B y: [employer] Interpreter on 11-09-2020 Cholesterol [Mass/Vol] 209 mg/dL Abnormal 100-199 [facility]; [facility] Work Phone: Comment on above: PATIENT WAS FASTINGP ERFORMED BY: [facility] Sfgiev1163 [facility]in [place] [id number] Cholesterol in HDL [Mass/Vol] 78 mg/dL Normal [facility]; [facility] Work Phone: Comment on above: PATIENT WAS FASTINGP ERFORMED BY: [facility] Rsnxti7088 [address] [facility] Hospitalblin [place] [id number] Cholesterol in LDL/Cholesterol in HDL [Mass ratio] 1.5 {ratio} Normal 0.0-3.6 [facility]; [facility] Work Phone: Comment on above: LDL/HDL Ratio Men Wo men 1/2 Avg.Risk 1.0 1.5 Avg.Risk 3.6 3.2 2X Avg.Risk 6.2 5.0 3X Avg.Risk 8.0 6.1 PATIENT WAS FASTINGP ERFORMED BY: ERAN LabJoanajay Rfqlod7877 [facility] [id number] Triglyceride [Mass/Vol] 84 mg/dL Normal 0-149 [facility]; [facility] Work Phone: Comment on above: PATIENT WAS FASTINGP ERFORMED BY: ERAN LabJoana Dmahim1628 [facility] [id number] LIPID PANEL (06488) 116 mg/dL Abnormal 0-99 [facility]; [facility] Work Phone: Comment on above: PATIENT WAS FASTINGP ERFORMED BY: ERAN LabSaint [facility] Xgcyvp6429 [facility] [id number] LIPID PANEL (28945) 15 mg/dL Normal 5-40 [facility] Internal Medicine; [facility] Work Phone: Comment on above: PATIENT WAS FASTINGP ERFORMED BY: ERAN LabSaint [facility] Ybqkgy6854 [facility] [id number] LIPID PANEL (75261) 1.5 {ratio} Normal 0.0-3.6 [facility] Internal [facility]; [facility] Work Phone: Comment on above: LDL/HDL Ratio Men Wo men 1/2 Avg.Risk 1.0 1.5 Avg.Risk 3.6 3.2 2X Avg.Risk 6.2 5.0 3X Avg.Risk 8.0 6.1 PATIENT WAS FASTINGP ERFORMED BY: ERAN LabBr[facility]6370 [facility] [id number] METABOLIC PANEL, COMPREHENSI VE (93036)Ordered By: [employer] Interpreter on 11-09-2020 Albumin [Mass/Vol] 4.5 g/dL Normal 3.8-4.8 [facility] Internal Medicine; [facility] Work Phone: Comment on above: PATIENT WAS FASTINGP ERFORMED BY: ERAN LabSaint [facility] Hospital Kuhbdv9228 [facility] [id number] Albumin/Globulin [Mass ratio] 1.8 {ratio} Normal 1.2-2.2 [facility]; [facility] Work Phone: Comment on above: PATIENT WAS FASTINGP ERFORMED BY: ERAN LabCojay Jolcfl1715 [address] RoadDublin [place] [id number] ALP [Catalytic activity/Vol] 66 [iU]/L Normal 39-117 [facility]; [facility] Work Phone: Comment on above: PATIENT WAS FASTINGP ERFORMED BY: ERAN LabCojay ColeKnmmju2559 [address] RoadDublin [place] [id number] ALP [Catalytic activity/Vol] 66 U/L Normal 39-117 [facility]; [facility] Work Phone: Comment on above: PATIENT WAS FASTINGP ERFORMED BY: ERAN Colelin6[address]Dublin [place] [id number] ALT [Catalytic activity/Vol] 19 [iU]/L Normal 0-44 [facility]; [facility] Work Phone: Comment on above: PATIENT WAS FASTINGP ERFORMED BY: ERAN Colelin6[address]Dublin [place] [id number] ALT [Catalytic activity/Vol] 19 U/L Normal 0-44 [facility]; [facility] Work Phone: Comment on above: PATIENT WAS FASTINGP ERFORMED BY: ERAN LabCojay ColeToizkk4512 [address] RoadDublin [place] [id number] AST [Catalytic activity/Vol] 23 [iU]/L Normal 0-40 [facility]; [facility] Work Phone: Comment on above: PATIENT WAS FASTINGP ERFORMED BY: ERAN [facility] Cufmlc6661 [address] RoadDublin [place] [id number] AST [Catalytic activity/Vol] 23 U/L Normal 0-40 [facility]; [facility] Work Phone: Comment on above: PATIENT WAS FASTINGP ERFORMED BY: ERAN [facility] Gfbkan6464 [address] RoadDublin [place] [id number] Bilirubin [Mass/Vol] 0.4 mg/dL Normal 0.0-1.2 Comp [facility]; [facility] Work Phone: Comment on above: PATIENT WAS FASTINGP ERFORMED BY: CB [facility] Nsoyyk4738 [address] RoadDublin [place] [id number] Calcium [Mass/Vol] 9.7 mg/dL Normal 8.6-10.2 [facility]; [facility] Work Phone: Comment on above: PATIENT WAS FASTINGP ERFORMED BY: CB [facility] Dqlxnn6946 [address] RoadDublin [place] [id number] Chloride [Moles/Vol] 105 mmol/L Normal 96-106 Comp rehensive Internal Medicine; [facility] Work Phone: Comment on above: PATIENT WAS FASTINGP ERFORMED BY: CB [facility] Ldogdd4447 [address] RoadDublin [place] [id number] CO2 [Moles/Vol] 23 mmol/L Normal 20-29 [facility] Internal Medicine; [facility] Work Phone: Comment on above: PATIENT WAS FASTINGP ERFORMED BY: CB [facility] Gymliw1759 [address] RoadDublin [place] [id number] Creatinine [Mass/Vol] 1.04 mg/dL Normal 0.76-1.27 [facility]; [facility] Work Phone: Comment on above: PATIENT WAS FASTINGP ERFORMED BY: CB [facility] Cnjvcv8012 [address] RoadDublin [place] [id number] GFR/1.73 sq M predicted among blacks CKD-EPI (S/P/Bld) [Vol rate/Area] 84 mL/min/1.73 Normal [facility]; [facility] Work Phone: Comment on above: PATIENT WAS FASTINGP ERFORMED BY: CB [facility] Llpyte9321 [address] RoadDublin [place] [id number] GFR/1.73 sq M predicted among non-blacks CKD-EPI (S/P/Bld) [Vol rate/Area] 73 mL/min/1.73 Normal [facility]; [facility] Work Phone: Comment on above: PATIENT WAS FASTINGP ERFORMED BY: CB [facility] Kdlmub3663 [address] RoadDublin [place] [id number] Globulin (S) [Mass/Vol] 2.5 g/dL Normal 1.5-4.5 [facility]; [facility] Work Phone: Comment on above: PATIENT WAS FASTINGP ERFORMED BY: ERAN Evonne Jlodgr1577 [facility] [id number] Glucose [Mass/Vol] 87 mg/dL Normal 65-99 [facility]; [facility] Work Phone: Comment on above: PATIENT WAS FASTINGP ERFORMED BY: ERAN LabSaint [facility]'S Hospital Cdbdpc1694 [facility] [id number] Potassium [Moles/Vol] 4.9 mmol/L Normal 3.5-5.2 [facility]; [facility] Work Phone: Comment on above: PATIENT WAS FASTINGP ERFORMED BY: ERAN LabSaint [facility] Ytfopk9798 [facility] [id number] Protein [Mass/Vol] 7.0 g/dL Normal 6.0-8.5 [facility]; [facility] Work Phone: Comment on above: PATIENT WAS FASTINGP ERFORMED BY: ERAN LabSaint [facility] Vqzcpo4008 [facility] [id number] Sodium [Moles/Vol] 142 mmol/L Normal 134-144 [facility]; [facility] Work Phone: Comment on above: PATIENT WAS FASTINGP ERFORMED BY: ERAN LabSaint [facility] Hospital Zmtsvy2288 [facility] [id number] Urea nitrogen [Mass/Vol] 14 mg/dL Normal 8-27 [facility]; [facility] Medicine Work Phone: Comment on above: PATIENT WAS FASTINGP ERFORMED BY: ERAN [facility]Saint [facility] Rvsvmx7326 [facility] [id number] Urea nitrogen/Creatinine [Mass ratio] 13 mg/mg Normal 10-24 [facility]; [facility] Work Phone: Comment on above: PATIENT WAS FASTINGP ERFORMED BY: CB LabBr[facility]6[address] RoadDublin [place] [id number] Vitamin D Hydroxy (41157)Ord ered By: [employer] Interpreter on 11-09-2020 25-Hydroxyvitamin D2+25-Hydroxyvitamin D3 [Mass/Vol] 49.9 ng/mL Normal 30.0-100.0 [facility]; [facility] Work Phone: Comment on above: Vitamin D deficiency has been defined by the [place] of[facility] and an Endocrine Society practice guideline as alevel of serum 25-OH vitamin D less than 20 ng/mL (1,2).The Endocrine Society went on to further define vitamin Dinsufficiency as a level between 21 and 29 ng/mL (2).1. IOM ([place] of Medicine). 2010. Dietary reference intakes for calcium and D. [place]: The National Academies Press.2. Paul MF, Scott IVEY, Yair TY, et al. Evaluation, treatment, and prevention of vitamin D deficiency: an Endocrine Society clinical practice guideline. JCEM. 2010; 96(7):1911-30. PATIENT WAS FASTINGP ERFORMED BY: [employer] Cwcnrk1354 [address] RoadDublin [place] [id number] METABOLIC PANEL, COMPREHENSI VE (44963)Ordered By: [employer] Interpreter on 05-01-2019 Albumin [Mass/Vol] 4.6 g/dL Normal 3.6-4.8 [facility] Internal Medicine Work Phone: Comment on above: PATIENT WAS FASTINGP ERFORMED BY: [employer] Lkprvwened6904 [facility] [id number] BY: LabXintu ShujuPmesgc0857 [address] RoadDublin [place] [id number] Albumin/Globulin [Mass ratio] 1.6 {ratio} Normal 1.2-2.2 [facility] Work Phone: Comment on above: PATIENT WAS FASTINGP ERFORMED BY: Wholeshare[address] [id number] BY: [employer] Mtfaoe8738 Bishop RoadDublin [place] [id number] ALP [Catalytic activity/Vol] 53 [iU]/L Normal 39-117 [facility] Work Phone: Comment on above: PATIENT WAS FASTINGP ERFORMED BY: Lab[address] [id number] BY: ERAN [facility] Pzrcli4699 [address] RoadDublin [place] [id number] ALP [Catalytic activity/Vol] 53 U/L Normal 39-117 [facility]; [facility] Work Phone: Comment on above: PATIENT WAS FASTINGP ERFORMED BY: LabCo[address] [id number] BY: ERAN [facility] Lnboxd4856 Bishop RoadDublin [place] [id number] ALT [Catalytic activity/Vol] 23 [iU]/L Normal 0-44 [facility] Work Phone: Comment on above: PATIENT WAS FASTINGP ERFORMED BY: [address] [id number] BY: [facility] Vdparx1245 [address] RoadDublin [place] [id number] ALT [Catalytic activity/Vol] 23 U/L Normal 0-44 [facility]; [facility] Work Phone: Comment on above: PATIENT WAS FASTINGP ERFORMED BY: [address] [id number] BY: LabCo Zmxxif4184 [address] RoadDublin [place] [id number] AST [Catalytic activity/Vol] 36 [iU]/L Normal 0-40 [facility] Work Phone: Comment on above: PATIENT WAS FASTINGP ERFORMED BY: [address] [id number] BY: LabCo Oigwkc8[address] RoadDublin [place] [id number] AST [Catalytic activity/Vol] 36 U/L Normal 0-40 [facility]; [facility] Work Phone: Comment on above: PATIENT WAS FASTINGP ERFORMED BY: BN [facility] [address] [id number] BY: ERAN [facility] Qfazoz5934 [address] RoadDublin [place] [id number] Bilirubin [Mass/Vol] 0.4 mg/dL Normal 0.0-1.2 Comp rehensive Internal Medicine Work Phone: Comment on above: PATIENT WAS FASTINGP ERFORMED BY: [facility] [address] [id number] BY: CB [facility] Gsvwao7901 [address] RoadDublin [place] [id number] Calcium [Mass/Vol] 9.5 mg/dL Normal 8.6-10.2 [facility] Internal Medicine Work Phone: Comment on above: PATIENT WAS FASTINGP ERFORMED BY: [facility] [address] [id number] BY: ERAN [facility] Lqabbq9174 [address] RoadDublin [place] [id number] Chloride [Moles/Vol] 103 mmol/L Normal 96-106 [facility] Work Phone: Comment on above: PATIENT WAS FASTINGP ERFORMED BY: [facility] [address] [id number] BY: [facility] Qlhfur8416 [address] RoadDublin [place] [id number] CO2 [Moles/Vol] 22 mmol/L Normal 20-29 [facility] Internal Medicine Work Phone: Comment on above: PATIENT WAS FASTINGP ERFORMED BY: [facility] [address] [id number] BY: CB [facility] Slhnte6487 [address] RoadDublin [place] [id number] Creatinine [Mass/Vol] 1.02 mg/dL Normal 0.76-1.27 [facility] Work Phone: Comment on above: PATIENT WAS FASTINGP ERFORMED BY: [facility] [address] [id number] BY: CB [facility] Hbnhtv0737 [address] RoadDublin [place] [id number] GFR/1.73 sq M predicted among blacks CKD-EPI (S/P/Bld) [Vol rate/Area] 88 mL/min/1.73 Normal [facility] Work Phone: Comment on above: PATIENT WAS FASTINGP ERFORMED BY: Relay[address] [id number] BY: Lab[facility] Oxmwtp2003 [address] RoadDuin [place] [id number] GFR/1.73 sq M predicted among non-blacks CKD-EPI (S/P/Bld) [Vol rate/Area] 76 mL/min/1.73 Normal [facility] Work Phone: Comment on above: PATIENT WAS FASTINGP ERFORMED BY: Sharewire[address] [id number] BY: LabBr[facility]6370 [facility] [id number] Globulin (S) [Mass/Vol] 2.8 g/dL Normal 1.5-4.5 [facility] Work Phone: Comment on above: PATIENT WAS FASTINGP ERFORMED BY: LabLiveWire Tax[address] [id number] BY: LabNevada Regional Medical CenterWszkas4073 [facility] [id number] Glucose [Mass/Vol] 87 mg/dL Normal 65-99 [facility] Internal Medicine Work Phone: Comment on above: PATIENT WAS FASTINGP ERFORMED BY: Sharewire[address] [id number] BY: LabBr[facility]6370 [facility] [id number] Potassium [Moles/Vol] 4.6 mmol/L Normal 3.5-5.2 [facility] Work Phone: Comment on above: PATIENT WAS FASTINGP ERFORMED BY: Relay[address] [id number] BY: ERAN [facility] Spnloy1377 [address] RoadDublin [place] [id number] Protein [Mass/Vol] 7.4 g/dL Normal 6.0-8.5 [facility] Internal Medicine Work Phone: Comment on above: PATIENT WAS FASTINGP ERFORMED BY: TERRANCE [facility] Ljwtcmpklk0465 [facility] [id number] BY: ERAN [facility] Xippfe2390 [address] RoadDublin [place] [id number] Sodium [Moles/Vol] 141 mmol/L Normal 134-144 [facility] Internal Medicine Work Phone: Comment on above: PATIENT WAS FASTINGP ERFORMED BY: TERRANCE [facility] Uvslivdriq0887 [facility] [id number] BY: ERAN [facility] Aspqcd2845 [address] RoadDublin [place] [id number] Urea nitrogen [Mass/Vol] 14 mg/dL Normal 8-27 [facility] Work Phone: Comment on above: PATIENT WAS FASTINGP ERFORMED BY: TERRANCE [facility] Aojifdfdwm3960 [facility] [id number] BY: ERAN [facility] Civuke0693 [address] RoadDublin [place] [id number] Urea nitrogen/Creatinine [Mass ratio] 14 mg/mg Normal 10-24 [facility] Work Phone: Comment on above: PATIENT WAS FASTINGP ERFORMED BY: TERRANCE [facility] Alopkrgpsw5875 [facility] [id number] BY: ERAN [facility] Knyzts8163 [address] RoadDublin [place] [id number] NMR Profile ([id number])Ordered B y: [employer] Interpreter on 05-01-2019 Cholesterol [Mass/Vol] 208 mg/dL Abnormal 100-199 [facility] Work Phone: Comment on above: PATIENT WAS FASTINGP ERFORMED BY: TERRANCE [facility] Xbqymaubid3740 [facility] [id number] BY: ERAN [facility] Rwqaqm2224 [facility] [id number] Cholesterol in HDL [Mass/Vol] 88 mg/dL Normal [facility] Work Phone: Comment on above: PATIENT WAS FASTINGP ERFORMED BY: Sharewire[address] [id number] BY: [employer] Xgimsc1483 [facility] [id number] Lipoprotein.alpha [Moles/Vol] 38.3 umol/L Normal [facility] Work Phone: Comment on above: PATIENT WAS FASTINGP ERFORMED BY: TwitJump[address] [id number] BY: [employer] Jcwrtv8142 [facility] [id number] Lipoprotein.beta.sub particle [Entitic length] 21.3 nm Normal [facility] Work Phone: Comment [...] were developed and their performance characteristicsdetermined by [employer] These assays have not been cleared by [place] Food and Drug Administration. The clinical utility of theselaboratory values have not been fully established. PATIENT WAS FASTINGP ERFORMED BY: Sharewire[address] [id number] BY: [facility]6370 [facility] [id number] Lipoprotein.beta.sub particle [Moles/Vol] 1067 nmol/L Abnormal Comprehensi Internal Medicine Work Phone: Comment on above: Low < 1000 Moderate 1000 - 1299 Borderline-High 1300 - 1599 High 1600 - 2000 Very High > 2000 PATIENT WAS FASTINGP ERFORMED BY: Sharewire[address] [id number] BY: LabLiveWire TaxKim Ville 0932770 [facility] [id number] Lipoprotein.beta.sub particle.small [Moles/Vol] <90 Normal [facility] Work Phone: Comment on above: PATIENT WAS FASTINGP ERFORMED BY: Sharewire[address] [id number] BY: LabSaint [facility] Tflttp1569 [facility] [id number] Triglyceride [Mass/Vol] 60 mg/dL Normal 0-149 [facility] Work Phone: Comment on above: PATIENT WAS FASTINGP ERFORMED BY: Relay[address] [id number] BY: LabMichael Ville 2123370 [facility] [id number] NMR Profile (95287) 108 mg/dL Abnormal 0-99 [facility] Internal Medicine Work Phone: Comment on above: . Optimal < 100 Abov e optimal 100 - 129 Borderline 130 - 159 High 160 - 189 Very high > 189 .LDL-C is inaccurate if patient is non-fasting. PATIENT WAS FASTINGP ERFORMED BY: Relay[address] [id number] BY: [place] 2423170 [facility] [id number] TESTOSTERONE FREE (18323)Ord ered By: [employer] Interpreter on 05-01-2019 Testosterone Free [Mass/Vol] 7.0 pg/mL Normal 6.6-18.1 [facility] Work Phone: Comment on above: PATIENT WAS FASTINGP ERFORMED BY: Wholeshare[address] [id number] BY: [employer] Ziukus0631 [facility] [id number] Vitamin D Hydroxy (15232)Ord ered By: [employer] Interpreter on 05-01-2019 25-Hydroxyvitamin D2+25-Hydroxyvitamin D3 [Mass/Vol] 51.5 ng/mL Normal 30.0-100.0 [facility] Work Phone: Comment on above: Vitamin D deficiency has been defined by the [place] [facility] and an Endocrine Society practice guideline as alevel of serum 25-OH vitamin D less than 20 ng/mL (1,2).The Endocrine Society went on to further define vitamin Dinsufficiency as a level between 21 and 29 ng/mL (2).1. IOM ([place] of Medicine). 2010. Dietary reference intakes for calcium and D. [place]: The National Academies Press.2. Paul MF, Scott [place], Yair TY, et al. Evaluation, treatment, and prevention of vitamin D deficiency: an Endocrine Society clinical practice guideline. JCEM. 2010; 96(7):1911-30. PATIENT WAS FASTINGP ERFORMED BY: Wholeshareton1447 [facility] [id number] BY: [employer] Rwybdy7971 [facility] [id number] CBC W/AUTO DIFF WBC (56692)o n 12-31-2018 Basophils #/vol (Bld) 0.1 {x10E3/uL} Normal 0.0-0.2 [facility] Work Phone: Comment on above: PATIENT NOT FASTINGP ERFORMED BY: SharewireNew Bridge Medical CenterWtawjd9714 [facility] [id number] BY: LabCo[address] [id number] Information: NURSE DRAW Basophils/100 WBC (Bld) 1 % Normal [facility] Work Phone: Comment on above: PATIENT NOT FASTINGP ERFORMED BY: ERAN [facility] Dxjxkz8561 [facility] [id number] BY: LabCo[address] [id number] Information: NURSE DRAW Eosinophils #/vol (Bld) 0.2 {x10E3/uL} Normal 0.0-0.4 [facility] Work Phone: Comment on above: PATIENT NOT FASTINGP ERFORMED BY: ERAN [facility] Aoippa1132 [facility] [id number] BY: [address] [id number] Information: NURSE DRAW Eosinophils/100 WBC (Bld) 2 % Normal [facility] Work Phone: Comment on above: PATIENT NOT FASTINGP ERFORMED BY: ERAN [facility] Lljbpv3136 [facility] [id number] BY: [address] [id number] Information: NURSE DRAW Erythrocyte distribution width Ratio (RBC) 13.9 % Normal 12.3-15.4 [facility] Work Phone: Comment on above: PATIENT NOT FASTINGP ERFORMED BY: CB [facility] Qotlyi3482 [facility] [id number] BY: [address] [id number] Information: NURSE DRAW Hematocrit Volume Fraction (Bld) 47.5 % Normal 37.5-51.0 [facility] Work Phone: Comment on above: PATIENT NOT FASTINGP ERFORMED BY: CB [facility] Bjacck4989 [facility] [id number] BY: [address] [place] [id number] Information: NURSE DRAW Hemoglobin mass conc (Bld) 15.9 g/dL Normal 13.0-17.7 [facility] Work Phone: Comment on above: PATIENT NOT FASTINGP ERFORMED BY: [facility] Zxjevk4123 [facility] [id number] BY: [address] [id number] Information: NURSE DRAW Immature granulocytes #/vol (Bld) 0.0 {x10E3/uL} Normal 0.0-0.1 [facility] Work Phone: Comment on above: PATIENT NOT FASTINGP ERFORMED BY: [facility] Eodjlj6049 [facility] [id number] BY: [address] [id number] Information: NURSE DRAW Immature granulocytes/100 WBC (Bld) 0 % Normal [facility] Work Phone: Comment on above: PATIENT NOT FASTINGP ERFORMED BY: [facility] Rngsnj2038 [facility] [id number] BY: [address] [id number] Information: NURSE DRAW Lymphocytes #/vol (Bld) 2.8 {x10E3/uL} Normal 0.7-3.1 [facility] Work Phone: Comment on above: PATIENT NOT FASTINGP ERFORMED BY: [facility] Jegjuc8382 [facility] [id number] BY: [address] [id number] Information: NURSE DRAW Lymphocytes/100 WBC (Bld) 29 % Normal [facility] Work Phone: Comment on above: PATIENT NOT FASTINGP ERFORMED BY: [facility] Zztltv9250 [facility] [id number] BY: BN [address] [id number] Information: NURSE DRAW MCH Entitic mass (RBC) 32.9 pg Normal 26.6-33.0 [facility] Work Phone: Comment on above: PATIENT NOT FASTINGP ERFORMED BY: ERAN [facility] Fhouwb4562 [facility] [id number] BY: [address] [id number] Information: NURSE DRAW MCHC mass conc (RBC) 33.5 g/dL Normal 31.5-35.7 Comp rehthe [facility] Internal Medicine Work Phone: Comment on above: PATIENT NOT FASTINGP ERFORMED BY: ERAN [facility] Imoiyc8061 [facility] [id number] BY: [address] [id number] Information: NURSE DRAW MCV Entitic volume (RBC) 98 fL Abnormal 79-97 [facility] Work Phone: Comment on above: PATIENT NOT FASTINGP ERFORMED BY: ERAN [facility] Pxkknd9408 [facility] [id number] BY: [address] [id number] Information: NURSE DRAW Monocytes #/vol (Bld) 0.7 {x10E3/uL} Normal 0.1-0.9 [facility] Work Phone: Comment on above: PATIENT NOT FASTINGP ERFORMED BY: CB [facility] Mmvrev3398 [facility] [id number] BY: [address] [id number] Information: NURSE DRAW Monocytes/100 WBC (Bld) 7 % Normal [facility] Work Phone: Comment on above: PATIENT NOT FASTINGP ERFORMED BY: CB [facility] Vsmysh3920 [facility] [id number] BY: [address] [id number] Information: NURSE DRAW Neutrophils #/vol (Bld) 5.8 {x10E3/uL} Normal 1.4-7.0 [facility] Work Phone: Comment on above: PATIENT NOT FASTINGP ERFORMED BY: ERAN [facility] Sxkpil9562 Bishop RoadAtrium Health Providence [id number] BY: LabCo[address] [id number] Information: NURSE DRAW Neutrophils/100 WBC (Bld) 61 % Normal [facility] Work Phone: Comment on above: PATIENT NOT FASTINGP ERFORMED BY: ERAN [facility] Kpbyia4750 [facility] [id number] BY: LabCo[address] [id number] Information: NURSE DRAW Platelets #/vol (Bld) 221 {x10E3/uL} Normal 150-379 [facility] Work Phone: Comment on above: PATIENT NOT FASTINGP ERFORMED BY: ERAN [facility] Vwazre1106 [facility] [id number] BY: Lab[address] [id number] Information: NURSE DRAW RBC #/vol (Bld) 4.84 {x10E6/uL} Normal 4.14-5.80 [facility] Internal Medicine Work Phone: Comment on above: PATIENT NOT FASTINGP ERFORMED BY: CB [facility] Tcizqj7144 [facility] [id number] BY: LabCo[address] [id number] Information: NURSE DRAW WBC #/vol (Bld) 9.6 {x10E3/uL} Normal 3.4-10.8 [facility] Internal Medicine Work Phone: Comment on above: PATIENT NOT FASTINGP ERFORMED BY: CB [facility] Tahsey7108 [facility] [id number] BY: [address] [id number] Information: NURSE DRAW CBC W/AUTO DIFF WBC (87744)O rdered By: [employer] Interpreter on 12-31-2018 Basophils (Bld) [#/Vol] 0.1 10*3/uL Normal 0.0-0.2 [facility]; [facility] Work Phone: Comment on above: PATIENT NOT FASTINGP ERFORMED BY: [place] 2423170 [facility] [id number] BY: [address] [id number] Information: NURSE DRAW Eosinophils (Bld) [#/Vol] 0.2 10*3/uL Normal 0.0-0.4 [facility]; [facility] Work Phone: Comment on above: PATIENT NOT FASTINGP ERFORMED BY: [address] [id number] BY: [address] [id number] Information: NURSE DRAW Immature granulocytes (Bld) [#/Vol] 0.0 10*3/uL Normal 0.0-0.1 [facility]; [facility] Work Phone: Comment on above: PATIENT NOT FASTINGP ERFORMED BY: [place] 2423170 [facility] [id number] BY: [address] [id number] Information: NURSE DRAW Lymphocytes (Bld) [#/Vol] 2.8 10*3/uL Normal 0.7-3.1 [facility]; [facility] Work Phone: Comment on above: PATIENT NOT FASTINGP ERFORMED BY: [address] [id number] BY: [address] [id number] Information: NURSE DRAW Monocytes (Bld) [#/Vol] 0.7 10*3/uL Normal 0.1-0.9 [facility]; [facility] Work Phone: Comment on above: PATIENT NOT FASTINGP ERFORMED BY: ERAN [facility] Vzoqrz9631 BishopWest [facility] Health Systemin [place] [id number] BY: [address] [id number] Information: NURSE DRAW Neutrophils (Bld) [#/Vol] 5.8 10*3/uL Normal 1.4-7.0 [facility]; [facility] Work Phone: Comment on above: PATIENT NOT FASTINGP ERFORMED BY: ERAN [facility] Dyswbp7294 [facility] [id number] BY: [address] [id number] Information: NURSE DRAW Platelets (Bld) [#/Vol] 221 10*3/uL Normal 150-379 [facility]; [facility] Work Phone: Comment on above: PATIENT NOT FASTINGP ERFORMED BY: ERAN [facility] Fiiamo4890 [facility] [id number] BY: [address] [id number] Information: NURSE DRAW RBC (Bld) [#/Vol] 4.84 10*6/uL Normal 4.14-5.80 [facility] Internal Medicine; [facility] Work Phone: Comment on above: PATIENT NOT FASTINGP ERFORMED BY: ERAN [facility] Xmhflm8489 [facility] [id number] BY: [address] [id number] Information: NURSE DRAW WBC (Bld) [#/Vol] 9.6 10*3/uL Normal 3.4-10.8 [facility] Internal Medicine; [facility] Work Phone: Comment on above: PATIENT NOT FASTINGP ERFORMED BY: [facility] Ctejkm4833 Bishop RoadDublin [place] [id number] BY: [address] [id number] Information: NURSE DRAW Lyme Disease,Serum, Western Blot ([id number])on 12-31-2018 B. burgdorferi 18kD IgG IB Ql (S) Absent Normal [facility] Work Phone: Comment on above: PATIENT NOT FASTINGP ERFORMED BY: CB [facility] Cxgyhj4583 [facility] [id number] BY: [address] [id number] B. burgdorferi 23kD IgG IB Ql (S) Absent Normal [facility] Work Phone: Comment on above: PATIENT NOT FASTINGP ERFORMED BY: [facility] Ylilrs3181 Bishop RoadDuSampson Regional Medical Center [id number] BY: [address] [id number] B. burgdorferi 23kD IgM IB Ql (S) Absent Normal [facility] Work Phone: Comment on above: PATIENT NOT FASTINGP ERFORMED BY: [facility] Xfjsbd9406 [facility] [id number] BY: [address] [id number] B. burgdorferi 28kD IgG IB Ql (S) Absent Normal [facility] Work Phone: Comment on above: PATIENT NOT FASTINGP ERFORMED BY: [facility] Ozklam2168 Bishop RoadDuin [place] [id number] BY: [address] [id number] B. burgdorferi 30kD IgG IB Ql (S) Absent Normal [facility] Work Phone: Comment on above: PATIENT NOT FASTINGP ERFORMED BY: [facility] Yvesyu1032 Bishop RoadDuSampson Regional Medical Center [id number] BY: BN LabCo[address] [id number] B. burgdorferi 39kD IgG IB Ql (S) Absent Normal [facility] Work Phone: Comment on above: PATIENT NOT FASTINGP ERFORMED BY: ERAN [facility] Btfiaf8011 [address] RoadDublin [place] [id number] BY: Lab[address] [id number] B. burgdorferi 39kD IgM IB Ql (S) Absent Normal [facility] Work Phone: Comment on above: PATIENT NOT FASTINGP ERFORMED BY: ERAN [facility] Kztizr0131 [facility] [id number] BY: LabCo[address] [id number] B. burgdorferi 41kD IgG IB Ql (S) Present Abnormal [facility] Work Phone: Comment on above: PATIENT NOT FASTINGP ERFORMED BY: ERAN [facility] Vpndul7774 [facility] [id number] BY: [address] [id number] B. burgdorferi 41kD IgM IB Ql (S) Absent Normal [facility] Work Phone: Comment on above: PATIENT NOT FASTINGP ERFORMED BY: ERAN [facility] Sbvrhi0909 [facility] [id number] BY: Lab[address] [id number] B. burgdorferi 45kD IgG IB Ql (S) Present Abnormal [facility] Work Phone: Comment on above: PATIENT NOT FASTINGP ERFORMED BY: ERAN [facility] Obxhwv0292 [facility] [id number] BY: [address] [id number] B. burgdorferi 58kD IgG IB Ql (S) Absent Normal [facility] Work Phone: Comment on above: PATIENT NOT FASTINGP ERFORMED BY: [facility]6370 [facility] [id number] BY: [address] [id number] B. burgdorferi 66kD IgG IB Ql (S) Absent Normal [facility] Work Phone: Comment on above: PATIENT NOT FASTINGP ERFORMED BY: [place] 2423170 [facility] [id number] BY: [address] [id number] B. burgdorferi 93kD IgG IB Ql (S) Absent Normal [facility] Work Phone: Comment on above: PATIENT NOT FASTINGP ERFORMED BY: [place] 2423170 [facility] [id number] BY: [address] [id number] B. burgdorferi IgG band pattern IB Interp (S) Negative Normal [facility] Work Phone: Comment on above: Positive: 5 of the f ollowing Borrelia-specific bands: 18,23,28,30,39,41,45,58, 66, and 93. Negative: No bands or banding patterns which do not meet positive criteria. PATIENT NOT FASTINGP ERFORMED BY: [place] 2423170 [facility] [id number] BY: [address] [id number] B. burgdorferi IgM band pattern IB Interp [...] positivity are those recommended by CDC/ASTPHLD.p23=Osp C, n06=wopxcleot .Note:Sera from individuals with the following may cross react in theLyme Western Blot assays: other spirochetal diseases (periodontaldisease, leptospirosis, relapsing fever, yaws, and pinta);connective autoimmune (Rheumatoid Arthritis and Systemic LupusErythematosus and also individuals with Antinuclear Antibody);other infections ([place] Spotted Fever; Pat-Car Virus,and Cytomegalovirus). . PATIENT NOT FASTINGP ERFORMED BY: Unique Propertylin6370 [facility] [id number] BY: Sharewire[address] [id number] Lyme Disease,Serum, Western Blot (26310)Ordered By: [employer] Interpreter on 12-31-2018 B. burgdorferi IgG band pattern IB (S) [Interp] Negative Normal [facility]; [facility] Work Phone: Comment on above: Positive: 5 of the f ollowing Borrelia-specific bands: 18,23,28,30,39,41,45,58, 66, and 93. Negative: No bands or banding patterns which do not meet positive criteria. PATIENT NOT FASTINGP ERFORMED BY: [employer] Propertylin6370 [facility] [id number] BY: Sharewire[address] [id number] B. burgdorferi IgM band pattern IB (S) [...] positivity are those recommended by CDC/ASTPHLD.p23=Osp C, c56=jzdnrload .Note:Sera from individuals with the following may cross react in theLyme Western Blot assays: other spirochetal diseases (periodontaldisease, leptospirosis, relapsing fever, yaws, and pinta);connective autoimmune (Rheumatoid Arthritis and Systemic LupusErythematosus and also individuals with Antinuclear Antibody);other infections ([place] Spotted Fever; Pat-Car Virus,and Cytomegalovirus). . PATIENT NOT FASTINGP ERFORMED BY: [facility] Uaragy9438 [facility] [id number] BY: [address] [id number] METABOLIC PANEL, COMPREHENSI VE (07615)on 12-31-2018 Albumin mass conc 4.9 g/dL Abnormal 3.6-4.8 Compreh [facility] Work Phone: Comment on above: PATIENT NOT FASTINGP ERFORMED BY: [facility] Mdubth0113 [facility] [id number] BY: [address] [id number] Albumin/Globulin mass ratio 1.9 {ratio} Normal 1.2-2.2 [facility] Work Phone: Comment on above: PATIENT NOT FASTINGP ERFORMED BY: [facility] Lxxfiz6135 [facility] [id number] BY: [address] [id number] ALP enzyme act/vol 61 [iU]/L Normal 39-117 [facility] Internal Medicine Work Phone: Comment on above: PATIENT NOT FASTINGP ERFORMED BY: [facility] Zdfrrm9295 [facility] [id number] BY: [address] [id number] ALT enzyme act/vol 16 [iU]/L Normal 0-44 [facility] Internal Medicine Work Phone: Comment on above: PATIENT NOT FASTINGP ERFORMED BY: CB [facility] Elupjk3410 [facility] [id number] BY: [address] [id number] AST enzyme act/vol 23 [iU]/L Normal 0-40 [facility] Internal Medicine Work Phone: Comment on above: PATIENT NOT FASTINGP ERFORMED BY: CB [facility] Bxzjcl2472 [address] RoadDublin [place] [id number] BY: LabCo[address] [id number] Bilirubin mass conc 0.6 mg/dL Normal 0.0-1.2 Compr ehensive Internal Medicine Work Phone: Comment on above: PATIENT NOT FASTINGP ERFORMED BY: CB [facility] Itokpi2771 [address] RoadDublin [place] [id number] BY: [facility] [address] [id number] Calcium mass conc 9.8 mg/dL Normal 8.6-10.2 Compreh ensive Internal Medicine Work Phone: Comment on above: PATIENT NOT FASTINGP ERFORMED BY: ERAN [facility] Ozzuwj7715 [address] RoadDublin [place] [id number] BY: Lab[address] [id number] Chloride molar conc 102 mmol/L Normal 96-106 Compr ehensive Internal Medicine Work Phone: Comment on above: PATIENT NOT FASTINGP ERFORMED BY: CB [facility] Nmhrsi9736 [address] RoadDublin [place] [id number] BY: LabCo[address] [id number] CO2 molar conc 22 mmol/L Normal 20-29 Comprehens dennys Internal Medicine Work Phone: Comment on above: PATIENT NOT FASTINGP ERFORMED BY: CB [facility] Cyxvuk6580 [address] RoadDublin [place] [id number] BY: LabCo[address] [id number] Creatinine mass conc 1.11 mg/dL Normal 0.76-1.27 Comp rehensive Internal Medicine Work Phone: Comment on above: PATIENT NOT FASTINGP ERFORMED BY: CB [facility] Njmbzx2893 [address] RoadDublin [place] [id number] BY: Lab[address] [id number] GFR/1.73 sq M predicted among blacks CKD-EPI vol rate/area (S/P/Bld) 79 mL/min/1.73 Normal Comprehensiv e Internal Medicine Work Phone: Comment on above: PATIENT NOT FASTINGP ERFORMED BY: ERAN [facility] Rpyjzu7441 [address] RoadDublin [place] [id number] BY: LabCo[address] [id number] GFR/1.73 sq M predicted among non-blacks CKD-EPI vol rate/area (S/P/Bld) 68 mL/min/1.73 Normal [facility] Work Phone: Comment on above: PATIENT NOT FASTINGP ERFORMED BY: ERAN [facility] Pfgtdi2843 [address] RoadDublin [place] [id number] BY: LabCo[address] [id number] Globulin mass conc (S) 2.6 g/dL Normal 1.5-4.5 [facility] Work Phone: Comment on above: PATIENT NOT FASTINGP ERFORMED BY: CB [facility] Iuusoj2644 [address] RoadDublin [place] [id number] BY: LabCo[address] [id number] Glucose mass conc 94 mg/dL Normal 65-99 Compreh ensive Internal Medicine Work Phone: Comment on above: PATIENT NOT FASTINGP ERFORMED BY: CB [facility] Xgqmpa9582 [address] RoadDublin [place] [id number] BY: Lab[address] [id number] Potassium molar conc 4.4 mmol/L Normal 3.5-5.2 Comp rehensive Internal Medicine Work Phone: Comment on above: PATIENT NOT FASTINGP ERFORMED BY: CB [facility] Mcxldy9937 [address] RoadDublin [place] [id number] BY: [address] [id number] Protein mass conc 7.5 g/dL Normal 6.0-8.5 Compreh ensive Internal Medicine Work Phone: Comment on above: PATIENT NOT FASTINGP ERFORMED BY: CB [facility] Wdpnxt5892 [facility] [id number] BY: Lab[address] [id number] Sodium molar conc 142 mmol/L Normal 134-144 Compreh ensive Internal Medicine Work Phone: Comment on above: PATIENT NOT FASTINGP ERFORMED BY: CB [facility] Caxien2377 [facility] [id number] BY: Lab[address] [id number] Urea nitrogen mass conc 18 mg/dL Normal 8-27 [facility] Work Phone: Comment on above: PATIENT NOT FASTINGP ERFORMED BY: CB [facility] Dsgdfa5026 [facility] [id number] BY: Lab[address] [id number] Urea nitrogen/Creatinine mass ratio 16 mg/mg Normal 10-24 [facility] Work Phone: Comment on above: PATIENT NOT FASTINGP ERFORMED BY: [facility] Sjwwwg1942 [facility] [id number] BY: Lab[address] [id number] METABOLIC PANEL, COMPREHENSI VE (87284)Ordered By: [employer] Interpreter on 12-31-2018 ALP [Catalytic activity/Vol] 61 U/L Normal 39-117 [facility]; [facility] Work Phone: Comment on above: PATIENT NOT FASTINGP ERFORMED BY: CB [facility] Ogbfwd4684 [facility] [id number] BY: Lab[address] [id number] ALT [Catalytic activity/Vol] 16 U/L Normal 0-44 [facility]; [facility] Work Phone: Comment on above: PATIENT NOT FASTINGP ERFORMED BY: LabLiveWire TaxKim V[place] 0932770 [facility] [id number] BY: Relay[address] [id number] AST [Catalytic activity/Vol] 23 U/L Normal 0-40 [facility]; [facility] Work Phone: Comment on above: PATIENT NOT FASTINGP ERFORMED BY: SharewireKim [place] 0932770 [facility] [id number] BY: Sharewire[address] [id number] Lyme Disease Antibody W/ Ref brijesh (85161)on 07-31-2018 B. burgdorferi IgG+IgM Qn (S) 1.19 {ISR} Abnormal 0.00-0.90 [facility] Work Phone: Comment on above: Negative <0.91 Equiv ocal 0.91 - 1.09 Positive >1.09 PATIENT NOT FASTINGP ERFORMED BY: Sharewire[address] [id number] BY: RelayMichael [place] 2123370 [facility] [id number] Lyme Disease,Serum, Western Blot (88093)on 07-31-2018 B. burgdorferi 18kD IgG IB Ql (S) Absent Normal [facility] Work Phone: Comment on above: PATIENT NOT FASTINGP ERFORMED BY: Sharewire[address] [id number] BY: RelayMichael [place] 2123370 [facility] [id number] B. burgdorferi 23kD IgG IB Ql (S) Absent Normal [facility] Work Phone: Comment on above: PATIENT NOT FASTINGP ERFORMED BY: Sharewire[address] [id number] BY: RelayMichael [place] 2123370 [facility] [id number] B. burgdorferi 23kD IgM IB Ql (S) Absent Normal [facility] Work Phone: Comment on above: PATIENT NOT FASTINGP ERFORMED BY: [facility] [address] [id number] BY: [facility] Gwuyys1944 [address] RoadDublin [place] [id number] B. burgdorferi 28kD IgG IB Ql (S) Absent Normal [facility] Work Phone: Comment on above: PATIENT NOT FASTINGP ERFORMED BY: [facility] [address] [id number] BY: [facility] Aqlrnk0451 [address] RoadDublin [place] [id number] B. burgdorferi 30kD IgG IB Ql (S) Absent Normal [facility] Work Phone: Comment on above: PATIENT NOT FASTINGP ERFORMED BY: LabCo[address] [id number] BY: [facility] Pntmtj0775 [address] RoadDublin [place] [id number] B. burgdorferi 39kD IgG IB Ql (S) Absent Normal [facility] Work Phone: Comment on above: PATIENT NOT FASTINGP ERFORMED BY: [facility] [address] [id number] BY: [facility] Deceul8279 [address] RoadDublin [place] [id number] B. burgdorferi 39kD IgM IB Ql (S) Absent Normal [facility] Work Phone: Comment on above: PATIENT NOT FASTINGP ERFORMED BY: Lab[address] [id number] BY: [facility] Hjkvix2919 [address] RoadDublin [place] [id number] B. burgdorferi 41kD IgG IB Ql (S) Present Abnormal [facility] Work Phone: Comment on above: PATIENT NOT FASTINGP ERFORMED BY: [facility] [address] [id number] BY: [facility] Noyauf5006 [address] RoadDublin [place] [id number] B. burgdorferi 41kD IgM IB Ql (S) Absent Normal [facility] Work Phone: Comment on above: PATIENT NOT FASTINGP ERFORMED BY: Lab[address] [id number] BY: [facility] Dyzwiu8402 [address] RoadDublin [place] [id number] B. burgdorferi 45kD IgG IB Ql (S) Absent Normal [facility] Work Phone: Comment on above: PATIENT NOT FASTINGP ERFORMED BY: Lab[address] [id number] BY: [facility] Fuehtr6571 [address] RoadDublin [place] [id number] B. burgdorferi 58kD IgG IB Ql (S) Absent Normal [facility] Work Phone: Comment on above: PATIENT NOT FASTINGP ERFORMED BY: Lab[address] [id number] BY: [facility] Ttiynr5067 [address] RoadDublin [place] [id number] B. burgdorferi 66kD IgG IB Ql (S) Absent Normal [facility] Work Phone: Comment on above: PATIENT NOT FASTINGP ERFORMED BY: Lab[address] [id number] BY: [facility] Vznumi1342 [address] RoadDublin [place] [id number] B. burgdorferi 93kD IgG IB Ql (S) Absent Normal [facility] Work Phone: Comment on above: PATIENT NOT FASTINGP ERFORMED BY: Lab[address] [id number] BY: [facility] Cynski3283 [address] RoadDublin [place] [id number] B. burgdorferi IgG band pattern IB Interp (S) Negative Normal [facility] Work Phone: Comment on above: Positive: 5 of the f ollowing Borrelia-specific bands: 18,23,28,30,39,41,45,58, 66, and 93. Negative: No bands or banding patterns which do not meet positive criteria. PATIENT NOT FASTINGP ERFORMED BY: Sharewire[address] [id number] BY: Sharewire Iagwwy8797 [facility] [id number] B. burgdorferi IgM band pattern IB Interp [...] positivity are those recommended by CDC/ASTPHLD.p23=Osp C, x11=aqjdmxioj .Note:Sera from individuals with the following may cross react in theLyme Western Blot assays: other spirochetal diseases (periodontaldisease, leptospirosis, relapsing fever, yaws, and pinta);connective autoimmune (Rheumatoid Arthritis and Systemic LupusErythematosus and also individuals with Antinuclear Antibody);other infections ([place] Spotted Fever; Pat-Car Virus,and Cytomegalovirus). . PATIENT NOT FASTINGP ERFORMED BY: Share[employer] Nfdxfuvivw[address] [id number] BY: SharewireNew Bridge Medical CenterNvsjvs9079 [facility] [id number] Lyme Disease,Serum, Western Blot (68540)Ordered By: [employer] Interpreter on 07-31-2018 B. burgdorferi IgG band pattern IB (S) [Interp] Negative Normal [facility]; [facility] Work Phone: Comment on above: Positive: 5 of the f ollowing Borrelia-specific bands: 18,23,28,30,39,41,45,58, 66, and 93. Negative: No bands or banding patterns which do not meet positive criteria. PATIENT NOT FASTINGP ERFORMED BY: SprainGo[address] [id number] BY: Sharewire Jaeouc6910 [facility] [id number] B. burgdorferi IgM band pattern IB (S) [...] positivity are those recommended by CDC/ASTPHLD.p23=Osp C, j21=rbrdfnslo .Note:Sera from individuals with the following may cross react in theLyme Western Blot assays: other spirochetal diseases (periodontaldisease, leptospirosis, relapsing fever, yaws, and pinta);connective autoimmune (Rheumatoid Arthritis and Systemic LupusErythematosus and also individuals with Antinuclear Antibody);other infections ([place] Spotted Fever; Pat-Car Virus,and Cytomegalovirus). . PATIENT NOT FASTINGP ERFORMED BY: TwitJump[address] [id number] BY: Sharewire Uitrwi7296 [facility] [id number] PARATHORMONE (71254)on 07-31 Parathyrin.intact mass conc 26 pg/mL Normal 15-65 [facility] Work Phone: Comment on above: PATIENT NOT FASTINGP ERFORMED BY: SprainGo[address] [id number] BY: Sharewire Hgmnzx3847 [facility] [id number] TESTOSTERONE FREE (44341)on 07-31-2018 Testosterone Free mass conc 4.3 pg/mL Abnormal 6.6-18.1 [facility] Work Phone: Comment on above: PATIENT NOT FASTINGP ERFORMED BY: SprainGo Uwixrbyvng[address] [id number] BY: [facility] Cpsbwz4592 [address] RoadDublin [place] [id number] Vitamin D Hydroxy (06101)on 07-31-2018 25-Hydroxyvitamin D2+25-Hydroxyvitamin D3 mass conc 40.0 ng/mL Normal 30.0-100.0 [facility] Work Phone: Comment on above: Vitamin D deficiency has been defined by the [place] ofSum[facility] Medical Centercine and an Endocrine Society practice guideline as alevel of serum 25-OH vitamin D less than 20 ng/mL (1,2).The Endocrine Society went on to further define vitamin Dinsufficiency as a level between 21 and 29 ng/mL (2).1. IOM ([place] of Medicine). 2010. Dietary reference intakes for calcium and D. [place]: The National Academies Press.2. Paul MF, Scott IVEY, Yair TY, et al. Evaluation, treatment, and prevention of vitamin D deficiency: an Endocrine Society clinical practice guideline. JCEM. 2010; 96(7):1911-30. PATIENT NOT FASTINGP ERFORMED BY: [facility] Hrnwfpfbmq1788 [facility] [id number] BY: [facility] Rrlhld5023 [address] RoadDublin [place] [id number] C-REACTIVE PROTEIN (41473)Or dered By: [employer] Interpreter on 07-04-2018 CRP [Mass/Vol] mg/L Normal 0.0-4.9 Comprehens dennys Internal Medicine; [facility] Work Phone: Comment on above: PATIENT NOT FASTINGP ERFORMED BY: [facility] Grarvo3695 [address] RoadDublin [place] [id number] C-REACTIVE PROTEIN (78074)on 07-04-2018 CRP mass conc mg/L Normal 0.0-4.9 Comprehensi ve Internal Medicine Work Phone: Comment on above: PATIENT NOT FASTINGP ERFORMED BY: [facility] Xhetsc6483 [address] RoadDublin [place] [id number] CBC with auto diff (29607)on 07-04-2018 Basophils #/vol (Bld) 0.1 {x10E3/uL} Normal 0.0-0.2 [facility] Work Phone: Comment on above: PATIENT NOT FASTINGP ERFORMED BY: ERAN LabCojay MonsalveArbhcv1035 [address] RoadDublin [place] [id number] Basophils/100 WBC (Bld) 1 % Normal [facility] Work Phone: Comment on above: PATIENT NOT FASTINGP ERFORMED BY: ERAN [facility] Qhxgml1412 [address] RoadDublin [place] [id number] Eosinophils #/vol (Bld) 0.2 {x10E3/uL} Normal 0.0-0.4 [facility] Work Phone: Comment on above: PATIENT NOT FASTINGP ERFORMED BY: ERAN MathewCojay MonsalveHginby4691 [address] RoadScionhealthin [place] [id number] Eosinophils/100 WBC (Bld) 2 % Normal [facility] Work Phone: Comment on above: PATIENT NOT FASTINGP ERFORMED BY: ERAN Colelin6370 [facility] [id number] Erythrocyte distribution width Ratio (RBC) 14.1 % Normal 12.3-15.4 [facility] Work Phone: Comment on above: PATIENT NOT FASTINGP ERFORMED BY: ERAN Colelin6370 [address] [facility]in [place] [id number] Hematocrit Volume Fraction (Bld) 42.6 % Normal 37.5-51.0 [facility] Work Phone: Comment on above: PATIENT NOT FASTINGP ERFORMED BY: ERAN [facility] Ryvplr5261 [address] [facility]in [place] [id number] Hemoglobin mass conc (Bld) 14.4 g/dL Normal 13.0-17.7 [facility] Work Phone: Comment on above: PATIENT NOT FASTINGP ERFORMED BY: ERAN [facility] Zvmjld2556 [address] RoadDublin [place] [id number] Immature granulocytes #/vol (Bld) 0.0 {x10E3/uL} Normal 0.0-0.1 [facility] Work Phone: Comment on above: PATIENT NOT FASTINGP ERFORMED BY: ERAN LabCojay ColeWscuky2973 [address] RoadDublin [place] [id number] Immature granulocytes/100 WBC (Bld) 0 % Normal [facility] Work Phone: Comment on above: PATIENT NOT FASTINGP ERFORMED BY: ERAN LabCojay ColeZsblis8207 [address] RoadDublin [place] [id number] Lymphocytes #/vol (Bld) 2.1 {x10E3/uL} Normal 0.7-3.1 [facility] Work Phone: Comment on above: PATIENT NOT FASTINGP ERFORMED BY: ERAN LabCojay ColeDlystx9691 [address] RoadDublin [place] [id number] Lymphocytes/100 WBC (Bld) 26 % Normal [facility] Work Phone: Comment on above: PATIENT NOT FASTINGP ERFORMED BY: ERAN Colelin6370 [address] [facility]in [place] [id number] MCH Entitic mass (RBC) 32.6 pg Normal 26.6-33.0 [facility] Work Phone: Comment on above: PATIENT NOT FASTINGP ERFORMED BY: ERAN LabLesli ColeOysnih3633 [address] [facility]in [place] [id number] MCHC mass conc (RBC) 33.8 g/dL Normal 31.5-35.7 Comp rehensive Internal Medicine Work Phone: Comment on above: PATIENT NOT FASTINGP ERFORMED BY: ERAN [facility] Arioad2060 [address] RoadDublin [place] [id number] MCV Entitic volume (RBC) 96 fL Normal 79-97 [facility] Work Phone: Comment on above: PATIENT NOT FASTINGP ERFORMED BY: ERAN [facility] Xeabaj2510 [address] RoadDublin [place] [id number] Monocytes #/vol (Bld) 0.7 {x10E3/uL} Normal 0.1-0.9 [facility] Work Phone: Comment on above: PATIENT NOT FASTINGP ERFORMED BY: ERAN [facility] Gjcexr3259 [address] RoadDublin [place] [id number] Monocytes/100 WBC (Bld) 8 % Normal [facility] Work Phone: Comment on above: PATIENT NOT FASTINGP ERFORMED BY: CB [facility] Htlrge8680 [address] Roadblin [place] [id number] Neutrophils #/vol (Bld) 5.2 {x10E3/uL} Normal 1.4-7.0 [facility] Work Phone: Comment on above: PATIENT NOT FASTINGP ERFORMED BY: CB [facility] Dvhdzw1082 [address] RoadScionhealthin [place] [id number] Neutrophils/100 WBC (Bld) 63 % Normal [facility] Work Phone: Comment on above: PATIENT NOT FASTINGP ERFORMED BY: CB [facility] Mnnkln8401 [address] RoadScionhealthin [place] [id number] Platelets #/vol (Bld) 247 {x10E3/uL} Normal 150-379 [facility] Work Phone: Comment on above: PATIENT NOT FASTINGP ERFORMED BY: CB [facility] Atrqoy5222 [address] [facility]in [place] [id number] RBC #/vol (Bld) 4.42 {x10E6/uL} Normal 4.14-5.80 [facility] Internal Medicine Work Phone: Comment on above: PATIENT NOT FASTINGP ERFORMED BY: CB [facility] Acdjjs2197 [address] [facility]in [place] [id number] WBC #/vol (Bld) 8.3 {x10E3/uL} Normal 3.4-10.8 [facility] Internal Medicine Work Phone: Comment on above: PATIENT NOT FASTINGP ERFORMED BY: CB [facility] Hlgtqw1320 [address] [facility] Hospitalblin [place] [id number] CBC with auto diff (21622)Or dered By: [employer] Interpreter on 07-04-2018 Basophils (Bld) [#/Vol] 0.1 10*3/uL Normal 0.0-0.2 [facility]; [facility] Work Phone: Comment on above: PATIENT NOT FASTINGP ERFORMED BY: CB [facility] Pwbnws5485 [address] RoadDublin [place] [id number] Eosinophils (Bld) [#/Vol] 0.2 10*3/uL Normal 0.0-0.4 [facility]; [facility] Work Phone: Comment on above: PATIENT NOT FASTINGP ERFORMED BY: CB [facility] Soivwo8854 [address] RoadDublin [place] [id number] Immature granulocytes (Bld) [#/Vol] 0.0 10*3/uL Normal 0.0-0.1 [facility]; [facility] Work Phone: Comment on above: PATIENT NOT FASTINGP ERFORMED BY: CB [facility] Ojcgge2235 [address] RoadD[place] [id number] Lymphocytes (Bld) [#/Vol] 2.1 10*3/uL Normal 0.7-3.1 [facility]; [facility] Work Phone: Comment on above: PATIENT NOT FASTINGP ERFORMED BY: CB [facility] Lztimc6908 Bishop RoadDublin [place] [id number] Monocytes (Bld) [#/Vol] 0.7 10*3/uL Normal 0.1-0.9 [facility]; [facility] Work Phone: Comment on above: PATIENT NOT FASTINGP ERFORMED BY: CB [facility] Jkcvpo2129 [address] RoadDublin [place] [id number] Neutrophils (Bld) [#/Vol] 5.2 10*3/uL Normal 1.4-7.0 [facility]; [facility] Work Phone: Comment on above: PATIENT NOT FASTINGP ERFORMED BY: CB [facility] Kavnot3895 [address] RoadDublin [place] [id number] Platelets (Bld) [#/Vol] 247 10*3/uL Normal 150-379 [facility]; [facility] Work Phone: Comment on above: PATIENT NOT FASTINGP ERFORMED BY: CB [facility] Mrtlda0521 [address] RoadDublin [place] [id number] RBC (Bld) [#/Vol] 4.42 10*6/uL Normal 4.14-5.80 [facility] Internal [facility]; [facility] Work Phone: Comment on above: PATIENT NOT FASTINGP ERFORMED BY: [facility]6370 [facility] [id number] WBC (Bld) [#/Vol] 8.3 10*3/uL Normal 3.4-10.8 [facility] Internal Medicine; [facility] Work Phone: Comment on above: PATIENT NOT FASTINGP ERFORMED BY: [place] 2423170 [facility] [id number] LDH (LD) (LACTATE DEHYDROGEN ASE) (58553)Ordered By: [employer] Interpreter on 07-04-2018 LDH [Catalytic activity/Vol] 207 U/L Normal 121-224 [facility]; [facility] Work Phone: Comment on above: PATIENT NOT FASTINGP ERFORMED BY: [place] 2423170 [facility] [id number] LDH (LD) (LACTATE DEHYDROGEN ASE) (91061)on 07-04-2018 LDH enzyme act/vol 207 [iU]/L Normal 121-224 [facility] Internal Medicine Work Phone: Comment on above: PATIENT NOT FASTINGP ERFORMED BY: [facility]6370 [facility] [id number] KINJAL (ANTINUCLEAR ANTIBODY) ( 33294)on 06-12-2018 Nuclear Ab Ql (S) Negative Normal Compreh ensive Internal Medicine Work Phone: Comment on above: PATIENT NOT FASTINGP ERFORMED BY: [place] 2423170 [facility] [id number] BY: [address] [id number] KINJAL (ANTINUCLEAR ANTIBODY) ( 26959)Ordered By: [employer] Interpreter on 06-12-2018 Nuclear Ab Ql (S) Negative Normal Compreh ensive Internal Medicine; [facility] Work Phone: Comment on above: PATIENT NOT FASTINGP ERFORMED BY: [facility] Ridfwn4462 [facility] [id number] BY: [address] [id number] C-REACTIVE PROTEIN (23588)on 06-12-2018 CRP mass conc 73.4 mg/L Abnormal 0.0-4.9 Comprehensi ve Internal Medicine Work Phone: Comment on above: PATIENT NOT FASTINGP ERFORMED BY: [facility] Ymzvds0628 [facility] [id number] BY: [address] [id number] CBC with auto diff (68597)on 06-12-2018 Basophils #/vol (Bld) 0.1 {x10E3/uL} Normal 0.0-0.2 [facility] Work Phone: Comment on above: PATIENT NOT FASTINGP ERFORMED BY: [facility] Yfhmdp8558 [facility] [id number] BY: [address] [id number] Information: 451270,V25891 Basophils/100 WBC (Bld) 1 % Normal [facility] Work Phone: Comment on above: PATIENT NOT FASTINGP ERFORMED BY: [facility] Asudlf7330 [facility] [id number] BY: Lab[address] [id number] Information: 135024,Q76095 Eosinophils #/vol (Bld) 0.1 {x10E3/uL} Normal 0.0-0.4 [facility] Work Phone: Comment on above: PATIENT NOT FASTINGP ERFORMED BY: [facility] Jnpcmc2896 [facility] [id number] BY: [address] [id number] Information: 674059,N87031 Eosinophils/100 WBC (Bld) 1 % Normal [facility] Work Phone: Comment on above: PATIENT NOT FASTINGP ERFORMED BY: ERAN [facility] Gonvot2338 [address] [facility] Hospitalblin [place] [id number] BY: [address] [id number] Information: 871797,A88533 Erythrocyte distribution width Ratio (RBC) 13.7 % Normal 12.3-15.4 [facility] Work Phone: Comment on above: PATIENT NOT FASTINGP ERFORMED BY: CB [facility] Oadaji2346 [facility] [id number] BY: LabCo[address] [id number] Information: 115734,L25514 Hematocrit Volume Fraction (Bld) 44.3 % Normal 37.5-51.0 [facility] Work Phone: Comment on above: PATIENT NOT FASTINGP ERFORMED BY: ERAN [facility] Prhnbr2510 [facility] [id number] BY: [address] [id number] Information: 384953,U68103 Hemoglobin mass conc (Bld) 14.6 g/dL Normal 13.0-17.7 [facility] Work Phone: Comment on above: PATIENT NOT FASTINGP ERFORMED BY: CB [facility] Mlgmqu0302 [facility] [id number] BY: [address] [id number] Information: 176584,E95096 Immature granulocytes #/vol (Bld) 0.0 {x10E3/uL} Normal 0.0-0.1 [facility] Work Phone: Comment on above: PATIENT NOT FASTINGP ERFORMED BY: CB [facility] Vacajz1851 [facility] [id number] BY: LabCo[address] [id number] Information: 712351,Q68931 Immature granulocytes/100 WBC (Bld) 0 % Normal [facility] Work Phone: Comment on above: PATIENT NOT FASTINGP ERFORMED BY: [facility] Zaitzo2205 [facility] [id number] BY: Lab[address] [id number] Information: 089494,C26416 Lymphocytes #/vol (Bld) 2.0 {x10E3/uL} Normal 0.7-3.1 [facility] Work Phone: Comment on above: PATIENT NOT FASTINGP ERFORMED BY: [facility] Vatnak9644 [facility] [id number] BY: Lab[address] [id number] Information: 929117,E78163 Lymphocytes/100 WBC (Bld) 15 % Normal [facility] Work Phone: Comment on above: PATIENT NOT FASTINGP ERFORMED BY: [facility] Nrenqo5634 [facility] [id number] BY: Lab[address] [id number] Information: 678561,F50831 MCH Entitic mass (RBC) 32.3 pg Normal 26.6-33.0 [facility] Work Phone: Comment on above: PATIENT NOT FASTINGP ERFORMED BY: [facility] Bozanl9352 [facility] [id number] BY: [address] [id number] Information: 530501,V36277 MCHC mass conc (RBC) 33.0 g/dL Normal 31.5-35.7 Comp [facility] Internal Medicine Work Phone: Comment on above: PATIENT NOT FASTINGP ERFORMED BY: [facility] Yjzeev2997 [facility] [id number] BY: LabCo[address] [id number] Information: 017320,E98689 MCV Entitic volume (RBC) 98 fL Abnormal 79-97 [facility] Work Phone: Comment on above: PATIENT NOT FASTINGP ERFORMED BY: [facility] Hziyhd2783 [facility] [id number] BY: [address] [id number] Information: 930490,H45753 Monocytes #/vol (Bld) 1.7 {x10E3/uL} Abnormal 0.1-0.9 [facility] Work Phone: Comment on above: PATIENT NOT FASTINGP ERFORMED BY: [facility] Clqzkk2130 [facility] [id number] BY: Lab[address] [id number] Information: 724729,K19208 Monocytes/100 WBC (Bld) 12 % Normal [facility] Work Phone: Comment on above: PATIENT NOT FASTINGP ERFORMED BY: [facility] Zcszgw3446 [facility] [id number] BY: [address] [id number] Information: 440696,L99715 Neutrophils #/vol (Bld) 9.6 {x10E3/uL} Abnormal 1.4-7.0 [facility] Work Phone: Comment on above: PATIENT NOT FASTINGP ERFORMED BY: CB [facility] Znwlro8160 [facility] [id number] BY: [address] [id number] Information: 402238,U34011 Neutrophils/100 WBC (Bld) 71 % Normal [facility] Work Phone: Comment on above: PATIENT NOT FASTINGP ERFORMED BY: [facility] Nmipso6677 [facility] [id number] BY: Lab[address] [id number] Information: 613148,R03480 Platelets #/vol (Bld) 181 {x10E3/uL} Normal 150-379 [facility] Work Phone: Comment on above: PATIENT NOT FASTINGP ERFORMED BY: [facility] Ghaqaw5169 [facility] [id number] BY: Lab[address] [id number] Information: 559963,Q57371 RBC #/vol (Bld) 4.52 {x10E6/uL} Normal 4.14-5.80 Comp rehensive Internal Medicine Work Phone: Comment on above: PATIENT NOT FASTINGP ERFORMED BY: [facility] Qtrpsw7973 [facility] [id number] BY: Relay[address] [id number] Information: 016333,F03000 WBC #/vol (Bld) 13.4 {x10E3/uL} Abnormal 3.4-10.8 Comp rehensive Internal Medicine Work Phone: Comment on above: PATIENT NOT FASTINGP ERFORMED BY: [facility] Qnazhv1622 [facility] [id number] BY: [address] [id number] Information: 682034,C19882 CBC with auto diff (62872)Or dered By: [employer] Interpreter on 06-12-2018 Basophils (Bld) [#/Vol] 0.1 10*3/uL Normal 0.0-0.2 [facility]; [facility] Work Phone: Comment on above: PATIENT NOT FASTINGP ERFORMED BY: [facility]CoNew Bridge Medical CenterDfnqzj4130 [facility] [id number] BY: [address] [id number] Information: 961292,C17089 Eosinophils (Bld) [#/Vol] 0.1 10*3/uL Normal 0.0-0.4 [facility]; [facility] Work Phone: Comment on above: PATIENT NOT FASTINGP ERFORMED BY: [facility]CoNew Bridge Medical CenterJixhez7818 [facility] [id number] BY: [address] [id number] Information: 706452,T74919 Immature granulocytes (Bld) [#/Vol] 0.0 10*3/uL Normal 0.0-0.1 [facility]; [facility] Work Phone: Comment on above: PATIENT NOT FASTINGP ERFORMED BY: [facility]CoNew [facility] Medical CenterCyrpxo3620 [facility] [id number] BY: [address] [id number] Information: 926588,M00055 Lymphocytes (Bld) [#/Vol] 2.0 10*3/uL Normal 0.7-3.1 [facility]; [facility] Work Phone: Comment on above: PATIENT NOT FASTINGP ERFORMED BY: [facility]CoNew [facility] Medical CenterPtemfq2479 [facility] [id number] BY: [address] [id number] Information: 830809,J06316 Monocytes (Bld) [#/Vol] 1.7 10*3/uL Abnormal 0.1-0.9 [facility]; [facility] Work Phone: Comment on above: PATIENT NOT FASTINGP ERFORMED BY: [facility] HospitalCoKim Ville 0932770 [facility] [id number] BY: BN Lab[address] [id number] Information: 163925,H31103 Neutrophils (Bld) [#/Vol] 9.6 10*3/uL Abnormal 1.4-7.0 [facility]; [facility] Work Phone: Comment on above: PATIENT NOT FASTINGP ERFORMED BY: [facility] Ilszsj6845 [facility] [id number] BY: LabCo[address] [id number] Information: 054551,X59909 Platelets (Bld) [#/Vol] 181 10*3/uL Normal 150-379 [facility]; [facility] Work Phone: Comment on above: PATIENT NOT FASTINGP ERFORMED BY: [facility] Fcvzye9605 [facility] [id number] BY: [address] [id number] Information: 671805,E10324 RBC (Bld) [#/Vol] 4.52 10*6/uL Normal 4.14-5.80 Compr ensive Internal Medicine; [facility] Work Phone: Comment on above: PATIENT NOT FASTINGP ERFORMED BY: [facility] Bppnse4774 [facility] [id number] BY: Lab[address] [id number] Information: 867737,R79765 WBC (Bld) [#/Vol] 13.4 10*3/uL Abnormal 3.4-10.8 Compr ensive Internal Medicine; [facility] Work Phone: Comment on above: PATIENT NOT FASTINGP ERFORMED BY: CB [facility] Yfljus2929 [facility] [id number] BY: [address] [id number] Information: 019524,C45047 EBV Panel (03841)on 06-12-20 18 EBV capsid IgG IA Qn (S) <18.0 Normal 0.0-17.9 [facility] Work Phone: Comment on above: Negative <18.0 Equiv ocal 18.0 - 21.9 Positive >21.9 PATIENT NOT FASTINGP ERFORMED BY: [employer] [id number] BY: [facility] LouisLiveWire Tax[address] [id number] EBV capsid IgM IA Qn (S) <36.0 Normal 0.0-35.9 [facility] Work Phone: Comment on above: Negative <36.0 Equiv ocal 36.0 - 43.9 Positive >43.9 PATIENT NOT FASTINGP ERFORMED BY: [employer] [id number] BY: [facility] LouisLiveWire Tax[address] [id number] EBV early IgG Qn (S) <9.0 Normal 0.0-8.9 Comp [facility] Internal Medicine Work Phone: Comment on above: Negative < 9.0 Equiv ocal 9.0 - 10.9 Positive >10.9 PATIENT NOT FASTINGP ERFORMED BY: [employer] [id number] BY: [facility] LouisLiveWire Tax[address] [id number] EBV nuclear IgG IA Qn (S) <18.0 Normal 0.0-17.9 [facility] Work Phone: Comment on above: Negative <18.0 Equiv ocal 18.0 - 21.9 Positive >21.9 PATIENT NOT FASTINGP ERFORMED BY: [facility] HospitalLiveWire Tax[address] [id number] BY: [address] [id number] Service comment Interp (Unsp spec) SPRCS Normal [facility] Work Phone: Comment on above: EBV Interpretation C carter . Interpretation EBV-IgM EA(D)-IgG VCA-IgG EBNA-IgG . EBV Seronegative - - - - Early Phase + - - - Acute Primary + +or- + - Infection Convalescence/Past - +or- + + Infection Reactivated +or- + + + Infection + Antibody Present - Antibody Absent PATIENT NOT FASTINGP ERFORMED BY: Dash Tqowem[address] [id number] BY: [employer] [id number] Influenza A&B Viral Culture (67916)on 06-12-2018 FLUV identified Org specific cx Nom (Unsp spec) FLUABN Normal [facility] Work Phone: Comment on above: Negative:No Influenz a A or B detected. PATIENT NOT FASTINGP ERFORMED BY: Dash[address] [id number] Information: SRC:NOSE (NASAL PASSAGE) J 73526 LDH (LD) (LACTATE DEHYDROGEN ASE) (75532)Ordered By: [employer] Interpreter on 06-12-2018 LDH [Catalytic activity/Vol] 245 U/L Abnormal 121-224 [facility]; [facility] Work Phone: Comment on above: PATIENT NOT FASTINGP ERFORMED BY: [employer] [id number] BY: Share[employer] [id number] LDH (LD) (LACTATE DEHYDROGEN ASE) (36728)on 06-12-2018 LDH enzyme act/vol 245 [iU]/L Abnormal 121-224 Compre [facility] Internal Medicine Work Phone: Comment on above: PATIENT NOT FASTINGP ERFORMED BY: Dash[address] [id number] BY: Share[employer] [id number] Lyme Disease Antibody W/ Ref brijesh (02834)on 06-12-2018 B. burgdorferi IgG+IgM Qn (S) 0.91 {ISR} Abnormal 0.00-0.90 [facility] Work Phone: Comment on above: Negative <0.91 Equiv ocal 0.91 - 1.09 Positive >1.09 PATIENT NOT FASTINGP ERFORMED BY: [facility] Wuazgh3522 [facility] [id number] BY: [address] [id number] Lyme, Western Blot, Serumon 06-12-2018 B. burgdorferi 18kD IgG IB Ql (S) Absent Normal [facility] Work Phone: Comment on above: PATIENT NOT FASTINGP ERFORMED BY: Plizy [facility] Azsmnx3661 [facility] [id number] BY: [address] [id number] B. burgdorferi 23kD IgG IB Ql (S) Absent Normal [facility] Work Phone: Comment on above: PATIENT NOT FASTINGP ERFORMED BY: [employer] Uurjjh1551 [facility] [id number] BY: [address] [id number] B. burgdorferi 23kD IgM IB Ql (S) Absent Normal [facility] Work Phone: Comment on above: PATIENT NOT FASTINGP ERFORMED BY: LabLiveWire Taxrp Qwilaa4828 [facility] [id number] BY: [address] [id number] B. burgdorferi 28kD IgG IB Ql (S) Absent Normal [facility] Work Phone: Comment on above: PATIENT NOT FASTINGP ERFORMED BY: [facility] Jwbnwg4378 [facility] [id number] BY: [address] [id number] B. burgdorferi 30kD IgG IB Ql (S) Absent Normal [facility] Work Phone: Comment on above: PATIENT NOT FASTINGP ERFORMED BY: CB [facility] Pcoecv5087 Bishop RoadDublin [place] [id number] BY: [address] [id number] B. burgdorferi 39kD IgG IB Ql (S) Absent Normal [facility] Work Phone: Comment on above: PATIENT NOT FASTINGP ERFORMED BY: CB [facility] Ixmwjj8396 [address] RoadDublin [place] [id number] BY: [facility] [address] [id number] B. burgdorferi 39kD IgM IB Ql (S) Absent Normal [facility] Work Phone: Comment on above: PATIENT NOT FASTINGP ERFORMED BY: CB [facility] Mllcqw2728 [address] RoadDublin [place] [id number] BY: [address] [id number] B. burgdorferi 41kD IgG IB Ql (S) Present Abnormal [facility] Work Phone: Comment on above: PATIENT NOT FASTINGP ERFORMED BY: CB [facility] Hstpoh0915 [address] RoadDublin [place] [id number] BY: [address] [id number] B. burgdorferi 41kD IgM IB Ql (S) Absent Normal [facility] Work Phone: Comment on above: PATIENT NOT FASTINGP ERFORMED BY: CB [facility] Epoqrg6891 [address] RoadDublin [place] [id number] BY: [address] [id number] B. burgdorferi 45kD IgG IB Ql (S) Present Abnormal [facility] Work Phone: Comment on above: PATIENT NOT FASTINGP ERFORMED BY: CB [facility] Mkfehk7218 [address] RoadDublin [place] [id number] BY: [address] [id number] B. burgdorferi 58kD IgG IB Ql (S) Absent Normal [facility] Work Phone: Comment on above: PATIENT NOT FASTINGP ERFORMED BY: [facility] Vpjnze8966 [facility] [id number] BY: [address] [id number] B. burgdorferi 66kD IgG IB Ql (S) Absent Normal [facility] Work Phone: Comment on above: PATIENT NOT FASTINGP ERFORMED BY: [facility] Sufzns4231 [facility] [id number] BY: [address] [id number] B. burgdorferi 93kD IgG IB Ql (S) Absent Normal [facility] Work Phone: Comment on above: PATIENT NOT FASTINGP ERFORMED BY: RelayMichael Ville 2123370 [facility] [id number] BY: [address] [id number] B. burgdorferi IgG band pattern IB Interp (S) Negative Normal [facility] Work Phone: Comment on above: Positive: 5 of the f ollowing Borrelia-specific bands: 18,23,28,30,39,41,45,58, 66, and 93. Negative: No bands or banding patterns which do not meet positive criteria. PATIENT NOT FASTINGP ERFORMED BY: [facility] Wiwzrx0099 [facility] [id number] BY: [address] [id number] B. burgdorferi IgM band pattern IB Interp [...] positivity are those recommended by CDC/ASTPHLD.p23=Osp C, g31=ywlnuryry .Note:Sera from individuals with the following may cross react in theLyme Western Blot assays: other spirochetal diseases (periodontaldisease, leptospirosis, relapsing fever, yaws, and pinta);connective autoimmune (Rheumatoid Arthritis and Systemic LupusErythematosus and also individuals with Antinuclear Antibody);other infections ([place] Spotted Fever; Pat-Car Virus,and Cytomegalovirus). . PATIENT NOT FASTINGP ERFORMED BY: [employer]6370 [facility] [id number] BY: Relay[address] [id number] METABOLIC PANEL, COMPREHENSI DAVID (30080)on 06-12-2018 Albumin mass conc 4.5 g/dL Normal 3.6-4.8 Compreh [facility] Internal Medicine Work Phone: Comment on above: PATIENT NOT FASTINGP ERFORMED BY: Pl[employer] LabLiveWire Taxrp Sktqni4220 [facility] [id number] BY: Relay[address] [id number] Albumin/Globulin mass ratio 1.6 {ratio} Normal 1.2-2.2 [facility] Internal Medicine Work Phone: Comment on above: PATIENT NOT FASTINGP ERFORMED BY: Dashrp Xqjqiu8912 [facility] [id number] BY: Relay[address] [id number] ALP enzyme act/vol 68 [iU]/L Normal 39-117 [facility] Internal Medicine Work Phone: Comment on above: PATIENT NOT FASTINGP ERFORMED BY: Pl[employer] LabLiveWire Taxrp Netpzm0631 [facility] [id number] BY: [address] [id number] ALT enzyme act/vol 13 [iU]/L Normal 0-44 [facility] Internal Medicine Work Phone: Comment on above: PATIENT NOT FASTINGP ERFORMED BY: ERAN [facility] Jwhctq8465 [address] RoadDublin [place] [id number] BY: LabCo[address] [id number] AST enzyme act/vol 21 [iU]/L Normal 0-40 Compre hensive Internal Medicine Work Phone: Comment on above: PATIENT NOT FASTINGP ERFORMED BY: CB [facility] Flrcve7175 [address] RoadDublin [place] [id number] BY: LabCo[address] [id number] Bilirubin mass conc 0.3 mg/dL Normal 0.0-1.2 Compr ehensive Internal Medicine Work Phone: Comment on above: PATIENT NOT FASTINGP ERFORMED BY: ERAN [facility] Iluoxt0016 [address] RoadDublin [place] [id number] BY: Lab[address] [id number] Calcium mass conc 9.5 mg/dL Normal 8.6-10.2 Compreh ensive Internal Medicine Work Phone: Comment on above: PATIENT NOT FASTINGP ERFORMED BY: ERAN [facility] Ztnqda3014 [address] RoadDublin [place] [id number] BY: [address] [id number] Chloride molar conc 99 mmol/L Normal 96-106 Compr ehensive Internal Medicine Work Phone: Comment on above: PATIENT NOT FASTINGP ERFORMED BY: CB [facility] Nmwdaf2178 [address] RoadDublin [place] [id number] BY: Lab[address] [id number] CO2 molar conc 24 mmol/L Normal 20-29 Comprehens dennys Internal Medicine Work Phone: Comment on above: PATIENT NOT FASTINGP ERFORMED BY: CB [facility] Bdpfgl7107 [address] RoadDublin [place] [id number] BY: Share[employer] [id number] Creatinine mass conc 0.99 mg/dL Normal 0.76-1.27 Comp rehensive Internal Medicine Work Phone: Comment on above: PATIENT NOT FASTINGP ERFORMED BY: CB [facility] Amozcx5266 [address] RoadDublin [place] [id number] BY: LabCo[address] [id number] GFR/1.73 sq M predicted among blacks CKD-EPI vol rate/area (S/P/Bld) 91 mL/min/1.73 Normal Comprehensiv e Internal Medicine Work Phone: Comment on above: PATIENT NOT FASTINGP ERFORMED BY: CB [facility] Wthtsu9624 [address] RoadDublin [place] [id number] BY: [employer] [address] [id number] GFR/1.73 sq M predicted among non-blacks CKD-EPI vol rate/area (S/P/Bld) 79 mL/min/1.73 Normal [facility] Work Phone: Comment on above: PATIENT NOT FASTINGP ERFORMED BY: CB [facility] Fnvtbf6174 Bishop RoadDublin [place] [id number] BY: LabLiveWire Tax[address] [id number] Globulin mass conc (S) 2.8 g/dL Normal 1.5-4.5 [facility] Work Phone: Comment on above: PATIENT NOT FASTINGP ERFORMED BY: CB [facility] Grmsds4083 Bishop RoadDublin [place] [id number] BY: LabCo[address] [id number] Glucose mass conc 88 mg/dL Normal 65-99 Compreh ensive Internal Medicine Work Phone: Comment on above: PATIENT NOT FASTINGP ERFORMED BY: CB [facility] Zyduuv1903 Bishop RoadDublin [place] [id number] BY: Lab[address] [id number] Potassium molar conc 5.2 mmol/L Normal 3.5-5.2 Comp rehensive Internal Medicine Work Phone: Comment on above: PATIENT NOT FASTINGP ERFORMED BY: CB [facility] Xqpxss4568 [facility] Hospitalblin [place] [id number] BY: LabCo[address] [id number] Protein mass conc 7.3 g/dL Normal 6.0-8.5 Compreh ensive Internal Medicine Work Phone: Comment on above: PATIENT NOT FASTINGP ERFORMED BY: CB [facility] Lkkmbu0639 [facility] [id number] BY: [address] [id number] Sodium molar conc 140 mmol/L Normal 134-144 Compreh ensive Internal Medicine Work Phone: Comment on above: PATIENT NOT FASTINGP ERFORMED BY: [facility] Pfgafy9849 [facility] [id number] BY: [address] [id number] Urea nitrogen mass conc 7 mg/dL Abnormal 8-27 [facility] Work Phone: Comment on above: PATIENT NOT FASTINGP ERFORMED BY: [facility] Gvztgr3336 [facility] [id number] BY: Lab[address] [id number] Urea nitrogen/Creatinine mass ratio 7 mg/mg Abnormal 10-24 [facility] Work Phone: Comment on above: PATIENT NOT FASTINGP ERFORMED BY: CB [facility] Uzcknp6295 [facility] [id number] BY: [address] [id number] METABOLIC PANEL, COMPREHENSI VE (51853)Ordered By: [employer] Interpreter on 06-12-2018 ALP [Catalytic activity/Vol] 68 U/L Normal 39-117 [facility]; [facility] Work Phone: Comment on above: PATIENT NOT FASTINGP ERFORMED BY: CB [facility] Hqsvsh3638 [facility] [id number] BY: [address] [id number] ALT [Catalytic activity/Vol] 13 U/L Normal 0-44 [facility]; [facility] Work Phone: Comment on above: PATIENT NOT FASTINGP ERFORMED BY: CB [facility] Hkssxs8422 [facility] [id number] BY: [address] [id number] AST [Catalytic activity/Vol] 21 U/L Normal 0-40 [facility]; [facility] Work Phone: Comment on above: PATIENT NOT FASTINGP ERFORMED BY: CB [facility] Wgcggp5705 [facility] [id number] BY: [address] [id number] SED RATE ERYTHROCYTE (33513) on 06-12-2018 ESR Velocity (Bld) 6 mm/h Normal 0-30 [facility] Internal Medicine Work Phone: Comment on above: PATIENT NOT FASTINGP ERFORMED BY: CB [facility] Dlshem9541 [facility] [id number] BY: [address] [id number] URINE STACEY CULTURE-IDENTIFICA [place] (25162)on 06-12-2018 Bacteria identified Cx Nom (U) NG36 Normal [facility] Work Phone: Comment on above: No growth in 36 - 48 hours. PATIENT NOT FASTINGP ERFORMED BY: CB [facility] Xjisfj5297 [facility] [id number] Information: [id number] Bacteria identified Cx Nom (U) Final report Normal [facility] Work Phone: Comment on above: PATIENT NOT FASTINGP ERFORMED BY: [facility] Mgmdyv8906 [facility] [id number] Information: [id number] Urinalysis, Office (21825)Or dered By: Edilia Aleman on 06-12-2018 Bilirubin [...] med using the TPSA assay method for theSt. [facility] chemistry system. Values obtained with differentassay methods cannot be used interchangably.When changing PSA assays in the course of monitoring apatient, additional sequential testing should be carriedout to confirm baseline values. [facility] Xxtxlmxuyb1817 [facility] [place], [address] KINJAL (ANTINUCLEAR ANTIBODY) ( 46910)on 09-18-2017 Nuclear Ab Ql (S) Negative Normal Compreh ensive Internal Medicine Work Phone: Comment on above: PATIENT WAS FASTINGP ERFORMED BY: [employer]70 [facility] [id number] KINJAL (ANTINUCLEAR ANTIBODY) ( 13232)Ordered By: [employer] Interpreter on 09-18-2017 Nuclear Ab Ql (S) Negative Normal Compreh ensive Internal Medicine; [facility] Work Phone: Comment on above: PATIENT WAS FASTINGP ERFORMED BY: [employer]70 [facility] [id number] C-REACTIVE PROTEIN (57870)on 09-18-2017 CRP mass conc 0.5 mg/L Normal 0.0-4.9 Comprehensi ve Internal Medicine Work Phone: Comment on above: PATIENT WAS FASTINGP ERFORMED BY: [employer]70 [address] [facility]At[facility] [id number] CBC W/AUTO DIFF WBC (75926)o n 09-18-2017 Basophils #/vol (Bld) 0.1 {x10E3/uL} Normal 0.0-0.2 [facility] Work Phone: Comment on above: PATIENT WAS FASTINGP ERFORMED BY: [employer]6370 [address] [facility] [id number] Basophils/100 WBC (Bld) 2 % Normal [facility] Work Phone: Comment on above: PATIENT WAS FASTINGP ERFORMED BY: ERAN LabSaint [facility] Qhhunm1888 [address] RoadDublin [place] [id number] Eosinophils #/vol (Bld) 0.3 {x10E3/uL} Normal 0.0-0.4 [facility] Work Phone: Comment on above: PATIENT WAS FASTINGP ERFORMED BY: ERAN LabSaint [facility] Zrrzzc7106 [address] RoadDublin [place] [id number] Eosinophils/100 WBC (Bld) 5 % Normal [facility] Work Phone: Comment on above: PATIENT WAS FASTINGP ERFORMED BY: ERAN LabSaint [facility] Iudros0059 [address] RoadDublin [place] [id number] Erythrocyte distribution width Ratio (RBC) 14.1 % Normal 12.3-15.4 [facility] Work Phone: Comment on above: PATIENT WAS FASTINGP ERFORMED BY: ERAN [facility] Oddylj4016 [address] RoadDublin [place] [id number] Hematocrit Volume Fraction (Bld) 43.5 % Normal 37.5-51.0 [facility] Work Phone: Comment on above: PATIENT WAS FASTINGP ERFORMED BY: ERAN MathewSaint Luke'S Hospital Hbbdba3655 [address] RoadDublin [place] [id number] Hemoglobin mass conc (Bld) 14.7 g/dL Normal 12.6-17.7 [facility] Work Phone: Comment on above: PATIENT WAS FASTINGP ERFORMED BY: ERAN MathewSaint Luke'S Hospital Xfqzpx7824 [address] RoadDublin [place] [id number] Immature granulocytes #/vol (Bld) 0.0 {x10E3/uL} Normal 0.0-0.1 [facility] Work Phone: Comment on above: PATIENT WAS FASTINGP ERFORMED BY: LabSaint [facility] Xenawf4934 [address] RoadDublin [place] [id number] Immature granulocytes/100 WBC (Bld) 0 % Normal [facility] Work Phone: Comment on above: PATIENT WAS FASTINGP ERFORMED BY: ERAN LabSaint [facility] Whehvp8881 [address] RoadDublin [place] [id number] Lymphocytes #/vol (Bld) 2.2 {x10E3/uL} Normal 0.7-3.1 [facility] Work Phone: Comment on above: PATIENT WAS FASTINGP ERFORMED BY: ERAN [facility] Nghbec6131 [facility] [id number] Lymphocytes/100 WBC (Bld) 39 % Normal [facility] Work Phone: Comment on above: PATIENT WAS FASTINGP ERFORMED BY: ERAN [facility] Gvnudm8277 [facility] [id number] MCH Entitic mass (RBC) 32.5 pg Normal 26.6-33.0 [facility] Work Phone: Comment on above: PATIENT WAS FASTINGP ERFORMED BY: ERAN [facility] Rjkcuw9971 [facility] [id number] MCHC mass conc (RBC) 33.8 g/dL Normal 31.5-35.7 Comp [facility] Internal Medicine Work Phone: Comment on above: PATIENT WAS FASTINGP ERFORMED BY: ERAN [facility] Qeboao6087 [facility] [id number] MCV Entitic volume (RBC) 96 fL Normal 79-97 [facility] Work Phone: Comment on above: PATIENT WAS FASTINGP ERFORMED BY: ERAN [facility] Icprge7053 [facility] [id number] Monocytes #/vol (Bld) 0.4 {x10E3/uL} Normal 0.1-0.9 [facility] Work Phone: Comment on above: PATIENT WAS FASTINGP ERFORMED BY: [facility] Qnrpmf5698 [facility] [id number] Monocytes/100 WBC (Bld) 7 % Normal [facility] Work Phone: Comment on above: PATIENT WAS FASTINGP ERFORMED BY: ERAN [facility] Zfwdem5148 [facility] [id number] Neutrophils #/vol (Bld) 2.7 {x10E3/uL} Normal 1.4-7.0 [facility] Work Phone: Comment on above: PATIENT WAS FASTINGP ERFORMED BY: ERAN LabLesli ColeJblgpn5049 [facility] [id number] Neutrophils/100 WBC (Bld) 47 % Normal [facility] Work Phone: Comment on above: PATIENT WAS FASTINGP ERFORMED BY: ERAN [facility] Tfgvgc2618 [facility] [id number] Platelets #/vol (Bld) 223 {x10E3/uL} Normal 150-379 [facility] Work Phone: Comment on above: PATIENT WAS FASTINGP ERFORMED BY: ERAN LabLesli ColeGrgvmd6741 [facility] [id number] RBC #/vol (Bld) 4.52 {x10E6/uL} Normal 4.14-5.80 [facility] Internal Medicine Work Phone: Comment on above: PATIENT WAS FASTINGP ERFORMED BY: ERAN LabLesli ColeVuxqfb8766 [facility] [id number] WBC #/vol (Bld) 5.7 {x10E3/uL} Normal 3.4-10.8 [facility] Internal Medicine Work Phone: Comment on above: PATIENT WAS FASTINGP ERFORMED BY: ERAN LabLesli ColeNfnxjx8720 [facility] [id number] CBC W/AUTO DIFF WBC (63356)O rdered By: [employer] Interpreter on 09-18-2017 Basophils (Bld) [#/Vol] 0.1 10*3/uL Normal 0.0-0.2 [facility]; [facility] Work Phone: Comment on above: PATIENT WAS FASTINGP ERFORMED BY: ERAN [facility] Ghjkja3584 [facility] [id number] Eosinophils (Bld) [#/Vol] 0.3 10*3/uL Normal 0.0-0.4 [facility]; [facility] Work Phone: Comment on above: PATIENT WAS FASTINGP ERFORMED BY: ERAN [facility] Loachw1928 [facility]blin [place] [id number] Immature granulocytes (Bld) [#/Vol] 0.0 10*3/uL Normal 0.0-0.1 [facility] Internal Medicine; [facility] Work Phone: Comment on above: PATIENT WAS FASTINGP ERFORMED BY: [facility] Lvkgef6646 [address] Roadblin [place] [id number] Lymphocytes (Bld) [#/Vol] 2.2 10*3/uL Normal 0.7-3.1 [facility] Internal [facility]; [facility] Work Phone: Comment on above: PATIENT WAS FASTINGP ERFORMED BY: Lab[facility] Dhsodi2984 Bishop RoadScionhealthin [place] [id number] Monocytes (Bld) [#/Vol] 0.4 10*3/uL Normal 0.1-0.9 [facility] Internal [facility]; [facility] Work Phone: Comment on above: PATIENT WAS FASTINGP ERFORMED BY: [facility] Emabwu8726 [facility]in [place] [id number] Neutrophils (Bld) [#/Vol] 2.7 10*3/uL Normal 1.4-7.0 [facility] Internal [facility]; [facility] Work Phone: Comment on above: PATIENT WAS FASTINGP ERFORMED BY: [facility] Kndivi7786 [address] Roadblin [place] [id number] Platelets (Bld) [#/Vol] 223 10*3/uL Normal 150-379 [facility]; [facility] Work Phone: Comment on above: PATIENT WAS FASTINGP ERFORMED BY: CB [facility] Lnyqfc8410 [facility] Hospitalin [place] [id number] RBC (Bld) [#/Vol] 4.52 10*6/uL Normal 4.14-5.80 [facility] Internal Medicine; [facility] Internal Medicine Work Phone: Comment on above: PATIENT WAS FASTINGP ERFORMED BY: [facility] Ffceoz5355 [address] RoadDublin [place] [id number] WBC (Bld) [#/Vol] 5.7 10*3/uL Normal 3.4-10.8 Compre [facility]; [facility] Work Phone: Comment on above: PATIENT WAS FASTINGP ERFORMED BY: ERAN PriyankaSaint Luke'S Hospital Iusrlr9972 [facility] [id number] HEPATITIS C ANTIBODY (94309) Ordered By: [employer] Interpreter on 09-18-2017 HCV Ab Signal/Cutoff IA [Rel units/Vol] {ratio} Normal 0.0-0.9 [facility]; [facility] Work Phone: Comment on above: Negative: < 0.8 Inde terminate: 0.8 - 0.9 Positive: > 0.9 . The CDC recommends that a positive HCV antibody result be followed up with a HCV Nucleic Acid Amplification test (982894). PATIENT WAS FASTINGP ERFORMED BY: ERAN RelaySaint Luke'S Hospital Yrgdkm1245 [facility] [id number] HEPATITIS C ANTIBODY (44956) on 09-18-2017 HCV Ab Signal/Cutoff IA RelACnc {ratio} Normal 0.0-0.9 [facility] Work Phone: Comment on above: Negative: < 0.8 Inde terminate: 0.8 - 0.9 Positive: > 0.9 . The CDC recommends that a positive HCV antibody result be followed up with a HCV Nucleic Acid Amplification test (007173). PATIENT WAS FASTINGP ERFORMED BY: ERAN RelayNevada Regional Medical CenterGvdyxb0255 [facility] [id number] METABOLIC PANEL, COMPREHENSI VE (47276)on 09-18-2017 Albumin mass conc 4.4 g/dL Normal 3.6-4.8 Compreh ensive Internal Medicine Work Phone: Comment on above: PATIENT WAS FASTINGP ERFORMED BY: ERAN [facility] Snbrzg1345 [facility] [id number] Albumin/Globulin mass ratio 1.7 {ratio} Normal 1.2-2.2 [facility] Work Phone: Comment on above: PATIENT WAS FASTINGP ERFORMED BY: ERAN [facility]Br[facility]6370 [facility] [id number] ALP enzyme act/vol 66 [iU]/L Normal 39-117 [facility] Work Phone: Comment on above: PATIENT WAS FASTINGP ERFORMED BY: ERAN [facility] Dzuylt6353 [address] RoadDublin [place] [id number] ALT enzyme act/vol 18 [iU]/L Normal 0-44 [facility] Internal Medicine Work Phone: Comment on above: PATIENT WAS FASTINGP ERFORMED BY: [facility] Vmwkxy8700 [address] Roadblin [place] [id number] AST enzyme act/vol 25 [iU]/L Normal 0-40 [facility] Internal Medicine Work Phone: Comment on above: PATIENT WAS FASTINGP ERFORMED BY: ERAN [facility] Nymvor9165 [address] Roadblin [place] [id number] Bilirubin mass conc 0.3 mg/dL Normal 0.0-1.2 Compr [facility] Internal Medicine Work Phone: Comment on above: PATIENT WAS FASTINGP ERFORMED BY: ERAN LabSaint [facility]'S Hospital Hiolqw2294 Bishop RoadScionhealthin [place] [id number] Calcium mass conc 9.2 mg/dL Normal 8.6-10.2 Compreh [facility] centerive Internal Medicine Work Phone: Comment on above: PATIENT WAS FASTINGP ERFORMED BY: ERAN [facility] Vrldta8676 [address] Roadblin [place] [id number] Chloride molar conc 102 mmol/L Normal 96-106 Compr [facility] Internal Medicine Work Phone: Comment on above: PATIENT WAS FASTINGP ERFORMED BY: ERAN [facility] Encgww5456 [address] Roadbl[address] [place] [id number] CO2 molar conc 22 mmol/L Normal 18-29 Comprehens [facility] Internal [facility] Work Phone: Comment on above: PATIENT WAS FASTINGP ERFORMED BY: ERAN [facility] Mlybuo1245 [address] RoadDublin [place] [id number] Creatinine mass conc 0.98 mg/dL Normal 0.76-1.27 Comp [facility] Work Phone: Comment on above: PATIENT WAS FASTINGP ERFORMED BY: LabBr[facility]6370 [address] [facility]in [place] [id number] GFR/1.73 sq M predicted among blacks CKD-EPI vol rate/area (S/P/Bld) 93 mL/min/1.73 Normal Comprehensiv e Internal Medicine Work Phone: Comment on above: PATIENT WAS FASTINGP ERFORMED BY: [facility]6370 [address] [facility]in [place] [id number] GFR/1.73 sq M predicted among non-blacks CKD-EPI vol rate/area (S/P/Bld) 81 mL/min/1.73 Normal [facility] Work Phone: Comment on above: PATIENT WAS FASTINGP ERFORMED BY: [facility]6370 [facility] [id number] Globulin mass conc (S) 2.6 g/dL Normal 1.5-4.5 [facility] Work Phone: Comment on above: PATIENT WAS FASTINGP ERFORMED BY: [facility]6370 [facility] [id number] Glucose mass conc 82 mg/dL Normal 65-99 Compreh ensive Internal Medicine Work Phone: Comment on above: PATIENT WAS FASTINGP ERFORMED BY: [facility]6370 [facility] [id number] Potassium molar conc 4.8 mmol/L Normal 3.5-5.2 Comp rehensive Internal Medicine Work Phone: Comment on above: PATIENT WAS FASTINGP ERFORMED BY: [facility]6370 [facility] [id number] Protein mass conc 7.0 g/dL Normal 6.0-8.5 Compreh ensive Internal Medicine Work Phone: Comment on above: PATIENT WAS FASTINGP ERFORMED BY: [facility]6370 [address] [facility]in [place] [id number] Sodium molar conc 143 mmol/L Normal 134-144 Compreh ensive Internal Medicine Work Phone: Comment on above: PATIENT WAS FASTINGP ERFORMED BY: ERAN PriyankaCojay ColeIwyfpc3595 [address] RoadDublin [place] [id number] Urea nitrogen mass conc 15 mg/dL Normal 8-27 [facility] Work Phone: Comment on above: PATIENT WAS FASTINGP ERFORMED BY: ERAN Evonnejay ColeDoqvne6468 [address] RoadDublin [place] [id number] Urea nitrogen/Creatinine mass ratio 15 mg/mg Normal 10-24 [facility] Work Phone: Comment on above: PATIENT WAS FASTINGP ERFORMED BY: ERAN [facility] Ydldyx6294 [address] RoadDublin [place] [id number] METABOLIC PANEL, COMPREHENSI VE (34208)Ordered By: [employer] Interpreter on 09-18-2017 ALP [Catalytic activity/Vol] 66 U/L Normal 39-117 [facility]; [facility] Work Phone: Comment on above: PATIENT WAS FASTINGP ERFORMED BY: ERAN Evonne Scjrpf6839 [address] RoadDuin [place] [id number] ALT [Catalytic activity/Vol] 18 U/L Normal 0-44 [facility]; [facility] Work Phone: Comment on above: PATIENT WAS FASTINGP ERFORMED BY: ERAN LabJoanajay Bmkwow5946 [address] RoadDuin [place] [id number] AST [Catalytic activity/Vol] 25 U/L Normal 0-40 [facility]; [facility] Work Phone: Comment on above: PATIENT WAS FASTINGP ERFORMED BY: ERAN LabSaint [facility] Hospital Tkkbbg3628 [address] RoadDublin [place] [id number] Microscopic Examinationon Bacteria LM.HPF #/area (Urine sed) None seen Normal [facility] Work Phone: Comment on above: PATIENT WAS FASTINGP ERFORMED BY: ERAN [facility] Vahhpg0971 [address] RoadDublin [place] [id number] Epithelial cells LM.HPF #/area (Urine sed) None seen Normal 0 - 10 [facility] Work Phone: Comment on above: PATIENT WAS FASTINGP ERFORMED BY: ERAN LabBr[facility]6370 [address]bl[address] [place] [id number] Mucus Ql (Urine sed) Present Normal Comp rehensive Internal Medicine Work Phone: Comment on above: PATIENT WAS FASTINGP ERFORMED BY: ERAN [facility]6370 [facility] [id number] RBC LM.HPF #/area (Urine sed) 0-2 Normal 0 - 2 [facility] Work Phone: Comment on above: PATIENT WAS FASTINGP ERFORMED BY: ERAN LabBr[facility]6370 [facility] [id number] WBC LM.HPF #/area (Urine sed) 0-5 Normal 0 - 5 [facility] Work Phone: Comment on above: PATIENT WAS FASTINGP ERFORMED BY: [place] 2423170 [facility] [id number] RHEUMATOID FACTOR-QUANT (660 31)on 09-18-2017 Rheumatoid factor Qn [IU]/mL Normal 0.0-13.9 Comp rehensive Internal Medicine Work Phone: Comment on above: PATIENT WAS FASTINGP ERFORMED BY: [place] 2423170 [facility] [id number] RHEUMATOID FACTOR-QUANT (194 31)Ordered By: [employer] Interpreter on 09-18-2017 Rheumatoid factor Qn [IU]/mL Normal 0.0-13.9 Comp rehensive Internal Medicine; [facility] Work Phone: Comment on above: PATIENT WAS FASTINGP ERFORMED BY: [facility]6370 [facility] [id number] SED RATE ERYTHROCYTE (52225) on 09-18-2017 ESR Velocity (Bld) 2 mm/h Normal 0-30 Compre [facility] Internal Medicine Work Phone: Comment on above: PATIENT WAS FASTINGP ERFORMED BY: [facility]6370 [facility] [id number] TSH (20775)on 09-18-2017 Thyrotropin Qn 2.460 {uIU/mL} Normal 0.450-4.50 0 [facility] Work Phone: Comment on above: PATIENT WAS FASTINGP ERFORMED BY: ERAN [facility] Gsqcss1435 [address] RoadDublin [place] [id number] URINALYSIS, W/ MICRO (18362) on 09-18-2017 Appearance Nom (U) Clear Normal Compre hensive Internal Medicine Work Phone: Comment on above: PATIENT WAS FASTINGP ERFORMED BY: ERAN [facility] Pxsjpc6700 [address] RoadDublin [place] [id number] Bilirubin Ql (U) Negative Normal Comprehe nsive Internal Medicine Work Phone: Comment on above: PATIENT WAS FASTINGP ERFORMED BY: ERAN [facility] Typeoz1215 [address] RoadDublin [place] [id number] Color Nom (U) Yellow Normal Comprehensi ve Internal Medicine Work Phone: Comment on above: PATIENT WAS FASTINGP ERFORMED BY: ERAN [facility] Vjuhrz9461 [address] [place] [id number] Glucose Ql (U) Negative Normal Comprehens dennys Internal Medicine Work Phone: Comment on above: PATIENT WAS FASTINGP ERFORMED BY: ERAN LabLesli ColeKsyxqx3437 [address] RoadDublin [place] [id number] Hemoglobin Ql (U) Negative Normal Compreh ensive Internal Medicine Work Phone: Comment on above: PATIENT WAS FASTINGP ERFORMED BY: ERAN LabJoanarp Miyyhv3143 [address] RoadDublin [place] [id number] Ketones Ql (U) Negative Normal Comprehens dennys Internal Medicine Work Phone: Comment on above: PATIENT WAS FASTINGP ERFORMED BY: ERAN [facility] Smdwwg1392 [address] RoadDublin [place] [id number] Leukocyte esterase Test strip Ql (U) Negative Normal [facility] Work Phone: Comment on above: PATIENT WAS FASTINGP ERFORMED BY: ERAN LabJoanarp Chaxjw3292 [address] RoadDublin [place] [id number] Microscopic observation LM Nom (Urine sed) MICRON Normal [facility] Work Phone: Comment on above: Microscopic follows if indicated. PATIENT WAS FASTINGP ERFORMED BY: ERAN LabLesli Vwocus0178 [facility]in [place] [id number] Microscopic observation LM Nom (Urine sed) See below: Normal [facility] Work Phone: Comment on above: Microscopic was kylie cated and was performed. PATIENT WAS FASTINGP ERFORMED BY: ERAN LabLesli ColeSuxymz6443 [facility] [id number] Nitrite Ql (U) Negative Normal Comprehens dennys Internal Medicine Work Phone: Comment on above: PATIENT WAS FASTINGP ERFORMED BY: ERAN LabJoana Xiznqr0889 [address] [facility]in [place] [id number] pH (U) 6.0 [pH] Normal 5.0-7.5 [facility] Work Phone: Comment on above: PATIENT WAS FASTINGP ERFORMED BY: ERAN Monsalve6370 [facility] [id number] Protein Ql (U) Negative Normal Comprehens dennys Internal Medicine Work Phone: Comment on above: PATIENT WAS FASTINGP ERFORMED BY: ERAN Colelin6370 [facility] [id number] Specific gravity Relative Density (U) 1.020 1 Normal 1.005-1.03 0 [facility] Work Phone: Comment on above: PATIENT WAS FASTINGP ERFORMED BY: ERAN LabLesli [id number] [facility] [id number] Urobilinogen Test strip mass conc (U) 0.2 mg/dL Normal 0.2-1.0 Comprehensiv e Internal Medicine Work Phone: Comment on above: PATIENT WAS FASTINGP ERFORMED BY: ERAN [facility]Saint [facility] [id number] [facility] [id number] URINALYSIS, W/ MICRO ([id number]) Ordered By: [employer] Interpreter on 09-18-2017 Bilirubin Ql (U) Negative Normal Comprehe nsive Internal Medicine; [facility] Work Phone: Comment on above: PATIENT WAS FASTINGP ERFORMED BY: ERAN [facility] [id number] RoadDublin [place] [id number] Glucose Ql (U) Negative Normal Comprehens dennys Internal Medicine; [facility] Work Phone: Comment on above: PATIENT WAS FASTINGP ERFORMED BY: ERAN [facility] [id number] RoadDublin [place] [id number] Hemoglobin Ql (U) Negative Normal Compreh ensive Internal Medicine; [facility] Work Phone: Comment on above: PATIENT WAS FASTINGP ERFORMED BY: ERAN [facility] [id number]Dublin [place] [id number] Ketones Ql (U) Negative Normal Comprehens dennys [facility]; [facility] Work Phone: Comment on above: PATIENT WAS FASTINGP ERFORMED BY: ERAN [facility] [id number] [address] [place] [id number] Leukocyte esterase Test strip Ql (U) Negative Normal [facility]; [facility] Work Phone: Comment on above: PATIENT WAS FASTINGP ERFORMED BY: ERAN [facility] [id number] [address] RoadDublin [place] [id number] Nitrite Ql (U) Negative Normal Comprehens dennys [facility]; [facility] Work Phone: Comment on above: PATIENT WAS FASTINGP ERFORMED BY: ERAN [facility] [id number]Dublin [place] [id number] Protein Ql (U) Negative Normal Comprehens dennys [facility]; [facility] Work Phone: Comment on above: PATIENT WAS FASTINGP ERFORMED BY: ERAN [facility] [id number] [address] RoadDublin [place] [id number] Urobilinogen (U) [Mass/Vol] 0.2 mg/dL Normal 0.2-1.0 [facility]; [facility] Work Phone: Comment on above: PATIENT WAS FASTINGP ERFORMED BY: ERAN [facility] [id number]Dublin [place] [id number] Vitamin B-12 (cyanocobalamin ) ([id number])on 09-18-2017 Cobalamin (Vitamin B12) mass conc 454 pg/mL Normal [id number] [facility] Work Phone: Comment on above: PATIENT WAS FASTINGP ERFORMED BY: LabCoNew Bridge Medical [id number] [place] [id number] Vital Signs Date Time Vital Sign Value Performing Clinician Facility 05-15-2025 09:36-0400 Body height 176.[address] Lars Palomares DO Work Phone: [facility] 12-24-2024 08:19-0500 Body height 176.[address] Lars Palomares DO Work Phone: [facility] 12-24-2024 08:19-0500 Body mass index (BMI) [Ratio] 25.7 kg/m2 Dr. Lars Palomares DO Work Phone: [facility] 12-24-2024 08:19-0500 Body temperature 97.3 [degF] Dr. Lars Palomares DO Work Phone: [facility] 12-24-2024 08:19-0500 Body weight 80.[address] Lars Palomares DO Work Phone: [facility] 12-24-2024 08:19-0500 Diastolic blood pressure 84 mm[Hg] Dr. Lars Palomares DO Work Phone: [facility] 12-24-2024 08:19-0500 Heart rate 71 /min Dr. Lars Palomares DO Work Phone: [facility] 12-24-2024 08:19-0500 Respiratory rate 18 /min Dr. Lars Palomares DO Work Phone: [facility] 12-24-2024 08:19-0500 SaO2% (BldA) [Mass fraction] 96 % Dr. Lars Palomares DO Work Phone: [facility] 12-24-2024 08:19-0500 Systolic blood pressure 138 mm[Hg] Dr. Lars Palomares DO Work Phone: [facility] 05-16-2023 08:06-0400 Body height 180.34 cm Edilia Aleman [facility]; [facility] Work Phone: 05-16-2023 08:06-0400 Body mass index (BMI) [Ratio] 24.06 kg/m2 Edilia Aleman [facility]; [facility] Work Phone: 05-16-2023 08:06-0400 Body surface area Derived from formula 1.98 m2 Edilia Aleman [facility]; [facility] Work Phone: 05-16-2023 08:06-0400 Body temperature 96.9 [degF] Edilia Aleman [facility]; [facility] Work Phone: Comment on above: Method: Thermal Scan 05-16-2023 08:06-0400 Body weight 78.25 kg Edilia Aleman [facility]; [facility] Work Phone: 05-16-2023 08:06-0400 Diastolic blood pressure 68 mm[Hg] Edilia Aleman [facility]; [facility] Work Phone: Comment on above: Patient Position: Sitting; Cuff Location : Left Arm; Cuff Size: Standard 05-16-2023 08:06-0400 Heart rate 76 /min Edilia Aleman [facility]; [facility] Work Phone: Comment on above: Pattern: Regular 05-16-2023 08:06-0400 Respiratory rate 16 /min Edilia Aleman [facility]; [facility] Work Phone: Comment on above: Pattern: Unlabored 05-16-2023 08:06-0400 Systolic blood pressure 112 mm[Hg] Edilia Aleman [facility]; [facility] Work Phone: Comment on above: Patient Position: Sitting; Cuff Location : Left Arm; Cuff Size: Standard 01-08-2023 08:02-0500 Body height 180.34 cm Edilia Aleman [facility]; [facility] Work Phone: 01-08-2023 08:02-0500 Body mass index (BMI) [Ratio] 25.03 kg/m2 Edilia Aleman [facility]; [facility] Work Phone: 01-08-2023 08:02-0500 Body surface area Derived from formula 2.01 m2 Edilia Aleman [facility]; [facility] Work Phone: 01-08-2023 08:02-0500 Body temperature 97 [degF] [facility]; [facility] Work Phone: Comment on above: Method: Thermal Scan 01-08-2023 08:02-0500 Body weight 81.42 kg Edilia Aleman [facility]; [facility] Work Phone: 01-08-2023 08:02-0500 Diastolic blood pressure 78 mm[Hg] Edilia Aleman [facility]; [facility] Work Phone: Comment on above: Patient Position: Sitting; Cuff Location : Left Arm; Cuff Size: Standard 01-08-2023 08:02-0500 Heart rate 78 /min Edilia [facility]; [facility] Work Phone: Comment on above: Pattern: Regular 01-08-2023 08:02-0500 Respiratory rate 16 /min Ediliarickie Aleman [facility]; [facility] Work Phone: Comment on above: Pattern: Unlabored 01-08-2023 08:02-0500 Systolic blood pressure 128 mm[Hg] Edilia Aleman [facility]; [facility] Work Phone: Comment on above: Patient Position: Sitting; Cuff Location : Left Arm; Cuff Size: Standard 09-18-2022 08:08-0400 Body height 180.34 cm Ediliarickie Aleman [facility]; [facility] Work Phone: 09-18-2022 08:08-0400 Body mass index (BMI) [Ratio] 25.38 kg/m2 Ediliajovanna Aleman [employer] [facility]; [facility] Work Phone: 09-18-2022 08:08-0400 Body surface area Derived from formula 2.03 m2 [facility]; [facility] Work Phone: 09-18-2022 08:08-0400 Body temperature 98.1 [degF] Edilia [facility]; [facility] Work Phone: Comment on above: Method: Thermal Scan 09-18-2022 08:08-0400 Body weight 82.56 kg Edilia Aleman [facility]; [facility] Work Phone: 09-18-2022 08:08-0400 Diastolic blood pressure 78 mm[Hg] Edilia Aleman [facility]; [facility] Work Phone: Comment on above: Patient Position: Sitting; Cuff Location : Left Arm; Cuff Size: Standard 09-18-2022 08:08-0400 Heart rate 72 /min Edilia Aleman [facility]; [facility] Work Phone: Comment on above: Pattern: Regular 09-18-2022 08:08-0400 Respiratory rate 16 /min Edilia Aleman [facility]; [facility] Work Phone: Comment on above: Pattern: Unlabored 09-18-2022 08:08-0400 Systolic blood pressure 126 mm[Hg] [facility]; [facility] Work Phone: Comment on above: Patient Position: Sitting; Cuff Location : Left Arm; Cuff Size: Standard 05-15-2022 08:20-0400 Body height 180.34 cm [facility]; [facility] Work Phone: 05-15-2022 08:20-0400 Body mass index (BMI) [Ratio] 24.55 kg/m2 Edilia [facility]; [facility] Work Phone: 05-15-2022 08:20-0400 Body surface area Derived from formula 2 m2 Edilia Aleman [facility]; [facility] Work Phone: 05-15-2022 08:20-0400 Body temperature 97 [degF] Edilia Aleman [facility]; [facility] Work Phone: Comment on above: Method: Thermal Scan 05-15-2022 08:20-0400 Body weight 79.83 kg Edilia Aleman [facility]; [facility] Work Phone: 05-15-2022 08:20-0400 Diastolic blood pressure 74 mm[Hg] Edilia Aleman [facility]; [facility] Work Phone: Comment on above: Patient Position: Sitting; Cuff Location : Left Arm; Cuff Size: Standard 05-15-2022 08:20-0400 Heart rate 72 /min Edilia Aleman [facility]; [facility] Work Phone: Comment on above: Pattern: Regular 05-15-2022 08:20-0400 Respiratory rate 16 /min Edilia Aleman [facility]; [facility] Work Phone: Comment on above: Pattern: Unlabored 05-15-2022 08:20-0400 Systolic blood pressure 136 mm[Hg] Edilia Aleman [facility]; [facility] Work Phone: Comment on above: Patient Position: Sitting; Cuff Location : Left Arm; Cuff Size: Standard 12-26-2021 08:38-0500 Heart rate 80 /min DR GT BARRON MD [facility] 12-26-2021 08:38-0500 Respiratory rate 16 /min DR GT BARRON MD [facility] 12-26-2021 08:35-0500 Diastolic blood pressure 76 mm[Hg] DR GT BARRON MD [facility] 12-26-2021 08:35-0500 Heart rate 79 /min DR GT BARRON MD [facility] 12-26-2021 08:35-0500 Respiratory rate 19 /min DR GT BARRON MD [facility] 12-26-2021 08:35-0500 Systolic blood pressure 115 mm[Hg] DR GT BARRON MD [facility] 12-26-2021 08:32-0500 Body temperature 96.8 [degF] DR GT BARRON MD [facility] 12-26-2021 08:32-0500 Diastolic blood pressure 79 mm[Hg] DR GT BARRON MD [facility] 12-26-2021 08:32-0500 Heart rate 78 /min DR GT BARRON MD [facility] 12-26-2021 08:32-0500 Reason For Taking VItal Signs DR GT BARRON MD [facility] 12-26-2021 08:32-0500 Respiratory rate 24 /min DR GT BARRON MD [facility] 12-26-2021 08:32-0500 Systolic blood pressure 109 mm[Hg] DR GT BARRON MD [facility] 12-26-2021 08:20-0500 Diastolic Blood Pressure NBP [address] GT BARRON MD [facility] 12-26-2021 08:20-0500 Systolic Blood Pressure NBP [address] GT BARRON MD [facility] 12-26-2021 08:15-0500 Diastolic Blood Pressure NBP [address] GT BARRON MD [facility] 12-26-2021 08:15-0500 Systolic Blood Pressure NBP [address] GT BARRON MD [facility] 12-26-2021 07:43-0500 Body height 180.[address] GT BARRON MD [facility] 12-26-2021 07:43-0500 Body weight 81.[address] GT BARRON MD [facility] 12-26-2021 07:43-0500 Body weight 25.16 kg/m2 DR GT BARRON MD [facility] 12-26-2021 07:38-0500 Body temperature 97.16 [degF] DR GT BARRON MD [facility] 12-26-2021 07:38-0500 Diastolic Blood Pressure NBP [address] GT BARRON MD [facility] 12-26-2021 07:38-0500 Heart rate 77 /min DR GT BARRON MD [facility] 12-26-2021 07:38-0500 Systolic Blood Pressure NBP [address] GT BARRON MD [facility] 11-29-2021 08:19-0500 Body height 180.34 cm Edilia Aleman [facility]; [facility] Work Phone: 11-29-2021 08:19-0500 Body mass index (BMI) [Ratio] 25.52 kg/m2 Edilia Aleman [facility]; [facility] Work Phone: 11-29-2021 08:19-0500 Body surface area Derived from formula 2.03 m2 Edilia Aleman [facility]; [facility] Work Phone: 11-29-2021 08:19-0500 Body temperature 96.9 [degF] Edilia Aleman [facility]; [facility] Work Phone: Comment on above: Method: Thermal Scan 11-29-2021 08:19-0500 Body weight 83.01 kg Edilia Aleman [facility]; [facility] Work Phone: 11-29-2021 08:19-0500 Diastolic blood pressure 74 mm[Hg] Edilia Aleman [facility]; [facility] Work Phone: Comment on above: Patient Position: Sitting; Cuff Location : Left Arm; Cuff Size: Standard 11-29-2021 08:19-0500 Heart rate 89 /min Edilia Aleman [facility]; [facility] Work Phone: Comment on above: Pattern: Regular 11-29-2021 08:19-0500 Respiratory rate 16 /min Edilia Aleman [facility]; [facility] Work Phone: Comment on above: Pattern: Unlabored 11-29-2021 08:19-0500 Systolic blood pressure 126 mm[Hg] Edilia Aleman [facility]; [facility] Work Phone: Comment on above: Patient Position: Sitting; Cuff Location : Left Arm; Cuff Size: Standard 05-25-2021 08:05-0400 Body height 180.34 cm Edilia Aleman [facility]; [facility] Work Phone: 05-25-2021 08:05-0400 Body mass index (BMI) [Ratio] 23.99 kg/m2 Edilia Aleman [facility]; [facility] Work Phone: 05-25-2021 08:05-0400 Body surface area Derived from formula 1.98 m2 Edilia Aleman [facility]; [facility] Work Phone: 05-25-2021 08:05-0400 Body temperature 97.1 [degF] Edilia Aleman [facility]; [facility] Work Phone: Comment on above: Method: Thermal Scan 05-25-2021 08:05-0400 Body weight 78.02 kg Ediila Aleman [facility]; [facility] Work Phone: 05-25-2021 08:05-0400 Diastolic blood pressure 78 mm[Hg] Edilia Aleman [facility]; [facility] Work Phone: Comment on above: Patient Position: Sitting; Cuff Location : Left Arm; Cuff Size: Standard 05-25-2021 08:05-0400 Heart rate 82 /min Edilia Aleman [facility]; [facility] Work Phone: Comment on above: Pattern: Regular 05-25-2021 08:05-0400 Respiratory rate 16 /min Edilia Aleman [facility]; [facility] Work Phone: Comment on above: Pattern: Unlabored 05-25-2021 08:05-0400 Systolic blood pressure 120 mm[Hg] Edilia Aleman [facility]; [facility] Work Phone: Comment on above: Patient Position: Sitting; Cuff Location : Left Arm; Cuff Size: Standard 11-09-2020 08:23-0500 BMI (Body Mass Index) 24.97 kg/m2 Ediliarickie Aleman [facility]; [facility] Work Phone: 11-09-2020 08:23-0500 Body Temperature 97.1 [degF] [facility]; [facility] Work Phone: Comment on above: Method: Thermal Scan 11-09-2020 08:23-0500 Body weight 81.19 kg [facility]; [facility] Work Phone: 11-09-2020 08:23-0500 BP Diastolic 70 mm[Hg] [facility]; [facility] Work Phone: Comment on above: Patient Position: Sitting; Cuff Location : Left Arm; Cuff Size: Standard 11-09-2020 08:23-0500 BP Systolic 114 mm[Hg] [facility]; [facility] Work Phone: Comment on above: Patient Position: Sitting; Cuff Location : Left Arm; Cuff Size: Standard 11-09-2020 08:23-0500 BSA (Body Surface Area) 2.01 m2 [facility]; [facility] Work Phone: 11-09-2020 08:23-0500 Height 180.34 cm [facility]; [facility] Work Phone: 11-09-2020 08:23-0500 Pulse (Heart Rate) 74 /min [facility]; [facility] Work Phone: Comment on above: Pattern: Regular 11-09-2020 08:23-0500 Respiratory Rate 16 /min [facility]; [facility] Work Phone: Comment on above: Pattern: Unlabored 05-19-2020 08:23-0400 BMI (Body Mass Index) 24.41 kg/m2 Edilia Aleman [facility] Work Phone: 05-19-2020 08:23-0400 Body Temperature 97.7 [degF] Edilia Aleman [facility] Work Phone: Comment on above: Method: Temporal 05-19-2020 08:23-0400 Body weight 79.38 kg Edilia Aleman [facility] Work Phone: 05-19-2020 08:23-0400 BP Diastolic 78 mm[Hg] Edilia Aleman [facility] Work Phone: Comment on above: Patient Position: Sitting; Cuff Location : Left Arm; Cuff Size: Standard 05-19-2020 08:23-0400 BP Systolic 122 mm[Hg] Edilia Aleman [facility] Work Phone: Comment on above: Patient Position: Sitting; Cuff Location : Left Arm; Cuff Size: Standard 05-19-2020 08:23-0400 BSA (Body Surface Area) 1.99 m2 Edilia Aleman [facility] Work Phone: 05-19-2020 08:23-0400 Height 180.34 cm Edilia Aleman [facility] Work Phone: 05-19-2020 08:23-0400 Pulse (Heart Rate) 80 /min Edilia Aleman [facility] Work Phone: Comment on above: Pattern: Regular 05-19-2020 08:23-0400 Respiratory Rate 16 /min Edilia Aleman [facility] Work Phone: Comment on above: Pattern: Unlabored 04-30-2019 10:17-0400 BMI (Body Mass Index) 24.69 kg/m2 Edilia Aleman [facility] Work Phone: 04-30-2019 10:17-0400 Body Temperature 97.2 [degF] Edilia Aleman [facility] Work Phone: Comment on above: Method: Temporal 04-30-2019 10:170400 Body weight 80.29 kg Edilia Aleman [facility] Work Phone: 04-30-2019 10:17-0400 BP Diastolic 80 mm[Hg] Edilia Aleman [facility] Work Phone: Comment on above: Patient Position: Sitting; Cuff Location : Left Arm; Cuff Size: Standard 04-30-2019 10:17-0400 BP Systolic 120 mm[Hg] Edilia Aleman [facility] Work Phone: Comment on above: Patient Position: Sitting; Cuff Location : Left Arm; Cuff Size: Standard 04-30-2019 10:17-0400 BSA (Body Surface Area) 2 m2 Edilia Aleman [facility] Internal [facility] Work Phone: 04-30-2019 10:17-0400 Height 180.34 cm Edilia Aleman [facility] Work Phone: 04-30-2019 10:17-0400 Pulse (Heart Rate) 67 /min Edilia Aleman [facility] Work Phone: Comment on above: Pattern: Regular 04-30-2019 10:17-0400 Respiratory Rate 16 /min Edilia Aleman [facility] Work Phone: Comment on above: Pattern: Unlabored 04-30-2019 10:17-0400 Weight 80.29 kg Lars Fast [facility] Internal [facility] Work Phone: 01-21-2019 08:25-0500 BMI (Body Mass Index) 24.55 kg/m2 CHANO Atkins LPN [facility] Work Phone: 01-21-2019 08:25-0500 Body Temperature 97.9 [degF] CHANO Atkins LPN [facility] Work Phone: Comment on above: Method: Temporal 01-21-2019 08:25-0500 Body weight 79.83 kg CHANO Atkins LPN [facility] Work Phone: 01-21-2019 08:25-0500 BP Diastolic 80 mm[Hg] CHANO Atkins LPN [facility] Work Phone: Comment on above: Patient Position: Sitting; Cuff Location : Left Arm; Cuff Size: Standard 01-21-2019 08:25-0500 BP Systolic 122 mm[Hg] CHANO Atkins LPN [facility] Work Phone: Comment on above: Patient Position: Sitting; Cuff Location : Left Arm; Cuff Size: Standard 01-21-2019 08:25-0500 BSA (Body Surface Area) 2 m2 CHANO Atkins LPN [facility] Work Phone: 01-21-2019 08:25-0500 Height 180.34 cm CHANO Atkins LPN [facility] Internal Medicine Work Phone: 01-21-2019 08:25-0500 Pulse [...] 01-21-2019 08:25-0500 Weight 79.83 kg Lars Palomares [facility] Work Phone: 07-31-2018 09:54-0400 Body Temperature 97.1 [degF] Edilia Ash [facility] Internal Medicine Work Phone: Comment on above: Method: Temporal 07-31-2018 09:54-0400 Body weight 79.38 kg Edilia Manjames [facility] Internal Medicine Work Phone: 07-31-2018 09:54-0400 BP Diastolic 80 mm[Hg] Ediliajovanna Aleman [employer] [facility] Work Phone: Comment on above: Patient Position: Sitting; Cuff Location : Left Arm; Cuff Size: Standard 07-31-2018 09:54-0400 BP Systolic 124 mm[Hg] Edilia Aleman [facility] Internal Medicine Work Phone: Comment on above: Patient Position: Sitting; Cuff Location : Left Arm; Cuff Size: Standard 07-31-2018 09:54-0400 Pulse (Heart Rate) 73 /min Edilia Aleman [facility] Internal Medicine Work Phone: Comment on above: Pattern: Regular 07-31-2018 09:54-0400 Respiratory Rate 16 /min Edilia Aleman [facility] Internal Medicine Work Phone: Comment on above: Pattern: Unlabored 07-31-2018 09:54-0400 Weight 79.38 kg Lars Palomares [facility] Internal Medicine Work Phone: 06-19-2018 10:06-0400 Body Temperature 98.1 [degF] Ed[facility] [facility] Work Phone: Comment on above: Method: Temporal 06-19-2018 10:06-0400 Body weight 79.83 kg Edilia Aleman [facility] Medicine Work Phone: 06-19-2018 10:06-0400 BP Diastolic 82 mm[Hg] Edilia Aleman [facility] Internal Medicine Work Phone: Comment on above: Patient Position: Sitting; Cuff Location : Left Arm; Cuff Size: Standard 06-19-2018 10:06-0400 BP Systolic 130 mm[Hg] Edilia Ash [facility] Internal Medicine Work Phone: Comment on above: Patient Position: Sitting; Cuff Location : Left Arm; Cuff Size: Standard 06-19-2018 10:06-0400 Pulse (Heart Rate) 70 /min Edilia Aleman [facility] Internal Medicine Work Phone: Comment on above: Pattern: Regular 06-19-2018 10:06-0400 Respiratory Rate 16 /min Edilia Aleman [facility] Medicine Work Phone: Comment on above: Pattern: Unlabored 06-19-2018 10:06-0400 Weight 79.83 kg Lars Palomares [facility] Work Phone: 06-12-2018 10:09-0400 Body Temperature 97.9 [degF] Edilia Aleman [facility] Work Phone: Comment on above: Method: Temporal 06-12-2018 10:09-0400 Body weight 79.83 kg Edilia Aleman [facility] Work Phone: 06-12-2018 10:09-0400 BP Diastolic 78 mm[Hg] Edilia Aleman [facility] Work Phone: Comment on above: Patient Position: Sitting; Cuff Location : Left Arm; Cuff Size: Standard 06-12-2018 10:09-0400 BP Systolic 122 mm[Hg] Edilia Aleman [facility] Work Phone: Comment on above: Patient Position: Sitting; Cuff Location : Left Arm; Cuff Size: Standard 06-12-2018 10:09-0400 Pulse (Heart Rate) 77 /min Edilia Aleman [facility] Work Phone: Comment on above: Pattern: Regular 06-12-2018 10:09-0400 Respiratory Rate 16 /min Edilia Aleman [facility] Internal Medicine Work Phone: Comment on above: Pattern: Unlabored 06-12-2018 10:090400 Weight 79.83 kg Lars Palomares [facility] Internal Medicine Work Phone: 01-16-2018 13:18-0500 Body Temperature 96.9 [degF] Edilia Aleman [facility] Work Phone: Comment on above: Method: Temporal 01-16-2018 13:18-0500 Body weight 80.74 kg Edilia Aleman [facility] Medicine Work Phone: 01-16-2018 13:18-0500 BP Diastolic 80 mm[Hg] Edilia Aleman [facility] Work Phone: Comment on above: Patient Position: Sitting; Cuff Location : Left Arm; Cuff Size: Standard 01-16-2018 13:18-0500 BP Systolic 130 mm[Hg] Edilia Aleman [facility] Work Phone: Comment on above: Patient Position: Sitting; Cuff Location : Left Arm; Cuff Size: Standard 01-16-2018 13:18-0500 Pulse (Heart Rate) 76 /min Edilia Aleman [facility] Medicine Work Phone: Comment on above: Pattern: Regular 01-16-2018 13:18-0500 Respiratory Rate 16 /min Edilia Aleman [facility] Internal Medicine Work Phone: Comment on above: Pattern: Unlabored 01-16-2018 13:18-0500 Weight 80.74 kg Lars Palomares [facility] Internal Medicine Work Phone: 09-10-2017 11:12-0400 BMI (Body Mass Index) 26.58 kg/m2 Viktoria Dickmelodie [facility] Internal Medicine Work Phone: 09-10-2017 11:12-0400 Body Temperature 97.4 [degF] Viktoria Sextonefrain [facility] Internal Medicine Work Phone: Comment on above: Method: Temporal 09-10-2017 11:12-0400 Body weight 81.65 kg Viktoria Sextonefrain [facility] Internal Medicine Work Phone: 09-10-2017 11:12-0400 BP Diastolic 88 mm[Hg] Viktoria Sextonefrain [facility] Internal Medicine Work Phone: Comment on above: Patient Position: Sitting; Cuff Location : Left Arm; Cuff Size: Standard 09-10-2017 11:12-0400 BP Systolic 126 mm[Hg] Viktoria Dickmelodie [facility] Internal Medicine Work Phone: Comment on above: Patient Position: Sitting; Cuff Location : Left Arm; Cuff Size: Standard 09-10-2017 11:12-0400 BSA (Body Surface Area) 1.98 m2 Viktoria Johnny [facility] Work Phone: 09-10-2017 11:12-0400 Height 175.26 cm Viktoria Turner [facility] Work Phone: 09-10-2017 11:12-0400 Pulse (Heart Rate) 70 /min Viktoria Turner [facility] Work Phone: Comment on above: Pattern: Regular 09-10-2017 11:12-0400 Pulse Oximetry 95 % Lars Palomares [facility] Work Phone: Comment on above: Room air 09-10-2017 11:12-0400 Respiratory Rate 15 /min Viktoria Turner [facility] Work Phone: Comment on above: Pattern: Unlabored 09-10-2017 11:12-0400 SaO2% (BldA) [Mass fraction] 95 % Viktoria [facility]; [facility] Work Phone: Comment on above: Room air 09-10-2017 11:12-0400 Weight 81.65 kg Lars Casper [facility] Work Phone: Encounters Encounter Date Encounter Type Care Provider Facility Start: 07-21-2025 ambulatory Lars Fast Facility:[facility] Start: 07-14-2025 ambulatory Lars Fast Facility:[facility] Start: 07-08-2025 End: 07-08-[address] Lars Palomares DO Work Phone: -Laboratory Start: 07-08-2025 End: 07-08-2025 Patient encounter procedure Tessy Hawk -Laboratory Work Phone: Start: 07-08-2025 End: 07-08-2025 ambulatory Tessy Hawk Facility:[facility] Start: 06-03-2025 End: 06-03-[address] Lars Palomares DO Work Phone: -Outpatient Bone Densitometry Start: 06-03-2025 End: 06-03-[address] Lars Palomares DO -Outpatient Bone Densitometry Work Phone: Start: 06-02-2025 Registered Referred Self Referred -[facility] Work Phone: Start: 06-02-2025 End: 06-03-2025 ambulatory Lars Fast Facility:[facility] Start: 05-21-2025 End: 05-21-[address] Lars Palomares DO Work Phone: -Ultrasound [facility] Start: 05-21-2025 End: 05-21-[address] Lars Palomares DO -Ultrasound [facility] Work Phone: Start: 05-21-2025 End: 05-21-2025 ambulatory Lars Fast Facility:[facility] Start: 05-15-2025 End: 05-15-[address] Bg Restrepo MD -[facility] Start: 05-15-2025 End: 05-15-[address] Lars Palomares DO Work Phone: [facility] Work Phone: Start: 02-02-2025 End: 02-02-[address] Lars Palomares DO Work Phone: [facility] Work Phone: Start: 02-02-2025 End: 02-02-[address] Lars Palomares DO -Cat Scan, [facility] Work Phone: Start: 02-02-2025 End: 02-02-2025 ambulatory Lars Fast Facility:[facility] Start: 01-06-2025 End: 01-06-2025 [facility] Start: 01-06-2025 End: 01-06-2025 ambulatory Lars Fast Facility:[facility] Start: 12-24-2024 End: 12-24-2024 Patient encounter procedure Addie Andrea STUNT DOUBLE-C -[facility] Work Phone: Start: 12-24-2024 End: 12-24-2024 ambulatory Addie Andrea STUNT DOUBLE [facility] Start: 11-18-2024 End: 11-18-2024 ambulatory Lars Fast Facility:[facility] Start: 11-18-2024 End: 11-18-[address] Lars Fast DO -Physical Therapy Work Phone: Start: 08-25-2024 End: 08-25-2024 ambulatory Addie Andrea STUNT DOUBLE [facility] Start: 07-23-2024 End: 07-23-2024 ambulatory Lars Fast Facility:[facility] Start: 03-04-2024 End: 03-04-[address] [facility] Work Phone: Start: 03-04-2024 End: 03-04-2024 Patient encounter procedure [facility]-Laboratory, [facility] Start: 12-17-2023 End: 12-17-2023 Subsequent hospital visit by physician Demetri Silva [facility] Comment on above: Hyperlipidemia, unsp ecified Start: 12-17-2023 End: 12-17-2023 ambulatory [facility] Start: 11-06-2023 End: 11-06-[address] [facility] Work Phone: Start: 11-06-2023 End: 11-06-2023 Patient encounter procedure [facility] Start: 10-15-2023 End: 10-15-2023 Patient encounter procedure [facility]-Laboratory Work Phone: Start: 10-08-2023 End: 10-08-[address] [facility] Work Phone: Start: 10-08-2023 End: 10-08-2023 Patient encounter procedure [facility]-Laboratory, [place] Work Phone: Start: 05-22-2023 End: 05-22-[address] [facility] Work Phone: Start: 05-22-2023 End: 05-22-2023 Patient encounter procedure [facility]-Ultrasound, [facility] Work Phone: Start: 05-16-2023 End: 05-16-2023 Patient encounter procedure Lars Fast DO Work Phone: [facility] Start: 05-02-2023 End: 05-02-2023 Phone Encounter Lars Fast DO Work Phone: [facility] Start: 03-28-2023 End: 03-28-2023 Patient encounter procedure [facility] Work Phone: Start: 01-08-2023 End: 01-08-2023 Office outpatient visit 15 minutes Lars Fast DO Work Phone: [facility] Start: 01-01-2023 ambulatory Lars A Fast DO [facility] Start: 12-14-2022 End: 12-14-[address] [facility] Work Phone: Start: 12-14-2022 End: 12-14-2022 Patient encounter procedure [facility]-Outpatient Bone Densitometry Start: 10-02-2022 End: 10-02-[address] [facility] Work Phone: Start: 10-02-2022 End: 10-02-2022 Patient encounter procedure [facility] Start: 09-18-2022 Review Lars Fast DO Work Phone: [facility] Start: 09-18-2022 End: 09-18-2022 Office outpatient visit 25 minutes Lars Fast DO Work Phone: [facility] Start: 05-15-2022 End: 05-15-2022 Office outpatient visit 25 minutes Lars Fast DO Work Phone: [facility] Start: 05-15-2022 Review Lars Fast DO Work Phone: [facility] Start: 04-10-2022 End: 04-10-2022 Patient encounter procedure [facility] Start: 12-28-2021 End: 12-28-2021 Phone Encounter Lars Fast DO Work Phone: [facility] Start: 12-26-2021 End: 12-26-[address] GT BARRON MD [facility] Start: 11-29-2021 End: 11-29-2021 Office outpatient visit 25 minutes Lars Fast DO Work Phone: [facility] Start: 11-02-2021 End: 11-02-2021 Phone Encounter Lars Palomares DO Work Phone: [facility] Start: 05-25-2021 End: 05-25-2021 Office outpatient visit 25 minutes Lars Fast DO Work Phone: [facility] Start: 05-25-2021 Review Larsjovanna Palomares DO Work Phone: [facility] Start: [...] [facility] Start: 04-30-2019 Review Lars Palomares [facility] Start: 01-21-2019 End: 01-30-2019 Office outpatient visit 25 minutes Lars Fast [facility] Start: 01-21-2019 Review Lars Palomares [facility] Start: 10-21-2018 End: 10-21-2018 Office outpatient visit 15 minutes Lars Fast [facility] Start: 07-31-2018 End: 07-31-2018 Office outpatient visit 15 minutes Lars Fast [facility] Start: 06-19-2018 End: 06-20-2018 Office outpatient visit 25 minutes Lars Fast [facility] Start: 06-12-2018 End: 06-13-2018 Office outpatient visit 25 minutes Lars Fast [facility] Start: 01-16-2018 End: 01-31-2018 Office outpatient visit 15 minutes Lars Fast [facility] Start: 09-19-2017 End: 09-19-2017 Phone Encounter Lars Palomares [facility] Start: 09-10-2017 End: 09-10-2017 Office [...] 05-21-2025 US scan of thyroid Dr. Lars Palomares DO Work Phone: Start: 05-15-2025 Plain x-ray of pelvis [...] Soft Tissue Procedure Note: See Note; NOTES: [facility] Imaging Services [address] [place] [address] Head/Neck Soft Tissue MR#: [id number] Acct: [id number] Name: PIPORAFA BRAVO Rep #: [id number] : 1950 M 72 From: Suzanne Bryant MD PCP: Dr. Lars Palomares DO Status: REG CLI Study: Head/Neck Soft Tissue Date of Exam: 05/22/23 Exam# [id number] Ordering Dr: Lars Palomares DO STUDY: THYROID [...] EDT , CC: Dr. Lars Palomares DO Stock [employer] Agent: Signed Lars Palomares DO Work Phone: Start: 12-14-2022 End: 12-15-2022 Dexa Bone Density Study Procedure Note: See Note; NOTES: [facility] Imaging Services [address] [place] [address] Dexa Bone Density Study MR#: [id number] Acct: [id number] Name: RAFA FOSS Rep #: [id number] : 1950 M 72 From: Kwasi swann MD PCP: Dr. Lars Palomares DO Status: REG CLI Study: Dexa Bone Density Study Date of Exam: 12/14/22 Exam# [id number] Ordering Dr: Lars Palomares DO STUDY: DUAL [...] 13:06 EST Reading Location ID and State: [address] [place] [address] , Service support , CC: Dr. Lars Palomares DO Stock And Station Agent: Signed Lars Palomares DO Work Phone: Start: 12-14-2022 Dual energy X-ray absorptiometry Start: 04-21-2021 End: 04-23-2021 Abdomen/Pelvis WITH Contrast Comments: See Note; NOTES: [facility] Imaging Services [address] [place] [address] Abdomen/Pelvis WITH Contrast MR#: [id number] Acct: [id number] Name: PIPORAFA Rep #: [id number] : 1950 M 70 From: Jacky Calero MD PCP: Dr. Lars Palomares DO Status: REG CLI Study: Abdomen/Pelvis WITH Contrast Date of Exam: Exam# [id number] Ordering Dr: Daniel Mitchell MD STUDY: CT [...] Lars Palomares DO; Dr. Daniel Mitchell MD Stock [employer] Station Agent: Signed Lars Palomares DO Work Phone: Start: 03-29-2021 End: 03-30-2021 PET/CT Tumor Base -Thigh Subs Comments: See Note; NOTES: [facility] Imaging Services [address] [place] [address] PET/CT Tumor Base -Thigh Subs MR#: [id number] Acct: [id number] Name: RAFA FOSS Rep #: [id number] : 1950 M 70 From: Jacky Murillo PCP: Dr. Lars Palomares, DO Status: REG CLI Study: PET/CT Tumor Base -Thigh Subs Date of Exam: Exam# [id number] Ordering Dr: Chadd Gtz MD EXAMINATION: 18F Fluciclovine PET/CT CLINICAL HISTORY: [...] CC: Dr. Lars Palomares DO; Dr. Chadd Gtz MD Stock And Station Agent: Signed Lars Palomares DO Work Phone: Start: 11-17-2020 End: 11-17-2020 Dexa Bone Density Study Comments: See Note; NOTES: [facility] Imaging Services [address] [place] [address] Dexa Bone Density Study MR#: [id number] Acct: [id number] Name: RAFA FOSS A Rep #: [id number] : 1950 M 70 From: Kwasi swann MD PCP: Dr. Lars Palomares DO Status: [facility] CLI Study: Dexa Bone Density Study Date of Exam: 11/17/20 Exam# [id number] Ordering Dr: Fast,Lars DO STUDY: DUAL ENERGY X-RAY ABSORPTIOMETRY / [...] [employer] [facility] www [email or web address] Electronically Signed: Kwasi Jennifer, at 10:42 EST , Service support , CC: Dr. Lars Palomares DO Stock And Station Agent: Signed Lars Palomares Work Phone: Start: 01-21-2020 End: 01-21-2020 Operative Report Comments: See Note; NOTES: [facility] Medical Records Department [address] [place] [address] Operative Report 01/21/20 1057 MR#: [id number] Acct: [id number] Name: RAFA FOSS Rep #: [id number] : 1950 69 From: Chadd Gtz MD PCP: Lars Palomares DO Status: [facility] Y Location: [place] [address] Report of Operation Date of Procedure: 01/21/20 Pre-Operative Diagnosis: Prostate cancer Post-Operative Diagnosis: Same Surgery/Procedure Performed:: Laparoscopic robotic assisted radical prostatectomy, bilateral lymph node dissection, suture suspension of the urethra. Description of Surgical Findings:: 69-year-old male who was found to have Lela 7 prostate cancer involving the left side [...] and draped in usual fashion. Placed a Clifton catheter into the bladder. I then infiltrated the umbilicus with lidocaine. Make a small incision. And advanced the Veress needle into the peritoneal cavity insufflated the peritoneal cavity CO2 gas. I then placed my camera trocar right upper trocar left arm trocar and second left arm trocar, air seal port and assistant film editor suction port. We then docked the robot. [...] the right pelvic lymph nodes and the mold filling operator space. We went to the left [...] accounted for. Type of Anesthesia:: General Drains: clifton - Admit VTE Documentation VTE Present on Admission: No VTE Mechan Device Prophylaxis: SCD's 01/21/20 1103 <Electronically signed by Chadd Gtz MD> Date Chadd Gtz MD CC: Lars Palomares DO; Chadd Gtz MD Signed Lars Palomares Start: 01-21-2020 End: 01-21-2020 Discharge Instruction Comments: See Note; NOTES: [facility] Medical Records Department [address] [place] [address] Instructions for Home/Discharge Instructions 01/21/20 0722 MR#: [id number] Acct: [id number] Name: RAFA FOSS A Rep #: [id number] : 1950 69 From: Chadd Gtz MD PCP: Lars Palomares DO Status: [facility] Discharge Diet: Light diet - advance as [...] Line Care: Avoid Pulling/Pushing, Avoid Pinching/Bending Catheter: Clifton to leg bag, Clifton to large bag Drain: Angie Instructions: Radical Prostatectomy Allergies/Adverse Reactions: Allergies No Known Allergies Allergy (Verified 01/21/20 06:23) Medications to take at Discharge Cholecalciferol (Vitamin D3) [Vitamin D3] 4,000 unit PO DAILY 01/12/20 Diphenhydramine HCl [Benadryl Allergy] 25 mg PO DAILY PRN 01/12/20 Ciprofloxacin [Cipro] 500 mg PO BID #20 tab 01/21/20 Docusate Sodium [Colace] 100 mg PO BID #20 cap 01/21/20 Hydrocodone/Acetaminophen [[place] 5-325 Tablet] 1 each PO Q4H PRN PRN 7 Days #14 tablet 01/21/20 The following prescriptions were given: Ciprofloxacin [Cipro] 500 mg PO BID #20 tab Transmission Status: Pending to [facility] Docusate Sodium [Colace] 100 mg PO BID #20 cap Transmission Status: Pending to [facility] Hydrocodone/Acetaminophen [[place] 5-325 Tablet] 1 each PO Q4H PRN PRN 7 Days #14 tablet PRN Reason: Pain Score 1-10/10 Transmission Status: Sent to [facility] Primary Care Physician: Lars Palomares DO [Primary Care Provider] - Test Results: Test results from this visit will be discussed in further detail at your follow-up appointment, if applicable. Please Follow Up With: Chadd Gtz MD When: please call to make an appointment. Proposed Discharge Date: 01/22/20 01/21/20 0723 <Electronically signed by Chadd Gtz MD> Date Chadd Gtz MD CC: Lars Palomares DO Signed Lars Palomares Start: 10-15-2019 End: 10-27-2019 Pelvis W/WO Contrast Comments: See Note; NOTES: [facility] Imaging Services [address] [place] [address] Pelvis W/WO Contrast MR#: [id number] Acct: [id number] Name: RAFA FOSS Rep #: [id number] : 1950 M 68 From: Samuel Emmanuel DO PCP: Lars Palomares DO Status: REG CLI Study: Pelvis W/WO Contrast Date of Exam: 10/15/19 Exam# [id number] Ordering Dr: Chadd Gtz MD ADDENDUM by Samuel Emmanuel on 10/27/19 [...] Samuel Emmanuel DO at 16:09 EST Tel [phone], Service support , 10/27/19 1609 Date cc: Lars Palomares DO; Chadd Gtz MD * Signed ADDENDUM by Samuel Emmanuel on 10/27/19 at 1609 MRI/Pelvis W/WO Contrast 10/27/19 1616 Date cc: Lars Palomares DO; Chadd Gtz MD * Signed STUDY: MR PELVIS WITH [...] Samuel Emmanuel DO at 23:28 EST Tel [phone], Service support , CC: Lars Palomares DO; Chadd Gtz MD Stock And Station Agent: Signed Lars Palomares Start: 02-12-2019 End: 02-12-2019 TXT - Blood Flow Screening Comments: See Note; NOTES: [facility] Cardiovascular Services [address] [place] [address] 02/11/19 0759 MR#: [id number] Acct: [id number] Name: RAFA FOSS Rep #: [id number] : 1950 68 From: Duong Daugherty MD [...] Dictated: 02/11/19 0759 Date Transcribed: 02/12/19 0649 Stock And Station Agent: Signed Lars Palomares Start: 11-26-[address] GT BARRON MD Start: 06-12-2018 End: 06-12-2018 Abdomen/Pelvis without Cont Comments: See Note; NOTES: [facility] Imaging Services [address] [place] [address] Abdomen/Pelvis without Cont MR#: [id number] Acct: [id number] Name: RAFA FOSS Rep #: [id number] : 1950 M 67 From: Regis Gan DO PCP: Lars Palomares DO Status: REG CLI Study: Abdomen/Pelvis without Cont Date of Exam: 06/12/18 Exam# [id number] Ordering Dr: Lars Palomares DO STUDY: CT [...] findings, as detailed above. Electronically Signed: Regis Gan DO at 12:19 EDT Tel , Service support , CC: Lars Palomares DO Stock And Station Agent: Signed Lars Palomares Work Phone: Start: 09-27-2017 End: 09-27-2017 Dexa Bone Density Study () Comments: See Note; NOTES: [facility] Imaging Services [address] [place] [address] Dexa Bone Density Study () MR#: [id number] Acct: [id number] Name: RAFA FOSS Rep #: [id number] : 1950 66 From: Kwasi Rodriguez MD PCP: Lars Palomares DO Status: REG CLI Study: Dexa Bone Density Study (HP) Date of Exam: 09/27/17 Exam# [id number] Ordering Dr: Lars Palomares DO STUDY: DUAL [...] Kwasi Rodriguez MD at 9:58 EDT Tel [phone], Service support , CC: Lars Palomares DO Stock And Station Agent: Signed Lars Palomares Work Phone: Start: 09-10-2017 End: 09-11-2017 Cerv Spine 4 or 5 Views Comments: See Note; NOTES: [facility] Imaging Services [address] [place] [address] Cerv Spine 4 or 5 Views MR#: [id number] Acct: [id number] Name: RAFA FOSS Rep #: [id number] : 1950 M 66 From: Kwasi Rodriguez MD PCP: Lars Palomares DO Status: REG CLI Study: Cerv Spine 4 or 5 Views Date of Exam: 09/10/17 Exam# [id number] Ordering Dr: Lars Palomares DO STUDY: X-RAY [...] Kwasi Rodriguez MD at 12:34 EDT Tel [phone], Service support , CC: Lars Palomares DO Stock And Station Agent: Signed Lars Palomares Work Phone: Start: 09-10-2017 End: 09-11-2017 L/S Spine Min 4 Views Comments: See Note; NOTES: [facility] Imaging Services [address] [place] [address] L/S Spine Min 4 Views MR#: [id number] Acct: [id number] Name: RAFA FOSS Rep #: [id number] : 1950 M 66 From: Kwasi Rodriguez MD PCP: Lars Palomares DO Status: REG CLI Study: L/S Spine Min 4 Views Date of Exam: 09/10/17 Exam# [id number] Ordering Dr: Lars Palomares DO STUDY: X-RAY [...] Kwasi Rodriguez MD at 12:36 EDT Tel [phone], Service support , CC: Lars Palomares DO Stock And Station Agent: Signed Lars Palomares Work Phone: Colonoscopy Edilia Ash Comment on above: Normal. 03/2012 Colonoscopy Edilia Manchak Comment on above: Normal. 03/2012 Colonoscopy Edilia Manchak Comment on above: Normal. 03/2012 Colonoscopy Edilia Manchak Comment on above: Normal. 03/2012 Colonoscopy Edilia Manchak [employer] Comment on above: Normal. 03/2012 Colonoscopy Edilia Manchak [employer] Comment on above: Normal. 03/2012 Colonoscopy Edilia Manchak [employer] Comment on above: Normal. 03/2012 Colonoscopy Edilia Manchak [employer] Comment on above: Normal. 03/2012 Colonoscopy Edilia Manchak [employer] Comment on above: Normal. 03/2012 Colonoscopy Edilia Manchak [employer] Comment on above: Normal. 03/2012 laparoscopic radical prostatectomy- 01/15- Fiorella Lars A Fast Work Phone: laparoscopic radical prostatectomy- 01/15- Fiorella Edilia Manchak laparoscopic radical prostatectomy- 01/15- Fiorella Edilia Manchak [employer] laparoscopic radical prostatectomy- 01/15- Fiorella Edilia Manchak [employer] laparoscopic radical prostatectomy- 01/15- Fiorella Edilia Manchak [employer] laparoscopic radical prostatectomy- 01/15- Fiorella Edilia Manchak [employer] laparoscopic radical prostatectomy- 01/15- Fiorella Edilia Manchak [employer] laparoscopic radical prostatectomy- 01/15- Fiorella Edilia Manchak [employer] Plan of Treatment Date Care Activity Detail Author Start: 05-15-2025 Plain x-ray of pelvis and lower extremity HIP, UNI W/ Pelvis 2-[address] [facility] Start: 05-15-2025 X-ray of lumbosacral spine L/S Spine Min [address] [facility] Start: 07-27-2023 Influenza vaccination Influenza Vaccine (#1) [facility] Start: 05-16-2023 Procedure Education Eprescribed prescriptions (G8553) [facility] Work Phone: Start: 05-16-2023 Blood count complete auto&auto difrntl wbc CBC W/AUTO DIFF WBC (56327) [facility]; [facility] Work Phone: Start: 05-16-2023 Comprehensive metabolic panel METABOLIC PANEL, COMPREHENSIVE (02061) [facility] Work Phone: Start: 05-16-2023 25 hydroxy includes fractions if performed Vitamin D Hydroxy (82465) [facility]; [facility] Work Phone: Start: 05-16-2023 Urnls dip stick/tablet reagent auto microscopy URINALYSIS, W/ MICRO (40686) [facility]; [facility] Work Phone: Start: 05-02-2023 CBC, PLATELETS & MANUAL DIFF (18050) CBC, PLATELETS & MANUAL DIFF (87718) [facility]; [facility] Work Phone: Start: 05-02-2023 Comprehensive metabolic panel METABOLIC PANEL, COMPREHENSIVE (89495) [facility]; [facility] Work Phone: Start: 05-02-2023 Urnls dip stick/tablet reagent auto microscopy Urinalysis, Complete W/ Microscopic Examination with reflex to urine culture, routine (47346) [facility]; [facility] Work Phone: Start: 01-08-2023 Procedure Education Eprescribed prescriptions (G8553) [facility]; [facility] Work Phone: Start: 01-08-2023 Blood count complete auto&auto difrntl wbc CBC W/AUTO DIFF WBC (60503) [facility]; [facility] Work Phone: Start: 01-08-2023 Comprehensive metabolic panel METABOLIC PANEL, COMPREHENSIVE (64813) [facility]; [facility] Work Phone: Start: 09-18-2022 Procedure Education Eprescribed prescriptions (G8553) [facility]; [facility] Work Phone: Start: 09-18-2022 25 hydroxy includes fractions if performed Vitamin D Hydroxy (43015) [facility]; [facility] Work Phone: Start: 09-18-2022 Lipid panel LIPID PANEL (49139) [facility] Work Phone: Start: 09-18-2022 Blood count complete auto&auto difrntl wbc CBC W/AUTO DIFF WBC (19445) [facility]; [facility] Work Phone: Start: 09-18-2022 Comprehensive metabolic panel METABOLIC PANEL, COMPREHENSIVE (21273) [facility]; [facility] Work Phone: Start: 09-18-2022 Assay of parathormone PARATHORMONE (40182) [facility] Work Phone: Start: 05-15-2022 Procedure Education Eprescribed prescriptions (G8553) [facility]; [facility] Work Phone: Start: 05-15-2022 Comprehensive metabolic panel METABOLIC PANEL, COMPREHENSIVE (16575) [facility]; [facility] Work Phone: Start: 05-15-2022 Lipid panel LIPID PANEL (92217) [facility]; [facility] Work Phone: Start: 11-29-2021 Procedure Education Eprescribed prescriptions (G8553) [facility]; [facility] Work Phone: Start: 11-29-2021 Blood count complete auto&auto difrntl wbc CBC W/AUTO DIFF WBC (25242) [facility]; [facility] Work Phone: Start: 11-29-2021 Comprehensive metabolic panel METABOLIC PANEL, COMPREHENSIVE (29826) [facility]; [facility] Work Phone: Start: 05-25-2021 Procedure Education Eprescribed prescriptions (G8553) [facility]; [facility] Work Phone: Start: 05-25-2021 Blood count complete auto&auto difrntl wbc CBC W/AUTO DIFF WBC (70914) [facility]; [facility] Work Phone: Start: 05-25-2021 Comprehensive metabolic panel METABOLIC PANEL, COMPREHENSIVE (58053) [facility]; [facility] Work Phone: Start: 05-25-2021 25 hydroxy includes fractions if performed Vitamin D Hydroxy (73830) [facility]; [facility] Work Phone: Start: 05-25-2021 Lipid panel LIPID PANEL (70798) [facility] Work Phone: Start: 12-20-2020 Zoster Vaccines (2 of 3) Zoster Vaccines (2 of 3) [facility] Start: 11-09-2020 Procedure Education Eprescribed prescriptions (G8553) [facility]; [facility] Work Phone: Start: 11-09-2020 Blood count complete auto&auto difrntl wbc CBC W/AUTO DIFF WBC (01078) [facility]; [facility] Work Phone: Start: 11-09-2020 Comprehensive metabolic panel METABOLIC PANEL, COMPREHENSIVE (10827) [facility]; [facility] Work Phone: Start: 05-19-2020 Procedure Education Eprescribed prescriptions (G8553) [facility] Work Phone: Start: 05-19-2020 25 hydroxy includes fractions if performed Vitamin D Hydroxy (33779) [facility] Work Phone: Start: 05-19-2020 Lipid panel LIPID PANEL (79452) [facility] Work Phone: Start: 05-19-2020 Blood count complete auto&auto difrntl wbc CBC W/AUTO DIFF WBC (71511) [facility] Work Phone: Start: 05-19-2020 Comprehensive metabolic panel METABOLIC PANEL, COMPREHENSIVE (66284) [facility] Work Phone: Start: 05-19-2020 C-reactive protein high sensitivity C-REACT PROT HIGH SENS(hsCRP) (84127) [facility] Work Phone: Start: 04-30-2019 Procedure Education Eprescribed prescriptions (G8553) [facility] Work Phone: Start: 04-26-2019 DTaP/Tdap/Td Vaccines (2 - Td or Tdap) DTaP/Tdap/Td Vaccines (2 - Td or Tdap) [facility] Start: 01-21-2019 Comprehensive metabolic panel METABOLIC PANEL, COMPREHENSIVE (44018) [facility] Work Phone: Start: 01-21-2019 Assay of testosterone free TESTOSTERONE FREE (58256) [facility] Work Phone: Start: 01-21-2019 25 hydroxy includes fractions if performed Vitamin D Hydroxy (33277) [facility] Work Phone: Start: 01-21-2019 Protein mass conc NMR Profile (99973) [facility] Work Phone: Start: 07-31-2018 Procedure [...] includes fractions if performed Vitamin D Hydroxy (10588) [facility] Work Phone: Start: 01-16-2018 Procedure Education Eprescribed prescriptions (G8553) [facility] Work Phone: Start: 01-16-2018 Assay of testosterone free TESTOSTERONE FREE (41705) [facility] Work Phone: Start: 01-16-2018 Assay of parathormone PARATHORMONE (48981) [facility] Work Phone: Start: 09-10-2017 Procedure Education Eprescribed prescriptions (G8553) [facility] Work Phone: Start: 2016 Pneumococcal Vaccine: 65+ Years (1 - PCV) Pneumococcal Vaccine: 65+ Years (1 - PCV) [facility] Start: 1969 Hepatitis C screening Hepatitis C Screening [facility] Start: 04-23-1952 COVID-19 Vaccine (#1) COVID-19 Vaccine (#1) [facility] Start: 1950 Lipid panel Lipid Panel [facility] Start: 1950 Medicare Annual Wellness Visit Medicare Annual Wellness Visit (AWV) [facility] Start: 1950 Screening for malignant neoplasm of colon [facility] Work Phone: [...] park 08-30-2021 influenza virus vaccine, unspecified formulation [address] Work Phone: 08-26-2021 influenza, injectabl e, quadrivalent, preservative free Lars Fast DO Work Phone: [facility]; [facility] Work Phone: 10-25-2020 zoster vaccine, live Lars Fast [facility] Work Phone: Comment on above: 2nd shot 07-05-2020 zoster vaccine, live Lars Fast [facility] Work Phone: 11-09-2019 Influenza virus vaccine [facility] 05-18-2019 pneumococcal conjuga te vaccine, 7 valent Lars Palomares [facility] Work Phone: 04-26-2009 tetanus toxoid, reduced diphtheria toxoid, and acellular pertussis vaccine, adsorbed Lars Palomares [facility] Work Phone: Payers Date Payer Category Payer Self-pay [id number] 2023 [facility] [id number] 2023-Present [address] [place] [address] [id number] 2016 Unknown [id number] 1950 Unknown [id number] 1950 Unknown [id number] 3 Unknown [employer] [facility] Plan Unknown [id number] Unknown [id number] Unknown [id number] Unknown [id number] Unknown [id number] Unknown [id number] Unknown [id number] [id number] Unknown [id number] Unknown [id number] Unknown [id number] Unknown [id number] Unknown [id number] Unknown [id number] Social History Date Type Detail Facility Alcohol [...] 12-23-2021 End: 05-15-2025 Never smoked tobacco (finding) [facility] Start: 1950 Sex Assigned At Male [facility] Start: 01-12-2020 End: 01-12-2020 Tobacco smoking status NHIS Unknown if ever smoked [facility] Start: 01-12-2020 Non-smoker [facility] Start: 1950 Sex Assigned At Not on file [facility] Work Phone: Gender identity Not on file [facility] Work Phone: Start: 12-07-2023 End: 12-17-2023 Exposure to SARS-CoV-2 (event) Not sure [facility] Start: 02-11-2025 Sex Male (finding) [facility] Medical Equipment Procedure Code Equipment Code Equipment Origin al Text Equipment Identifier Dates CLIP,HEMOLOCK LG WECK FDA Start: 01-21-2020 CLIP,HEMOLOCK LG WECK FDA Start: 01-21-2020 CLIP,HEMOLOCK HI D WECK FDA Start: 01-21-2020 CLIP,HEMOLOCK HI D WECK FDA Start: 01-21-2020 CLIP,HEMOLOCK LG WECK FDA Start: 01-21-2020 CLIP,HEMOLOCK LG WECK FDA Start: 01-21-2020 CLIP,HEMOLOCK HI D WECK FDA Start: 01-21-2020 CLIP,HEMOLOCK HI D WECK FDA Start: 01-21-2020 CLIP,HEMOLOCK LG WECK FDA Start: 01-21-2020 CLIP,HEMOLOCK LG WECK FDA Start: 01-21-2020 CLIP,HEMOLOCK HI D WECK FDA Start: 01-21-2020 CLIP,HEMOLOCK HI D WECK FDA Start: 01-21-2020 CLIP,HEMOLOCK LG WECK FDA Start: 01-21-2020 CLIP,HEMOLOCK LG WECK FDA Start: 01-21-2020 CLIP,HEMOLOCK HI D WECK FDA Start: 01-21-2020 CLIP,HEMOLOCK HI D WECK FDA Start: 01-21-2020 CLIP,HEMOLOCK LG WECK FDA Start: 01-21-2020 CLIP,HEMOLOCK LG WECK FDA Start: 01-21-2020 CLIP,HEMOLOCK HI D WECK FDA Start: 01-21-2020 CLIP,HEMOLOCK HI D WECK FDA Start: 01-21-2020 CLIP,HEMOLOCK LG WECK FDA Start: 01-21-2020 CLIP,HEMOLOCK LG WECK FDA Start: 01-21-2020 CLIP,HEMOLOCK HI D WECK FDA Start: 01-21-2020 CLIP,HEMOLOCK HI D WECK FDA Start: 01-21-2020 CLIP,HEMOLOCK LG WECK FDA Start: 01-21-2020 CLIP,HEMOLOCK LG WECK FDA Start: 01-21-2020 CLIP,DISHA MCKAY FDA Start: [...] andDrug Administration. PATIENT WAS FASTINGP ERFORMED BY: BN [facility] [id number] [facility] [id number] BY: CB [facility] [id number] [place] [id number] Clinical Notes 12-26-2021 to 05-22-2025 Note Date & Type Note Facility 05-22-2025 Radiology Diagnostic study note [facility] Imaging Services [address] [place], [place] [address] Thyroid MR#: [id number] Acct: [id number] Name: RAFA FOSS Rep #: [id number] : 1950 M 74 From: Yomi Rodriguez MD PCP: Dr. Lars Palomares DO Status: REG CLI Study:Thyroid Date of Exam: 05/21/25 Exam# [id number] Ordering Dr: Sofiya Palomares ra, DO PROCEDURE: [...] no more than 2 nodules. Reading Location: [facility] CC: Dr. Lars Palomares DO ~ Stock And Station Agent: Signed [facility] 02-02-2025 Radiology Diagnostic study note [facility] Imaging Services [address] [place], [place] [address] CTA Chest W/WO Contrast MR#: [id number] Acct: [id number] Name: RAFA FOSS Rep #: [id number] : 1950 M 74 From: Jacqueline Lyman MD PCP: Dr. Lars Palomares DO Status: REG CLI Study:CTA Chest W/WO Contrast Date of Exam: 02/02/25 Exam# [id number] Ordering Dr: Sofiya Palomares ra DO EXAM: CT Angiography Chest Without and [...] in 12 months is recommended. Reading Location: [facility] CC: Dr. Lars Palomares, DO ~ Stock And Station Agent: Signed [facility] 12-24-2024 Evaluation note Diagnosis Onset Date Resolution Obstructive sleep apnea acute J anuary 2024 1:40pm [facility] Work Phone: [phone]) 167-532301-31-2022 Hospital Discharge instructions Patient Education 12/26/2021 08:40:03 [...] water added (diluted fruit juice). Eat bland, ypqa-ss-jatasq foods in small amounts as you are able. These foods include bananas, applesauce, rice, lean meats, toast, and crackers. Avoid fluids that contain a lot of sugar or caffeine, such as energy drinks, sports drinks, and soda. Avoid alcohol. Avoid spicy or fatty foods. General instructions Take pizx-xqr-qurutiw and prescription medicines only as told by your health care provider. Drink enough fluid to keep your urine pale yellow. Wash your hands often using soap and water. If soap and water are not available, use hand devulcanizer operator. Make sure that all people in your [...] eating and drinking to prevent dehydration. Take sjea-mmh-aiccewe and prescription medicines only as told by [...] 11/12/2006 Document Revised: 03/05/2020 Document Reviewed: 04/22/2019 [employer] Patient Education 2020 [employer] !. 12/26/2021 08:39:53 Monitored Anesthesia Care, Care After [...] before eating solid foods. General instructions Take xqoa-oqa-sutwrko and prescription medicines only as told by [...] 03/04/2017 Document Revised: 02/10/2019 Document Reviewed: 03/04/2017 [employer] Patient Education 2020 [employer] !. 12/26/2021 08:39:52 Colonoscopy, Adult, Care After Colonoscopy, [...] a slower pace than normal. ?Eat soft, bbgm-lb-bozilx foods. Take veek-ksp-zefsmna or prescription medicines only as told by [...] 06/26/2005 Document Revised: 09/04/2018 Document Reviewed: 01/23/2017 [employer] Patient Education 2020 [employer] Follow Up Care 12/23/2021 10:19:53 With:GT BARRON Address[address] [place] [phone] Business (1) When: Unknown [facility] Evaluation + Plan note No data available for this section [facility] Evaluation noteNo assessment information available [facility] Work Phone: Evaluation note* Diagnosis Hyperlipidemia, unspecified documented in this encounter [facility] Work Phone: Instructions* Name Dates Details Patient Instructions Indication:Hyperlipidemia Start:09-Nov-2020 Instruction Type:Provider Instructions for Treatment How to Access Health Informa tion Online using Patient Portal and [employer] Indication:Hyperlipidemia Start:09-Nov-2020 Instruction Type:Patient [...] How to access health informa tion online Indication:[facility] EXAM Start:16-Jan-2018 Instruction Type:Patient Education How to access health informa tion online - Detail Indication:[facility] WELLNESS EXAM Start:16-Jan-2018 Instruction Type:Patient Education Patient Instructions Indication:[facility] WELLNESS EXAM Start:16-Jan-2018 Instruction Type:Provider Instructions for [...] Informa tion Online using Patient Portal and [employer] Indication:Nonsmoker Start:18-Sep-2022 Instruction Type:Patient [...] for referral (narrative)No reason for referral information [facility] Work Phone: Family History No Family [...] (not proven) Status:Active Instructions Name Dates Details [facility] EXAM : How to access health information online Indication:[facility] WELLNESS EXAM [facility] : How to access health information online - Detail Indication:[facility] WELLNESS EXAM [facility] EXAM : Patien t Instructions Indication:[facility] WELLNESS EXAM Abnormal blood chemistry : H [...] Patient Instructi ons Indication:Cataract Name Dates Details [facility] EXAM : How to access health information online Indication:[facility] WELLNESS EXAM [facility] EXAM : How to access health information online - Detail Indication:[facility] WELLNESS EXAM [facility] EXAM : Patien t Instructions Indication:[facility] WELLNESS EXAM Abnormal blood chemistry : H [...] How to access health informa tion online Indication:[facility] EXAM Start:21-Jan-2019 Instruction Type:Patient Education How to access health informa tion online - Detail Indication:[facility] EXAM Start:21-Jan-2019 Instruction Type:Patient Education Patient Instructions Indication:[facility] EXAM Start:21-Jan-2019 Instruction Type:Provider Instructions for [...] How to access health informa tion online Indication:[facility] EXAM Start:16-Jan-2018 Instruction Type:Patient Education How to access health informa tion online - Detail Indication:[facility]LL[facility] EXAM Start:16-Jan-2018 Instruction Type:Patient Education Patient Instructions Indication:[facility] EXAM Start:16-Jan-2018 Instruction Type:Provider Instructions for [...] How to access health informa tion online Indication:[facility] WELLNESS EXAM Start:16-Jan-2018 Instruction Type:Patient Education How [...] Informa tion Online using Patient Portal and [employer] Indication:Hyperlipidemia Start:09-Nov-2020 Instruction Type:Patient [...] Informa tion Online using Patient Portal and [employer] Indication:Hyperlipidemia Start:09-Nov-2020 Instruction Type:Patient [...] How to access health informa tion online Indication:[facility] WELLNESS EXAM Start:21-Jan-2019 Instruction Type:Patient Education How [...] is available upon request. Effective:12-Feb-2018 Immunization Registry [place] - Effective on 09/10/2017. Expiration date unspecified Effective:10-Sep-2017 Name Dates Details Living Will - Effective on . Expiration date unspecified. Scanned Document is available upon request. Effective:12-Feb-2018 Immunization Registry [place] - Effective on 09/10/2017. Expiration date unspecified Effective:10-Sep-2017 Name Dates Details Living Will - Effective on . Expiration date unspecified. Scanned Document is available upon request. Effective:12-Feb-2018 Immunization Registry [place] - Effective on 09/10/2017. Expiration date unspecified Effective:10-Sep-2017 Name Dates Details Living Will - Effective on . Expiration date unspecified. Scanned Document is available upon request. Effective:12-Feb-2018 Immunization Registry [place] - Effective on 09/10/2017. Expiration date unspecified Effective:10-Sep-2017 Name Dates Details Living Will - Effective on . Expiration date unspecified. Scanned Document is available upon request. Effective:12-Feb-2018 Immunization Registry [place] - Effective on 09/10/2017. Expiration date unspecified Effective:10-Sep-2017 Name Dates Details Living Will - Effective on . Expiration date unspecified. Scanned Document is available upon request. Effective:12-Feb-2018 Immunization Registry [place] - Effective on 05/19/2019. Expiration date unspecified Effective:19-May-2019 Name Dates Details Living Will - Effective on . Expiration date unspecified. Scanned Document is available upon request. Effective:12-Feb-2018 Immunization Registry [place] - Effective on 05/19/2019. Expiration date unspecified Effective:19-May-2019 Name Dates Details Living Will - Effective on . Expiration date unspecified. Scanned Document is available upon request. Effective:12-Feb-2018 Immunization Registry [place] - Effective on 05/19/2019. Expiration date unspecified Effective:19-May-2019 Name Dates Details Living Will - Effective on . Expiration date unspecified. Scanned Document is available upon request. Effective:12-Feb-2018 Immunization Registry [place] - Effective on 05/19/2019. Expiration date unspecified Effective:19-May-2019 Name Dates Details Living Will - Effective on . Expiration date unspecified. Scanned Document is available upon request. Effective:12-Feb-2018 Immunization Registry [place] - Effective on 05/19/2019. Expiration date unspecified Effective:19-May-2019 Name Dates Details Living Will - Effective on . Expiration date unspecified. Scanned Document is available upon request. Effective:12-Feb-2018 Immunization Registry [place] - Effective on 05/19/2019. Expiration date unspecified Effective:19-May-2019 Name Dates Details Living Will - Effective on . Expiration date unspecified. Scanned Document is available upon request. Effective:12-Feb-2018 Immunization Registry [place] - Effective on 05/19/2019. Expiration date unspecified Effective:19-May-2019 Name Dates Details Living Will - Effective on . Expiration date unspecified. Scanned Document is available upon request. Effective:12-Feb-2018 Immunization Registry [place] - Effective on 05/19/2019. Expiration date unspecified Effective:19-May-2019 Name Dates Details Living Will - Effective on . Expiration date unspecified. Scanned Document is available upon request. Effective:12-Feb-2018 Immunization Registry [place] - Effective on 05/19/2019. Expiration date unspecified Effective:19-May-2019 Advance Directive Response Recorded Date/ Time Living Will Yes January 21 020 1:55pm Power of Pharmaceutical Officer Yes January 21, 2020 1:55pm Name Dates Details Living Will - Effective on . Expiration date unspecified. Scanned Document is available upon request. Effective:12-Feb-2018 Immunization Registry [place] - Effective on 05/19/2019. Expiration date unspecified Effective:19-May-2019 Name Dates Details Living Will - Effective on . Expiration date unspecified. Scanned Document is available upon request. Effective:12-Feb-2018 Immunization Registry [place] - Effective on 05/19/2019. Expiration date unspecified Effective:19-May-2019 Name Dates Details Living Will - Effective on . Expiration date unspecified. Scanned Document is available upon request. Effective:12-Feb-2018 Immunization Registry [place] - Effective on 05/19/2019. Expiration date unspecified Effective:19-May-2019 Advance Directive Response Recorded Date/ Time Living Will Yes January 21 020 12:55pm Power of Pharmaceutical Officer Yes January 21, 2020 12:55pm Name Dates Details Living Will - Effective on . Expiration date unspecified. Scanned Document is available upon request. Effective:12-Feb-2018 Immunization Registry [place] - Effective on 05/19/2019. Expiration date unspecified Effective:19-May-2019 Name Dates Details Living Will - Effective on . Expiration date unspecified. Scanned Document is available upon request. Effective:12-Jan-2023 Immunization Registry [place] - Effective on 05/19/2019. Expiration date unspecified Effective:19-May-2019 Name Dates Details Living Will - Effective on . Expiration date unspecified. Scanned Document is available upon request. Effective:12-Jan-2023 Immunization Registry [place] - Effective on 05/19/2019. Expiration date unspecified Effective:19-May-2019 Name Dates Details Living Will - Effective on . Expiration date unspecified. Scanned Document is available upon request. Effective:12-Jan-2023 Immunization Registry [place] - Effective on 05/19/2019. Expiration date unspecified Effective:19-May-2019 Advance Directive Response Recorded Date/ Time Living Will Yes January 21, 2 020 1:55pm Do you have a Healthcare Power of Pharmaceutical Officer? Yes January 21, 2020 1:55pm Summary Purpose [...] Diagnoses / Procedures Referred By Jorge Luis t Referred To Contact Radiology Diagnoses Hyperlipidemia, unspecified Procedures CT cardiac scoring wo IV contrast Jasbir, Lars Nugent, [address] [address] Referral ID Status Reason Start Date Expiration Date Visits Requested Visits Authorized [id number] Authorized Perform Procedure 12/13/2023 12/12/2024 1 1 Additional Source Comments (unrecognized sect ion and content) No Status Records FoundNo Status Records FoundNo Status Records FoundNo Status Records Found INFORMATION SOURCE (unrecogn ized section and content) DATE CREATED AUTHOR 01/02/2022 [facility] ([place]) DATE CREATED AUTHOR AUTHOR'S ORGANIZ ATION 01/01/2023 [facility] DATE CREATED AUTHOR AUTHOR'S ORGANIZ ATION 08/18/2024 [facility] DATE CREATED AUTHOR AUTHOR'S ORGANIZ ATION 07/21/2025 [facility] Goals (unrecognized section and content) Goals may be documented in a n alternate section Care Teams (unrecognized sec tion and content) Team Status: Active Member Role Status Dates Dr. Lars Palomares DO Family Provider Active Dr. Lars Palomares DO Primary Care Provider Active Team Status: Inactive Member Role Status Dates Dr. Lars Palomares DO Primary Care Provider Active Dee Cardoso , STUNT DOUBLE-C Attending Provider, Referrin g Provider Active Team Status: Inactive Member Role Status Dates Dr. Lars Palomares DO Primary Care Provider, Attending P syed Active Team Status: Inactive Member Role Status Dates Dr. Lars Palomares DO Primary Care Provider Active Dr. Chadd Gtz MD Attending Provider, Referr ing Provider Active Team Status: Inactive Member Role Status Dates Dr. Lars Palomares DO Primary Care Provide r, Attending Provider, Referring Provider Active Wood Gouger Relationship Specialty Start Date End Date Lars Palomares DO [address] [facility] [address] [place] [address] PCP - General Internal Medicine 12/17/23 Team Status: Inactive Member Role Status Dates Dr. Lars Palomares DO Primary Care Provider Active Dr. Chadd Gtz MD Attending Provider Active Team Status: Inactive Member Role Status Dates Dr. Lars Palomares DO Primary Care Provider Active Tessy Hawk Attending Provider, Referring Provide r Active Team [...] 2024 End: December 24, 2024 Addie Andrea STUNT DOUBLE, STUNT DOUBLE-C Attending Provider Active Start: December 24, 2024 End: December 24, 2024 Team Status: Inactive Member Role Status Dates Dr. Lars Palomares DO Primary Care Provider Active Start: January 06, 2025 End: January 06, 2025 Tessy Hawk Attending Provider Active Start : January 06, 2025 End: January 06, 2025 Tessy Hennessying Referring Provider Active Start : January 06, [...] Status: Inactive Member Role/Relationship Status Dates Dr. aLrs Palomares DO Primary Care Provider Active Start: [...] 08, 2025 End: July 08, 2025 Tessy Hawk Attending Provider Active Start : July 08, 2025 End: July 08, 2025 Tessy Hawk Referring Provider Active Start : July 08, 2025 End: July 08, 2025 Reason for Visit (unrecogniz ed section and content) Specialty Diagnoses / Procedures Referred By Jorge Luis t Referred To Contact Radiology Diagnoses Hyperlipidemia, unspecified Procedures CT cardiac scoring wo IV contrast Lars Palomares DO [address] [facility] [address] [place] [address] Referral ID Status Reason Start Date Expiration Date Visits Requested Visits Authorized [id number] Authorized Perform Procedure 12/13/2023 12/12/2024 1 1 [...] BE BASED ON THE PRIMARY CLINICAL RECORDS. [facility] [employer] [facility]. provides no warranty or guarantee of the accuracy or completeness of information in this document.
--- NOTE | 2025-07-21 07:30 | PET_ITS ---
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 A preliminary CT study encompassing the Skull base, neck, chest, abdomen, pelvis, and proximal thighs was performed for purposes of attenuation correction and anatomic localization. The proximal thighs were also included. RADIOPHARMACEUTICAL: 9.803 mCi Pylarify (Piflufolastat F18) - Prostate Specific Membrane Agent - IV was injected into he patient. RADIATION DOSE SUMMARY: Effective Dose: Approximately 7 mSv for a standard whole-body PET scan Organ Doses: Varies by organ, with higher doses typically to the bladder, liver, and brain COMPARISON: COMPARISON FROM CT, PET OR OTHER PERTINENT EXAMS: Pylarify PET-CT of 11/06/2023.. FINDINGS: Physiologic uptake: There may be expected metabolic uptake within the brain, tongue and floor of the mouth and larynx/vocal cords, heart, teodora (many normal individuals have hilar uptake in less than 3 nodes with mildly avid hilar nodes less than 2.7 SUV), liver and spleen, system, and GI tract and symmetric muscle uptake. FDG AVID AND NON-AVID LESIONS. Reported avid SUV values (g/mL*) are maximum SUV. NECK: There are no significant neck abnormalities. CHEST: Chest wall- There are no significant chest wall abnormalities. Axilla- There are no significant axillary abnormalities. Lung parenchyma- There are no significant lung parenchyma abnormalities. Mediastinum- There are no significant hilar or mediastinal adenopathy. Pleura- There are no significant pleural abnormalities. ABDOMEN: Stomach- No significant abnormalities. Liver- No significant abnormalities. Spleen- No significant abnormalities. Pancrease- No significant abnormalities. Kidneys- No significant abnormalities. Bowel- Normal bowel activity. Spine- No significant abnormalities. Mild aortic calcification is seen; no evidence of abdominal aortic aneurysm. PELVIS: [id number] sigmoid diverticulosis is seen. Bowel- Normal physiologic bowel activity is identified. Masses- There are no pelvic masses. Bones- Degenerative changes are seen throughout the spine and pelvis. With the use of bone window settings, there are no osteolytic or osteoblastic lesions. There are no FDG avid lesions within the visualized portion of the axial skeleton. PET/PET/CT Tumor Base -Thigh Subs IMPRESSION: FDG avid- No significant avid lesions. Other: Sigmoid colon diverticulosis. Please note the low-dose CT scan was performed to facilitate PET image reconstr uction and anatomic localization and does not replace a diagnostic CT. Any diagnostic CT requested and performed at the time of the PET will be reported separately. Reading Location: [place] [id number]
== END | disposition home or self-care (01) ==
LOC: ONC 07:18
PROVIDERS: PCP Internal Medicine; Referring Provider Urology; Visit Provider Urology
DX: C61 Malignant neoplasm of prostate (principal)
CPT/HCPCS: 78815; A9595

== ENCOUNTER 2025-10-20 08:00 | Outpatient (CLI) | payer MEDICARE, SELFPAY ==
--- NOTE | 2025-10-29 17:13 | PAT.ANE_ITS ---
Pre-Assessment Diagnosis/Proposed Procedure Planned Operative Procedure(s): ANTERIOR RIGHT TOTAL HIP ARTHROPLASTY Anesthesia History Anesthesia History - commercial escrow officer: Anesthesia History - commercial escrow officer Hx Hospitalization No 10/20/25 08:24 Any Problems With Anesthesia No 10/20/25 08:24 Cholinesterase deficiency No 10/20/25 08:24 You/Your Family Experience No 10/20/25 08:24 fever (hyperthermia) with Relationship Recent Exposure to Contagious No 05/15/25 09:36 Disease Does patient have nerve No 10/20/25 08:24 stimulator Patient instructed to have device shut off --Does patient have Pacemaker or ICD? When Was Last Pacemaker Check QUESTION #4 FULL TEXT: You/Your Family Experience fever (hyperthermia) with Anesthesia Last Oral Intake Last Oral intake: Last Oral Intake NPO since Meds taken in AM with sips of water? Meds patient instructed to take am of surgery PONV PONV - commercial escrow officer: PONV - commercial escrow officer Female No 10/20/25 08:24 HX of Motion Sickness No 10/20/25 08:24 HX of N/V After Surgery No 10/20/25 08:24 Non-Smoker Yes 10/20/25 08:24 Duration of Surgery greater Yes 10/20/25 08:24 than 60 minutes Number of Risk Factors 2 10/20/25 08:24 PONV Score Moderate Risk 10/20/25 08:24 Height & Weight Height & Weight: Anesthesia: Height & Weight Height 5 ft 9.5 in 05/15/25 09:36 Respiratory Assessment Respiratory Assessment - commercial escrow officer: Respiratory Tract Infection Hx - commercial escrow officer Hx Respiratory Tract Infection No 10/20/25 08:24 STOP Sleep Apnea STOP Sleep Apnea - commercial escrow officer: STOP Sleep Apnea - commercial escrow officer Hx Hypertension No 10/20/25 08:24 Hx Sleep Apnea Yes 10/20/25 08:24 CPAP Yes 10/20/25 08:24 BIPAP No 10/20/25 08:24 Do you snore loudly (louder No 10/20/25 08:24 than talking or can be heard Do you often feel tired/ No 10/20/25 08:24 fatigued/ sleepy during daytime? Has anyone observed you stop No 10/20/25 08:24 breathing during sleep? STOP Results Positive 10/20/25 08:24 QUESTION #5 FULL TEXT : Do you snore loudly (louder than talking or can be heard through closed doors)? Tobacco Use History Tobacco Use History - commercial escrow officer: Tobacco Use History - commercial escrow officer Tobacco Use Smoking Status Never smoker 10/20/25 08:24 Hx Tobacco Use No 10/20/25 08:24 Years Smoking Packs Smoked per Day Smoking Cessation Date was within the last 15 years Hx Smoking Cessation Date Hx Smoking Cessation Counseling Hematologic Medial History Hematologic Hx - commercial escrow officer: Hematologic Medical Hx - business travel consultant Hx of Blood Transfusion No 10/20/25 08:24 Hx of Transfusion in last 3 No 10/20/25 08:24 Months Date of Last Transfusion (if within last 3 months) Ever experience any problems No 10/20/25 08:24 with transfusion(s)? Specify any problems Hx of Preganancy in last 3 N/A 10/20/25 08:24 Months Nurse Filling Out Transfusion [id number] 10/20/25 08:24 & Questions: Date: 10/20/25 10/20/25 08:24 Time: 08:35 10/20/25 08:24 Patient unable to answer at this time (ie. confused, unrespo /Reproduction History /Reproductive History - commercial escrow officer: /Reproductive Hx- commercial escrow officer Hx Now No 10/20/25 08:24 Gestational Age (in weeks): EDC: Hx Hx Para Hx Section SAB No 10/20/25 08:24 Does the father of the baby or his family experience fever w Father of the baby Malignant Hypertension history comment [facility] Medical History (Updated 10/20/25 @ 08:41 by Dalton Hensley) Wears glasses Alcohol use High cholesterol Back pain History of pain when walking Non-smoker Sleep apnea CPAP (continuous positive airway pressure) dependence History of echocardiogram Prostate CA Home Medications ?Medication ?Instructions ?Recorded ?Last Taken ?Type cholecalciferol (vitamin D3) 50 4,000 unit PO DAILY vieira pplement 01/12/20 Unknown History mcg (2,000 unit) capsule rosuvastatin 5 mg tablet 5 mg PO QDAY 08/25/24 Unknow n History docusate sodium 100 mg capsule 100 mg PO BID PRN const ipation 12/24/24 Unknown History donepezil 10 mg tablet 10 mg PO QHS 10/20/25 Unknow n History loratadine 10 mg capsule (Allergy 10 mg PO DAILY 10/20 Unknown History Relief (loratadine)) meloxicam 15 mg tablet 15 mg PO DAILY PRN pain 09/27 04/19 Unknown History Allergy/AdvReac Type Severity Reaction Status Date / Time No Known Allergies Allergy Verified 10/20/25 08:22 Surgical History H/O prostatectomy Social History (Reviewed 12/24/24 @ 13:58 by Addie Andrea COMPUTER SCIENCES PROFESSOR, COMPUTER SCIENCES PROFESSOR-C) Smoking Status: Never smoker Audit: Pertinent Findings Pertinent Findings EKG Perinent findings: 10/26/2025. Sinus rhythm. Echo (EF%) pertinent findings: 10/28/2025. EF of 60%. RVSP is 36 mmHg. No aortic stenosis noted. Recommendation Anesthesia Recommendation Anesthesia recommendation: OPTIMIZED for anesthesia
[2025-11-03 10:56] LABS: Hematocrit 43.2 % (40-54); Hemoglobin 14.2 g/dL (13.0-16.5); Immature Granulocytes Count 0.030 X10^3/uL (0.0-0.0); Mean Corp Hgb Conc 32.9 g/dL (32-36); Mean Corpuscular Volume 97.5 fL (80-94); Mean Platelet Vol. 11.3 fl (6.2-12.0); NRBC Flagged by Analyzer 0 % (0-5); Platelet Count 190 K/mm3 (150-450); RBC Distribution Width CV 13.2 % (11.6-14.6); RBC Distribution Width SD 46.9 fl (35.1-43.9); Red Blood Count 4.43 M/mm3 (4.6-6.2); White Blood Count 7.0 K/mm3 (4.4-11.0)
[2025-11-03 11:05] LABS: Prothrombin Time (Protime)PT. 13.8 SECONDS (11.7-14.9)
[2025-11-03 11:06] LABS: Partial Thromboplast Time 29.0 Seconds (24.1-36.2)
[2025-11-03 11:33] LABS: Albumin, Serum 4.5 g/dL (3.4-4.8); Anion Gap 10 (5-15); BUN 14 mg/dL (4-19); BUN/Creat Ratio 16.4 RATIO (10-20); Calcium,Total 10.0 mg/dL (7.6-11.0); Carbon Dioxide 27.6 mmol/L (21.0-32.0); Chloride 105 mmol/L (98-108); Glucose 88 mg/dL (70-99); Potassium 4.5 mmol/L (3.3-5.1)
[2025-11-03 11:36] LABS: AST(SGOT) 28 U/L (<=37); Alanine Aminotransfer ALT/SGPT 21 U/L (<=46); Albumin, Serum 4.5 g/dL (3.4-4.8); Alkaline Phosphatase 71 U/L (40-129); Bilirubin, Direct 0.15 mg/dL (0.00-0.30); Globulin 3.0 g/dL (2.2-4.2); Magnesium 2.3 mg/dL (1.5-2.2)
== END 2025-10-20 23:59 | disposition home or self-care (01) ==
LOC: SDC 01-05 11:50
PROVIDERS: Student in an Organized Health Care Education/Training Program; PCP Internal Medicine; Referring Provider Specialist; Visit Provider Specialist
DX: Z01.818 Encounter for other preprocedural examination (principal); G47.30 Sleep apnea, unspecified; Z79.899 Other long term (current) drug therapy; E78.00 Pure hypercholesterolemia, unspecified; Z85.46 Personal history of malignant neoplasm of prostate; Z90.79 Acquired absence of other genital organ(s)
CPT/HCPCS: 36415; 80048; 80076; 82040; 83735; 85025; 85610; 85730; 87081

== ENCOUNTER → 2025-10-26 | Outpatient (CLI) | payer MEDICARE, SELFPAY ==
[2025-10-26 15:28] LABS: PSA,Total- Diagnostic < 0.02 ng/mL (0.00-4.00)
== END | disposition home or self-care (01) ==
LOC: MTLAB 11:39
PROVIDERS: PCP Internal Medicine; Referring Provider Urology; Visit Provider Urology
DX: C61 Malignant neoplasm of prostate (principal)
CPT/HCPCS: 36415; 84153

== ENCOUNTER → 2025-10-28 | Outpatient (CLI) | payer MEDICARE, SELFPAY ==
--- NOTE | 2025-10-28 13:40 | ECHOD_ITS ---
Reason For Study Reason For Study: Mitral Insufficiency Procedure This was a 2D Doppler, Color Flow transthoracic echocardiogram. Exam performed in department. Left Ventricle Normal size and thickness. The left ventricular ejection fraction is 60 %. Diastolic function is indeterminate. Right Ventricle Normal right ventricle. Atria The left and right atria are normal. Mitral Valve Moderate anteriorly directed eccentric mitral valve regurgitation. Tricuspid Valve Mild-Moderate (1-2+) tricuspid valve insufficiency. Right ventricular systolic pressure estimated to be 36 mmHg. Aortic Valve Trisinus/trileaflet aortic valve. Trivial aortic valve insufficiency. Pulmonic Valve Trivial pulmonic valve insufficiency. Great Vessels Normal sized aortic root. Pericardium/Pleural No pericardial effusion. MMode/2D Measurements & Calculations LVIDd: 5.2 cm IVSd: 0.92 cm Ao root diam: 3.7 cm LVIDs: 3.5 cm LVPWd: 0.84 cm RVDd: 3.8 cm FS: 32.0 % LAV(MOD-bp): 45.8 ml LVAd ap4: 32.2 cm2 SV(MOD-sp4): 61.3 ml LAV(MOD-bp) Indexed: 23.0 ml/m2 LVLd ap4: 8.1 cm SI(MOD-sp4): 30.8 ml/m2 LAV(MOD-sp2): 40.7 ml EDV(MOD-sp4): 105.7 ml LAV(MOD-sp4): 46.6 ml EDV(sp4-el): 108.3 ml LVAs ap4: 19.4 cm2 LVLs ap4: 7.0 cm ESV(MOD-sp4): 44.4 ml ESV(sp4-el): 45.7 ml EF(MOD-sp4): 58.0 % EF(sp4-el): 57.9 % SV(sp4-el): 62.7 ml LA A4 area: 18.6 cm2 LA dimension(2D): 3.1 cm RA A4 area: 18.1 cm2 Time Measurements MV dec time: 0.31 sec Doppler Measurements & Calculations MV E max lasha: 66.6 cm/sec Lat Peak E' Lasha: 9.0 cm/sec Med Peak E' Lasha: 7.4 cm/sec MV A max lasha: 84.3 cm/sec E/E' lat: 7.4 E/E' med: 9.1 MV E/A: 0.79 MV V2 max: 95.9 cm/sec MV P1/2t max lasha: 82.7 cm/sec Ao V2 max: 161.2 cm/sec MV max P.7 mmHg MV P1/2t: 110.0 msec Ao max P.4 mmHg MV V2 mean: 52.6 cm/sec Ao V2 mean: 103.9 cm/sec MV mean P.3 mmHg MV dec slope: 220.2 cm/sec2 Ao mean P.2 mmHg MV V2 VTI: 28.5 cm MVA(P1/2t): 2.0 cm2 Ao V2 VTI: 30.1 cm AV (velocity ratio): 0.65 AI max lasha: 509.8 cm/sec LV V1 max: 110.7 cm/sec MR max lasha: 441.3 cm/sec AI max P.9 mmHg LV V1 max P.9 mmHg MR max P.9 mmHg LV V1 mean P.4 mmHg AI dec slope: 194.2 cm/sec2 LV V1 mean: 70.4 cm/sec AI P1/2t: 768.8 msec LV V1 VTI: 19.5 cm PA V2 max: 122.3 cm/sec TR max lasha: 280.4 cm/sec TR max P.4 mmHg ECHO/Echo Complete Interpretation Summary The left ventricular ejection fraction is 60 %. Diastolic function is indeterminate. Mild-Moderate (1-2+) tricuspid valve insufficiency. Moderate anteriorly directed eccentric mitral valve regurgitation. Extent of th e MR may be underestimated. Recommend cardiac MRI or [facility] for further evaluation. Ordering Physician: Marii Martell Referring Physician: Marii Martell Performed By: Juan Diego Stack RCS
== END | disposition home or self-care (01) ==
LOC: CVS 13:37
PROVIDERS: PCP Internal Medicine; Referring Provider Internal Medicine; Visit Provider Internal Medicine
DX: I34.0 Nonrheumatic mitral (valve) insufficiency (principal)
CPT/HCPCS: 93306